=== PATIENT | male | born 1965 | race Caucasian/White ===

== ENCOUNTER 2018-07-15 10:08 | Inpatient (IN) | payer BC ==
--- NOTE | 2018-07-15 11:31 | EDPHY ---
General - History Smoking Status: Never smoked Time Seen by Provider: 07/15/18 10:53 Narrative: CLINICAL IMPRESSION: Severely anemic, melena, left anterior chest wall pain, weak ASSESSMENT/PLAN: 53-year-old male presents to the emergency department with 3 days of left anterior chest wall pain, shortness of breath, bilateral lower extremity pitting edema, and weakness. Patient appeared very pale and jaundiced on initial exam. He has a history of cirrhosis. Reproducible pain to palpation of the left anterior chest. Abdomen soft with no focal peritoneal findings. Tachycardic on arrival without hypoxia. Lab findings concerning for severe anemia with an H&H of 7 and 21, hypokalemia with AK of 2.4, elevated troponin 0.16, elevated D-dimer, the abnormal EKG. Case discussed immediately with Dr. Cruz who also saw and examined the patient. She performs stool studies which were guaiac positive. Dr. Cruz assumed care of this patient, discussed with Cardiology and hospitalist for admission. DIFFERENTIAL DX: Differential diagnosis includes but not limited to myocardial ischemia, pulmonary embolus, endocarditis, rib fracture, pneumonia, congestive heart failure chest wall pain, pleural inflammation, musculoskeletal chest wall pain, aortic aneurysm, and pulmonary infectious causes. ED PROCEDURES: See lab and/or imaging results below ED COURSE: 12:30 P.M: EKG, history, and initial diagnostic workup evaluation discussed with Dr. Cruz. Patient is significantly anemic at 7 and 21, hypokalemic, has an elevated D-dimer and an elevated troponin of 0.16. Patient was seen and examined by Dr. Cruz. She spoke with Cardiology. Will plan to admit the patient. Stool guaiac studies obtained by ED attending which are positive. Dr. Cruz has assumed care of this patient. CHIEF COMPLAINT: Left-sided anterior chest wall pain, shortness of breath, increased lower extremity edema HPI: 53-year-old male presents to the emergency department with 3 days of left anterior chest wall pain, shortness of breath, and increased lower extremity edema. Patient reports in October of last year he fell off a timothy in [place], sustained multiple fractures to the sternum, back, wrist and 3 anterior left rib fractures. Since that time he has had 3 separate falls to the same side of the left chest. He reports in November of last year he was found to have endocarditis and pneumonia, was admitted to a hospital in [place] on IV antibiotics for 1 month, discharged with a PICC line and completed outpatient antibiotics. He developed chronic pulmonary disease and CHF and was taking Lasix 20 mg daily as well as Ventolin inhalers. Patient moved to [place] 3 weeks ago. Reports he ran out of his Ventolin inhaler and lost several of his Lasix tablets. Three days ago he reports tripping on a trash bag full of clothes and landing yet again on the same left anterior rib area that was previously injured. He had Lasix sent to him and reports he restarted this 3 days ago but continues to notice lower extremity edema. He reports no chest pain or other cardiac history. He denies IV drugs. He does not smoke cigarettes but does smoke marijuana. He reports intermittent history of alcohol abuse and did drink recently. No complaints of abdominal pain, nausea, vomiting or abdominal distension. No reports of weight gain. No reported fever or chills. Patient states he came to the hospital today "because I would like a pneumonia shot, flu shot, and I want to be checked to make sure I do not have rib fractures or pneumonia". PAST MEDICAL HISTORY: Reported history of endocarditis, multiple rib fractures to the left, pulmonary edema and CHF on Lasix, pneumonia, cirrhosis See nurse/triage notes for additional history if applicable Pertinent Past Surgical History: None reported Family History: Noncontributory Social History: Drinks alcohol, recently moved to [place] 3 weeks ago REVIEW OF SYSTEMS: All other systems negative Constitutional: No fever, no chills, appetite change. Eyes: No discharge, vision change ENT: Positive for sore throat and voice change, congestion, denies ear pain. Cardiovascular: Positive for chest pain, no palpitations. Respiratory: Positive for cough, positive for shortness of breath. Gastrointestinal: No abdominal pain, no vomiting, diarrhea. Genitourinary: No hematuria, dysuria, flank pain, pelvic pain Musculoskeletal: No back pain, joint swelling, joint pain, myalgias. Skin: No rashes, color change. Neurological: No headache, dizziness, weakness. PHYSICAL EXAM: General Appearance: Alert, oriented, appropriate, cooperative, jaundice appearing, NAD, well hydrated, non-toxic appearing, tachycardic, afebrile no hypoxia, saturating 98% on room air. No orthopnea HEENT: TMs are clear bilaterally no perforation or FB, no injection, no evidence of serous or mucopurulent otitis. Oropharynx clear is no erythema or exudates Dry mucous membranes Dentition without abnormality. Eyes: PERRLA, no acute vision change, nystagmus, swelling, discharge, pain or photosensitivity. Conjunctiva pink, no pallor or injection, no obvious scleral icterus Neck: Supple, nontender, no lymphadenopathy, no midline pain, FROM, no meningismus. No JVD Respiratory: [There are no retractions, lungs are clear to auscultation. Reproducible pain to palpation of left anterior chest wall Cardiac: Regular rate and rhythm, no murmurs or gallops. Gastrointestinal: Abdomen is soft, nontender, mild to moderate hepatomegaly noted bowel sounds normal, no masses/hernia, no rigidity, guarding or focal peritoneal findings. Neurological: [ Alert and oriented x 3, CN 2-12 grossly intact Skin: Warm, dry, no rashes, no nodules on palpation. Patient does appear jaundiced Musculoskeletal: Extremities are symmetrical, full range of motion, no tenderness, 2+ pitting edema noted to bilateral lower extremities Psychiatric: Patient is oriented X 3, there is no agitation. MEDICAL DECISION MAKING: Patient was seen independently. Secondary supervising physician at time of evaluation was Dr. Cruz. Diagnosis: Weakness, chest wall pain, elevated troponin, melena, hypokalemia. New, requires workup Summary: See Assessment and Plan for summary of ED visit Clinical lab tests: ordered / reviewed. Independent visualization of images, tracing, or specimens: Yes. Discussed patient with another provider: Dr. Cruz who assumed care of this patient Patient Progress: Fair, stable for admission. (Benita,Christofer N) Medical Decision Making: I have evaluated and participated in the management of this patient. My co- signature indicates that I have reviewed this portions of the chart entered by Liset Low and that I agree with the findings and the plan of care as documented. I have spoken with the admitting hospitalist. My personal history and physical findings include: 53-year-old male with a history of alcoholic cirrhosis who presents concerned about shortness of breath , left rib pain, and leg swelling. He reports sustaining left-sided rib fractures in October. At that time he was in [facility] [place], fell from a significant height, and had multiple injuries including the aforementioned rib fractures, sternal fracture, hand fracture, lumbar fracture, and knee fracture. He was reportedly hospitalized the following month for 7 and half weeks and during that hospitalization was treated with IV antibiotics for endocarditis. He reports 2 other subsequent injuries to his left ribs--one while surfing in [place] in March and another this past Friday when he fell on his left side. He tells me that he has been told he has cirrhosis. He reportedly quit drinking alcohol 3 weeks ago but told another provider that he drank alcohol this past Friday. I found difficult to obtain a coherent medical history from this patient. He is awake and alert with what appears to be a linear thought process, but is having trouble providing details of his medical history. It is not clear to me what transpired during his prolonged hospitalization in November of 2017. On my exam he is awake and alert. Vital signs have been reviewed. General Appearance: Alert. Vital signs reviewed. Triage vital signs revealed a heart rate of 109 and a blood pressure of 119/37. Eyes: Pupils equal and round, no conjunctival injection, no discharge. No icterus ENT, Mouth: Mucous membranes are moist, no oropharyngeal erythema or edema. Neck: No lymphadenopathy, supple. JVD is present. Respiratory: Lungs are clear to auscultation; no wheezes, rales, or rhonchi. Cardiovascular: Regular rate and rhythm; a heart murmur is audible, as is a 3rd heart sound. Thorax: Tender to palpation over the lower ribs in the axillary line. No crepitus. Gastrointestinal: Abdomen is soft and nontender, no masses or organomegaly, bowel sounds normal. Rectal: External hemorrhoid. Stool is dark brown to black. No visible blood. Skin: Warm and dry, no rashes on exposed skin, he appears mildly jaundiced. Back: Nontender to palpation over the thoracolumbar spine. No CVAT. Extremities: Bilateral 1+ lower extremity edema, no calf tenderness or swelling. Neurological: Alert and oriented. Moving all four extremities easily and equally. EMILY. EOMI. Facial expressions symmetric. Tongue midline. Psychiatric: Normal affect. I reviewed the patient's chest x-ray and rib x-rays. He has rib fractures involving ribs 8 and 9. These appear acute. There is no pneumothorax. Mild cardiomegaly. I have reviewed the radiology report also. I reviewed the patient's laboratory studies. There are multiple laboratory abnormalities including hemoglobin and hematocrit of 7 and 21.4. His platelet count is [id number]. Potassium is low at 2.4. Bilirubin is elevated at 3.4 and AST is 130. I suspect that this is overall a picture of alcoholic cirrhosis and liver dysfunction. Stool guaiac is positive. He tells me that he has been taking [id number] iron. He is typed and crossed dizzy might require blood transfusion. He will receive an H2 oswald and possibly octreotide. He is also noted to have an elevated troponin at 0.16. This might be indicative of demand ischemia. I think that his chest pain is most likely due to his rib fractures. However, I reviewed his EKG and Cardiology has been consulted. Echocardiogram has been performed in the emergency department. Would like to be able to obtain additional information concerning his medical treatment over the past year. He is being admitted to the hospitalist service for further evaluation and treatment as needed. (Gali Cruz) - Objective Vital Signs: Initial Vital Signs Temperature (C) 36.3 C 07/15/18 10:09 Heart Rate 109 H 07/15/18 10:09 Respiratory Rate 18 07/15/18 10:09 Blood Pressure 119/37 L 07/15/18 10:09 O2 Sat (%) 98 07/15/18 10:09 O2 Delivery Mode Room Air Allergies/Adverse Reactions: No Known Allergies Allergy (Verified 07/15/18 13:24) Home Medications: Medication Instructions Recorded Albuterol [Proventil Inhaler HFA 1 - 2 puffs IH Q4H PRN 07/15/18 (*)] Calcium Carbonate [Oyster Shell 500 mg PO DAILY 07/15/18 Calcium 500 mg (*)] Furosemide [Lasix 20 MG (*)] 20 mg PO DAILY 07/15/18 Herbals/Supplements -Info Only 1 ea PO DAILY 07/15/18 Naproxen Sodium [Aleve 220 MG (*)] 220 mg PO BID 07/15/18 [place]-3 Fatty Acids [Fish Oil 1000 1,000 mg PO DAILY 07/15/18 mg (*)] Laboratory Results: Laboratory Results 07/15/18 10:42 07/15/18 10:42 07/15/18 13:15 Patient ABO/Rh A NEGATIVE Antibody Screen NEGATIVE Crossmatch IS Only See Detail Medications Given: Hydromorphone HCl (Dilaudid) 0.4 mg IVP Q4HRS PRN PRN Reason: Pain, Severe Unable to Take PO Stop: 07/26/18 00:45 Last Admin: 07/16/18 00:59 Dose: 0.4 mg Ceftriaxone Sodium/Dextrose (Rocephin 1 Gm (Premix)) 50 mls @ 100 mls/hr IV DAILY KIM PRN Reason: Protocol Stop: 08/14/18 16:59 Last Admin: 07/15/18 18:00 Dose: 50 mls Octreotide Acetate 500 mcg/ (Sodium Chloride) 51 mls @ 5 mls/hr IV CONT KIM Stop: 01/11/19 16:59 Last Admin: 07/16/18 01:43 Dose: 51 mls Norepinephrine 4 mg/ Sodium (Chloride) 504 mls @ 0 mls/hr IV CONT KIM; Per Protocol PRN Reason: Protocol Stop: 01/11/19 21:59 Last Admin: 07/16/18 05:57 Dose: 504 mls Oseltamivir Phosphate (Tamiflu) 75 mg PO BIDMEAL KIM Stop: 07/20/18 08:01 Last Admin: 07/15/18 19:12 Dose: Not Given Pantoprazole Sodium (Protonix) 40 mg IVP BID [facility] Stop: 01/11/19 14:14 Last Admin: 07/15/18 22:30 Dose: 40 mg Spironolactone (Aldactone) 25 mg PO BID KIM Stop: 01/11/19 20:59 Last Admin: 07/15/18 21:46 Dose: Not Given Discontinued Medications Furosemide (Lasix Injection) 20 mg IVP ONCE ONE Stop: 07/15/18 16:44 Last Admin: 07/15/18 20:43 Dose: Not Given Phytonadione 10 mg/ Sodium (Chloride) 51 mls @ 204 mls/hr IV ONCE ONE Stop: 07/15/18 17:03 Last Admin: 07/15/18 18:13 Dose: 51 mls Potassium Chloride 10 meq/ (Sodium Chloride) 100 mls @ 100 mls/hr IV Q1H [facility] Stop: 07/15/18 22:29 Last Admin: 07/15/18 22:13 Dose: Not Given Sodium Chloride (Ns) 500 mls @ 0 mls/hr IV ONCE ONE PRN Reason: Wide Open Stop: 07/15/18 20:01 Last Admin: 07/15/18 19:57 Dose: 500 mls Potassium Chloride (Potassium Cl 20 Meq (Premix)) 50 mls @ 100 mls/hr IV ONCE ONE Stop: 07/15/18 22:44 Last Admin: 07/15/18 22:28 Dose: 50 mls Potassium Chloride (Potassium Cl 10 Meq (Premix)) 50 mls @ 50 mls/hr IV Q1H [facility] Stop: 07/16/18 04:14 Last Admin: 07/16/18 03:26 Dose: 50 mls Octreotide Acetate (Octreotide Acetate) 50 mcg IVP ONCE ONE Stop: 07/15/18 16:55 Last Admin: 07/15/18 17:31 Dose: 50 mcg Potassium Chloride (Klor Packets) 40 meq PO EDNOW ONE Stop: 07/15/18 12:06 Last Admin: 07/15/18 12:11 Dose: 40 meq Potassium Chloride (Potassium Chloride Oral Liquid) 40 meq PO ONCE ONE Stop: 07/15/18 17:02 Last Admin: 07/15/18 18:15 Dose: Not Given Point of Care Test Results: Chemistry 07/15/18 11:51 POC Troponin I 0.16 ng/mL H ng/mL (0.00-0.08) Departure - Departure Disposition: [facility] Acute Clinical Impression: Left rib fracture Qualifiers: Encounter type: initial encounter Rib fracture type: multiple ribs Fracture type: closed Qualified Code(s): S22.42XA - Multiple fractures of ribs, left side , initial encounter for closed fracture Condition: Fair
[2018-07-15 11:35] LABS: PLATELET COUNT 105 10^3/uL (150-400)
[2018-07-15] MEDS ORDERED: POTASSIUM CL 20 MEQ PKT PO ONE (12:05)
--- NOTE | 2018-07-15 14:10 | ECHO ---
[email or web address] [address] [address] Main: [phone] Fax: [email or web address] Echocardiogram Name: ROSANNA MENARD MR#: [id number] Study Date: 07/15/2018 Study Time: 12:41 PM Date of : 1965 Age: 53 year(s) Height: 180.3 cm (71 in.) Weight: 81.65 kg (180 lb.) BSA: 2.02 m2 Gender: Male Examination: Echo Indication: Chest pain/hx of endocarditis, no prev from this facility Image Quality: Good Contrast: Requested by: Gali Cruz BP: / Heart Rate: Rhythm: Indication: Chest pain/hx of endocarditis, no prev from this facility Procedure Staff Brush Or Broom Cutter: [facility] Reading Physician: Ronak Shine MD Requesting Provider: Conclusions: Moderately dilated left ventricle. Normal global systolic LV function. The ejection fraction is estimated to be 65-70 %. No regional wall motion abnormality. Normal diastolic LV function. The left atrium is moderately to severely dilated. The right atrium is mildly dilated. Moderate mitral valve regurgitation is present. Poorly visualized aortic valve. Cannot determine valve morphology. Moderate aortic cusp calcification is present. Severe aortic valve regurgitation is present. Mild-moderate aortic valve stenosis. AV max PG is 39mmHG. AV mean PG is 22mmHG.. Trivial tricuspid valve regurgitation. Trivial pericardial effusion. Measurements: Chambers Valvular Assessment AV/MV Valvular Assessment TV/PV Normal Normal Normal Name Value Range Name Value Range Name Value Range IVSd (2D): 0.9 cm (0.6 cm-1.1 AV Vmax: 3.13 m/s (1 m/s-1.7 cm) m/s) LVDd (2D): 6.5 cm (4.2 cm-5.9 AV maxP mmHg ( - ) cm) AV meanP mmHg ( - ) LVDs (2D): 4.2 cm (2.1 cm-4 LVOT Vmax: 1.54 m/s (0.7 m/s-1.1 cm) m/s) LVPWd (2D): 1.0 cm (0.6 cm-1 HARDEEP (Vmax): 1.7 cm2 ( - ) cm) HARDEEP (VTI): 1.7 cm ( - ) LVOTd 2.1 cm 2.1 cm mm AR (PHT): 268 ms ( - ) Patient: ROSANNA MENARD Study Date: 07/15/2018 Page 1 of 2 12:41 PM LVEF (BP): 73 % (>=55 %) MV maxP mmHg ( - ) EF Range: 65-70 % MV meanP mmHg ( - ) MVA (Vmax): 2.8 m/s ( - ) Continued Measurements: Chambers Valvular Assessment AV/MV Name Value Name Value LADs: 5.2 cm MV Annulus: 3.4 cm LADs Lon.7 cm MV VTI: 34.20 cm LA Area: 29.8 cm2 MR Vena Contracta: 0.5 cm LA Volume: 106 ml MR ERO: 0.190 cm2 LA Volume Index: 52.5 ml/m2 MR PISA radius: 7 mm MR Reg. Volume: 21 ml MR Reg. Fraction: 7 % AR Vmax: 3.77 cm/s Additional Vessels Name Value Ao Ascendin.9 cm Findings: Left Ventricle: Moderately dilated left ventricle. No LV hypertrophy. Normal global systolic LV function. The ejection fraction is estimated to be 65-70 %. No regional wall motion abnormality. Normal diastolic LV function. Right Ventricle: Normal size right ventricle. Left Atrium: The left atrium is moderately to severely dilated. Right Atrium: The right atrium is mildly dilated. Mitral Valve: The mitral valve is normal in appearance and function. Moderate mitral valve regurgitation is present. Aortic Valve: Poorly visualized aortic valve. Cannot determine valve morphology. Moderate aortic cusp calcification is present. Severe aortic valve regurgitation is present. Mild-moderate aortic valve stenosis. AV max PG is 39mmHG. AV mean PG is 22mmHG.. Tricuspid Valve: The tricuspid valve is normal in appearance and function. Trivial tricuspid valve regurgitation. Pulmonic Valve: The pulmonic valve is normal in appearance and function. Aorta: The aorta is normal. Pericardium: Trivial pericardial effusion. (No Signature Object) Patient: ROSANNA MENARD Study Date: 07/15/2018 Page 2 of 2 12:41 PM [id number]
[2018-07-15 14:20] LABS: INR 1.58 (0.83-1.16)
[2018-07-15] MEDS ORDERED: PANTOPRAZOLE SODIUM 40 MG VIAL ONE (14:44)
[2018-07-15] MEDS: PANTOPRAZOLE SODIUM 40 MG VIAL IVP SCH ×2 (14:46→22:30)
[2018-07-15 15:58] LABS: PLATELET COUNT 90 10^3/uL (150-400)
[2018-07-15] MEDS ORDERED: PROTOCOL K PHOSPHATE 1 DOSE IV PRN (16:22)
[2018-07-15] MEDS ORDERED: PROTOCOL POTASSIUM 1 DOSE MISC PRN (16:22)
[2018-07-15] MEDS ORDERED: PROTOCOL MAGNESIUM 1 DOSE IV PRN (16:22)
[2018-07-15] MEDS ORDERED: FUROSEMIDE 20 MG/2 ML VIAL IVP ONE (16:43)
[2018-07-15] MEDS ORDERED: PHYTONADIONE 10 MG in NS 50 ML IV ONE (16:49)
[2018-07-15] MEDS ORDERED: OCTREOTIDE ACETATE 50 MCG/ML INJ IVP ONE (16:54)
[2018-07-15] MEDS ORDERED: POTASSIUM CL 20 MEQ/15 ML UDCUP PO ONE (17:01)
[2018-07-15] MEDS ORDERED: ALBUTEROL 60 PUFFS/8 GM MDI IH PRN (17:02)
[2018-07-15] MEDS ORDERED: ONDANSETRON 4 MG/2 ML VIAL IVP PRN (17:04)
[2018-07-15] MEDS ORDERED: LORazepam 2 MG/ML INJ IVP PRN (17:04)
[2018-07-15] MEDS ORDERED: ONDANSETRON DISINTEGRATING 4 MG TAB PO PRN (17:04)
--- NOTE | 2018-07-15 17:07 | CPEKG ---
Test Reason : OPEN Blood Pressure : / mmHG Vent. Rate : 105 BPM Atrial Rate : 106 BPM P-R Int : 153 ms QRS Dur : 071 ms QT Int : 379 ms P-R-T Axes : 049 012 058 degrees QTc Int : 502 ms Sinus tachycardia Ventricular premature complex Anteroseptal infarct, old Nonspecific T abnormalities, lateral leads Prolonged QT interval Confirmed by Raquel Jiménez ([id number]) on 07/15/2018 5:06:51 PM Referred By: Jose Wolf Confirmed By:Raquel Jiménez
--- NOTE | 2018-07-15 17:19 | PDCARCONS ---
Cardiology Consult Reason for Consult: Chest pain, lower extremity edema. Chief Complaint: Left-sided chest pain, lower extremity edema. Requesting Physician: Dr. Wolf. History of Present Illness: This is a 53-year-old male seen in consultation on the PCU. His history is extremely difficult to ascertain as he is tangential during the interview process. In talking to him he moved to the local area here about a month ago from [place]. 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 He has a cardiac history significant for what sounds like bacterial endocarditis that occurred in the setting of a prolonged hospitalization for trauma. This occurred back in October of 2016. He received 8 weeks of antibiotics. He states that he was followed up by local clinical trial assistant there and was told that everything was fine. He was, however, placed on Lasix and was told not to miss his Lasix doses. Over the last several weeks he has had symptoms of fatigue. He has also noted increasing lower extremity edema. Apparently for got his Lasix. His and kids live in [place] and were sending him Lasix pills through the mail. He took these sporadically. More recently he has been having symptoms of left- sided chest discomfort. This tends to be pleuritic in nature. He has also had a low-grade cough. He has not had chills per his report. As result, he came to the emergency department today for further evaluation. Here he was hemodynamically stable. He was noted to have lower extremity edema. He had multiple labs drawn with significant lab abnormalities noted. Specifically, was noted to be positive for influenza a and profoundly anemic. Furthermore, he had evidence of thrombocytopenia, coagulopathy and elevated transaminase levels. He states that he used to drink heavily although he has really cut back recently. He had 1/2 of a beer last weekend. In generally has no more than 2 or 3 beers a day per his report. He had an echocardiogram done here. This indicated a normal ejection fraction with moderate to severe LV dilatation. He had torrential aortic insufficiency with moderate mitral regurgitation. History Information - Allergies/Home Medication List Allergies/Adverse Reactions: No Known Allergies Allergy (Verified 07/15/18 13:24) Home Medications: Albuterol [Proventil Inhaler HFA (*)] 1 - 2 puffs IH Q4H PRN 07/15/18 [Last Taken 07/15/18] Calcium Carbonate [Oyster Shell Calcium 500 mg (*)] 500 mg PO DAILY 07/15/18 [ Last Taken 07/15/18] Furosemide [Lasix 20 MG (*)] 20 mg PO DAILY 07/15/18 [Last Taken 07/15/18] Herbals/Supplements -Info Only 1 ea PO DAILY 07/15/18 [Last Taken Unknown] Naproxen Sodium [Aleve 220 MG (*)] 220 mg PO BID 07/15/18 [Last Taken 07/15/18] [place]-3 Fatty Acids [Fish Oil 1000 mg (*)] 1,000 mg PO DAILY 07/15/18 [Last Taken 07/15/18] I have personally reviewed and updated: family history, medical history, social history, surgical history Past Medical History: Endocarditis, chest trauma, alcohol abuse, reactive airway disease. - Surgical History Reports: no pertinent surgical hx - Family History Positive for: non-pertinent - Social History Smoking Status: Never smoked Additional social history: He is from [place]. 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 Apparently he is living with friends. He used to drink heavily although states he has really cut back recently. He does not smoke. He uses marijuana occasionally. Physical Exam Physical Exam: Temp Pulse Resp BP Pulse Ox 36.5 C 101 H 18 92/58 L 97 07/15/18 14:54 07/15/18 14:54 07/15/18 14:54 07/15/18 14:54 07/15/18 14:54 Constitutional: no apparent distress, appears nourished, not in pain Eyes: PERRL, EOMI, other (Mild scleral icterus) Ears, Nose, Mouth, Throat: moist mucous membranes, hearing normal, ears appear normal, no oral mucosal ulcers Cardiovascular: regular rate and rhythym, JVD (To the mid neck.), pulses symmetric bilaterally, edema (1 quarter-inch pitting edema bilaterally in the lower extremities extending proximally to the knee), other (He has both a loud diastolic and loud systolic murmur over the left sternal border. There is a loud 3rd heart sound appreciated.) Peripheral Pulses: 4+: carotid (R), carotid (L) Respiratory: no respiratory distress, no rales or rhonchi, clear to auscultation Gastrointestinal: normoactive bowel sounds, soft, non-tender abdomen, no palpable masses Genitourinary: no bladder fullness, no bladder tenderness Skin: warm, normal color, no rashes or abrasions, no fluctuance, no induration, No mottled Musculoskeletal: full muscle strength, no muscle tenderness, normal joint ROM, no joint effusions Psychiatric: interacting appropriately, not anxious, not encephalopathic, thought process linear Lymph, Heme, Immunologic: no cervical LAD, no supraclavicular LAD Lab and Imaging 07/15/18 15:30 07/15/18 15:30 WBC 8.34 10^3/uL (3.80-9.50) 07/15/18 15:30 RBC 1.65 10^6/uL (4.40-6.38) L 07/15/18 15:30 Hgb 6.0 g/dL (13.7-17.5) L 07/15/18 15:30 Hct 18.1 % (40.0-51.0) L 07/15/18 15:30 MCV 109.7 fL (81.5-99.8) H 07/15/18 15:30 MCH 36.4 pg (27.9-34.1) H 07/15/18 15:30 MCHC 33.1 g/dL (32.4-36.7) 07/15/18 15:30 RDW 15.8 % (11.5-15.2) H 07/15/18 15:30 Plt Count 90 10^3/uL (150-400) L 07/15/18 15:30 MPV 11.6 fL (8.7-11.7) 07/15/18 15:30 Neut % (Auto) 61.3 % (39.3-74.2) 07/15/18 15:30 Lymph % (Auto) 24.6 % (15.0-45.0) 07/15/18 15:30 [place] % (Auto) 13.2 % (4.5-13.0) H 07/15/18 15:30 Eos % (Auto) 0.1 % (0.6-7.6) L 07/15/18 15:30 Baso % (Auto) 0.1 % (0.3-1.7) L 07/15/18 15:30 Nucleat RBC Rel Count 1.6 % (0.0-0.2) H 07/15/18 15:30 Absolute Neuts (auto) 5.11 10^3/uL (1.70-6.50) 07/15/18 15:30 Absolute Lymphs (auto) 2.05 10^3/uL (1.00-3.00) 07/15/18 15:30 Absolute Monos (auto) 1.10 10^3/uL (0.30-0.80) H 07/15/18 15:30 Absolute Eos (auto) 0.01 10^3/uL (0.03-0.40) L 07/15/18 15:30 Absolute Basos (auto) 0.01 10^3/uL (0.02-0.10) L 07/15/18 15:30 Absolute Nucleated RBC 0.13 10^3/uL (0-0.01) H 07/15/18 15:30 Immature Gran % 0.7 % (0.0-1.1) 07/15/18 15:30 Immature Gran # 0.06 10^3/uL (0.00-0.10) 07/15/18 15:30 Platelet Estimate DECREASED (ADEQ) L 07/15/18 15:30 Polychromasia 2+ H 07/15/18 15:30 Hypochromasia 1+ H 07/15/18 15:30 Oval Macrocytes 3+ H 07/15/18 15:30 PT 19.0 SEC (12.0-15.0) H 07/15/18 10:42 INR 1.58 (0.83-1.16) H 07/15/18 10:42 D-Dimer 2.83 ug/mLFEU (0.00-0.50) H 07/15/18 10:42 Sodium 136 mEq/L (135-145) 07/15/18 10:42 Potassium 2.7 mEq/L (3.5-5.2) L* 07/15/18 15:30 Chloride 106 mEq/L (97-110) 07/15/18 10:42 Carbon Dioxide 22 mEq/l (22-31) 07/15/18 10:42 Anion Gap 8 mEq/L (6-14) 07/15/18 10:42 BUN 33 mg/dL (7-23) H 07/15/18 10:42 Creatinine 0.9 mg/dL (0.7-1.3) 07/15/18 10:42 Estimated GFR > 60 07/15/18 10:42 Glucose 106 mg/dL (70-100) H 07/15/18 10:42 Calcium 7.8 mg/dL (8.5-10.4) L 07/15/18 10:42 Phosphorus 2.9 mg/dL (2.5-4.5) 07/15/18 10:42 Magnesium 1.8 mg/dL (1.6-2.3) 07/15/18 15:30 Total Bilirubin 3.4 mg/dL (0.1-1.4) H 07/15/18 10:42 Conjugated Bilirubin 2.5 mg/dL (0.0-0.5) H 07/15/18 10:42 Unconjugated Bilirubin 0.9 mg/dL (0.0-1.1) 07/15/18 10:42 AST 130 IU/L (17-59) H 07/15/18 10:42 ALT 31 IU/L (21-72) 07/15/18 10:42 Alkaline Phosphatase 97 IU/L (38-126) 07/15/18 10:42 POC Troponin I 0.16 ng/mL (0.00-0.08) H 07/15/18 11:51 NT-Pro-B Natriuret Pep 1600 pg/mL (0-125) H 07/15/18 10:42 Total Protein 5.9 g/dL (6.3-8.2) L 07/15/18 10:42 Albumin 2.4 g/dL (3.5-5.0) L 07/15/18 10:42 Nasal Influenza A PCR FLU A DETECTED (NEGATIVE) H 07/15/18 14:50 Nasal Influenza B PCR NEGATIVE FOR FLU B (NEGATIVE) 07/15/18 14:50 Stool Occult Bld Scrn POSITIVE (NEGATIVE) H 07/15/18 12:35 Patient ABO/Rh A NEGATIVE 07/15/18 13:15 Antibody Screen NEGATIVE 07/15/18 13:15 Crossmatch IS Only See Detail 07/15/18 13:15 Visualized and Interpreted Chest x-ray results: Yes Chest X-ray Interpretation: no infiltrate EKG additional interpertation: Sinus tachycardia with nonspecific ST and T changes. Evidence of a possible anteroseptal GA age undetermined. Telemetry: Sinus tachycardia. Echocardiogram: There is a full and separately dictated report in the chart. He has moderate ventricular dilatation with preserved ejection fraction. His aortic valve is likely trileaflet although a bicuspid valve cannot be excluded. The valve is calcified. This is associated with torrential aortic insufficiency. He has moderate mitral regurgitation and trace tricuspid regurgitation. No obvious vegetations are noted. A/P Assessment: 1. Chest pain. This appears to be musculoskeletal in nature. He has evidence of rib fractures noted on his chest x-ray. He does have a history of previous chest wall trauma although radiographically comments are made that these might be more acute. Fortunately, there does not appear to be any local consequence such as pneumothorax or hemothorax as a result of these rib fractures. His chest pain may also be contributed to by probable influenza a. 2. Congestive heart failure. He has evidence of right greater than left-sided congestive heart failure. This is in the setting of significant valvular heart disease characterized by severe aortic insufficiency and moderate mitral regurgitation. His left ventricle appears to be dilated likely or a result of the above-noted valvular heart disease and potentially chronic alcohol use. He has a history of endocarditis with a market abnormal appearance to his aortic valve. It is also possible that he may have recurrent endocarditis. There is no indication at the present time of underlying ischemia despite having a slightly elevated troponin which is very likely related to his CHF. Certainly his recent development of significant anemia may be exacerbating his heart failure. 3. Hematologic abnormalities. These are characterized by severe macrocytic anemia, thrombocytopenia and coagulopathy. This constellation of findings suggest long-term alcohol abuse likely with a component of hepatic dysfunction. Additionally, he has heme-positive stools and has had a recent significant drop in his medic rib. This may signify a more acute process such as a gastrointestinal bleed. 4. Electrolyte abnormalities. He has evidence of severe hypokalemia. Again this is likely related to alcohol abuse. 5. Elevated liver function tests. This is associated with hypoalbuminemia. The pattern of LFT abnormalities also suggest alcohol abuse. 6. Influenza. Plan: 1. I did discuss this case with Dr. Wolf. 2. I started him on a low-dose of Aldactone 25 mg twice daily. 3. He will have blood cultures drawn today. 4. Per plans from the primary team he will be transfused. I did ask that he received Lasix between units of packed red blood cells. 5. Serial cardiac enzymes will be drawn. 6. He was placed on electrolyte protocol. 7. Obviously, he will need to be observed for alcohol withdrawal. 8. Depending on his clinical course, he appears to be at a point now with respect to his valvular heart disease where surgical intervention should be strongly considered. 9. I would like to contact his previous doctors from [facility] in [facility] to get his prior records. 10. We will follow along with you. Review of Systems Review of Systems: Attempts were made for a complete review of systems. This was not possible due to his tangential answers.
--- NOTE | 2018-07-15 17:23 | PDGENHP ---
History and Physical - History of Present Illness 53 yo male p/w cp, SOB, fatigue, edema. Obtaining a history is very difficult for unclear reasons. He appears to be oriented. In October of last year he fell off a timothy in [place], sustained multiple fractures to the sternum, back, wrist and 3 anterior left rib fractures. Since that time he has had 3 separate falls to the same side of the left chest. He reports in November of last year he was found to have endocarditis and pneumonia, was admitted to a hospital in [place] on IV antibiotics for 1 month, discharged with a PICC line and completed outpatient antibiotics. He developed chronic pulmonary disease and CHF and was taking Lasix 20 mg daily as well as Ventolin inhalers. Patient moved to [place] 3 weeks ago. Reports he ran out of his Ventolin inhaler and lost several of his Lasix tablets. Three days ago he reports tripping on a trash bag full of clothes and landing yet again on the same left anterior rib area that was previously injured. He had Lasix sent to him and reports he restarted this 3 days ago but continues to notice lower extremity edema. He reports no chest pain or other cardiac history. He denies IV drugs. He does not smoke cigarettes but does smoke marijuana. He reports intermittent history of alcohol abuse and did drink recently. No complaints of abdominal pain, nausea, vomiting or abdominal distension. No reports of weight gain. No reported fever or chills. In the ER he is noted to have a Hgb of 7 and + Hemoccult. He reports intermittent melena He is a bit short of breath He has been afebrile He reports long hx of ETOH use but quit several months ago. Denies recent use. He does appear to have a tremor He denies abd pain. He is found to have low K and this has been replaced. PAST MEDICAL HISTORY: Reported history of endocarditis, multiple rib fractures to the left, pulmonary edema and CHF on Lasix, pneumonia, cirrhosis Pertinent Past Surgical History: None reported Family History: Noncontributory Social History: Drinks alcohol, recently moved to [place] 3 weeks ago History Information - Allergies/Home Medication List Allergies/Adverse Reactions: No Known Allergies Allergy (Verified 07/15/18 13:24) Home Medications: Albuterol [Proventil Inhaler HFA (*)] 1 - 2 puffs IH Q4H PRN 07/15/18 [Last Taken 07/15/18] Calcium Carbonate [Oyster Shell Calcium 500 mg (*)] 500 mg PO DAILY 07/15/18 [ Last Taken 07/15/18] Furosemide [Lasix 20 MG (*)] 20 mg PO DAILY 07/15/18 [Last Taken 07/15/18] Herbals/Supplements -Info Only 1 ea PO DAILY 07/15/18 [Last Taken Unknown] Naproxen Sodium [Aleve 220 MG (*)] 220 mg PO BID 07/15/18 [Last Taken 07/15/18] [place]-3 Fatty Acids [Fish Oil 1000 mg (*)] 1,000 mg PO DAILY 07/15/18 [Last Taken 07/15/18] I have personally reviewed and updated: medical history, social history - Social History Smoking Status: Never smoked Review of Systems Review of Systems: ROS: 10pt was reviewed & negative except for what was stated in HPI & below Physical Exam Physical Exam: Temp Pulse Resp BP Pulse Ox 36.5 C 101 H 18 92/58 L 97 07/15/18 14:54 07/15/18 14:54 07/15/18 14:54 07/15/18 14:54 07/15/18 14:54 Constitutional: no apparent distress Eyes: PERRL, EOMI Ears, Nose, Mouth, Throat: moist mucous membranes Cardiovascular: regular rate and rhythym, JVD, edema Respiratory: no respiratory distress, no rales or rhonchi, reduced air movement Gastrointestinal: normoactive bowel sounds, soft, non-tender abdomen Skin: warm Neurologic: AAOx3 Psychiatric: interacting appropriately, not encephalopathic, anxious Lymph, Heme, Immunologic: No petechiae Lab Data & Imaging Review 07/15/18 15:30 07/15/18 15:30 WBC 8.34 10^3/uL (3.80-9.50) 07/15/18 15:30 RBC 1.65 10^6/uL (4.40-6.38) L 07/15/18 15:30 Hgb 6.0 g/dL (13.7-17.5) L 07/15/18 15:30 Hct 18.1 % (40.0-51.0) L 07/15/18 15:30 MCV 109.7 fL (81.5-99.8) H 07/15/18 15:30 MCH 36.4 pg (27.9-34.1) H 07/15/18 15:30 MCHC 33.1 g/dL (32.4-36.7) 07/15/18 15:30 RDW 15.8 % (11.5-15.2) H 07/15/18 15:30 Plt Count 90 10^3/uL (150-400) L 07/15/18 15:30 MPV 11.6 fL (8.7-11.7) 07/15/18 15:30 Neut % (Auto) 61.3 % (39.3-74.2) 07/15/18 15:30 Lymph % (Auto) 24.6 % (15.0-45.0) 07/15/18 15:30 [place] % (Auto) 13.2 % (4.5-13.0) H 07/15/18 15:30 Eos % (Auto) 0.1 % (0.6-7.6) L 07/15/18 15:30 Baso % (Auto) 0.1 % (0.3-1.7) L 07/15/18 15:30 Nucleat RBC Rel Count 1.6 % (0.0-0.2) H 07/15/18 15:30 Absolute Neuts (auto) 5.11 10^3/uL (1.70-6.50) 07/15/18 15:30 Absolute Lymphs (auto) 2.05 10^3/uL (1.00-3.00) 07/15/18 15:30 Absolute Monos (auto) 1.10 10^3/uL (0.30-0.80) H 07/15/18 15:30 Absolute Eos (auto) 0.01 10^3/uL (0.03-0.40) L 07/15/18 15:30 Absolute Basos (auto) 0.01 10^3/uL (0.02-0.10) L 07/15/18 15:30 Absolute Nucleated RBC 0.13 10^3/uL (0-0.01) H 07/15/18 15:30 Immature Gran % 0.7 % (0.0-1.1) 07/15/18 15:30 Immature Gran # 0.06 10^3/uL (0.00-0.10) 07/15/18 15:30 Platelet Estimate DECREASED (ADEQ) L 07/15/18 15:30 Polychromasia 2+ H 07/15/18 15:30 Hypochromasia 1+ H 07/15/18 15:30 Oval Macrocytes 3+ H 07/15/18 15:30 PT 19.0 SEC (12.0-15.0) H 07/15/18 10:42 INR 1.58 (0.83-1.16) H 07/15/18 10:42 D-Dimer 2.83 ug/mLFEU (0.00-0.50) H 07/15/18 10:42 Sodium 136 mEq/L (135-145) 07/15/18 10:42 Potassium 2.7 mEq/L (3.5-5.2) L* 07/15/18 15:30 Chloride 106 mEq/L (97-110) 07/15/18 10:42 Carbon Dioxide 22 mEq/l (22-31) 07/15/18 10:42 Anion Gap 8 mEq/L (6-14) 07/15/18 10:42 BUN 33 mg/dL (7-23) H 07/15/18 10:42 Creatinine 0.9 mg/dL (0.7-1.3) 07/15/18 10:42 Estimated GFR > 60 07/15/18 10:42 Glucose 106 mg/dL (70-100) H 07/15/18 10:42 Calcium 7.8 mg/dL (8.5-10.4) L 07/15/18 10:42 Phosphorus 2.9 mg/dL (2.5-4.5) 07/15/18 10:42 Magnesium 1.8 mg/dL (1.6-2.3) 07/15/18 15:30 Total Bilirubin 3.4 mg/dL (0.1-1.4) H 07/15/18 10:42 Conjugated Bilirubin 2.5 mg/dL (0.0-0.5) H 07/15/18 10:42 Unconjugated Bilirubin 0.9 mg/dL (0.0-1.1) 07/15/18 10:42 AST 130 IU/L (17-59) H 07/15/18 10:42 ALT 31 IU/L (21-72) 07/15/18 10:42 Alkaline Phosphatase 97 IU/L (38-126) 07/15/18 10:42 POC Troponin I 0.16 ng/mL (0.00-0.08) H 07/15/18 11:51 NT-Pro-B Natriuret Pep 1600 pg/mL (0-125) H 07/15/18 10:42 Total Protein 5.9 g/dL (6.3-8.2) L 07/15/18 10:42 Albumin 2.4 g/dL (3.5-5.0) L 07/15/18 10:42 Nasal Influenza A PCR FLU A DETECTED (NEGATIVE) H 07/15/18 14:50 Nasal Influenza B PCR NEGATIVE FOR FLU B (NEGATIVE) 07/15/18 14:50 Stool Occult Bld Scrn POSITIVE (NEGATIVE) H 07/15/18 12:35 Patient ABO/Rh A NEGATIVE 07/15/18 13:15 Antibody Screen NEGATIVE 07/15/18 13:15 Crossmatch IS Only See Detail 07/15/18 13:15 Assessment & Plan Assessment: #Acute GIB -Source unclear #ABLA #Coagulopathy/Thrombocytopenia #CHF-Acute on chronic #Hypotension #Hypokalemia #Hx of ETOH #Influenza A #Valvular disease: #rib Fractures #chest pain Plan: -GI: Have not r/o variceal bleed. Hgb dropped by one point since a.m. Will start Octreotide. Give Vit K. Start PPI. Start Abx. GI consulted. May need scope urgently if becomes hypotensive or unstable. GI aware -Transfuse 2 units, Lasix in between -Cardiology consulting. Spironolactone started. Avoid additional diuretics until more stable. -Replace K -Abd US to eval liver -CP r/o -will need to address valvular disease once more stable -check urine tox -denies recent ETOH, but will provide Ativan as needed noting hand tremor -SCD's total critical care time in this pt with acute bleed and chf and hypotension is 90 mins. D/W cardiology, GI, nursing.
[2018-07-15] MEDS: OCTREOTIDE ACETATE 500 MCG in NS 50 ML IV SCH (17:40)
[2018-07-15] MEDS ORDERED: POTASSIUM Cl (KCl) 50 ML IV SCH (18:15)
--- NOTE | 2018-07-15 18:18 | SOAPPROG ---
SOAP Progress Note Assessment/Plan: Assessment:Plan: see full consult already dictated poor historian - PMH cirrhosis, endocarditis, pneumonia, rib fx's, falls, CHF, aortic insufficiency melena Friday and Friday, decreased Hb/HCT and increased BUN c/w UGI bleed hemodynamically stable, low potassium, positive for flu A, low plts/elevated LFT 's/jaundice c/w cirrhosis - PPI BID - Octreotide drip - PRBC x 2, serial H/H keep Hb > 7 - correct electrolyte abnormalities - abdo sonogram - old records from [facility] - full serologic evaluation for liver dz pending review of work-up in [place] - alcohol abstinence - tentative EGD at 9:[address] Pa and anesthesia Michael Henson MD [phone] 07/15/18 18:12 Objective: Vital Signs Temp Pulse Resp BP Pulse Ox 36.5 C 101 H 18 92/58 L 97 07/15/18 14:54 07/15/18 14:54 07/15/18 14:54 07/15/18 14:54 07/15/18 14:54 Laboratory Results 07/15/18 17:37 07/14/18 07/15/18 07/16/18 05:59 05:59 05:59 Intake Total 100 Output Total 0 Balance 100 PT 19.0 SEC (12.0-15.0) H 07/15/18 10:42 INR 1.58 (0.83-1.16) H 07/15/18 10:42 ICD10 Worksheet Patient Problems: Problems Problem Status Onset Left rib fracture Acute
[2018-07-15] MEDS: POTASSIUM Cl (KCl) 10 MEQ in NS 100 ML IV SCH ×3 (18:28→22:13)
[2018-07-15] MEDS ORDERED: ALTEPLASE 2 MG VIAL IVP PRN (19:08)
[2018-07-15] MEDS: OSELTAMIVIR PHOSPHATE 75 MG CAP PO SCH (19:12)
[2018-07-15] MEDS ORDERED: NS BOLUS 500 ML (Wide open) IV ONE (20:00)
[2018-07-15] MEDS: SPIRONOLACTONE 25 MG TAB PO SCH (21:46)
[2018-07-15] MEDS ORDERED: NOREPINEPHRINE BITARTRATE 16 MG in NS 250 ML IV SCH (22:00)
[2018-07-15] MEDS ORDERED: POTASSIUM Cl (KCl) 50 ML IV ONE (22:15)
[2018-07-15] MEDS: NOREPINEPHRINE BITARTRATE 4 MG in NS 500 ML IV SCH (22:23)
--- NOTE | 2018-07-16 00:12 | HOSPPROG ---
Hospitalist Progress Note Assessment/Plan: Called by eugene shaffer on patient, reviewed notes: 53 yo M with cirrhosis, severe VHD, GI bleed concerning for variceal vs PUD as etiology. H/h trending down, transfusing. Patient without good access and requiring multiple infusions including potassium, blood, octreotide etc--PICC ordered emergently. Patient transferred to ICU. Patient continues to be hypotensive despite blood and fluid resuscitation, will not tolerate lasix that is ordered. Started on NE, discussed with GI who is aware. Plan will be to scope in am, but given patients instability and multiple active issues this will be high risk. Will get repeat h /h after blood. > 35 min critical care time spent in review of records, evaluation of labs and imaging, coordination of care with nurses and other MDs Objective: Vital Signs Temp Pulse Resp BP Pulse Ox 37.3 C 110 H 18 114/54 L 0 L 07/15/18 20:00 07/15/18 23:27 07/15/18 23:27 07/15/18 23:27 07/15/18 23:27 Laboratory Results 07/15/18 23:45 07/15/18 17:37 07/14/18 07/15/18 07/16/18 05:59 05:59 05:59 Intake Total 913.5 Output Total 250 Balance 663.5 PT 19.0 SEC (12.0-15.0) H 07/15/18 10:42 INR 1.58 (0.83-1.16) H 07/15/18 10:42 ICD10 Worksheet Patient Problems: Problems Problem Status Onset Left rib fracture Acute
[2018-07-16] MEDS ORDERED: HYDROmorphONE/DILAUDID 1 MG/ML INJ IVP PRN (00:46)
[2018-07-16] MEDS: POTASSIUM Cl (KCl) 50 ML IV SCH ×3 (01:21→03:26)
[2018-07-16] MEDS: OCTREOTIDE ACETATE 500 MCG in NS 50 ML IV SCH (01:43)
--- NOTE | 2018-07-16 04:53 | GCON ---
REFERRING PHYSICIAN: Jose Wolf MD INDICATION FOR CONSULTATION: Significant anemia with melenic-type stools. HISTORY OF PRESENT ILLNESS: The patient is a pleasant 53-year-old male who is a poor historian, some what tangential in his history. He is admitted today after he came to the emergency room for evaluat ion of possible pneumonia or rib fracture. He has a complicated medical history, which again is diff icult to obtain from the patient as he does not give a clear history. He had a number of falls, one which was in [facility] last year, and then in [place] as well. It see ms that he was admitted in November of last year to a hospital in [place] and eventually was at [facility] in [place], and by his report, it sounds like he had endocarditis and pneumonia. He was in the [facility] from November 30 through January and was discharged on Lasix as well as Ventolin inhalers. He also says that he was told that he had cirrhosis more than a year ago. He does not remember if he had a f ull serologic workup, but was told that the issue was related to alcohol, although, he only admits to a few drinks a day. On admission here, he was noted to have elevated liver enzymes, elevated bilirubin, decreased platele ts, all consistent with cirrhosis. 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 He did not bring his Lasix and ran out of his Ventolin as well. He is up in [place] staying with friends and a few days ago he tripped on a trash bag full of clothes a nd fell on his open suitcase on the same area that he had fractured his ribs in the past. He present ed to the hospital for evaluation and was admitted for the above. He denies any fevers, chills, sweats. He does have some shortness of breath and cough. He is positi ve for influenza A. He has long history of alcohol abuse, although only admits to a few drinks a day , and he has quit for a few months at a time. He was noted to be heme positive with dark black stool s in the ER. By his report, he had multiple melenic stools on Friday and Friday, but none yesterday and only a more normal looking stool by his account today. He is now admitted for the above and I am called to help evaluate and treat in that regard. PAST MEDICAL HISTORY: He was told he had cirrhosis a year ago. He has a history of endocarditis, mu ltiple rib fractures, multiple falls, pulmonary edema, CHF. PAST SURGICAL HISTORY: Four wisdom teeth removed and some other teeth removed. HOME MEDICATIONS: Included just Lasix and Ventolin. MEDICATIONS: In hospital currently include Tylenol p.r.n., albuterol inhaler, ceftriaxone 1 g IV james ly, lorazepam p.r.n., magnesium sulfide, octreotide bolus and drip, Zofran p.r.n., Tamiflu 75 mg p.o. b.i.d., Protonix 40 mg IV b.i.d., potassium supplementation, Aldactone 25 mg b.i.d., Lasix he receiv ed 20 mg IV in the ER. He is receiving vitamin K IV. ALLERGIES: No known drug allergies. SOCIAL HISTORY: Does not smoke. His beer intake he only admits to 2-3 a day, although, he said he d rank lots more previously. FAMILY HISTORY: No cancer. No liver disease to his knowledge. REVIEW OF SYSTEMS: A complete review of systems was performed and negative other than noted in the H PI. PHYSICAL EXAM: GENERAL: A well-developed, well-nourished, middle-aged man sitting in his bed. No a cute distress. CURRENT VITAL SIGNS: Blood pressure 92/58, pulse 101, respirations 18, 97% on room a ir, temperature 36.5. EYES: Icteric. PERRL. EOMI. MOUTH: No lesions. Moist mucous membranes. NECK: Supple. Full range of motion. No JVD. BACK: No spine tenderness. No CVA tenderness. CARD IAC: Mildly decreased breath sounds. I do not appreciate any rales or rhonchi or egophony. CARDIAC : S1, S2. There is both diastolic and systolic murmurs and a third heart sound. He has JVD to his mid neck. ABDOMEN: Bowel sounds are normal in pitch and frequency. Abdomen is soft with mild left upper quadrant tenderness over mildly enlarged spleen. EXTREMITIES: 1 to 2+ edema lower extremities . No cyanosis or clubbing. NEUROLOGIC: Cranial nerves intact. Nonfocal. No evidence of asterixis . SKIN: No rashes. LABORATORY DATA: On admission, sodium 136, potassium 2.4, chloride 106, bicarb 22, BUN 33, creatinin e 0.9, glucose 106, calcium 7.8, phosphorus 2.9, magnesium 1.7, bilirubin 3.4, conjugated 2.5, AST 13 0, ALT 31, alkaline phosphatase 97. BNP 1600. Total protein 5.9, albumin 2.4. Troponin 0.16. Pro- time 19.0, INR 1.58, PTT 28.3. WBC 9.86, hemoglobin 7.0, hematocrit 21.4, platelet count 105, repeat hemoglobin 6.0, hematocrit 18.1, and platelet count is 90. He has positive occult blood on rectal exam and flu A was detected with nasal swab PCR. Echocardiogram performed today reveals severe aortic valve regurgitation, moderate mitral valve regur gitation, mild moderate aortic valve stenosis. Ejection fraction about 65% to 70%. No regional wall motion abnormalities. Normal diastolic left ventricle function. A rib x-ray performed today revealed acute left 8th and 9th peripheral lateral rib fractures with no evidence of pneumothorax, mild cardiomegaly, right bibasilar subsegmental atelectasis versus fibrosis with a small right pleural effusion versus pleural scarring. A chest x-ray performed today revealed cardiomegaly without obvious failure, possible pericardial eff usion, interstitial lung disease of unknown chronicity. Suspect acute left rib fractures, mild T11 a nd T12 compression fraction of unknown age. ASSESSMENT: 1. Posthemorrhagic anemia. 2. Likely cirrhosis with elevated bilirubin and pro-time, and decreased platelet count. 3. Hypokalemia. 4. Valvular disease. 5. Influenza. 6. Rib fractures. 7. History of alcohol use/abuse. 8. Congestive heart failure. 9. Elevated liver enzymes and jaundice. RECOMMENDATIONS: 1. Serial H and H. 2. PRBC is ordered for 2 units. 3. Octreotide bolus plus continuous drip as ordered. 4. Continue PPI therapy. 5. EGD tentatively scheduled for 9:30 tomorrow morning with anesthesia. If there is any evidence of significant upper GI bleed this evening I will have to come in as an emergency procedure. If he sti ll has significant electrolyte abnormalities and his hemoglobin is relatively stable and he is hemody namically stable, the EGD may be postponed after consultation with Cardiology. 6. Abdominal ultrasound as ordered by hospitalist. 7. Continue diuretics as per Cardiology. If there is no evidence of ascites, then the diuretic shou ld be all related to his congestive heart failure. 8. Follow up blood cultures. 9. Replace potassium and electrolytes. 10. Get old records from [facility] on [place]. 11. Evaluation for withdrawal as per hospitalists. 12. After reviewing data from [facility] will need full serologic workup for evaluation of other causes of liver disease to include hepatitis A, hepatitis B, hepatitis C, autoimmune metabolic disorders in cluding alpha-1 antitrypsin deficiency and Matthew's disease with ceruloplasmin. If this had been per formed last year at [facility], we do not need to repeat all of those lab data. 13. Recommend lifelong alcohol abstinence. 14. If the patient has not had a colonoscopy in the past will need sometime in the near future. Cer tainly, this is not urgent and can be performed as an outpatient when the patient is much more stable . 15. Tamiflu as per hospitalist. 16. Pain relief as per hospitalist. I would like to avoid acetaminophen given his underlying liver disease. 17. Further recommendations to follow results of above and clinical course. The EGD will be high risk no matter when we perform it. We will ask Anesthesia to perform the sedati on and monitor the patient during the procedure. Thank you for allowing me to participate in this patient's healthcare. Do not hesitate to call me if any questions. /[id number]/MODL
[2018-07-16] MEDS: NOREPINEPHRINE BITARTRATE 4 MG in NS 500 ML IV SCH ×2 (05:57→12:52)
[2018-07-16 06:32] LABS: INR 1.7 (0.83-1.16); PROTIME(PATIENT) 20.1 SEC (12.0-15.0)
[2018-07-16 07:10] LABS: PLATELET COUNT 103 10^3/uL (150-400)
[2018-07-16] MEDS ORDERED: MAGNESIUM SULF 1 GM/DEXTROSE 100 ML IV ONE (08:03)
[2018-07-16] MEDS ORDERED: POTASSIUM Cl (KCl) 50 ML IV ONE (08:03)
[2018-07-16] MEDS ORDERED: PNEUMOCOCCAL 0.5ML VACCINE VIAL (PNEUMOVAX 23) IM ONE (08:10)
--- NOTE | 2018-07-16 09:56 | PDGENHP ---
History & Physical Chief Complaint: CC anemia History of Present Illness: heart disease, likely liver disease Relevant Physical Exam: cv rrr murmur. chest CTA. abd soft. asa4
--- NOTE | 2018-07-16 10:08 | PDANEPAE ---
ANE History of Present Illness 53 yo male in ICU with CHF secondary to severe AI and EtOH abuse, liver dysfunction and anemia secondary to EtOH abuse. Pt had melena, will get EGD today with anesthesia. ANE Past Medical History - Cardiovascular History Hx Coronary Artery / Peripheral Vascular Disease: No Hx CHF / Valvular Disease: Yes Cardiovascular History Comment: severe AI, mod MR, current CHF - Pulmonary History Hx COPD: No Hx Recent Upper Respiratory Infection: Yes Hx Oxygen in Use at Home: No Hx Sleep Apnea: No Sleep Apnea Screening Result - Last Documented: Positive Pulmonary History Comment: influenza A currently - Endocrine History Hx Diabetes: No - Renal History Hx Renal Disorders: No - Liver History Hx Hepatic Disorders: Yes Hepatic History Comment: liver dysfuncion secondary to EtOH abuse - GI History Hx Gastrointestinal Disorders: Yes Gastrointestinal History Comment: GI bleed ANE Review of Systems Review of Systems: - Systems Constitutional: Reports: malaise Respiratory: Reports: cough Hematologic/Lymphatic: Reports: anemia ANE Patient History - Allergies Allergies/Adverse Reactions: No Known Allergies Allergy (Verified 07/15/18 13:24) - Home Medications Home Medications: Albuterol [Proventil Inhaler HFA (*)] 1 - 2 puffs IH Q4H PRN 07/15/18 [Last Taken 07/15/18] Calcium Carbonate [Oyster Shell Calcium 500 mg (*)] 500 mg PO DAILY 07/15/18 [ Last Taken 07/15/18] Furosemide [Lasix 20 MG (*)] 20 mg PO DAILY 07/15/18 [Last Taken 07/15/18] Herbals/Supplements -Info Only 1 ea PO DAILY 07/15/18 [Last Taken Unknown] Naproxen Sodium [Aleve 220 MG (*)] 220 mg PO BID 07/15/18 [Last Taken 07/15/18] Burns-3 Fatty Acids [Fish Oil 1000 mg (*)] 1,000 mg PO DAILY 07/15/18 [Last Taken 07/15/18] - NPO status NPO Status: no food or drink >8 hours NPO Since - Liquids (Date): 07/15/18 NPO Since - Liquids (Time): 00:00 NPO Since - Solids (Date): 07/15/18 NPO Since - Solids (Time): 00:00 - Anes Hx Anes Hx: awareness under anesthesia - Smoking Hx Smoking Status: Never smoked Marijuana use: Yes - Alcohol Use Alcohol Use: Heavy - Family Anes Hx Family Anes Hx: neg - N/A ANE Labs/Vital Signs - Labs Result Diagrams: 07/16/18 06:00 07/16/18 06:00 - Vital Signs Blood Pressure: 122/51 Heart Rate: 110 Respiratory Rate: 16 O2 Sat (%): 92 Height: 180.34 cm Weight: 83.461 kg ANE Physical Exam - Airway Neck exam: FROM Mallampati Score: Class 2 Mouth exam: normal dental/mouth exam - Pulmonary Pulmonary: reduced air movement, rhonchi - Cardiovascular Cardiovascular: systolic murmur, tachycardia - ASA Status ASA Status: IV ANE Anesthesia Plan Anesthesia Plan: GA with mask (Pt aware he may not be able to be completely asleep, but will attempt to keep him as asleep as his VS safely allow.) Total IV Anesthesia: Yes
[2018-07-16] MEDS ORDERED: LIDOCAINE 2% 5 ML SDV ONE (10:09)
[2018-07-16] MEDS ORDERED: MIDAZOLAM 2 MG/2 ML VIAL ONE (10:10)
[2018-07-16] MEDS ORDERED: fentaNYL 100 MCG/2 ML INJ ONE (10:10)
--- NOTE | 2018-07-16 10:11 | SOAPPROG ---
SOAP Progress Note Assessment/Plan: Assessment: 1. Acute, likely upper GI, bleed. This is noted in the setting of severe alcohol abuse and likely a history of cirrhosis. This has resulted in life- threatening anemia and hemodynamic instability. He is status post transfusion of 2 units packed red blood cells. His hemoglobin is now just above 8. He is being followed by Gastroenterology. He is on octreotide at the present time with plans for an EGD today. Further workup including an abdominal ultrasound is planned. 2. Influenza a. He does not appear to be particularly symptomatic at the present time. 3. Electrolyte abnormalities. These are likely related to alcohol abuse. These are being corrected. 4. Coagulopathy. He has been given vitamin K. This really has not resulted in a significant improvement in his coagulopathy. This is likely related to his cirrhosis and nutritional status. 5. Valvular heart disease. He has torrential aortic insufficiency as well as moderate mitral regurgitation. This has resulted in left ventricular dilatation. He is in mild congestive heart failure at the present time. 6. Congestive heart failure. He is in mild congestive heart failure at the present time. This is likely caused by his valvular heart disease and contributed to by his alcohol use and anemia. Plan: 1. Continue supportive care with Levophed as needed and blood transfusions to maintain a hemoglobin above 8. 2. I will defer to his primary team regarding workup and treatment of what is likely significant cirrhosis. 3. He appears to be developing very mild pulmonary edema at the present time. Here in the very near future I think he will require IV diuretics. 4. I would like to get his old records from [facility] on [facility] specifically to look into his reported history of endocarditis. 5. Ultimately, depending on the status of his hepatic disease and his general health, he would benefit most from consideration of aortic valve replacement surgery. 07/16/18 10:13 Subjective: He had difficulty evening last night with a progressive decline in his hematocrit necessitating transfer to the intensive care unit. He has been transfused 2 units of packed red blood cells up to a hemoglobin of just above 8. He is on a low dose of norepinephrine to maintain his hemodynamics. Gastroenterology was consulted and he has been placed on an octreotide drip. There are plans for him to have an EGD this morning. He denies anginal quality chest discomfort. He is, however, experiencing musculoskeletal left-sided chest pain. There is no indication of significant dyspnea. Objective: Vital Signs Temp Pulse Resp BP Pulse Ox 37.0 C 110 H 16 122/51 H 92 07/16/18 08:58 07/16/18 09:00 07/16/18 09:00 07/16/18 09:00 07/16/18 09:00 Laboratory Results 07/16/18 06:00 07/16/18 06:00 07/15/18 07/16/18 07/17/18 05:59 05:59 05:59 Intake Total 1662.7 Output Total 250 400 Balance 1412.7 -400 PT 20.1 SEC (12.0-15.0) H 07/16/18 06:00 INR 1.70 (0.83-1.16) H 07/16/18 06:00 Laboratory Tests 07/15/18 07/15/18 07/16/18 17:37 22:07 00:00 Hgb Plt Count INR VBG Lactic Acid 1.4 Ammonia < 9.0 L Troponin I 0.106 H Total Protein 07/16/18 07/16/18 07/16/18 06:00 06:00 06:00 Hgb 8.1 L Plt Count 103 L INR 1.70 H VBG Lactic Acid Ammonia Troponin I Total Protein 4.8 L 07/16/18 07:50 Hgb Plt Count INR VBG Lactic Acid Ammonia Troponin I 0.087 H Total Protein Physical Exam - Physical Exam General Appearance: WD/WN, no apparent distress Neck: non-tender, full range of motion Respiratory: lungs clear Cardiac/Chest: regular rate, rhythm, JVD (To the mid neck), diastolic murmur, systolic murmur, other (Loud 3rd heart sound) Peripheral Pulses: 2+: carotid (R), carotid (L) Abdomen: non-tender, soft Male Genitalia: deferred Rectal: deferred ICD10 Worksheet Patient Problems: Problems Problem Status Onset Left rib fracture Acute
[2018-07-16] MEDS ORDERED: PROPOFOL/EMULSION 500 MG/50 ML BOTTLE IV ONE (10:12)
--- NOTE | 2018-07-16 10:25 | GIREPORT ---
[facility] - Endoscopy Department Patient Name: Solo Mejia Procedure Date: 07/16/2018 9:12 AM Patient Type: Inpatient Attending MD/ ER Physician: Gertrude Pa MD Procedure: Upper GI endoscopy Indications: Acute post hemorrhagic anemia, Melena Providers: Gertrude Pa MD Medicines: Monitored Anesthesia Care Complications: No immediate complications. Description of Procedure: After obtaining informed consent, the endoscope was passed under direct vision. Throughout the procedure, the patient's blood pressure, pulse, and oxygen saturations were monitored continuously. The Endoscope was intro duced through the mouth, and advanced to the second part of duodenum. The [facility] er GI endoscopy was accomplished without difficulty. The patient tolerated th e procedure well. Findings: LA Grade C (one or more mucosal breaks continuous between tops of 2 or more mucosal folds, less than 75% circumference) esophagitis with no bleedin g was found at the gastroesophageal junction. Many non-bleeding superficial gastric ulcers with no stigmata of bleedi ng were found in the gastric antrum. The largest lesion was 4 mm in larges t dimension. Biopsies were taken with a cold forceps for histology. Estim ated blood loss was minimal. Moderate inflammation characterized by congestion (edema), erythema and granularity was found in the duodenal bulb. Estimated Blood Loss: Estimated blood loss was minimal. Post Op Diagnosis: - LA Grade C reflux esophagitis. No varices. - Non-bleeding gastric ulcers with no stigmata of bleeding. Biopsied. - Duodenitis. Recommendation: - Await pathology results. - Clear liquid diet. - Return patient to ICU for ongoing care. - D/C octreotide . - PPI IV today, can change to PO PPI BID and advance diet tomorrow if s table H+H. - Repeat upper endoscopy in 3 months to check healing. This should be d one at the hospital with anesthesia. - Thank you for allowing me to participate in the care of your patient. Attending Participation: I personally performed the entire procedure. Gertrude Pa MD Gertrude Pa MD 07/16/2018 10:24:53 AM This report has been signed electronicallyGertrude Pa MD Number of Addenda: 0 Note Initiated On: 07/16/2018 9:12 AM [email or web address]
[2018-07-16] MEDS ORDERED: ONDANSETRON 4 MG/2 ML VIAL IVP PRN (10:32)
[2018-07-16] MEDS ORDERED: NALOXONE HCL 0.4 MG/ML INJ IVP PRN (10:32)
[2018-07-16] MEDS ORDERED: ALBUTEROL 3 ML DEYVIAL IH PRN (10:32)
--- NOTE | 2018-07-16 10:32 | POSTANESTH ---
Post Anesthetic Evaluation Cardiovascular Status: Similar to Pre-Op Cond (Still on Levophed, dose unchanged from pre-procedure.) Respiratory Status: Similar to Pre-op Cond., Tx Decrease in SpO2 Level of Consciousness/Mental Status: Can Participate in Eval, Mildly Sleepy, Arousable Pain Control: Adequate, Prn Tx Ordered Nausea/Vomiting Control: Adequate, Prn Tx Ordered Complications Possibly Related to Anesthesia: None Noted
--- NOTE | 2018-07-16 10:41 | PDMN ---
Medical Necessity Medical necessity: Pt meets inpt criteria per MD order and MCG M-180, Gastrointestinal Bleeding, Upper, A-2 days. 53 y/o admitted w/ABLA/Hgb/HCT 7.0/ 21.4 and elevated BUN c/w UGI bleed, persistent tachycardia, hypokalemic K 2.7, flu A +, low plts/elevated LFT's/jaundice c/w cirrhosis. Octreotide gtt, PRBC's transfusion, electrolytes replacement, EGD pending, PCU care, GI and Cardiology following. PMH includes cirrhosis, endocarditis, PNA, rib fx's/fall last year, CHF, and aortic insufficiency. Est LOS>2MN for ongoing eval/management of above.
[2018-07-16] MEDS: SPIRONOLACTONE 25 MG TAB PO SCH ×2 (10:46→20:39)
[2018-07-16] MEDS: PANTOPRAZOLE SODIUM 40 MG VIAL IVP SCH ×2 (10:47→20:39)
[2018-07-16] MEDS: OSELTAMIVIR PHOSPHATE 75 MG CAP PO SCH ×2 (11:16→17:45)
--- NOTE | 2018-07-16 11:51 | HOSPPROG ---
Hospitalist Progress Note Assessment/Plan: #Acute GIB -Source unclear -EGD today was non diagnostic #ABLA #Coagulopathy/Thrombocytopenia -non responsive to Vitamin K -Monitor INR closely #CHF-Acute on chronic -likely from valvular disease -Cards following #Hypotension -Requiring Levophed via PICC #Hypokalemia -Replacing, on protocol #Hx of ETOH -non in active WD, reports last drink several month ago #Influenza A, not symptomatic #Valvular disease: -will need further mgmt once more stable #rib Fractures #chest pain Plan: -Start CLD, D/C Octreotide, Serial H/H, cont Protonix IV BID. If Ok tomorrow, can advance diet and change to oral PPI -Cont Rocephin for now, if stable and BC'x negative tomorrow, can stop it -May need Diuresis soon, Cards following -Wean of Levophed -Cont Oseltamivir -Await Abd US, await further GI reccs -Electrolyte replacement PRN -SCD's total critical care time managing patient is 35 mins Subjective: had EGD this morning. Transferred to ICU overnight. Required pressors Objective: Vital Signs Temp Pulse Resp BP Pulse Ox 36.6 C 102 H 15 126/54 H 982 H 07/16/18 10:53 07/16/18 11:00 07/16/18 11:00 07/16/18 11:00 07/16/18 11:00 Laboratory Results 07/16/18 06:00 07/16/18 06:00 07/15/18 07/16/18 07/17/18 05:59 05:59 05:59 Intake Total 1662.7 250 Output Total 250 400 Balance 1412.7 -150 PT 20.1 SEC (12.0-15.0) H 07/16/18 06:00 INR 1.70 (0.83-1.16) H 07/16/18 06:00 - Physical Exam Constitutional: no apparent distress Eyes: PERRL, EOMI Ears, Nose, Mouth, Throat: moist mucous membranes Cardiovascular: regular rate and rhythym, JVD Respiratory: no respiratory distress Gastrointestinal: No rebound, No distension Skin: warm Neurologic: AAOx3 Psychiatric: interacting appropriately, not anxious, not encephalopathic Lymph, Heme, Immunologic: No petechiae ICD10 Worksheet Patient Problems: Problems Problem Status Onset Left rib fracture Acute
[2018-07-16] MEDS ORDERED: oxyCODONE IR 5 MG TAB PO PRN (12:05)
[2018-07-16] MEDS: BENZONATATE 100 MG CAP PO PRN (12:41)
--- NOTE | 2018-07-16 15:11 | ASMTCMCOM ---
CM Note CM Note Notes: Pt is a 53 y/o man admitted for shortness of breath and lower extremity edema. CM met w/ pt for dispo planning. Pt has a hx of etoh abuse. CAGE completed. Pt reports that he relapsed due to some life stressors; such as a new job and his dad passing. Pt has a supportive fiance who was in the room. Pt is not interested in resources at this time and reports that he knows how the get sober. PT has been ordered and awaiting recommendations. Needs are TBD at this time. CM to follow. Plan: TBD Date Signed: 07/16/2018 03:10 PM Electronically Signed By:LEEANNA Garner
--- NOTE | 2018-07-16 15:12 | ASMTCAGE ---
CAGE Do you feel you ought to Answers: Yes cut down on your drinking or drug use? Do people annoy you by Answers: No criticizing your drinking or drug use? Do you feel guilty about Answers: Yes your drinking or drug use? Do you drink or use drugs Answers: No first thing in the morning ([employer])? Date Signed: 07/16/2018 03:11 PM Electronically Signed By:LEEANNA Garner
[2018-07-16] MEDS: oxyCODONE IR 15 MG TAB PO PRN ×2 (16:31→20:43)
--- NOTE | 2018-07-16 17:48 | GHP ---
DATE OF ADMISSION: 07/15/2018 REFERRING PHYSICIAN: Jose Wolf MD A pulmonary/critical care consultation dated July 16. REASON FOR REFERRAL: Evaluation and management of chest pain, anemia, and hypertension. HISTORY: Mr. Mejia is a 53-year-old male who presented to the hospital because of chest pain related to a fall. He also had been feeling poorly for a few days, and thought he might have the flu or pne umonia. He states that about 8 months ago he fell while in [place], sustaining several fractures to the sternum, back and several ribs.. He has had a few other falls and thinks he had refractured his ribs. In November he was found to have endocarditis and pneumonia and was admitted to the hospital in [facility]. He completed outpatient on antibiotics and was followed by a biology internship but apparently w as told he did not need valve surgery. He was placed on Lasix. He moved to [place] a few weeks ago and ran out of his Lasix as well as a Ventolin inhaler. He started to have increased edema. 3 days ago he tripped and fell on a suitcase, sustaining a pain in the left lower ribs in the same area whe re he had been previously injured. He restarted his Lasix, but he continued to have lower extremity edema. He also has had a few days of cough with yellow/brown sputum. He has had intermittent melena over the last week or two. He feels a bit more dyspneic than usual. PAST MEDICAL HISTORY: 1. Endocarditis. 2. History of rib fractures. 3. History of congestive heart failure/pulmonary edema. 4. History of cirrhosis. MEDICATIONS: Include: 1. Albuterol. 2. Lasix. 3. Naprosyn. ALLERGIES: None. SOCIAL HISTORY: The patient never smoked. He has a prior history of heavy drinking, which he stoppe d a few weeks ago. REVIEW OF SYSTEMS: A 10-point review of systems adds nothing to the history of present illness. PHYSICAL EXAMINATION: GENERAL: The patient is awake and alert. His history is a bit tangential. H e reports significant discomfort due to his left rib fractures. VITALS: Blood pressure is 97/33 wit h a heart rate of 99. He is afebrile. Oxygen saturations are 96% on room air. HEENT: Normocephali c and atraumatic. No icterus. NECK: No JVD. Trachea is midline. CHEST: He has some tenderness o aric the left lower ribs. The lungs are clear. CARDIAC: Regular rate and rhythm with a 2/6 diastolic murmur. ABDOMEN: Soft and nontender. Bowel sounds are present. EXTREMITIES: No clubbing or cyan osis. He has 1+ lower extremity edema. NEURO: The patient is awake and alert. He has no gross capo r or sensory deficits. LABORATORY: Hemoglobin is 7.6, up from a minimum of 5.5 after transfusion of 2 units of packed red b lood cells. His MCV was 109.7 prior to transfusion. His white blood count is 10.9, and platelet cou nt is 106, up from 90. An INR is 1.7. Chemistry group shows a BUN of 35 with a creatinine of 1.0. Potassium is 3.9, up from 2.4 at admission. A BNP is 1600. Albumin is 1.8. An AST is 101 with a to jian bilirubin of 2.8. An influenza study is positive for influenza A. Stool occult blood screen is positive. Echocardiogram shows ejection fraction of 65%-70% with rinpvborha-[id number]-wanuhahb dilated left atrium, moderate mitral regurgitation, and severe aortic regurgitation. The LV is moderately dilate d. IMAGING: A chest x-ray shows acute fractures of the 8th and 9th ribs on the left. There are no sign ificant pulmonary infiltrates. Images are reviewed by me. ASSESSMENT: 1. Left rib fractures. These are acute. He has apparently had several fractures in that area over the last year or so. His main complaint currently is chest pain related to these fractures. There i s no sign of hemothorax or pneumothorax. 2. Anemia. The patient has a severe macrocytic anemia. The macrocytosis is likely due to chronic l iver disease. The anemia is most likely due to gastrointestinal blood loss, although he may also hav e bone marrow suppression due to his alcohol intake. An EGD did not find any source of upper gastroi ntestinal bleeding, with some nonbleeding gastric ulcers, some reflux esophagitis, and some duodeniti s, all without active bleeding. 3. Congestive heart failure. This is likely on the basis of aortic insufficiency. It is unclear if this has progressed since his hospitalization and treatment for endocarditis. 4. Hypokalemia. This has been corrected with replacement. 5. Chronic liver disease. The patient has mildly elevated transaminitis but significantly reduced s ynthetic function with an elevated INR and mildly elevated bilirubin. This is likely on the basis of his known cirrhosis. 6. Influenza. The patient has symptoms of influenza bronchial infection, but does not have infiltra emily to suggest significant active pneumonia. PLAN: 1. I will increase the patient's oxycodone to help treat his rib pain. 2. Agree with Tamiflu. 3. Serial hemoglobin and hematocrit. 4. Continue PPI. 5. Cardiology will be trying to get outside records to determine the status and his valve disease. /[id number]/MODL
[2018-07-16] MEDS ORDERED: POTASSIUM CL 10 MEQ TAB PO ONE (19:38)
[2018-07-17] MEDS: oxyCODONE IR 15 MG TAB PO PRN ×3 (01:18→16:24)
[2018-07-17] MEDS: BENZONATATE 100 MG CAP PO PRN ×3 (01:18→16:24)
[2018-07-17 04:53] LABS: PLATELET COUNT 126 10^3/uL (150-400)
[2018-07-17 05:00] LABS: INR 1.58 (0.83-1.16)
[2018-07-17] MEDS: PANTOPRAZOLE SODIUM 40 MG VIAL IVP SCH (07:26)
[2018-07-17] MEDS: OSELTAMIVIR PHOSPHATE 75 MG CAP PO SCH ×2 (08:28→17:32)
[2018-07-17] MEDS: SPIRONOLACTONE 25 MG TAB PO SCH ×2 (08:28→23:41)
[2018-07-17] MEDS ORDERED: FUROSEMIDE 20 MG/2 ML VIAL IVP ONE (09:07)
--- NOTE | 2018-07-17 11:53 | SOAPPROG ---
SOAP Progress Note Assessment/Plan: Assessment: Anemia no e/o rebleeding overall low risk for rebleed. Suspect NSAID induced Plan: OK to advance diet as tolerated PO PPI once taking PO for 12 weeks Repeat EGD in 3 months with anesthesia Avoid NSAIDS except cardiac ASA OK Will sign off 07/17/18 11:50 Subjective: CC anemia No melena some abd pain Objective: Vital Signs Temp Pulse Resp BP Pulse Ox 36.4 C 90 22 H 109/52 L 91 L 07/17/18 08:00 07/17/18 10:00 07/17/18 10:00 07/17/18 10:00 07/17/18 10:00 Laboratory Results 07/17/18 04:30 07/17/18 09:49 07/16/18 07/17/18 07/18/18 05:59 05:59 05:59 Intake Total 1662.7 4501 Output Total 250 1350 200 Balance 1412.7 3151 -200 PT 19.0 SEC (12.0-15.0) H 07/17/18 04:30 INR 1.58 (0.83-1.16) H 07/17/18 04:30 Physical Exam - Physical Exam General Appearance: alert Respiratory: lungs clear Cardiac/Chest: regular rate, rhythm Abdomen: non-tender, soft ICD10 Worksheet Patient Problems: Problems Problem Status Onset Left rib fracture Acute
--- NOTE | 2018-07-17 11:54 | HOSPPROG ---
Hospitalist Progress Note Assessment/Plan: #Possible Acute GIB -Source unclear. -EGD 07/17 was non diagnostic. Showed Esophagitis, Duodenitis, but no active bleeding -cont PPI BID, change to PO today #ABLA -appears resolved. Hgb stable. Will cont to trend #Coagulopathy/Thrombocytopenia/Liver disease (cirrhosis) -non responsive to Vitamin K -Monitor INR closely -Abd US confirms cirrhosis #CHF-Acute on chronic -likely from valvular disease -Cards following -Lasix today #Hypotension -Requiring Levophed via PICC. this has not been weaned as of 07/17. His baseline BP are likely soft due to Liver disease. If pressors are needed again, MAP target should be 55. #Hypokalemia -Replacing, on protocol #Hx of ETOH -non in active WD, reports last drink several month ago #Influenza A, not symptomatic -cont Tamiflu #Valvular disease: -will need further mgmt once more stable #rib Fractures #chest pain: trop trended down Plan: per above awaiting medical records for plan on how to proceed with aortic insufficiency/ valvular disease observe off Levophed Cont Oseltamivir stop Rocephin today. Received 3 doses Electrolyte replacement PRN SCD's ok for step down Subjective: hgb is stable. no cp or sob. no n/v. Pressors off since this morning Objective: Vital Signs Temp Pulse Resp BP Pulse Ox 36.4 C 90 22 H 109/52 L 91 L 07/17/18 08:00 07/17/18 10:00 07/17/18 10:00 07/17/18 10:00 07/17/18 10:00 Laboratory Results 07/17/18 04:30 07/17/18 09:49 07/16/18 07/17/18 07/18/18 05:59 05:59 05:59 Intake Total 1662.7 4501 Output Total 250 1350 200 Balance 1412.7 3151 -200 PT 19.0 SEC (12.0-15.0) H 07/17/18 04:30 INR 1.58 (0.83-1.16) H 07/17/18 04:30 - Physical Exam Constitutional: no apparent distress Eyes: PERRL Ears, Nose, Mouth, Throat: moist mucous membranes, hearing normal Cardiovascular: regular rate and rhythym, JVD, edema Respiratory: no respiratory distress Gastrointestinal: normoactive bowel sounds Skin: warm Psychiatric: interacting appropriately, not anxious, not encephalopathic Lymph, Heme, Immunologic: No petechiae ICD10 Worksheet Patient Problems: Problems Problem Status Onset Left rib fracture Acute
--- NOTE | 2018-07-17 14:01 | PDINTPN ---
[employer] Progress Note Assessment/Plan: Assessment: Left rib fractures: Traumatic. No sign of hemothorax/pneumothorax. Pain better controlled with oxycodone 15 mg. Anemia: The patient presented with severe macrocytic anemia. This is likely due to a combination of cirrhosis as well as a subacute GI bleed, worsened by elevated INR from cirrhosis. No signs of active bleeding now, and his hemoglobin is stable. Congestive heart failure: Due to aortic insufficiency with dilated cardiomyopathy. On Lasix/spironolactone. Aortic valve insufficiency: Due to endocarditis. Records from [place] state that this was suspected to be due to heroin abuse, but the patient denies any history of IVDA. He was felt to not be a surgical candidate due to cirrhosis. Cirrhosis: Due to alcohol abuse. This is fairly severe, with an INR of 1.7 at admission. Plan: Follow H&H. Change Lasix to p.o.. Change to SDU status. Can probably change to MedSurg status later today or tomorrow, and could probably discharge in 1-2 days if he is stable. 07/17/18 14:01 Subjective: The patient reports that his chest pain is better controlled, but still bothersome. He denies dyspnea. Objective: Vital Signs Temp Pulse Resp BP Pulse Ox 36.4 C 102 H 26 H 86/52 L 95 07/17/18 08:00 07/17/18 12:00 07/17/18 12:00 07/17/18 12:00 07/17/18 12:00 Laboratory Results 07/17/18 12:39 07/17/18 09:49 07/16/18 07/17/18 07/18/18 05:59 05:59 05:59 Intake Total 1662.7 4501 Output Total 250 1350 200 Balance 1412.7 3151 -200 PT 19.0 SEC (12.0-15.0) H 07/17/18 04:30 INR 1.58 (0.83-1.16) H 07/17/18 04:30 Physical Exam - Physical Exam General Appearance: alert, no apparent distress EENT: normal ENT inspection Neck: normal inspection Respiratory: lungs clear, normal breath sounds Cardiac/Chest: regular rate, rhythm, edema (2+) Abdomen: normal bowel sounds, non-tender, soft Skin: normal color, warm/dry Extremities: normal inspection Neuro/Psych: alert, normal mood/affect, oriented x 3 ICD10 Worksheet Patient Problems: Problems Problem Status Onset Left rib fracture Acute
--- NOTE | 2018-07-17 14:44 | SOAPPROG ---
SOAP Progress Note Assessment/Plan: Assessment: 1. Acute, likely upper GI, bleed. EGD did not demonstrate varices. It was found that he had healing gastric ulcers. His anemia is likely mixed given the fact that he has had chronic anemia dating back for many months now in the setting of a recent more acute bleed. 2. Influenza a. He does not appear to be particularly symptomatic at the present time. 3. Electrolyte abnormalities. These are likely related to alcohol abuse. These are being corrected. 4. Cirrhosis of the liver. This has resulted in a significant coagulopathy. He has been given vitamin K. This really has not resulted in a significant improvement in his coagulopathy. This is likely related to his cirrhosis and nutritional status. 5. Valvular heart disease. He has torrential aortic insufficiency as well as moderate mitral regurgitation. This has resulted in left ventricular dilatation. He is in mild congestive heart failure at the present time. 6. Congestive heart failure. He is in mild congestive heart failure at the present time. This is likely caused by his valvular heart disease and contributed to by his alcohol use and anemia. 7. Polysubstance abuse. Per the medical records he has a history of extensive alcohol use associated with cirrhosis of the liver. Additionally there is a history of him injecting heroin in the past, using marijuana and injecting human growth hormone during trips to [facility]. 07/17/2018: I reviewed his records. These are summarized under the subjective portion of this note. Fortunately, his H&H has remained stable. Today he is in mild congestive heart failure. Plan: 1. He will receive IV Lasix today. 2. We will plan to continue to monitor him in the intensive care unit. 3. I did contact Gastroenterology. I would like to get comments from them regarding his life expectancy in the setting of his known cirrhosis. I would also like to get comments from them regarding his operative risk should we consider aortic valve replacement surgery. 4. I think that he was actively drinking even up until recently. He will need to be monitored carefully for alcohol and possibly drug withdrawal. 5. I will discuss his case with Cardiothoracic surgery. 07/17/18 14:44 Subjective: Today states that he is feeling a little bit more breathless. He states that he feels like he is suffocating slightly. He continues to have mild chest discomfort. Fortunately, his H&H have been stable. His hemodynamics continued to be slightly tenuous requiring low-dose Levophed. I have received approximately 100 pages of medical records from [facility] in [place]. These were reviewed and are summarized below: He was hospitalized between July 22 and 01/29/[address] [facility]. His cardiac history actually began 11/30/2017. Apparently, at that time he was found unresponsive by her roommate. He was thought that his unresponsiveness might be related to alcohol and narcotic overdose. CPR was performed by paramedics. This resulted in multiple rib fractures. Apparently, per the medical record, he was not taken to the emergency department nor was he admitted to the hospital. His significant other was out of town at that time. She returned on December 03. At that time, he was experiencing chest discomfort. He was taken to [facility]. Apparently was admitted with acute renal failure, rhabdomyolysis and multiple rib fractures. He was in the hospital for 2 weeks. During that time frame he experienced alcohol withdrawal. Subsequently he was discharged home however was readmitted about 2 weeks later with fever, chills and fatigue. His workup there revealed sepsis with methicillin sensitive Staph aureus pneumonia, and empyema and ultimately aortic valve endocarditis. He was treated with IV antibiotics and apparently had a chest tube placed. Ultimately on 01/09/2018 he was discharged to a residential facility for continued IV therapy. Apparently, he stayed there for approximately 1 night at which point he signed out AMA. Within about 48 hr he re-presented to [facility] with fatigue, chest and back pain. He was readmitted on 01/11/2018. At that time he had ongoing difficulties with sepsis and MSSA bacterial endocarditis. A PASTOR was performed that indicated severe aortic regurgitation with ejection fraction of 60-65%. Apparently he was placed on a psychiatric cold during that admission. He was seen by cardiothoracic surgery and by Interventional Cardiology. Apparently, they had differing opinions regarding whether not he was a surgical candidate or a candidate for transcatheter aortic valve replacement. As result, he signed out AMA and transferred his care over to [facility]. At [facility] he was admitted on 01/19/2018. There he was evaluated by Cardiology, CT surgery and Gastroenterology. Gastroenterology performed an abdominal ultrasound which demonstrated hepatic cirrhosis without evidence of esophageal varices. Interventional Radiology performed a liver biopsy indicating stage IV cirrhosis. Cardiothoracic surgery felt that his operative risk for aortic valve replacement surgery was prohibitive given the fact that he had stage IV fibrosis of the liver and that he was child's class B with a meld score of 10. Interventional cardiology thought that he might be a candidate for transcatheter aortic valve replacement. Ultimately, he was discharged with a PICC line in place with plans to continue outpatient antibiotics. Was also recommended that he follow up with outpatient Cardiology. I am not sure if he ever made those appointments. Objective: Vital Signs Temp Pulse Resp BP Pulse Ox 36.4 C 102 H 26 H 86/52 L 95 07/17/18 08:00 07/17/18 12:00 07/17/18 12:00 07/17/18 12:00 07/17/18 12:00 Laboratory Results 07/17/18 12:39 07/17/18 09:49 07/16/18 07/17/18 07/18/18 05:59 05:59 05:59 Intake Total 1662.7 4501 Output Total 250 1350 200 Balance 1412.7 3151 -200 PT 19.0 SEC (12.0-15.0) H 07/17/18 04:30 INR 1.58 (0.83-1.16) H 07/17/18 04:30 Physical Exam - Physical Exam General Appearance: WD/WN, alert, no apparent distress EENT: PERRL/EOMI, normal ENT inspection, pharynx normal, TMs normal Neck: non-tender, full range of motion, supple, normal inspection Respiratory: normal breath sounds, crackles (At the bases) Cardiac/Chest: normal peripheral pulses, regular rate, rhythm, edema, JVD, tachycardia, systolic murmur (He has a loud grade 3/6 holodiastolic murmur at the left sternal border with a grade 2/6 systolic ejection murmur at the left sternal border) Peripheral Pulses: 2+: carotid (R), carotid (L), femoral (R), femoral (L), dorsalis-pedis (R), dorsalis-pedis (L) Abdomen: normal bowel sounds, non-tender, soft Male Genitalia: deferred Rectal: deferred Back: Normal inspection Skin: normal color, warm/dry Lymphatic: no adenopathy Extremities: normal range of motion, non-tender, normal inspection, normal capillary refill Neuro/Psych: no motor/sensory deficits, alert, normal mood/affect, oriented x 3 ICD10 Worksheet Patient Problems: Problems Problem Status Onset Left rib fracture Acute
[2018-07-17] MEDS: NOREPINEPHRINE BITARTRATE 4 MG in NS 500 ML IV SCH (20:44)
[2018-07-17] MEDS ORDERED: POTASSIUM CL 10 MEQ TAB PO ONE (20:45)
[2018-07-17] MEDS: PANTOPRAZOLE SODIUM 40 MG TAB PO SCH (21:12)
[2018-07-18] MEDS: NOREPINEPHRINE BITARTRATE 4 MG in NS 500 ML IV SCH ×2 (01:19→08:41)
[2018-07-18 05:48] LABS: PLATELET COUNT 159 10^3/uL (150-400)
[2018-07-18] MEDS ORDERED: POTASSIUM CL 10 MEQ TAB PO ONE ×2 (08:00→18:48)
[2018-07-18] MEDS ORDERED: MAGNESIUM SULF 1 GM/DEXTROSE 100 ML IV ONE (08:01)
[2018-07-18] MEDS: PANTOPRAZOLE SODIUM 40 MG TAB PO SCH ×2 (08:40→20:09)
[2018-07-18] MEDS: FUROSEMIDE 20 MG TAB PO SCH (08:40)
[2018-07-18] MEDS: OSELTAMIVIR PHOSPHATE 75 MG CAP PO SCH ×2 (08:40→18:00)
[2018-07-18] MEDS: SPIRONOLACTONE 25 MG TAB PO SCH ×2 (08:40→20:09)
--- NOTE | 2018-07-18 09:21 | PDCARPN ---
Cardiology Progress Note Assessment/Plan: Assessment/plan: 53-year-old male with valvular heart disease. As severe aortic regurgitation, likely related to bacterial endocarditis in 2018, possibly underlying bicuspid aortic valve. Also moderate mitral regurgitation. Other history includes polysubstance abuse with ongoing alcohol use and consequent cirrhosis. He was admitted on July 15 with heart failure, pleuritic chest pain, GI bleed. He has received 2 units of packed red blood cells. He did have an upper endoscopy showing esophagitis and gastric ulcers without active bleeding. He has required Levophed for blood pressure support. Hematocrit has stabilized. Also diagnosed with rib fractures and influenza. 1. Acute diastolic heart failure: Left ventricle is moderately dilated. Preserved left ventricular ejection fraction. He has received a dose of IV Lasix and is now on oral Lasix. We are trying to balance diuresis with his hypertension. He is also on spironolactone which is appropriate in the setting of ascites and his heart failure. Not a candidate for beta-blockers given his need for pressors at the moment, and also the potential for beta-blockers to worsen his aortic regurgitation and prolonged LV filling time. Could consider NICOLA-inhibitor once off pressors. 2. Upper GI bleed: Acute on chronic anemia, related to liver disease/alcohol use. Transfusions and endoscopy as above. 3. Valvular heart disease: Severe aortic regurgitation, possible bicuspid aortic valve. No evidence of recurrent endocarditis. Once his noncardiac issues have stabilized, will discuss his case with Cardiac surgery. He is obviously high risk given his hematological abnormalities and underlying liver disease. 4. Cirrhosis: Being seen by GI. Need to understand his overall prognosis from a liver standpoint to help make decisions about cardiac surgery. He does a coagulopathy. 5. Influenza: Overall recovering well. 6. Alcohol use and, per the chart: Past history of possible IV drug use. He needs to quit drinking completely. He is on CIWA protocol. 07/18/18 09:46 Subjective: He feels better with less SOB and less LE edema. His chief complaint is ongoing left lateral rib pain. He has not had any recurrent melena or hematochezia. Reviewed/Discussed With: family, hospitalist Time Spent with Patient: greater than 25 minutes Time Spent with Patient: Greater than 25 minutes spent on this patients care, greater than 50% of time spent counseling, educating, and coordinating care regarding the above mentioned plan. Objective: Vital Signs (8 Hrs) Temp Pulse Resp BP Pulse Ox 07/18/18 06:00 95 12 100/54 L 92 07/18/18 05:00 96 12 119/43 L 96 07/18/18 04:00 36.8 C 99 15 112/53 L 93 07/18/18 03:00 95 15 112/42 L 94 07/18/18 02:00 96 19 112/42 L 97 07/18/18 01:00 96 19 110/47 L 92 Intake/Output (24 Hrs) 07/17/18 07/18/18 07/19/18 05:59 05:59 05:59 Intake Total 4501 2501 Output Total 1350 1380 Balance 3151 1121 Intake: Oral (ml) 3250 1980 IV Intake (ml) 500 IV Infused (ml) 751 521 Norepinephrine Bitartrate 751 521 4 mg In Ns 500 ml @ Per Protocol IV CONT KIM Rx#: [id number] Output: Urine (ml) 1350 1380 Toilet 1350 Urinal 1380 Other: Weight 83.461 kg Number of Stools Toilet 1 No acute distress. Sclerae are anicteric. JVP 14 cm water. Tachycardic regular rhythm. 2/6 early systolic ejection murmur at the base. 2/4 holodiastolic murmur at the left lower sternal border. Soft holosystolic murmur at the apex. Lungs clear to auscultation bilaterally wheeze rhonchi rales Extremities are warm well perfused. 2+ pitting edema to the midshin bilaterally. Result Diagrams: 07/18/18 05:40 07/18/18 05:40 Cardiac Labs: Cardiac Lab Results (72 Hrs) 07/16/18 07/16/18 07/16/18 17:50 07:50 00:00 Troponin I 0.083 H 0.087 H 0.106 H EKG: Sinus tachycardia with repolarization abnormalities. Single PVC Telemetry: Sinus rhythm and sinus tachycardia. Short runs of VT, up to 3 beats. Echocardiogram: Reviewed: Moderate LV dilation with preserved LV ejection fraction. Moderate mitral regurgitation. Dysmorphic and calcific aortic valve. Possibly bicuspid with severe aortic regurgitation and [id number] aortic stenosis. ICD10 Worksheet Patient Problems: Problems Problem Status Onset Left rib fracture Acute
--- NOTE | 2018-07-18 11:19 | HOSPPROG ---
Hospitalist Progress Note Assessment/Plan: #Possible Acute GIB -Source unclear. -EGD 07/17 was non diagnostic. Showed Esophagitis, Duodenitis, but no active bleeding -cont PPI BID, changed to PO on 07/17 -H/H stable this AM #ABLA -appears resolved. Hgb stable. Will cont to trend #Coagulopathy/Thrombocytopenia/Liver disease (cirrhosis) -non responsive to Vitamin K -Monitor INR closely -Abd US confirms cirrhosis -Will need outpatient followup with [employer], will discuss with GI today #CHF-Acute on chronic -likely from valvular disease -Cards following -S/p IV Lasix, transitioned to PO 20 mg qd as well as Spironolactone 25 mg BID -Continue to monitor I/O, BMP, daily weight #Hypotension -Requiring Levophed via PICC. Restarted overnight. His baseline BP are likely soft due to Liver disease. -In setting of AI, will discuss BP/MAP goal with cardiology this AM -Wean Levophed this AM #Hypokalemia -Replacing, on protocol #Hx of ETOH -non in active WD, reports last drink several month ago #Influenza A, not symptomatic -cont Tamiflu - Added Robitussin scheduled BID this AM #Valvular disease: -will need further mgmt once more stable #rib Fractures - Added Lidocaine patch this AM #chest pain: trop trended down Subjective: Patient reports L sided rib pain this AM Objective: Vital Signs Temp Pulse Resp BP Pulse Ox 37 C 101 H 15 124/43 H 98 07/18/18 08:00 07/18/18 10:00 07/18/18 10:00 07/18/18 10:00 07/18/18 10:00 Laboratory Results 07/18/18 05:40 07/18/18 05:40 07/17/18 07/18/18 07/19/18 05:59 05:59 05:59 Intake Total 4501 2501 Output Total 1350 1380 Balance 3151 1121 PT 19.0 SEC (12.0-15.0) H 07/17/18 04:30 INR 1.58 (0.83-1.16) H 07/17/18 04:30 - Physical Exam Constitutional: chronically ill appearing, unkempt Eyes: PERRL Ears, Nose, Mouth, Throat: moist mucous membranes Cardiovascular: regular rate and rhythym, systolic murmur Respiratory: no respiratory distress, reduced air movement Gastrointestinal: soft, non-tender abdomen Skin: normal color Neurologic: AAOx3 Psychiatric: interacting appropriately ICD10 Worksheet Patient Problems: Problems Problem Status Onset Left rib fracture Acute
[2018-07-18] MEDS: guaiFENesin 600 MG TAB.ER PO SCH ×2 (11:31→20:09)
[2018-07-18] MEDS: oxyCODONE IR 15 MG TAB PO PRN ×3 (11:31→23:34)
[2018-07-18] MEDS: LIDOCAINE 4%/MENTHOL 1% PATCH TD SCH (11:32)
--- NOTE | 2018-07-18 11:58 | PDINTPN ---
Information Resources Director Progress Note Assessment/Plan: Assessment: Left rib fractures: Traumatic. No sign of hemothorax/pneumothorax. Pain better controlled with oxycodone 15 mg. Influenza A: Symptomatic with cough and sputum production as well as constitutional symptoms. On Tamiflu. No evidence of significant pneumonia on chest x-ray. Anemia: The patient presented with severe macrocytic anemia. This is likely due to a combination of cirrhosis as well as a subacute GI bleed, worsened by elevated INR from cirrhosis. No signs of active bleeding now, and his hemoglobin is stable since transfusion on 07/15. Congestive heart failure: Due to aortic insufficiency with dilated cardiomyopathy. On Lasix/spironolactone. Started on norepinephrine due to MAP < 55, but I discussed with Dr. Jiménez and we feel that a lower blood pressure target would be reasonable given the aortic insufficiency. Aortic valve insufficiency: Due to endocarditis. Records from [place] state that this was suspected to be due to heroin abuse, but the patient and his significant other denies any history of IVDA. He was felt to not be a surgical candidate due to cirrhosis. Cirrhosis: Due to alcohol abuse. This is fairly severe, with an INR of 1.7 at admission. Plan: Follow H&H. Continue p.o. Lasix. May give IV Lasix per Cardiology. Can probably change to MedSurg status once able to get off norepinephrine, and could probably discharge in 1-2 days if he is stable. I reinforced the importance of absolute abstinence from alcohol. Start iron replacement. He should probably follow up with hepatology in addition to Cardiology as an outpatient. 07/18/18 12:01 Subjective: Patient reports that his cough is a bit more productive since starting an expectorant. He continues to have rib pain with coughing. He has minimal shortness of breath and was able to walk around the unit. Objective: Vital Signs Temp Pulse Resp BP Pulse Ox 37 C 103 H 12 113/33 L 90 L 07/18/18 08:00 07/18/18 11:00 07/18/18 11:00 07/18/18 11:00 07/18/18 11:00 Laboratory Results 07/18/18 05:40 07/18/18 05:40 07/17/18 07/18/18 07/19/18 05:59 05:59 05:59 Intake Total 4501 2501 Output Total 1350 1380 Balance 3151 1121 PT 19.0 SEC (12.0-15.0) H 07/17/18 04:30 INR 1.58 (0.83-1.16) H 07/17/18 04:30 Physical Exam - Physical Exam General Appearance: alert, no apparent distress EENT: normal ENT inspection Neck: normal inspection Respiratory: lungs clear, normal breath sounds Cardiac/Chest: regular rate, rhythm, edema (2+) Abdomen: normal bowel sounds, non-tender Skin: normal color, warm/dry Extremities: normal inspection Neuro/Psych: alert, normal mood/affect, oriented x 3 ICD10 Worksheet Patient Problems: Problems Problem Status Onset Left rib fracture Acute
[2018-07-18] MEDS: FERROUS SULFATE 325 MG TAB PO SCH (13:50)
[2018-07-18] MEDS ORDERED: PATCH REMOVAL 1 EA PATCH TD SCH (21:00)
[2018-07-18] MEDS: BENZONATATE 100 MG CAP PO PRN (23:34)
--- NOTE | 2018-07-19 00:20 | ASMTCMCOM ---
CM Note CM Note Notes: Late entry - CM note for Friday07/18/18. Reviewed chart, spoke with Dr. Jessica regarding discharge plan of care, pt's progress. Per ICU rounds, pt will likely require two valve surgeries in the near future. Pt has a complicated history, including ETOH abuse and end stage cirrhosis. PT recommends SNF rehab. Asked to see pt by PORTER Hook and ALEJANDRO Rouse to discuss financial concerns. Met with pt and pt's partner, Aleyda. Per Aleyda, the pt has a [place] Medicaid equivalent plan. Aleyda reports "the plan is only good for care in [place]." Insurance card reviewed. Partner and pt very concerned about [id number] liability. CM checked billing system - a request for authorization was sent to on 07/15/18; status states auth is pending. Update provided to pt and partner. Encouraged pt or partner to contact on Thursday 07/20 to alert insurance company of emergency hospitalization and to further discuss benefits/coverage. Aleyda verbalized understanding, reporting she previously "tried contacting the insurance company this morning." [facility] [employer] business card provided. Discussed possibility of completing an emergency Medicaid application, if insurance denies [id number] coverage. Pt states he is in [place] for work and will be here for a while. Support and reassurance provided. Updates provided to Padma and [employer]. Discharge plan and needs remain unclear at this time. CM will continue to follow. Discharge Plan: To be determined Date Signed: 07/19/2018 12:19 AM Electronically Signed By:Sharda Kern RN
--- NOTE | 2018-07-19 04:28 | GCON ---
GI MEDICINE PROGRESS NOTE CHIEF COMPLAINT: Cirrhosis. HISTORY OF PRESENT ILLNESS: The patient is a 53-year-old gentleman with known chronic liver disease and chronic alcoholism with aortic insufficiency secondary to bacterial endocarditis, presently on antibiotic therapy. He is under consideration for TAVR aortic valve replacement, but there is concern about his postoperative risk for this procedure and I was asked to give an opinion on the same. I did review 142 pages of records from 2 hospitalizations in [place], first at the [facility] from 01/11/2018 to 2017, and a hospitalization at [facility] from 01/19/2018 to 01/29/2018. At that time, he did have evaluation for his bacterial endocarditis with vegetations on his aortic valve and did have a GI evaluation as well. He did have an EGD performed at [facility] that showed no esophageal varices or other significant abnormalities. He did have a transjugular liver biopsy performed which showed stage IV fibrosis consistent with cirrhosis. He did have a wedge pressure of 17. He did have a portosystemic gradient of 7, a free flow pressure of 24. Ultrasound showed normal portal flow and hepatic vein flow. He has had normal liver enzymes during those admissions as well as here. His INR was elevated at 1.4 in [place], with a platelet count in the 130K. 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 He is under consideration for a TAVR procedure at [facility]. I had a lengthy discussion with the patient today concerning the risk of that procedure in the setting of cirrhosis. He does meet criteria for Child's B. His MELD score was 10 at the [facility]. Review of literature (most recent article in the literature (Annuals of Thoracic Surgery Mar 2017 showed a 9% 30- day mortality after a TAVR procedure, though numbers were very low, of 640 consecutive TAVR; only 11 had severe liver disease and only one post-op mortality) . The patient states that he does have health care through [facility] and no healthcare insurance in [place] and is considering returning to [place] to have a TAVR at [facility] per their recommendation. He would like to stay in [place] in the short term and establish some follow-up care with a ratoprinter in our clinic, and I think it would be appropriate to have him see Dr. Chun Haskins (our ratoprinter) after discharge. I spent a total of 1-hour time today reviewing his records from the [facility] and from the [facility], researching mortality rates and discussing his options with him and with his hospitalist. I will continue to follow with you. /[id number]/MODL MTDD
[2018-07-19] MEDS: LIDOCAINE 4%/MENTHOL 1% PATCH TD SCH (07:56)
[2018-07-19 08:26] VITALS: BP 109/48
[2018-07-19] MEDS ORDERED: POTASSIUM CL 10 MEQ TAB PO ONE (08:27)
[2018-07-19] MEDS: FERROUS SULFATE 325 MG TAB PO SCH (08:44)
[2018-07-19] MEDS: SPIRONOLACTONE 25 MG TAB PO SCH (08:44)
[2018-07-19] MEDS: FUROSEMIDE 20 MG TAB PO SCH (08:44)
[2018-07-19] MEDS: PANTOPRAZOLE SODIUM 40 MG TAB PO SCH (08:44)
[2018-07-19] MEDS: OSELTAMIVIR PHOSPHATE 75 MG CAP PO SCH (08:44)
[2018-07-19] MEDS: guaiFENesin 600 MG TAB.ER PO SCH (08:44)
[2018-07-19] MEDS: ACETAMINOPHEN 325 MG TAB PO PRN ×2 (09:18→13:18)
[2018-07-19] MEDS: oxyCODONE IR 15 MG TAB PO PRN ×2 (09:18→13:18)
--- NOTE | 2018-07-19 10:15 | SOAPPROG ---
SOAP Progress Note Assessment/Plan: Assessment: 1. Alcoholic Cirrhosis; stable. 2. Aortic valve disease. 3. Anemia secondary to BM suppression from ETOH and recent GI bleed; stable. Plan: 1. I will sign off today, please call for new GI issues. 2. Please refer to Chun Haskins in our group for F/U visit concerning his liver disease if he chooses to have his care in [place]. Isrrael Hedrick MD [phone] 07/19/18 10:16 Subjective: CC; Cirrhosis. Interval HPI: No GI issues today, BM without blood today. Tolerating po diet without difficulty. Objective: Vital Signs Temp Pulse Resp BP Pulse Ox 36.7 C 105 H 12 109/48 L 92 07/19/18 08:00 07/19/18 08:00 07/19/18 08:00 07/19/18 08:00 07/19/18 08:00 Laboratory Results 07/19/18 04:20 07/19/18 04:20 07/18/18 07/19/18 07/20/18 05:59 05:59 05:59 Intake Total 2501 1933 Output Total 1380 Balance 1121 1933 PT 19.0 SEC (12.0-15.0) H 07/17/18 04:30 INR 1.58 (0.83-1.16) H 07/17/18 04:30 Physical Exam - Physical Exam General Appearance: WD/WN, alert, no apparent distress Respiratory: lungs clear Cardiac/Chest: regular rate, rhythm Abdomen: normal bowel sounds, non-tender, soft Skin: normal color, warm/dry Neuro/Psych: alert, normal mood/affect, oriented x 3 ICD10 Worksheet Patient Problems: Problems Problem Status Onset Left rib fracture Acute
--- NOTE | 2018-07-19 12:24 | PDCARPN ---
Cardiology Progress Note Assessment/Plan: Assessment/plan: 53-year-old male with valvular heart disease He has severe aortic regurgitation, likely related to bacterial endocarditis in 2018, possibly underlying bicuspid aortic valve. Also moderate mitral regurgitation. Other history includes ongoing alcohol use and consequent cirrhosis. He was admitted on July 15 with heart failure, pleuritic chest pain, GI bleed. He has received 2 units of packed red blood cells. He did have an upper endoscopy showing esophagitis and gastric ulcers without active bleeding. He has required Levophed for blood pressure support; this was stopped 07/18. Hematocrit has stabilized. Also diagnosed with rib fractures and influenza. 1. Acute diastolic heart failure: Left ventricle is moderately dilated. Preserved left ventricular ejection fraction. He has received a dose of IV Lasix and is now on oral Lasix and spironolactone. Could consider NICOLA-inhibitor ; would initiate in the outpatient setting 2. Upper GI bleed/acute on chronic anemia, related to liver disease/alcohol use. Transfusions and endoscopy as above. 3. Valvular heart disease: Severe aortic regurgitation, possible bicuspid aortic valve. No evidence of recurrent endocarditis. Once his noncardiac issues have stabilized, will discuss his case with Cardiac surgery and structural heart. He is obviously high risk given his hematological abnormalities and underlying liver disease. Generally, TAVR is not performed for the indication of AR 4. Cirrhosis: Child class B. Appreciate Dr. Hedrick's consult. Liver disease/coagulopathy significantly increase risk of CT surgery. Will have outpt hepatology follow up. 5. Influenza: Overall recovering 6. Alcohol use: He needs to quit drinking completely. He is on CIWA protocol. Stable to discharge from cardiovascular standpoint. Please have him follow-up at [facility] with either myself or Dr. Rafi Shine within 1 week. He will require complete metabolic panel and CBC in 3 days. He also needs to follow up with hepatology, Dr. Haskins. As above will discuss his case with Cardiac surgery in structural Heart regarding intervention to the aortic valve. 07/19/18 13:26 Subjective: Steep feels better. Improving dyspnea. He still has significant rib pain, especially with coughing. He thinks his edema is better. No lightheadedness. Reviewed/Discussed With: multidisciplinary team Objective: Vital Signs (8 Hrs) Temp Pulse Resp BP Pulse Ox 07/19/18 11:54 36.7 C 105 H 12 109/48 L 92 07/19/18 08:00 36.7 C 105 H 12 109/48 L 92 07/19/18 06:00 90 12 91/39 L 98 07/19/18 05:00 93 14 98/39 L 95 Intake/Output (24 Hrs) 07/18/18 07/19/18 07/20/18 05:59 05:59 05:59 Intake Total 2501 1933 Output Total 1380 Balance 1121 1933 Intake: Oral (ml) 1980 900 IV Intake (ml) 259 IV Infused (ml) 521 774 Norepinephrine Bitartrate 521 774 4 mg In Ns 500 ml @ Per Protocol IV CONT KIM Rx#: [id number] Output: Urine (ml) 1380 Urinal 1380 Other: Number of Voids Toilet 2 No acute distress JVP 10 cm water. Regular rate and rhythm with 2/6 systolic ejection murmur at the base. 2/4 holodiastolic murmur at the left lower sternal border. No gallop. 1+ pitting edema to the midshin bilaterally Lungs rhonchi at the left base otherwise clear Result Diagrams: 07/19/18 04:20 07/19/18 04:20 Cardiac Labs: Cardiac Lab Results (72 Hrs) 07/16/18 17:50 Troponin I 0.083 H Telemetry: Sinus rhythm. Rare ventricular triplets ICD10 Worksheet Patient Problems: Problems Problem Status Onset Left rib fracture Acute
--- NOTE | 2018-07-19 13:32 | PDDCSUM ---
Discharge Summary Discharge Summary: Date of Admission: 07/15/2018 Date of Discharge: 07/19/2018 Consults: Cardiology, GI Procedures: EGD, TTE Followup: Cardiology (Dr. Jiménez or Dr. Shine in 1 week), GI (Dr. Haskins) Hospital Course Problem List: #Acute Diastolic HF -LV moderately dilated with preserved EF -Cards consulted -S/p IV Lasix, transitioned to PO 20 mg qd as well as Spironolactone 25 mg BID -Consider addition of NICOLA-i as outpatient #Acute GIB -EGD 07/17 was non diagnostic. Showed Esophagitis, Duodenitis, but no active bleeding -cont PPI BID, changed to PO on 07/17 -H/H stable this AM, f/u with GI as outpatient -Repeat CBC in 3 days #ABLA -appears resolved. Hgb stable. Will cont to trend #Cirrhosis -MELD 10 -Abd US confirms cirrhosis -GI consulted, will followup with Hepatology, Dr. Haskins, as outpatient #Valvular Heart disease: - Severe AR, possible bicuspid aortic valve - Per cardiology, once cirrhosis and UGIB are stabilized, his case with be discussed with CT Surgery and structural heart - F/u with Cardiology as outpatient #Hypotension -Requiring Levophed via PICC. D/c yesterday AM -His baseline BP are likely soft due to Liver disease. #Hypokalemia -Replacing, was on protocol during admission -Repeat BMP in 3 days, may need K replacement as outpatient #Hx of ETOH -not in active WD during admission, reports last drink several month ago -Recommend complete cessation #Influenza A, not symptomatic - cont Tamiflu (needs 3 more doses after discharge) - Continue Robitussin, Tessalon #rib Fractures - Lidocaine patch Time spent on discharge was >35 minutes with >50% of time spent on patient education and counseling.
--- NOTE | 2018-07-19 21:41 | ASMTLACE ---
HUMPHREYE Length of stay for Answers: 4-6 days current admission Acuity / Level of Answers: Yes Care: Did the patient have an inpatient admission? Comorbidities - select Answers: Congestive heart failure all that apply Other Notes: Cirrhosis; Pulmonary edema, GIB, valvular heart disease # of Emergency department Answers: 1-2 visits in the last 6 months Social determinants Answers: History of substance abuse (ETOH, street drugs, prescription drugs, etc.) Score: 14 Date Signed: 07/19/2018 09:40 PM Electronically Signed By:Sharda Kern RN
--- NOTE | 2018-07-19 21:49 | ASDISCHSUM ---
Discharge Information Plan Status:Home with No Needs Medically Cleared to Leave:07/18/2018 Discharge Date:07/19/2018 03:00 PM CM D/C Disposition:Home, Routine, Self-Care ADT D/C Disposition:Home, Routine, Self-Care Projected Discharge Date:07/19/2018 03:00 PM Transportation at D/C:Friend Discharge Delay Reason: Follow-Up Date:07/19/2018 03:00 PM Discharge Slot:2 - 12:01 pm - 18:00 pm Final Diagnosis:Acute diastolic heart failure, acute GIB, end stage cirrhosis, ABLA, valvular heart disease, hypotension Placement Information Patient Contact Information Contact Name:MARITZA Relationship:Other Address: Home Phone: City: [facility] Phone: [facility]/[employer] Code: Email: Financial Information Financial Class:HMO and PPO Plans Primary Plan Desc: OUT OF [facility] Plan Number:[id number] Secondary Plan Desc: Secondary Plan Number: Assessment Information LACE LACE Length of stay for Answers: 4-6 days current admission Acuity / Level of Answers: Yes Care: Did the patient have an inpatient admission? Comorbidities - select Answers: Congestive heart failure all that apply Other Notes: Cirrhosis; Pulmonary edema, GIB, valvular heart disease # of Emergency department Answers: 1-2 visits in the last 6 months Social determinants Answers: History of substance abuse (ETOH, street drugs, prescription drugs, etc.) Score: 14 Date Signed: 07/19/2018 09:40 PM Electronically Signed By:Sharda Kern RN [facility] Progress Note CM Baltazar SHOOK Note Notes: Pt is a 53 y/o man admitted for shortness of breath and lower extremity edema. CM met w/ pt for dispo planning. Pt has a hx of etoh abuse. CAGE completed. Pt reports that he relapsed due to some life stressors; such as a new job and his dad passing. Pt has a supportive fiance who was in the room. Pt is not interested in resources at this time and reports that he knows how the get sober. PT has been ordered and awaiting recommendations. Needs are TBD at this time. CM to follow. Plan: TBD Date Signed: 07/16/2018 03:10 PM Electronically Signed By:LEEANNA Garner CAGE Questionnaire CAGE Do you feel you ought to Answers: Yes cut down on your drinking or drug use? Do people annoy you by Answers: No criticizing your drinking or drug use? Do you feel guilty about Answers: Yes your drinking or drug use? Do you drink or use drugs Answers: No first thing in the morning (Eye Gas Mask Inspector)? Date Signed: 07/16/2018 03:11 PM Electronically Signed By:LEEANNA Garner [facility] Progress Note CM Note CM Note Notes: Late entry - CM note for Friday07/18/18. Reviewed chart, spoke with Dr. Jessica regarding discharge plan of care, pt's progress. Per ICU rounds, pt will likely require two valve surgeries in the near future. Pt has a complicated history, including ETOH abuse and end stage cirrhosis. PT recommends SNF rehab. Asked to see pt by PORTER Hook and ALEJANDRO Rouse to discuss financial concerns. Met with pt and pt's partner, Aleyda. Per Aleyda, the pt has a [place] Medicaid equivalent plan. Aleyda reports "the plan is only good for care in [place]." Insurance card reviewed. Partner and pt very concerned about [id number] liability. CM checked billing system - a request for authorization was sent to on 07/15/18; status states auth is pending. Update provided to pt and partner. Encouraged pt or partner to contact on Thursday 07/20 to alert insurance company of emergency hospitalization and to further discuss benefits/coverage. Aleyda verbalized understanding, reporting she previously "tried contacting the insurance company this morning." [facility] business card provided. Discussed possibility of completing an emergency Medicaid application, if insurance denies [id number] coverage. Pt states he is in [place] for work and will be here for a while. Support and reassurance provided. Updates provided to Padma and [employer]. Discharge plan and needs remain unclear at this time. CM will continue to follow. Discharge Plan: To be determined Date Signed: 07/19/2018 12:19 AM Electronically Signed By:Sharda Kern RN Case Management Discharge Plan Note Case Management Discharge Discharge Order Complete? Answers: Yes Patient to Obtain Answers: Independently Medications Transportation Arranged Answers: Family/Friends Transport will Pick (Date 07/19/2018 12:00 AM & Time) EMTALA Complete Answers: No Notes: N/A Case Management Transport Answers: No Notes: N/A Form Complete Faxed Final Orders Answers: No Notes: N/A Agency/Facility Transfer Answers: No Notes: N/A Report Printed & Faxed to Receiving Agency Family Notified Answers: Yes Notes: Lazaro Maynard notified b y pt Discharge Comments Notes: Reviewed chart, spoke with Dr. Jessica and Dr. Jiménez. Pt to discharge home independently with no identified needs. Pt to follow up with insurance company on Friday07/20/18 re benefits and to notify of emergency hospitalization. Pt denies need for resources at this time. [employer] card provided for pt to follow up on application for [place] Medicaid, if indicated. Pt provided prescription for follow up labs this week. Pt instructed to utilize hospital lab as a self pay. Pt to follow up with [facility] later this week. Additional resources offered, pt declined. Attempted to call pt's Aleyda armendariz to follow up on discharge; no answer. No IM/BRYANT forms signed, not applicable. CM available for any further issues or concerns. Discharge Plan: Home independently Date Signed: 07/19/2018 09:48 PM Electronically Signed By:Sharda Kern RN Intervention Information
== END 2018-07-19 15:00 | disposition home or self-care (01) | DRG 291 ==
LOC: F2W 15:12 → F2N 18:48
PROVIDERS: ADMIT Family Medicine; ATTEND Family Medicine
PROC: 3E043XZ Introduction of Vasopressor into Central Vein, Percutaneous Approach (ICD-10-PCS; 2018-07-15)
PROC: 02HV33Z Insertion of Infusion Device into Superior Vena Cava, Percutaneous Approach (ICD-10-PCS; 2018-07-15)
PROC: 30233N1 Transfusion of Nonautologous Red Blood Cells into Peripheral Vein, Percutaneous Approach (ICD-10-PCS; 2018-07-15)
PROC: 0DJ08ZZ Inspection of Upper Intestinal Tract, Via Natural or Artificial Opening Endoscopic (ICD-10-PCS; principal; 2018-07-16 09:30)
PROC: 0DB68ZX Excision of Stomach, Via Natural or Artificial Opening Endoscopic, Diagnostic (ICD-10-PCS; principal; 2018-07-16 09:30)
DX: I50.31 Acute diastolic (congestive) heart failure (principal); I35.2 Nonrheumatic aortic (valve) stenosis with insufficiency; I34.0 Nonrheumatic mitral (valve) insufficiency; K92.1 Melena; D62 Acute posthemorrhagic anemia; D61.2 Aplastic anemia due to other external agents; I95.89 Other hypotension; K20.8 Other esophagitis; K25.3 Acute gastric ulcer without hemorrhage or perforation; T39.315A Adverse effect of propionic acid derivatives, initial encounter; E87.6 Hypokalemia; J10.1 Influenza due to other identified influenza virus with other respiratory manifestations; S22.42XA Multiple fractures of ribs, left side, initial encounter for closed fracture; W01.0XXA Fall on same level from slipping, tripping and stumbling without subsequent striking against object, initial encounter; Y92.9 Unspecified place or not applicable; Y99.8 Other external cause status; K70.31 Alcoholic cirrhosis of liver with ascites; D68.8 Other specified coagulation defects; D69.59 Other secondary thrombocytopenia
CPT/HCPCS: 82607-90; 84484-ER; 96374; 97116-GP; 97162-GP; 97530-GP; C1751; G0008; G0009; J0696; J1170; J1940; J2250; J2354; J2704; J3010; J3430; J3475; J3480; P9016

== ENCOUNTER 2018-10-05 21:58 | Inpatient (IN) | payer MEDICAID ==
[2018-10-05] MEDS ORDERED: FAMOTIDINE 20 MG/NACL 50 ML IV ONE (22:03)
--- NOTE | 2018-10-05 22:20 | EDPHY ---
H & P Time Seen by Provider: 10/05/18 22:03 HPI/ROS: CHIEF COMPLAINT: GI bleed HISTORY OF PRESENT ILLNESS: Patient is a 53-year-old male with a history of cirrhosis and previous GI bleed who presents to the emergency department with bloody stools. Patient states he saw his physician on Friday. He had no blood in his stool at that time. However on Friday he began to have significant bleeding with bowel movements. It progressed until this evening when he is having bright red blood from his rectum at rest. He has also had multiple episodes of dark colored emesis. He feels lightheaded and dizzy. He feels fatigued and weak. He denies any chest pain or shortness of breath. REVIEW OF SYSTEMS: 10 systems were reveiwed and are negative with the exception of the elements mentioned in the history of present illness. Past Medical/Surgical History: Includes cirrhosis, GI bleed, endocarditis, diastolic heart failure, severe AR, history of alcohol abuse, rib fracture Social history: Patient states he no longer drinks alcohol Smoking Status: Never smoked Physical Exam: Vitals noted. Hypotensive. GENERAL: Pale, mild acute distress, alert. HEENT: Eyes normal to inspection, normal pharynx, no signs of dehydration. NECK: Normal, supple. RESPIRATORY: Clear to auscultation bilaterally, no rales, rhonchi or wheezing. CVS: Regular rate and rhythm, no rubs, murmurs, or gallops. ABDOMEN: Soft, nontender, mild distension, no organomegaly. Rectum: Active bleeding from rectum. This is extending down his leg. BACK: Normal to inspection, no CVA tenderness. SKIN: Normal color, no rash, warm, dry. No pallor. EXTREMITIES: No pedal edema, no joint swelling. NEURO/PSYCH: Alert and oriented, normal mood and affect, normal motor sensory exam. Constitutional: Initial Vital Signs Temperature (C) 36.5 C 10/05/18 22:00 Heart Rate 95 10/05/18 22:00 Respiratory Rate 22 H 10/05/18 22:00 Blood Pressure 99/25 L 10/05/18 22:00 O2 Sat (%) 100 10/05/18 22:00 O2 Delivery Mode Nasal Cannula O2 (L/minute) 2 Allergies/Adverse Reactions: No Known Allergies Allergy (Verified 07/15/18 13:24) Home Medications: Medication Instructions Recorded Albuterol [Proventil Inhaler HFA 1 - 2 puffs IH Q4H PRN 07/15/18 (*)] Calcium Carbonate [Oyster Shell 500 mg PO DAILY 07/15/18 Calcium 500 mg (*)] Herbals/Supplements -Info Only 1 ea PO DAILY 07/15/18 Naproxen Sodium [Aleve 220 MG (*)] 220 mg PO BID 07/15/18 Harwood-3 Fatty Acids [Fish Oil 1000 1,000 mg PO DAILY 07/15/18 mg (*)] Benzonatate [Tessalon Pearles] 100 mg PO TID PRN #15 cap 07/19/18 Ferrous Sulfate [Ferrous Sulf 325 325 mg PO DAILY #30 tab 07/19/18 MG (*)] Furosemide [Lasix 20 MG (*)] 20 mg PO DAILY #30 tab 07/19/18 Furosemide [Lasix 20 MG (*)] 20 mg PO DAILY #30 tab 07/19/18 Lidocaine 4%/Menthol 1% [Icy Hot 1 patch TD DAILY patch 07/19/18 Lidocaine/Menthol 4%/1% Patch (*)] Oseltamivir Phosphate [Tamiflu 75 75 mg PO BIDMEAL #3 cap 07/19/18 mg (*)] Pantoprazole Sodium [Protonix 40mg 40 mg PO BID #120 tab 07/19/18 (*)] Spironolactone [Aldactone 25 MG 25 mg PO BID #60 tab 07/19/18 (*)] guaiFENesin [Mucinex 600 MG (*)] 600 mg PO BID tab.er 07/19/18 Medical Decision Making ED Course/Re-evaluation: I met the patient on arrival to the emergency department. The patient appeared pale and in distress. He was noted to have bright red blood from his rectum down his leg. Because of his initial presentation and hypertension I ordered packed red blood cells prior to laboratory studies. I-STAT hematocrit came back at 20. Patient's sodium is 136. Potassium high at 5.7. Chloride 102. Bicarb 16, BUN 111, creatinine 2.5 Patient was given Pepcid and Protonix. I discussed the case with Dr. Bahena from the hospitalist service. I also discussed the case with Dr. Rosado from GI. I reviewed the patient's previous record. In June 2018 he had an upper endoscopy. This showed nonbleeding ulcers with reflux esophagitis. There are no varices. Patient subsequently had an episode of bloody emesis. This did not show any coffee-ground features. It was dark colored blood. This matched the same color blood that was coming from the patient's rectum down his leg. Because of the significant blood in the emesis and his hematocrit of 20, the patient was given unmatched packed red blood cells. I updated Dr. Bahena. I discussed the case with Dr. Rosado. He recommended the patient be started on octreotide. This was ordered. I updated the patient on the plan. I rechecked him on numerous occasions while in the emergency department. I answered all his questions. 2250: Dr. Bahena is at the bedside evaluating the patient. Critical Care Time: The patient required 35 min of critical care time. This was exclusive of any unbundled procedure. This was due the patient's hypertension, GI bleed, consultation with Gastroenterology and hospitalist service, time spent at the bedside and rechecks. - Data Points Laboratory Results: Laboratory Results 10/05/18 22:05 10/05/18 10/05/18 10/05/18 22:11 22:09 22:06 WBC RBC Hgb POC Hgb 6.8 gm/dL L gm/dL (13.7-17.5) Hct POC Hct 20 % L % (40-51) MCV MCH MCHC RDW Plt Count MPV Neut % (Auto) Lymph % (Auto) [place] % (Auto) Eos % (Auto) Baso % (Auto) Nucleat RBC Rel Count Absolute Neuts (auto) Absolute Lymphs (auto) Absolute Monos (auto) Absolute Eos (auto) Absolute Basos (auto) Absolute Nucleated RBC Immature Gran % Immature Gran # Platelet Estimate Smear Review By PT INR APTT POC Sodium 136 mEq/L mEq/L (135-145) Sodium POC Potassium 5.7 mEq/L H mEq/L (3.3-5.0) Potassium POC Chloride 102 mEq/L mEq/L (97-110) Chloride Carbon Dioxide POC Total CO2 16 mEq/L L mEq/L (22-31) Anion Gap POC BUN 101 mg/dL H* mg/dL (7-23) BUN Creatinine POC Creatinine 2.5 mg/dL H mg/dL (0.7-1.3) Estimated GFR Glucose POC Glucose 84 mg/dL mg/dL (70-100) Calcium Total Bilirubin Conjugated Bilirubin Unconjugated Bilirubin AST ALT Alkaline Phosphatase POC Troponin I 0.33 ng/mL H ng/mL (0.00-0.08) Total Protein Albumin Lipase Patient ABO/Rh Pending Antibody Screen Pending Crossmatch IS Only See Detail 10/05/18 10/05/18 10/05/18 22:05 22:05 22:05 WBC 7.08 10^3/uL 10^3/uL (3.80-9.50) RBC 2.12 10^6/uL L 10^6/uL (4.40-6.38) Hgb 6.7 g/dL L g/dL (13.7-17.5) POC Hgb Hct 21.7 % L % (40.0-51.0) POC Hct MCV 102.4 fL H fL (81.5-99.8) MCH 31.6 pg pg (27.9-34.1) MCHC 30.9 g/dL L g/dL (32.4-36.7) RDW 15.6 % H % (11.5-15.2) Plt Count 121 10^3/uL L 10^3/uL (150-400) MPV 10.7 fL fL (8.7-11.7) Neut % (Auto) 77.0 % H % (39.3-74.2) Lymph % (Auto) 14.5 % L % (15.0-45.0) [place] % (Auto) 7.9 % % (4.5-13.0) Eos % (Auto) 0.3 % L % (0.6-7.6) Baso % (Auto) 0.0 % L % (0.3-1.7) Nucleat RBC Rel Count 0.0 % % (0.0-0.2) Absolute Neuts (auto) 5.45 10^3/uL 10^3/uL (1.70-6.50) Absolute Lymphs (auto) 1.03 10^3/uL 10^3/uL (1.00-3.00) Absolute Monos (auto) 0.56 10^3/uL 10^3/uL (0.30-0.80) Absolute Eos (auto) 0.02 10^3/uL L 10^3/uL (0.03-0.40) Absolute Basos (auto) 0.00 10^3/uL L 10^3/uL (0.02-0.10) Absolute Nucleated RBC 0.00 10^3/uL 10^3/uL (0-0.01) Immature Gran % 0.3 % % (0.0-1.1) Immature Gran # 0.02 10^3/uL 10^3/uL (0.00-0.10) Platelet Estimate Pending Smear Review By Pending PT 27.2 SEC H SEC (12.0-15.0) INR 2.68 H (0.83-1.16) APTT 38.8 SEC H SEC (23.0-38.0) POC Sodium Sodium Pending POC Potassium Potassium Pending POC Chloride Chloride Pending Carbon Dioxide Pending POC Total CO2 Anion Gap Pending POC BUN BUN Pending Creatinine Pending POC Creatinine Estimated GFR Pending Glucose Pending POC Glucose Calcium Pending Total Bilirubin Pending Conjugated Bilirubin Pending Unconjugated Bilirubin Pending AST Pending ALT Pending Alkaline Phosphatase Pending POC Troponin I Total Protein Pending Albumin Pending Lipase Pending Patient ABO/Rh Antibody Screen Crossmatch IS Only Medications Given: Pantoprazole Sodium (Protonix) 40 mg IVP Q6H KIM Stop: 04/04/19 04:02 Last Admin: 10/05/18 22:29 Dose: 40 mg Discontinued Medications Famotidine/Sodium Chloride (Pepcid 20 Mg (Premix)) 50 mls @ 200 mls/hr IV EDNOW ONE Stop: 10/05/18 22:17 Last Admin: 10/05/18 22:08 Dose: 50 mls Point of Care Test Results: Chemistry 10/05/18 10/05/18 22:11 22:09 POC Sodium 136 mEq/L mEq/L (135-145) POC Potassium 5.7 mEq/L H mEq/L (3.3-5.0) POC Chloride 102 mEq/L mEq/L (97-110) POC Total CO2 16 mEq/L L mEq/L (22-31) POC BUN 101 mg/dL H* mg/dL (7-23) POC Creatinine 2.5 mg/dL H mg/dL (0.7-1.3) POC Glucose 84 mg/dL mg/dL (70-100) POC Troponin I 0.33 ng/mL H ng/mL (0.00-0.08) ISTAT H&H 10/05/18 22:11 POC Hgb 6.8 gm/dL L gm/dL (13.7-17.5) POC Hct 20 % L % (40-51) Departure - Departure Disposition: [facility] Inpatient Acute Clinical Impression: Upper GI bleed, Renal insufficiency Anemia Qualifiers: Anemia type: unspecified type Qualified Code(s): D64.9 - Anemia, unspecified Condition: Fair
[2018-10-05] MEDS ORDERED: ONDANSETRON 4 MG/2 ML VIAL ONE (22:24)
[2018-10-05] MEDS ORDERED: PANTOPRAZOLE SODIUM 40 MG VIAL ONE (22:26)
[2018-10-05] MEDS: PANTOPRAZOLE SODIUM 40 MG VIAL IVP SCH (22:29)
[2018-10-05] MEDS ORDERED: ONDANSETRON DISINTEGRATING 4 MG TAB PO PRN (22:37)
[2018-10-05 22:39] LABS: PLATELET COUNT 121 10^3/uL (150-400)
[2018-10-05 22:42] LABS: INR 2.68 (0.83-1.16); PROTIME(PATIENT) 27.2 SEC (12.0-15.0)
[2018-10-05] MEDS ORDERED: OCTREOTIDE ACETATE 50 MCG/ML INJ IVP ONE (22:42)
[2018-10-05] MEDS ORDERED: NS 1,000 ML IV SCH (22:45)
[2018-10-05] MEDS ORDERED: OCTREOTIDE ACETATE 500 MCG in NS 50 ML IV SCH ×2 (22:45→23:30)
[2018-10-05] MEDS: ONDANSETRON 4 MG/2 ML VIAL IVP PRN (22:45)
--- NOTE | 2018-10-05 22:46 | PDGENHP ---
History and Physical - Chief Complaint rectal bleeding, vomiting blood - History of Present Illness Source-patient provides history appears reliable. EMR was reviewed and case discussed with ED provider. HPI - this is a pleasant 53-year-old gentleman with past medical history significant for cirrhosis due to alcohol dependence in remission since 2017, history of valvular heart disease related to episode of endocarditis, diastolic CHF, chronic anemia with history of GI bleed who presents emergency department today with complaints of 3 days of rectal bleeding and now with complaints of hematemesis. Patient reports that he saw his PCP on Friday for "weird stool ." At that time, patient reports he had a stool study that was negative. On Friday subsequently started to have dark red jelly type stools. Today patient reports that he had multiple episodes of dark red emesis and bloody bowel movements had turned into persistent rectal bleeding without straining patient notes associated shortness of breath with some lightheadedness. He did not have any syncopal episodes. Patient denies any chest pain or palpitations. Additionally patient reports that he has had significant increase in his swelling were previously was controlled to the lower extremities and feet has since extended up proximally into the groin and scrotum and abdomen. Patient feels he has gained approximately 30 lb in the last several months since his discharge in June 2018. He notes increased abdominal distension with some mild generalized discomfort. Patient with a history of GI bleeding previously the 1st episode was in November of 2017 before patient moved to [place] and during his most recent hospital stay in June patient did undergo EGD that showed nonbleeding gastric ulcers, gastritis without any evidence of varices. History Information - Allergies/Home Medication List Allergies/Adverse Reactions: No Known Allergies Allergy (Verified 07/15/18 13:24) Home Medications: Albuterol [Proventil Inhaler HFA (*)] 1 - 2 puffs IH Q4H PRN 07/15/18 [Last Taken 07/15/18] Calcium Carbonate [Oyster Shell Calcium 500 mg (*)] 500 mg PO DAILY 07/15/18 [ Last Taken 07/15/18] Herbals/Supplements -Info Only 1 ea PO DAILY 07/15/18 [Last Taken Unknown] Naproxen Sodium [Aleve 220 MG (*)] 220 mg PO BID 07/15/18 [Last Taken 07/15/18] [place]-3 Fatty Acids [Fish Oil 1000 mg (*)] 1,000 mg PO DAILY 07/15/18 [Last Taken 07/15/18] I have personally reviewed and updated: family history, medical history, social history, surgical history - Past Medical History Additional medical history: alcoholic cirrhosis, hx alcoholism in remission since 02/2018. rib fractures after trauma. hx of PNA, endocarditis with valvular heart disease. anemia, hx GIB, gastric ulcer, esophagitis - Surgical History Reports: no pertinent surgical hx Additional surgical history: egd multiple. - Family History Positive for: non-pertinent Additional family history: negative for GIB, PUD - Social History Smoking Status: Never smoked Alcohol Use: None Drug Use: None Additional social history: He is from [place]. 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 Apparently he is living with friends. He used to drink heavily although states he quit 2018. He does not smoke. He uses marijuana occasionally. Review of Systems Review of Systems: ROS: 10pt was reviewed & negative except for what was stated in HPI & below Constitutional: Reports: malaise, other (30 lb weight gain over the last several months.). Denies: chills, fever, weight loss EENMT: Reports: no symptoms Cardiac: Reports: edema, lightheadedness. Denies: palpitations Respiratory: Reports: shortness of breath. Denies: cough, wheezing Gastrointestinal: Reports: vomitting, rectal bleeding, abdominal distention, nausea Genitourinary: Reports: other (Scrotal edema). Denies: dysuria, hematuria Muscolosketal: Reports: no symptoms Skin: Reports: no symptoms Neurological: Reports: headache Hematologic/Lymphatic: Reports: anemia, easy bruising Physical Exam Physical Exam: Selected Entries 10/05/18 22:00 Blood Pressure Automatic Method Heart Rate 95 Respiratory 22 H Rate O2 Sat (%) 100 Temperature (C) 36.5 C Blood Pressure 99/25 L Mean Arterial 49 L Pressure (MAP) O2 Delivery Room Air Mode Temperature Oral Source Temp Pulse Resp BP Pulse Ox 36.5 C 101 H 22 H 110/27 L 100 10/05/18 22:00 10/05/18 22:33 10/05/18 22:33 10/05/18 22:33 10/05/18 22:33 Constitutional: no apparent distress, chronically ill appearing, uncomfortable, other (NAD. Chronically ill-appearing pale gentleman is lying quietly on the gurney. Stat hers of blood are on his gown and blankets, abdomen is distended and protuberant.) Eyes: PERRL (Decreased reactivity light bilaterally but symmetric.), anicteric sclera, EOMI, No scleral injection Ears, Nose, Mouth, Throat: dry mucous membranes, other (Dentition fair condition. No nasal discharge. Dried blood around patient a. ) Cardiovascular: systolic murmur, pulses symmetric bilaterally, tachycardia, edema (3+ pitting edema bilateral lower extremities.) Respiratory: no respiratory distress, no rales or rhonchi, clear to auscultation , reduced air movement, No inspiratory crackles, No respiratory distress Gastrointestinal: normoactive bowel sounds, ascites (+ fluid wave), distension, No tenderness, No hepatosplenomegally Genitourinary: no bladder tenderness, No liao in urethra Skin: warm, other (P[place]or, patient with bruising on his upper extremities. ), No mottled Musculoskeletal: generalized weakness, other (Patient able to move all extremities.), No pain with ROM Neurologic: AAOx3, sensation intact bilaterally, other (Grossly nonfocal. Minimal tremor with movement.), No facial droop Psychiatric: interacting appropriately, not encephalopathic, thought process linear Lab Data & Imaging Review 10/05/18 22:05 10/05/18 22:05 WBC 7.08 10^3/uL (3.80-9.50) 10/05/18 22:05 RBC 2.12 10^6/uL (4.40-6.38) L 10/05/18 22:05 Hgb 6.7 g/dL (13.7-17.5) L 10/05/18 22:05 POC Hgb 6.8 gm/dL (13.7-17.5) L 10/05/18 22:11 Hct 21.7 % (40.0-51.0) L 10/05/18 22:05 POC Hct 20 % (40-51) L 10/05/18 22:11 MCV 102.4 fL (81.5-99.8) H 10/05/18 22:05 MCH 31.6 pg (27.9-34.1) 10/05/18 22:05 MCHC 30.9 g/dL (32.4-36.7) L 10/05/18 22:05 RDW 15.6 % (11.5-15.2) H 10/05/18 22:05 Plt Count 121 10^3/uL (150-400) L 10/05/18 22:05 MPV 10.7 fL (8.7-11.7) 10/05/18 22:05 Neut % (Auto) 77.0 % (39.3-74.2) H 10/05/18 22:05 Lymph % (Auto) 14.5 % (15.0-45.0) L 10/05/18 22:05 [place] % (Auto) 7.9 % (4.5-13.0) 10/05/18 22:05 Eos % (Auto) 0.3 % (0.6-7.6) L 10/05/18 22:05 Baso % (Auto) 0.0 % (0.3-1.7) L 10/05/18 22:05 Nucleat RBC Rel Count 0.0 % (0.0-0.2) 10/05/18 22:05 Absolute Neuts (auto) 5.45 10^3/uL (1.70-6.50) 10/05/18 22:05 Absolute Lymphs (auto) 1.03 10^3/uL (1.00-3.00) 10/05/18 22:05 Absolute Monos (auto) 0.56 10^3/uL (0.30-0.80) 10/05/18 22:05 Absolute Eos (auto) 0.02 10^3/uL (0.03-0.40) L 10/05/18 22:05 Absolute Basos (auto) 0.00 10^3/uL (0.02-0.10) L 10/05/18 22:05 Absolute Nucleated RBC 0.00 10^3/uL (0-0.01) 10/05/18 22:05 Immature Gran % 0.3 % (0.0-1.1) 10/05/18 22:05 Immature Gran # 0.02 10^3/uL (0.00-0.10) 10/05/18 22:05 PT 27.2 SEC (12.0-15.0) H 10/05/18 22:05 INR 2.68 (0.83-1.16) H 10/05/18 22:05 APTT 38.8 SEC (23.0-38.0) H 10/05/18 22:05 POC Sodium 136 mEq/L (135-145) 10/05/18 22:11 POC Potassium 5.7 mEq/L (3.3-5.0) H 10/05/18 22:11 POC Chloride 102 mEq/L (97-110) 10/05/18 22:11 POC Total CO2 16 mEq/L (22-31) L 10/05/18 22:11 POC BUN 101 mg/dL (7-23) H* 10/05/18 22:11 POC Creatinine 2.5 mg/dL (0.7-1.3) H 10/05/18 22:11 POC Glucose 84 mg/dL (70-100) 10/05/18 22:11 POC Troponin I 0.33 ng/mL (0.00-0.08) H 10/05/18 22:09 Crossmatch IS Only See Detail 10/05/18 22:06 Imaging Review: 06/2018-echocardiogram reviewed from previous hospital stay. Patient was noted to have moderately dilated LV. EF of 65-70%. Left atrium with severe dilation. Moderate MR. EGD report from June 2018-grade C reflux esophagitis, duodenitis. Non bleeding gastric ulcers were noted. EKG additional interpertation: Ectopic atrial rhythm. Low voltage in extremity leads. Anteroseptal infarct noted. Nonspecific T-wave abnormalities in lateral leads. Assessment & Plan Assessment: this is a pleasant 53-year-old gentleman with past medical history significant for cirrhosis due to alcohol dependence in remission since 03/12/2018, history of valvular heart disease related to episode of endocarditis, diastolic CHF, chronic anemia with history of GI bleed who presents emergency department today with complaints of 3 days of rectal bleeding and now with complaints of hematemesis. #Acute GI bleed - concerning for potentially upper and lower GI bleed. Patient reporting hematemesis started this evening denies any coffee-ground emesis. Patient has had continued rectal bleeding. Case previously discussed with the Dr. Ashlee DENNY from the emergency department. Plans for endoscopic upper evaluation once patient has had additional resuscitation. Patient was started on Protonix boluses and octreotide. Previous EKG from June 2018 showed a nonbleeding gastric ulcer as well as grade C esophagitis. There is no notation of esophageal varices. Patient reports that he had not been taking any PPI since his discharge as he was not aware that he had a gastric ulcer at that time. Patient's blood pressures and heart rate have improved since receiving the unit of PRBCs unmatched. Additional unit has been ordered along with FFP and vitamin K. # alcoholic cirrhosis with alcoholism in remission per patient - patient multiple sequelae of cirrhosis. Additionally he has been 3rd spacing significantly over the last several weeks. He reports up to a 30 lb weight gain. Patient's creatinine currently prohibits use of diuretics aggressively but once this has improved plane to initiate Lasix and spironolactone. #Acute blood loss anemia - plan as noted above. #Hypotension - due to hypovolemia in setting of anemia blood loss. Improved after PRBC. Continue monitor closely. #Thrombocytopenia - in setting of cirrhosis. Does not require transfusion of platelets at this time. #Coagulopathy - due to cirrhosis. FFP. Vitamin K. #Hyponatremia - secondary to hypovolemia. Patient will be receiving PRBCs and FFP as noted above. #Hyperkalemia - mildly elevated. plan to monitor at this time. Patient will be receiving PRBCs and additional FFP. #Acute kidney injury - likely due to hypotension, hypovolemia and anemia leading to decreased perfusion. Patient receiving platelets and PRBCs. Repeat BMP in the morning. #Hyperbilirubinemia - secondary to cirrhosis. #Elevated troponin - likely due to some demand in setting of hypotension and anemia. Patient denies any chest pain. Not a candidate for aspirin in setting of acute bleeding. Continue to trend. #Hypocalcemia - corrects for hypoalbuminemia. #Hypoalbuminemia - 2/2 cirrhosis. FEN - patient is significantly edematous. Continue transfusion to include 2 units of PRBCs. 3 units FFP. Monitor fluid status closely. Patient's blood pressures improved. Electrolytes will be monitored and replaced or treated as appropriate. PPX- SCDs if tolerated however patient does have significant edema. Anticoagulation currently contraindicated in setting of acute GI bleeding. Cor status-full Disposition-patient admitted inpatient status in ICU as he is critically ill in setting of active GI bleed with history and sequelae of cirrhosis. Anticipate greater than 2 midnight stay.
[2018-10-05] MEDS ORDERED: PHYTONADIONE 10 MG in NS 50 ML IV ONE (23:05)
--- NOTE | 2018-10-05 23:13 | CPEKG ---
Test Reason : OPEN Blood Pressure : / mmHG Vent. Rate : 094 BPM Atrial Rate : 094 BPM P-R Int : 132 ms QRS Dur : 070 ms QT Int : 339 ms P-R-T Axes : 249 011 105 degrees QTc Int : 424 ms Ectopic atrial rhythm Low voltage, extremity leads Anteroseptal infarct, old Nonspecific T abnormalities, lateral leads Confirmed by Stephenie Hicks ([id number]) on 10/05/2018 11:12:27 PM Referred By: STEPHENIE HICKS Confirmed By:Stephenie Hicks
[2018-10-06] MEDS ORDERED: AMPICILLIN/SULBACTAM 1.5 GM in NS 50 ML IV ONE (00:30)
[2018-10-06] MEDS ORDERED: PROPOFOL 200 MG/20 ML VIAL ONE ×2 (01:30)
[2018-10-06] MEDS ORDERED: PEG 3350/NA SULF,BICARB,CL/KCL (GAVILYTE-G) 4000 ML BTL PO ONE (02:11)
--- NOTE | 2018-10-06 02:15 | GCON ---
[f rep st] CONSULTATION GI INPATIENT CONSULTATION DATE OF CONSULTATION: 10/06/2018 I was kindly requested to see the patient by Dr. Jessica Bahena in consultation. CHIEF COMPLAINT: Hematemesis. HISTORY OF PRESENT ILLNESS: He is a 53-year-old white male who presented to the emergency department with bright red blood per rectum, but also multiple episodes of maroon-colored hematemesis by report. With this, he feels lightheaded, dizzy. He feels weak. He has known alcoholic cirrhosis. He states he no longer drinks alcohol. He was last seen by my partner, Dr. Chun Haskins, 4 days ago. Then, because of increased edema, his Lasix was increased to 40 mg and his Aldactone 100 mg daily. In June, for melena, he underwent an upper endoscopy by my other partner, Dr. Pa. Esophagitis was seen, but no varices. There was mention of multiple superficial gastric ulcers or erosions, not bleeding. Biopsies for Helicobacter pylori were negative. Some duodenal bulb inflammation was noted. Until recently, he was using naproxen twice a day. He has now stopped this. He was also on pantoprazole 40 mg twice a day, but he ran out of this recently. He has a history of aortic insufficiency and past endocarditis. PAST MEDICAL HISTORY: 1. As above. 2. Diastolic heart failure. 3. Otherwise, noncontributory. ALLERGIES: No known drug allergies. MEDICATIONS: Outpatient medications include the above. Inpatient medications include IV Protonix, octreotide. SOCIAL HISTORY: As above. He is . His 's mobile number . FAMILY HISTORY: Negative for similar hematemesis. REVIEW OF SYSTEMS: Positive pertinent review of systems as per my HPI. Otherwise, complete review of systems is negative. PHYSICAL EXAM: CONSTITUTIONAL: Ill-appearing gentleman. VITAL SIGNS: Stable. SKIN: Warm, dry. EYES: Pupils equal, round, reactive to light and accommodation. EARS/NOSE/MOUTH/THROAT: Oropharynx without masses, moist mucosa. CARDIOVASCULAR: Normal S2, normal PMI. RESPIRATORY: Lungs clear to auscultation and percussion anteriorly. ABDOMEN: Moderately distended due to ascites. Nontender. NEUROLOGIC: Grossly nonfocal, cranial nerves grossly intact. PSYCHIATRIC: Orientation, insight appropriate. MUSCULOSKELETAL: Strength grossly normal throughout, normal station. Extremities 2 to 3+ pedal edema. Of note, he is also somewhat jittery, possibly from alcohol withdrawal. LABORATORIES: Include sodium 136, potassium 5.7, BUN 101, creatinine 2.5. Hematocrit 20% with a baseline hematocrit historically of 36%, platelet count 121,000. Normal liver function tests. Total bilirubin 1.5. Normal lipase. MCV 102. Prothrombin time 27.2, INR 2.68. ASSESSMENT: 1. Hematemesis, as well as passage of bright red blood per rectum. Suspect a brisk upper gastrointestinal bleed. Although no varices seen 3 months ago, his liver seems to be more decompensated now with worsening fluid overload, coagulopathy, etc. Therefore, the development of varices and bleeding is certainly possible. Brisk peptic ulcer bleed from his recent naproxen use is also possible. 2. Ascites, leg edema. 3. Cirrhosis. PLAN: 1. Urgent upper endoscopy. Certainly, with his coagulopathy, significant anemia, cirrhosis, history of aortic insufficiency and endocarditis, diastolic heart failure, etc., he is at increased risk for this procedure. However, I suspect that benefits outweigh the risks, and suspect he will do well. 2. Will give him 1 dose of Unasyn for the procedure to help protect against endocarditis. 3. Further management pending the above. Thank you for allowing me to help in the care of this patient. /[id number]/MODL MTDD
--- NOTE | 2018-10-06 02:25 | GIREPORT ---
[facility] - Endoscopy Department Patient Name: Solo Mejia Procedure Date: 10/06/2018 1:03 AM Patient Type: Inpatient Attending MD/ ER Physician: Mark Rosado MD Procedure: Upper GI endoscopy Indications: Note dictated, consult appreciated. Hematochezia, with reported dark hematemesis. Moderate ascites, with significant leg edema. Tremulous. Providers: Mark Rosado MD, FACG Referring MD: Evie Hicks MD; Chun Haskins MD; [facility] Hospitalist service Medicines: Propofol per Anesthesia Complications: No immediate complications. Description of Procedure: After obtaining informed consent, the endoscope was passed under direct vision. Throughout the procedure, the patient's blood pressure, pulse, and oxygen saturations were monitored continuously. The Endoscope was intro duced through the mouth, and advanced to the second part of duodenum. Findings: The esophagus was normal. The stomach was normal, except for one small erosion in the cardia (not significant). The examined duodenum was normal, except for some whitish scarring in t he duodenal bulb. No blood seen. Rather, just copious dark bile mixed with old food prese nt. Rectal exam reveals dark, maroonish blood on the gloved finger. Estimated Blood Loss: Estimated blood loss: none. Post Op Diagnosis: - No upper source for bleeding. Overall, suspect a colonic source. Recommendation: - clears - change IV PPI to p.o. daily prophylaxis, while here in the hospital - d/c octreotide - will prep him gingerly over two days, while he stabilizes, for a colonoscopy on . For today, will give just 1 liter of prep, throughout the course of the day - librium for DT prevention - once Cr normalizes, can begin aggressive diuresis Thank you for allowing me to help in the management of this patient. Attending Participation: I personally performed the entire procedure. Ashlee Flores MD Mark Rosado MD 10/06/2018 2:24:45 AM This report has been signed electronicallyPeter MD Ashlee Number of Addenda: 0 Note Initiated On: 10/06/2018 1:03 AM [email or web address]
--- NOTE | 2018-10-06 02:27 | PDANEPAE ---
ANE History of Present Illness Upper endoscopy GI bleed ANE Past Medical History - Cardiovascular History Hx Hypertension: No Hx Arrhythmias: No Hx Chest Pain: No Hx Coronary Artery / Peripheral Vascular Disease: No Hx CHF / Valvular Disease: Yes Cardiovascular History Comment: severe AI, mod MR, current CHF - Pulmonary History Hx COPD: No Hx Asthma/Reactive Airway Disease: No Hx Recent Upper Respiratory Infection: Yes Hx Oxygen in Use at Home: No Hx Sleep Apnea: No Pulmonary History Comment: influenza A currently - Endocrine History Hx Diabetes: No Hypothyroid: No Hyperthyroid: No Obesity: mild - Renal History Hx Renal Disorders: No - Liver History Hx Hepatic Disorders: Yes Hepatic History Comment: liver dysfuncion secondary to EtOH abuse - GI History Hx Gastrointestinal Disorders: Yes Gastrointestinal History Comment: GI bleed - Chronic Pain History Chronic Pain: No ANE Review of Systems Review of Systems: - Exercise capacity METS (RN): 3 METS ANE Patient History - Allergies Allergies/Adverse Reactions: No Known Allergies Allergy (Verified 07/15/18 13:24) - Home Medications Home Medications: Albuterol [Proventil Inhaler HFA (*)] 1 - 2 puffs IH Q4H PRN 07/15/18 [Last Taken 07/15/18] Calcium Carbonate [Oyster Shell Calcium 500 mg (*)] 500 mg PO DAILY 07/15/18 [ Last Taken 07/15/18] Herbals/Supplements -Info Only 1 ea PO DAILY 07/15/18 [Last Taken Unknown] Naproxen Sodium [Aleve 220 MG (*)] 220 mg PO BID 07/15/18 [Last Taken 07/15/18] [place]-3 Fatty Acids [Fish Oil 1000 mg (*)] 1,000 mg PO DAILY 07/15/18 [Last Taken 07/15/18] - Smoking Hx Smoking Status: Never smoked - Alcohol Use Alcohol Use: None ANE Labs/Vital Signs - Labs Result Diagrams: 10/05/18 22:05 10/05/18 22:05 - Vital Signs Blood Pressure: 103/41 Heart Rate: 101 Respiratory Rate: 20 O2 Sat (%): 97 Height: 180.34 cm Weight: 92.5 kg ANE Physical Exam - Airway Mallampati Score: Class 2 Mouth exam: normal dental/mouth exam - Pulmonary Pulmonary: respiratory distress (Accessory muscles Ascites. 4 + pitting edema ) - Cardiovascular Cardiovascular: regular rate and rhythym, systolic murmur, diastolic murmur, tachycardia ANE Anesthesia Plan Anesthesia Plan: GA w LMA Total IV Anesthesia: Yes
[2018-10-06] MEDS ORDERED: fentaNYL 100 MCG/2 ML INJ IVP PRN (02:28)
[2018-10-06] MEDS ORDERED: NALOXONE HCL 0.4 MG/ML INJ IVP PRN (02:28)
[2018-10-06] MEDS ORDERED: PANTOPRAZOLE SODIUM 40 MG VIAL IVP SCH (04:00)
[2018-10-06 04:58] LABS: PLATELET COUNT 86 10^3/uL (150-400)
[2018-10-06 05:00] LABS: INR 2.35 (0.83-1.16); PROTIME(PATIENT) 24.6 SEC (12.0-15.0)
[2018-10-06] MEDS: PANTOPRAZOLE SODIUM 40 MG TAB PO SCH (08:55)
[2018-10-06] MEDS: FOLIC ACID 1 MG TAB PO SCH (08:55)
[2018-10-06] MEDS: MULTIVITAMINS W-MINERALS 1 EACH TAB PO SCH (08:55)
[2018-10-06] MEDS: THIAMINE HCL 100 MG TAB PO SCH (08:56)
[2018-10-06] MEDS ORDERED: chlordiazePOXIDE 25 MG CAP PO SCH (09:00)
[2018-10-06] MEDS ORDERED: MULTIVITAMINS W-IRON (PEDS) 1 ML UDSYR PO SCH (09:00)
--- NOTE | 2018-10-06 09:20 | PDMN ---
Medical Necessity Medical necessity: [facility] M182 LGIB, A-2 days: 53 yo w/ rectal bleeding and hematemesis. Eval reveals acute GI bleed w/ concern for both upper and lower GIB w/ acute blood loss anemia H/H 6.7/21.7, hyponatremia 129, hyperkalemia 5.7 , EMMANUELLE Cr 2.2, thrombocytopenia plt 86K, hyperbilirubinemia, elevated troponin, hypotensive, tachycardic and tachypneac. Pt reports also a 30lb weight gain over last several weeks - 3rd spacing from etoh cirrhosis per MD. IVF, GI consult, urgent EGD completed, suspect LGIB. Meets [facility] IP criteria for LGIB w/ unstable comorbid condition and hemodynamic instability. Hx cirrhosis due to alcohol dependence in remission since 03/12/2018, history of valvular heart disease related to episode of endocarditis, diastolic CHF, chronic anemia with history of GI bleed
[2018-10-06] MEDS ORDERED: ALTEPLASE 2 MG VIAL IVP PRN (09:44)
[2018-10-06] MEDS ORDERED: PHYTONADIONE 10 MG in NS 50 ML IV ONE (09:52)
--- NOTE | 2018-10-06 10:03 | HOSPPROG ---
Hospitalist Progress Note Assessment/Plan: 53yo M with alcoholic cirrhosis, diastolic dysfunction, severe aortic regurgitation thought 2/2 bacterial endocarditis here with worsening edema and blood in stool. Course complicated by encephalopathy. #Acute GIB: Distal small bowel vs lower - EGD overnight without source, no varices - GI recommending colonoscopy once stabilized #Acute on chronic anemia: D/t above - Inappropriate response to 2u PRBC - Ordered additional 1u PRBC, monitor H/H q6h - Check hemolysis labs #Coagulopathy of liver disease - s/p 2u FFP and 10mg IV vitamin K overnight - Ordered additional 2u FFP and 10mg IV vitamin K #Acute renal failure: Suspect prerenal, improving with volume - Consulted and d/w renal - Volume expansion with blood products as above - Start midodrine 10mg tid #Hypotension: D/t liver failure. - Midodrine as above - PICC line ordered in case vasopressors are needed #Acute metabolic encephalopathy: Worsening today, suspect r/t ammonia of 159. Less likely etoh withdrawal. - NG tube ordered for lactulose 20mg TID - Hold precedex and scheduled ativan as he is somnolent - Ok to continue with CIWA protocol and prn ativan #Decompensated cirrhosis: Worsening liver synthetic fxn, likely d/t bleed. Etiology of cirrhosis attributed to alcohol in the past but doesn't appear to have been worked up. Denied recent alcohol use. - Liver US w/doppler unable to assess portal/hepatic flow - Check hepatitis panel, ferritin #Edema: Multifactorial from low albumin, diastolic CHF. Weight up 9kg from 3 months ago. - Holding on diuresis with renal failure #H/o EtOH abuse: Patient and family deny use since 06/2018. CIWA as above. #Thrombocytopenia: D/t splenic sequestration. No indication for plt transfusion. #Hyperkalemia: D/t [place]. No indication for HD. Monitor closely. #Elevated troponin: Demand in setting of volume overload/anemia and unable to clear with renal failure. - Not aspirin candidate. Will likely need ischemic eval at some point #Severe aortic regurgitation: Reportedly d/t prior h/o endocarditis in 2018. - Cardiology consulted last admission, was considering repair once compensated from GI stand point #Bilious vomiting: I do not think this is hematemesis and neither does GI. No upper bleeding source on EGD. VTE ppx: SCDs Code: full Dispo: Remain in ICU. Prognosis is gaurded. I spent a total of 45 minutes of critical care time involving this patient. Case discussed with ibm bpm developer, renal, RN, and family at bedside. Subjective: Confused this morning after procedure (received propofol). Somewhat agitated when I'm seeing him. He has vomited up approximately 400-500ml of dark bilious material. Had soft BM this morning that was melenic per RN. No abdominal pain. Objective: Vital Signs Temp Pulse Resp BP Pulse Ox 36.4 C 79 18 98/27 L 99 10/06/18 08:00 10/06/18 09:00 10/06/18 09:00 10/06/18 09:00 10/06/18 09:00 Laboratory Results 10/06/18 04:40 10/06/18 04:40 10/05/18 10/06/18 10/07/18 05:59 05:59 05:59 Intake Total 1428 Output Total 2300 Balance -872 PT 24.6 SEC (12.0-15.0) H 10/06/18 04:40 INR 2.35 (0.83-1.16) H 10/06/18 04:40 - Physical Exam Constitutional: chronically ill appearing, uncomfortable Eyes: PERRL, anicteric sclera Ears, Nose, Mouth, Throat: dry mucous membranes, other (dried dark material on lips) Cardiovascular: systolic murmur, tachycardia, edema (anasarca to abdomen) Respiratory: no respiratory distress, no rales or rhonchi, clear to auscultation Gastrointestinal: normoactive bowel sounds, distension, No tenderness Genitourinary: liao in urethra Skin: no rashes or abrasions, no fluctuance, no induration Musculoskeletal: full muscle strength Neurologic: CN II-XII Intact, other (not oriented, no asterixis, 2-3 beats clonus in bilateral ankles) Psychiatric: encephalopathic ICD10 Worksheet Patient Problems: Problems Problem Status Onset Anemia Acute Renal insufficiency Acute Upper GI bleed Acute Left rib fracture Acute
[2018-10-06] MEDS ORDERED: FLUMAZENIL 0.5 MG/5 ML MDV IVP PRN (11:03)
[2018-10-06] MEDS: LORazepam 2 MG/ML INJ IVP PRN (11:11)
[2018-10-06] MEDS ORDERED: DEXMEDETOMIDINE HCL 400 MCG in NS 100 ML IV SCH (11:30)
[2018-10-06] MEDS: THIAMINE HCL 500 MG in NS 100 ML IV SCH (11:45)
--- NOTE | 2018-10-06 11:57 | ASMTCMCOM ---
CM Note CM Note Notes: Pt is a 52 yo M presents with GI bleed. Pt's Lazaro Maynard is at bedside. Pt's address on EMR is for his house that he owns in [place] but reports he is temporarily living with roommates in [place]. Renal is consulted, likely to have Colonoscopy for . PT/OT will be ordered once medically appropriate. CM to follow. Plan: TBD Date Signed: 10/06/2018 11:56 AM Electronically Signed By:LEEANNA Guardado
[2018-10-06] MEDS ORDERED: LORazepam 2 MG/ML INJ IVP SCH (12:00)
--- NOTE | 2018-10-06 13:07 | GCON ---
[f rep st] CONSULTATION INTERMOD[employer] CUST[employer]ER SERVICE CONSULTATION. REASON FOR ADMISSION: GI bleed. HISTORY: I was asked to see the patient by Dr. Jessica Bahena. The patient is a 53-year-old white mal e with a past medical history including alcoholism, alcohol cirrhosis, endocarditis with valvular hea rt disease, history of GI bleed in the past, gastric ulcer, and esophagitis. He presented to the [facility] room after finding dark red, jelly like stools. He was seen, underwent upper endoscopy and wa s admitted to Intensive Care Unit. However, in the recent hours, he has had worsening of his mental status, is markedly confused and quite agitated. According to his fiancee, he had stopped drinking bu t I find this questionable. Again, he is quite agitated and unable to provide much history. All his tory is gleaned from the medical record. REVIEW OF SYSTEMS: A 10-point review of systems is attempted, but unable to be performed secondary t o altered mental status. PAST MEDICAL HISTORY: Significant for alcoholic cirrhosis with alcoholism, history of endocarditis w ith valvular heart disease, history of GI bleed, history of gastric ulcer and esophagitis. FAMILY HISTORY: Noncontributory. SOCIAL HISTORY: No history of tobacco use, excessive alcohol use. He resides in [place]. He is e ngaged. His fiancee is at the bedside. PHYSICAL EXAM: VITAL SIGNS: Blood pressure is 116/53, pulse 106, respirations 21, temperature 36.2, oxygen saturation 100% on room air. GENERAL: He is a well-developed 53-year-old male who is agitated . HEENT: Eyes are PERRLA, EOMI. Throat exam is deferred. NECK: Supple. No cervical adenopathy. H EART: Regular rate and rhythm. He is mildly tachycardic. LUNGS: Diminished breath sounds but no whee ze. ABDOMEN: Soft, nontender. Bowel sounds are present in all 4 quadrants. EXTREMITIES: No clubb ing, cyanosis, or edema. LABORATORIES: White count is 8.5, hemoglobin 6.8, hematocrit 20, platelet count is 86. INR is 2.35. Sodium 135, potassium 5.7, chloride 108, CO2 is 18, BUN 106, creatinine 1.9, glucose is 87. ALT an d AST are in the normal range. IMPRESSION: 1. Gastrointestinal bleed, source of which is uncontrolled though lower gastrointestinal would be mo st likely given his negative upper endoscopy. 2. History of alcoholism. 3. Alcohol withdrawals. Current CIWA is approximately 20. 4. History of endocarditis. 5. History of gastrointestinal bleed with gastric ulcer and esophagitis. 6. Encephalopathy. 7. Anemia. 8. Coagulopathy. 9. Acute renal failure, likely prerenal. RECOMMENDATIONS: 1. GI to perform lower endoscopy later in the week. 2. Close monitoring of H and H with appropriate transfusion. 3. Continue CIWA protocol. 4. Will continue adequate sedation. Will start Precedex. 5. DVT and PE prophylaxis, holding anticoagulation now. 6. Stress ulcer prophylaxis. /[id number]/MODL
--- NOTE | 2018-10-06 14:34 | SOAPPROG ---
[facility] Progress Note Assessment/Plan: Assessment: Renal consult-- see dictation# [id number] will continue to follow discussed recs hospitalist 24 hour line for [facility] [phone] Objective: Vital Signs Temp Pulse Resp BP Pulse Ox 36.2 C 95 19 98/37 L 100 10/06/18 11:00 10/06/18 14:00 10/06/18 14:00 10/06/18 14:00 10/06/18 14:00 Laboratory Results 10/06/18 11:15 10/06/18 04:40 10/05/18 10/06/18 10/07/18 05:59 05:59 05:59 Intake Total 1428 Output Total 2300 500 Balance -872 -500 PT 24.6 SEC (12.0-15.0) H 10/06/18 04:40 INR 2.35 (0.83-1.16) H 10/06/18 04:40 ICD10 Worksheet Patient Problems: Problems Problem Status Onset Anemia Acute Renal insufficiency Acute Upper GI bleed Acute Left rib fracture Acute
[2018-10-06] MEDS: LACTULOSE 20 GM/30 ML UDCUP TUBE SCH ×3 (14:59→21:36)
[2018-10-06] MEDS: MIDODRINE HCL 10 MG TAB PO SCH ×2 (17:19→21:36)
[2018-10-06 17:58] LABS: HEPATITIS B SURFACE ANTIGEN NEGATIVE (NEGATIVE)
[2018-10-06 18:07] LABS: HEPATITIS A ANTIBODY IGM (BCH) NEGATIVE (NEGATIVE); HEPATITIS B CORE AB IGM NEGATIVE (NEGATIVE)
[2018-10-06 18:17] LABS: HEPATITIS C ANTIBODY TOTAL NEGATIVE (NEGATIVE)
--- NOTE | 2018-10-06 19:18 | GCON ---
[f rep st] CONSULTATION INPATIENT NEPHROLOGY CONSULTATION DATE OF CONSULTATION: 10/06/2018 REFERRING PHYSICIAN: Frantz Painting, [facility] Medicine REASON FOR CONSULTATION: Acute kidney injury. HPI: The patient is a 53-year-old man with a history of alcoholic cirrhosis, severe aortic regurgitation secondary to prior episode of endocarditis, who presented to the emergency room yesterday with 3 days of bright red blood per rectum and hematemesis. He described the stool as red-jelly in appearance. GI evaluated him and did an endoscopy that was negative for an upper GI bleed, but have planned to do a colonoscopy when he is more stable. He did require FFP and packed red cells overnight. I have been asked to see the patient for his acute kidney injury. The patient is currently on BiPAP due to somnolence as well as Ativan that he received earlier. He is unable to give me a history so most of it is obtained from discussing with the ICU team as well as reviewing his chart. His creatinine on admission was 2.2 and improved to 1.9 on last check this morning. His baseline creatinine appears to be around 1.0 based on labs from earlier this year in the [employer] system. He has been nonoliguric and his urine output has picked up significantly this afternoon with 100 cc already recorded. His blood pressure has been on the lower side. He has not required pressors. He has been running in the 90s to 100s. He does note increasing lower extremity edema. He notes no significant weight gain since admission prior this year. He was taking Lasix prior to this admission. He was also taking NSAIDs prior to this admit. He was supposed to be on a PPI but had quit taking it as he had run out of it prior to admission. He was on 40 mg of Lasix daily and Aldactone 100 mg daily. This was increased recently due to increasing edema by the GI team approximately a week ago. REVIEW OF SYSTEMS: Unable to obtain as patient is currently confused. From reviewing the chart and discussing with the ICU team, he was complaining of bright red blood per rectum, hematemesis, increasing weight gain, and edema. He was also complaining of weakness and dizziness. No fevers. PAST MEDICAL HISTORY: 1. Alcoholic cirrhosis. 2. Prior upper GI bleed. He had an endoscopy in June 2018, that showed esophagitis but no varices. His biopsy for H pylori was negative then. 3. Severe aortic insufficiency secondary to a prior endocarditis. He also has diastolic dysfunction. 4. NSAID use. SOCIAL HISTORY: He is . He has quit drinking as of February but a history of prior abuse. No drugs or tobacco. FAMILY HISTORY: Unable to obtain. The patient is too confused to give a history. CURRENT MEDICATIONS: Includes folic acid 1 mg daily, Lorazepam p.r.n., multivitamin daily, Zofran p.r.n., PPI, thiamine, lactulose 20 g per tube t.i.d. PHYSICAL EXAM: VITAL SIGNS: Temperature is 36.7, blood pressure is 106/43, heart rate 98, saturating 100% on FiO2 40%, BiPAP. GENERAL: He is somnolent but arousable on BiPAP with FiO2 of 40%. HEENT: No scleral icterus. He does have an NG with some blood-tinged output. CARDIAC: Regular rate and rhythm. No rub. ABDOMEN: Somewhat distended but nontender. Normal bowel sounds. LUNGS: Decreased breath sounds at the bases bilaterally; otherwise clear. EXTREMITIES : Notable for 2+ edema bilaterally. SKIN: Warm. No rash. NEUROLOGIC: He is somnolent but arousable. LABS: Sodium 135, potassium 5.7, chloride 108, bicarb 18, BUN 106, creatinine 1.9, glucose 87, calcium 7.8, magnesium 2.4, total bilirubin 3.3, conjugated bilirubin 1.0, AST 45, ALT 22, alkaline phosphatase 43. Ammonia was 159. Troponin 0.33 and then 0.268. Total protein 4.4, albumin 2.0, white blood cell count 8.5, hemoglobin 7.1, hematocrit 22.3, platelets 86. The INR was 2.68, PTT 38.8. His blood gas this afternoon showed a pH of 7.49, pCO2 23, PO2 121, bicarbonate 18, urine sodium was 47, urine creatinine is 38. His hepatitis A, B, and C were negative. Urine toxicology screen was negative. His alcohol screen was negative. IMAGING: His abdominal ultrasound this morning showed cirrhosis with small to moderate ascites, no mass, no cholelithiasis or ductal dilation, no right-sided hydronephrosis. Chest x-ray showed right basilar opacity; may be atelectasis, severe cardiomegaly with pulmonary vascular congestion. ASSESSMENT AND PLAN: The patient is a 53-year-old man with a history of alcoholic cirrhosis, diastolic dysfunction, with severe aortic insufficiency who now presents with a gastrointestinal bleed and acute kidney injury: 1. Acute kidney injury. He does appear to have relatively preserved creatinine at baseline with his most recent value prior to admission around 1.0. This may be a little bit high for underlying cirrhosis and thus he may have some degree of chronic kidney disease. He has had an acute kidney injury episode that is likely due to his gastrointestinal bleeding, relative hypotension, in a setting of cirrhotic physiology and increased diuretics use. He has current anasarca with most of his volume 3rd spacing and thus likely intravascular depleted. His BUN is out of proportion to his creatinine likely reflecting need for diuresis as well as possible gastrointestinal bleeding. His creatinine has improved somewhat with transfusion of blood products. There is no obvious hydronephrosis noted on ultrasound although the left kidney was not visualized. I would add in some Midodrine to help with his blood pressure support as it is on the softer side. I will defer to GI on use of octreotide given his concern for gastrointestinal bleeding. Instead of albumin, I would continue to transfuse blood products, as you are as this will help with colloid replacement. While he does not have true hepatorenal syndrome (this is more likely acute tubular necrosis), but his cirrhotic physiology is likely contributing as well as his underlying congestive heart failure. 2. Congestive heart failure with diastolic dysfunction and aortic insufficiency. He does have evidence of volume overload. However this will be difficult to mobilize given his cirrhotic physiology. We will add in midodrine to help with blood pressure support and would recommend low volume paracentesis as needed. Once his creatinine stabilizes, we will begin to gently re-add in some diuretics. 3. Hyperkalemia. His potassium is in the mid 5 range. Will need to monitor this closely especially given his ongoing need for blood products. We are checking serial labs. At this point, there are no acute indications for dialysis but will need to monitor him closely. 4. Gastrointestinal bleeding. He has had an endoscopy with no known varices. He is on a PPI and GI is planning a colonoscopy once he is a bit more stable. 5. Somnolence. His blood gas did not show significant CO2 retention. This is likely due to both increased ammonia levels from his cirrhosis as well as Ativan. He is currently on BiPAP at this point and we will monitor closely. Thank you very much for the consultation. We will continue to follow very closely with you. Please do not hesitate to call with any questions. I did discuss my recommendations with the ICU team. /[id number]/MODL MTDD
[2018-10-07] MEDS: LORazepam 2 MG/ML INJ IVP PRN (01:13)
--- NOTE | 2018-10-07 03:32 | HOSPPROG ---
Hospitalist Progress Note Assessment/Plan: Hospitalist night float note Notified by RN that patient with increased work of breathing despite BiPAP support. 53-year-old gentleman admitted by myself with history of alcoholic cirrhosis, diastolic CHF, cardiomyopathy and valvular heart disease related to an episode of endocarditis who initially presented with complaints of rectal bleeding and hematemesis. Patient underwent EGD yesterday getter filler that did not reveal any sources for bleeding. It was felt that this source was lower GI bleed in nature. Patient received some procedural profile fall and Ativan and subsequently had worsening mental status. Ammonia was noted to be greater than 150. Patient had a NG tube in place and was started on BiPAP. It schedule lactulose ordered however he has not had any bowel movements. Patient did have some increasing agitation approximately 0100 he received 2 mg of Ativan for CIWA score of 10. Patient subsequently had increased work of breathing and respiratory rate up to 40 with use of accessory muscles. Chest x- ray appeared to be with improved aeration. Reviewed labs ABG in case with Dr. Boateng. Noted increased concerns or acute respiratory failure continue decline. Recommends intubation for respiratory support. He will arrived shortly for intubation. Objective: Vital Signs Temp Pulse Resp BP Pulse Ox 36.9 C 113 H 37 H 113/62 99 10/06/18 23:00 10/07/18 02:00 10/07/18 02:00 10/07/18 02:00 10/07/18 02:00 Laboratory Results 10/07/18 00:25 10/06/18 14:40 10/05/18 10/06/18 10/07/18 05:59 05:59 05:59 Intake Total 1428 1830 Output Total 2300 2100 Balance -872 -270 PT 24.6 SEC (12.0-15.0) H 10/06/18 04:40 INR 2.35 (0.83-1.16) H 10/06/18 04:40 ICD10 Worksheet Patient Problems: Problems Problem Status Onset Anemia Acute Renal insufficiency Acute Upper GI bleed Acute Left rib fracture Acute
[2018-10-07] MEDS ORDERED: ETOMIDATE 40 MG/20 ML INJ IV ONE (03:39)
[2018-10-07] MEDS ORDERED: MIDAZOLAM 2 MG/2 ML VIAL IVP ONE (03:39)
[2018-10-07] MEDS ORDERED: PROPOFOL/EMULSION 1,000 MG/100 ML BOTTLE IV ONE (03:42)
--- NOTE | 2018-10-07 04:10 | PDINTPN ---
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 There was some uncertainty about his last alcohol intake but his hematocrit was 22 on admission, sodium is 129, and creatinine 2.2. He had hypotension that responded to blood products including red cells, FFP, and vitamin K. He was placed on Protonix and octreotide drips and had EGD at 1:00 a.m. On 10/06/2018. No bleeding source was identified and importantly there were no varices. Because of an inappropriate response to blood products he was given FFP and red cells again renal was consulted and recommended mid during. His mental status continued to get worse any showed signs of alcohol withdrawal. Precedex was started briefly but was held due to poor mental status and he was given lactulose via NG. Earlier in the day on 10/06 he was given 4 mg of Ativan which resulted in poor responsiveness and was started on BiPAP at approximately 1:40 p.m.. He required 2 more mg of Ativan at 1:13 a.m. On 10/07. I was called at 3:00 a.m. With reports of increasing respiratory rate into the 40s and ongoing poor mental status. * Acute respiratory failure with hypoxia-on arrival the patient had quite rapid and ineffective respirations with borderline hypoxemia despite supplemental oxygen. He required emergent intubation which is dictated separately. A postprocedure chest x-ray shows no significant infiltrates and good endotracheal tube placement. We will continue him on the ventilator overnight until improvements in his mental status are found. * Hepatic encephalopathy -this patient has known liver disease and an ammonia level of 159 earlier on 10/06. He is already getting lactulose but I would suggest adding rifaximin to improve this. Given his somnolence I would hold sedation as best as possible though he may need propofol to tolerate the ventilator. Clearly there would be an element of alcohol withdrawal that may affect the sedation plans. His exam was nonfocal so I do not believe that a head CT is warranted at this time but in the absence of improvement in the near future this should be a consideration. * GI bleed-source remains unclear at this time. Reviewing serial hematocrits dating back to June 2018 he appears to run in the mid to upper 20s with only 1 of nearly a dozen measurements above 30. Plans are for colonoscopy in the near future. * Hypotension -his lowest blood pressures are in the 80s, but he is currently normotensive using midodrine. I suspect his baseline blood pressure is on the low side and would target a systolic blood pressure greater than 90 which is often adequate and typical for chronic liver disease * A KI-this could be a combination of dehydration from diuretic therapy as well as GI bleeding, with elements of hepatorenal syndrome. He has been slowly improving, and Renal is following * * critical care time 60 minutes separate from procedures Subjective: CTSP at 0300 for poor respirations on bipap, unresponsive Objective: Vital Signs Temp Pulse Resp BP Pulse Ox 36.9 C 111 H 28 H 119/49 L 99 10/06/18 23:00 10/07/18 03:40 10/07/18 03:40 10/07/18 03:40 10/07/18 03:40 Laboratory Results 10/07/18 00:25 10/06/18 14:40 10/05/18 10/06/18 10/07/18 05:59 05:59 05:59 Intake Total 1428 1830 Output Total 2300 2100 Balance -872 -270 PT 24.6 SEC (12.0-15.0) H 10/06/18 04:40 INR 2.35 (0.83-1.16) H 10/06/18 04:40 Physical Exam - Physical Exam General Appearance: moderate distress, obtunded, unresponsive EENT: PERRL/EOMI, normal ENT inspection, scleral icterus (R), scleral icterus (L ) Neck: supple Respiratory: respiratory distress, accessory muscle use, No decreased breath sounds, No rales, No stridor, No wheezing Cardiac/Chest: regular rate, rhythm, edema, JVD Abdomen: non-tender, soft, distended, No guarding, No rebound Skin: warm/dry, jaundice, No cyanosis Lymphatic: no adenopathy Extremities: pedal edema Neuro/Psych: cognition abnormalities, No abnormal hydrometer tester II-XII ICD10 Worksheet Patient Problems: Problems Problem Status Onset Anemia Acute Renal insufficiency Acute Upper GI bleed Acute Left rib fracture Acute
[2018-10-07 04:44] LABS: INR 1.71 (0.83-1.16); PROTIME(PATIENT) 19.3 SEC (12.0-15.0)
--- NOTE | 2018-10-07 05:04 | GPN ---
[f rep st] PROCEDURE NOTE PROCEDURE: Emergent endotracheal intubation. CONSENT: Consent was waived due to the emergent nature of the procedure. ANESTHESIA: Conscious sedation was achieved using a total of 40 mg etomidate, 1 mg of IV Versed. Th e patient tolerated these well without complications. FINDINGS: A 7.5 endotracheal tube was easily passed through normal-appearing vocal cords on the 1st attempt using a glide scope. The patient tolerated this well. He was pre-oxygenated on BiPAP and hi s oxygen saturations maintained in the upper 90s throughout the procedure. There was no drop in bloo d pressure. There was adequate condensation in the tube. Breath sounds were equal bilaterally witho ut midepigastric sounds. There was appropriate color change on capnography, and a postprocedure ches t x-ray confirmed adequate placement. /[id number]/MODL
[2018-10-07] MEDS: MIDODRINE HCL 10 MG TAB PO SCH ×3 (06:18→22:25)
--- NOTE | 2018-10-07 08:25 | PDINTPN ---
Front End Developer Designer Progress Note Assessment/Plan: Assessment/plan: * Alcoholism * Alcohol withdrawals-continue [facility] protocol * Alcoholic cirrhosis * GI bleed * Anemia-hemoglobin hematocrit stable * Cardiomyopathy * Pulmonary edema * Acute respiratory failure-secondary to above. Now intubated on mechanical ventilation. Increased secretions -will perform fiberoptic bronchoscopy this morning -chest x-ray with pulmonary edema -ABG okay -wean FiO2 as tolerated. Not ready for extubation today. * Coagulopathy-secondary to alcoholic liver disease * Acute renal failure-per Nephrology * Encephalopathy * VTE prophylaxis-holding anticoagulation for now * Stress ulcer prophylaxis Subjective: Sedated on mechanical ventilation Objective: Vital Signs Temp Pulse Resp BP Pulse Ox 36.3 C 88 21 H 94/40 L 100 10/07/18 08:00 10/07/18 08:00 10/07/18 08:00 10/07/18 08:00 10/07/18 08:00 Laboratory Results 10/07/18 04:15 10/07/18 04:15 10/06/18 10/07/18 10/08/18 05:59 05:59 05:59 Intake Total 1428 1868 Output Total 2300 4400 350 Balance -872 -2532 -350 PT 19.3 SEC (12.0-15.0) H 10/07/18 04:15 INR 1.71 (0.83-1.16) H 10/07/18 04:15 Laboratory Results 10/07/18 04:15 10/07/18 04:15 10/07/18 10/07/18 10/07/18 04:15 04:15 01:42 Patient Temperature 37.0 DEGREES DEGREES pCO2 31 mmHg L mmHg (34 - 38) pO2 88 mmHg H mmHg (65 - 75) Total CO2 20 mEq/L L mEq/L (23 - 27) ABG pH 7.40 (7.35 - 7.45) ABG PO2/FiO2 Ratio 294 RATIO RATIO ABG HCO3 19 mEq/L L mEq/L (22 - 26) ABG O2 Saturation 96 % H % (92 - 95) ABG Base Excess -4.8 mEq/L L mEq/L (-2.5 - 2.5) O2 Concentration % 30 % % Inspiratory Pressure 15 Mode BiPAP YES Total Bilirubin 4.0 mg/dL H mg/dL (0.1 - 1.4) Conjugated Bilirubin 1.5 mg/dL H mg/dL (0.0 - 0.5) Unconjugated Bilirubin 2.5 mg/dL H mg/dL (0.0 - 1.1) AST 59 IU/L IU/L (17 - 59) ALT 37 IU/L IU/L (21 - 72) Alkaline Phosphatase 47 IU/L IU/L (38 - 126) Ammonia 79.0 uMOL/L H uMOL/L (9.0 - 30.0) Total Protein 5.2 g/dL L g/dL (6.3 - 8.2) Albumin 2.4 g/dL L g/dL (3.5 - 5.0) Chest x-ray reviewed by myself. Endotracheal tube in good position. Cardiomegaly is present. Diffuse pulmonary edema is present. - Time Spent With Patient Time Spent With Patient: 35 min of critical care time spent with patient. Case discussed with Respiratory therapy, nursing and hospitalist. Physical Exam - Physical Exam General Appearance: other, No alert EENT: PERRL/EOMI, ET tube Neck: non-tender Respiratory: crackles (Scattered), No respiratory distress, No wheezing Cardiac/Chest: normal peripheral pulses, regular rate, rhythm Peripheral Pulses: 2+: carotid (R), carotid (L), femoral (R), femoral (L), dorsalis-pedis (R), dorsalis-pedis (L) Abdomen: normal bowel sounds, non-tender, soft Male Genitalia: deferred Rectal: deferred Skin: normal color, warm/dry Extremities: non-tender Neuro/Psych: No alert ICD10 Worksheet Patient Problems: Problems Problem Status Onset Anemia Acute Renal insufficiency Acute Upper GI bleed Acute Left rib fracture Acute
[2018-10-07] MEDS ORDERED: THIAMINE HCL 500 MG in NS 100 ML IV SCH (09:00)
[2018-10-07] MEDS ORDERED: LIDOCAINE 2% JELLY 6 ML TOPICAL SYR TP ONE (09:13)
[2018-10-07] MEDS ORDERED: LIDOCAINE 1% 300 MG/30 ML SDV MISC ONE (09:13)
[2018-10-07] MEDS: LACTULOSE 20 GM/30 ML UDCUP TUBE SCH ×3 (09:48→22:25)
[2018-10-07] MEDS: FOLIC ACID 1 MG TAB PO SCH (09:48)
[2018-10-07] MEDS: THIAMINE HCL 100 MG TAB PO SCH (09:48)
[2018-10-07] MEDS: MULTIVITAMINS W-MINERALS 1 EACH TAB PO SCH (09:48)
[2018-10-07] MEDS: THIAMINE HCL 500 MG in NS 100 ML IV SCH (09:48)
--- NOTE | 2018-10-07 09:59 | HOSPPROG ---
Hospitalist Progress Note Assessment/Plan: 53yo M with alcoholic cirrhosis, severe aortic regurgitation thought 2/2 bacterial endocarditis here with worsening edema and blood in stool. Course complicated by encephalopathy and now mechanically ventilated. #Acute GIB: Distal small bowel vs lower. Slowed or stopped. - EGD 10/06 without source, no varices - GI recommending colonoscopy once more stable #Acute on chronic anemia: D/t above, not hemolyzing - S/p 3u PRBC, now stabilized, monitor q8h #Coagulopathy of liver disease - Improved after 4u FFP, vitamin K - Hold on additional FFP/vit K unless bleeding #Acute renal failure: Improving with volume and BP support - Renal following - Cont midodrine 10mg tid #Hypotension: D/t liver failure. Has PICC line - Midodrine as above #Acute metabolic encephalopathy: Suspect r/t ammonia of 159. Less likely etoh withdrawal. - Lactulose via NG 20mg TID - Ok to continue with CIWA protocol and prn ativan #Acute respiratory failure: Unable to protect airway - Vent management per pulm. Plan for bronchoscopy today. - Lasix x1 ordered for today (lungs appear wet) #Decompensated cirrhosis: Due to GI bleed. - Liver US w/doppler unable to assess portal/hepatic flow #Edema: Multifactorial from low albumin, diastolic CHF. Weight up 9kg from 3 months ago. - Diuresis as above #H/o EtOH abuse: Patient and family deny use since 06/2018. CIWA. #Thrombocytopenia: D/t splenic sequestration. No indication for plt transfusion. #Hyperkalemia: D/t [place]. No indication for HD. Monitor closely. #Elevated troponin: Demand in setting of volume overload/anemia and unable to clear with renal failure. - Not aspirin candidate. Will likely need ischemic eval at some point #Severe aortic regurgitation: Reportedly d/t prior h/o endocarditis in 2018. - Cardiology consulted last admission, was considering repair once compensated from GI stand point #Bilious vomiting: I do not think this is hematemesis and neither does GI. No upper bleeding source on EGD. VTE ppx: SCDs Code: full Dispo: Remain in ICU. Prognosis is gaurded. I spent a total of 45 minutes of critical care time involving this patient. Subjective: Intubated overnight for worsening mental status/ability to protect airway. Sedated on vent now. Objective: Vital Signs Temp Pulse Resp BP Pulse Ox 36.3 C 92 20 110/54 L 100 10/07/18 08:00 10/07/18 09:00 10/07/18 09:00 10/07/18 09:00 10/07/18 09:00 Laboratory Results 10/07/18 04:15 10/07/18 04:15 10/06/18 10/07/18 10/08/18 05:59 05:59 05:59 Intake Total 1428 1868 Output Total 2300 4400 350 Balance -872 -2532 -350 PT 19.3 SEC (12.0-15.0) H 10/07/18 04:15 INR 1.71 (0.83-1.16) H 10/07/18 04:15 - Physical Exam Constitutional: no apparent distress Eyes: PERRL Ears, Nose, Mouth, Throat: other (ETT in place) Cardiovascular: regular rate and rhythym, no murmur, rub, or gallop, edema ( improving) Respiratory: other (ventilated mechanically), No expiratory wheeze, No inspiratory crackles Gastrointestinal: normoactive bowel sounds, soft, non-tender abdomen, no palpable masses Genitourinary: liao in urethra Skin: no rashes or abrasions, no fluctuance, no induration Neurologic: other (sedated) ICD10 Worksheet Patient Problems: Problems Problem Status Onset Anemia Acute Renal insufficiency Acute Upper GI bleed Acute Left rib fracture Acute
[2018-10-07] MEDS: PANTOPRAZOLE SODIUM 40 MG TAB PO SCH (10:57)
[2018-10-07] MEDS ORDERED: FUROSEMIDE 40 MG/4 ML VIAL IVP ONE (11:02)
[2018-10-07] MEDS: PANTOPRAZOLE SODIUM 40 MG VIAL IVP SCH (11:06)
--- NOTE | 2018-10-07 11:30 | SOAPPROG ---
SOAP Progress Note Assessment/Plan: Assessment/Plan: 1. Lower G.I. bleed. Hcts stable. Do not suspect further active bleeding. - prep, and colonoscopy, once clinically more stable. Best to prep him when he still has an NG tube in place, for ease. Best to do colonoscopy when he's better, but still on the 'vent, for sedation. - ok to feed him enterally - decrease serial H/Hs 2. Ascites. Much less leg edema. Diuresis, if needed, as per renal, critical care. 3. Hepatic encephalopathy, withdrawl. Agree with lactulose, for no greater than 4 bms/24 hrs. Will add xifaxan. 4. Cirrhosis. Suspect some liver decompensation from his lower GI bleed. Doubt SBP, etc. We will follow informally at this point. Please call with questions, as well as when timing for colonoscopy is appropriate [phone]). Thanks! 10/07/18 11:31 Subjective: cc: lower GI bleed Intubated for respiratory failure, associated with alcohol withdrawl and probable hepatic encephalopathy. Sedated. Objective: Vital Signs Temp Pulse Resp BP Pulse Ox 36.3 C 92 22 H 99/42 L 100 10/07/18 08:00 10/07/18 11:00 10/07/18 11:00 10/07/18 11:00 10/07/18 11:00 Laboratory Results 10/07/18 04:15 10/07/18 04:15 10/06/18 10/07/18 10/08/18 05:59 05:59 05:59 Intake Total 1428 1868 Output Total 2300 4400 350 Balance -872 -2532 -350 PT 19.3 SEC (12.0-15.0) H 10/07/18 04:15 INR 1.71 (0.83-1.16) H 10/07/18 04:15 I/Os negative. US with only a small to moderate amount of ascites. Nl ducts. Physical Exam - Physical Exam General Appearance: no apparent distress, No WD/WN, No alert (sedated) EENT: PERRL/EOMI, normal ENT inspection, pharynx normal, TMs normal Neck: non-tender, full range of motion, supple, normal inspection Respiratory: chest non-tender, lungs clear, normal breath sounds Cardiac/Chest: normal peripheral pulses, regular rate, rhythm Peripheral Pulses: 2+: carotid (R), carotid (L), femoral (R), femoral (L), dorsalis-pedis (R), dorsalis-pedis (L) Abdomen: normal bowel sounds, non-tender, soft Male Genitalia: deferred Rectal: deferred Back: Normal inspection Skin: warm/dry, jaundice Lymphatic: no adenopathy Extremities: normal range of motion, non-tender, normal inspection, normal capillary refill Neuro/Psych: no motor/sensory deficits, No alert, No normal mood/affect, No oriented x 3 (sedated) ICD10 Worksheet Patient Problems: Problems Problem Status Onset Anemia Acute Renal insufficiency Acute Upper GI bleed Acute Left rib fracture Acute
[2018-10-07] MEDS: RIFAXIMIN 550 MG TAB PO SCH ×2 (11:35→22:25)
--- NOTE | 2018-10-07 11:40 | GPN ---
[f rep st] PROCEDURE NOTE PROCEDURE: Fiberoptic bronchoscopy. INDICATION: Increasing secretions. ANESTHESIA: Patient is currently sedated on mechanical ventilation. He was given a small bolus of p ropofol. DESCRIPTION OF PROCEDURE: Procedure was performed in the intensive care unit. Continuous pulse ox, E KG and blood pressure monitoring. Please note, patient is on mechanical ventilation which is, by def inition, a closed system and posed no risk to airborne pathogens. Bronchoscope was entered through a #7.5 endotracheal tube. Distal trachea and paulina were visualized and showed a modest amount of secretions that were therapeutically aspirated. Bronchoscope in the r ight lung: Right upper lobe, right middle lobe and right lower lobe, including subsegments, were subs equently visualized and again showed a modest amount of secretions that were therapeutically aspirate d. There was no abnormal mucosa and no endobronchial lesions. Bronchoscope in the left lung: Left upper lobe, lingula, left lower lobe, including subsegments, were visualized, showed no endobronchial lesions and normal-appearing mucosa. There was again a modest a mount of secretions that were therapeutically aspirated. Bronchoscope was then removed. Patient asha erated the procedure well. There were no apparent complications. /[id number]/MODL
--- NOTE | 2018-10-07 12:49 | ASMTCMCOM ---
CM Note CM Note Notes: 10/07/2018 Case Management Note With the assistance of ethics team identified Aleyda Magana as potential proxy. Aleyda and pt have a long standing relationship having been together for 13 years. Aleyda identifies as pt vanessaancee. Per Aleyda, pt is an only child with both parents . Per Aleyda pt does not have any children. Met w/Aleyda to discuss proxy process. Aleyda in agreement. Aleyda reports she has Financial POA paperwork in [place] but pt did not file any MDPOA paperwork or advanced directives. Provided proxy expectations paperwork to Aleyda. Aleyda signed proxy paperwork. Aleyda plans to stay in [place] until pt recovers. 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 Per Aleyda, after last hospital admission Aleyda was able to enroll pt in [place] medicaid. Pt followed up with Dr. Rangel, but did not find a PCP provider yet. Referral to [facility]. MEDICAL PROXY: Aleyda Magana [phone] Case Management d/c poc: to be determined. Case Management to follow. Date Signed: 10/07/2018 12:48 PM Electronically Signed By:Dayna Hensley RN
--- NOTE | 2018-10-07 14:18 | SOAPPROG ---
SOAP Progress Note Assessment/Plan: Assessment: EMMANUELLE, not oliguric, likely due to ischemia, creat improving, not at baseline of 1 hypotension better on midodrine resp failure now on vent GI bleed perhaps endoscopy tomorrow hyperkalemia better, continue to follow Plan: no HD needs watch K continue midodrine endoscopy at some point 10/07/18 14:15 Subjective: intubated bp OK unable to answer questions sig other at bedside Objective: Vital Signs Temp Pulse Resp BP Pulse Ox 36.4 C 85 22 H 93/44 L 10 L 10/07/18 12:00 10/07/18 13:00 10/07/18 13:00 10/07/18 13:00 10/07/18 13:00 Laboratory Results 10/07/18 04:15 10/07/18 04:15 10/06/18 10/07/18 10/08/18 05:59 05:59 05:59 Intake Total 1428 1868 Output Total 2300 4400 1350 Balance -872 -2532 -1350 PT 19.3 SEC (12.0-15.0) H 10/07/18 04:15 INR 1.71 (0.83-1.16) H 10/07/18 04:15 Physical Exam - Physical Exam General Appearance: other (sedated) Neck: normal inspection Respiratory: other (coarse bs throughout), No rhonchi, No wheezing Cardiac/Chest: regular rate, rhythm, edema, systolic murmur, No friction rub Abdomen: normal bowel sounds Skin: jaundice Extremities: swelling Neuro/Psych: other (sedated on vent) ICD10 Worksheet Patient Problems: Problems Problem Status Onset Anemia Acute Renal insufficiency Acute Upper GI bleed Acute Left rib fracture Acute
--- NOTE | 2018-10-08 02:44 | SOAPPROG ---
SOAP Progress Note Assessment/Plan: Hospitalist night float note RN notified that patient was starting to be more responsive. His sedation has been held for the last 18 hr. He remains intubated. Patient additionally has been increasingly agitated. Suspicious for on alcohol withdrawal in addition to hepatic encephalopathy. Concern is that Ativan boluses were exacerbating patient's encephalopathy. Discussed case with pharmacist to review alternative options for sedation in setting of severe liver disease and alcohol withdrawal. Decision to proceed with Precedex as an option and try to minimize any use of p.r.n. Ativan at this time. Objective: Vital Signs Temp Pulse Resp BP Pulse Ox 37.1 C 104 H 29 H 94/30 L 100 10/08/18 02:00 10/08/18 02:00 10/08/18 02:00 10/08/18 02:00 10/08/18 02:00 Laboratory Results 10/07/18 22:40 10/07/18 04:15 10/06/18 10/07/18 10/08/18 05:59 05:59 05:59 Intake Total 1428 1868 513.9 Output Total 2300 4400 2900 Balance -872 -2532 -2386.1 PT 19.3 SEC (12.0-15.0) H 10/07/18 04:15 INR 1.71 (0.83-1.16) H 10/07/18 04:15 ICD10 Worksheet Patient Problems: Problems Problem Status Onset Anemia Acute Renal insufficiency Acute Upper GI bleed Acute Left rib fracture Acute
[2018-10-08 05:01] LABS: INR 1.88 (0.83-1.16); PROTIME(PATIENT) 20.7 SEC (12.0-15.0)
[2018-10-08] MEDS: MIDODRINE HCL 10 MG TAB PO SCH ×3 (06:06→22:29)
[2018-10-08] MEDS ORDERED: ALBUMIN 5% 250 ML IV ONE (06:28)
[2018-10-08] MEDS: FOLIC ACID 1 MG TAB PO SCH (08:30)
[2018-10-08] MEDS: THIAMINE HCL 100 MG TAB PO SCH (08:30)
[2018-10-08] MEDS: RIFAXIMIN 550 MG TAB PO SCH ×2 (08:30→22:30)
[2018-10-08] MEDS: MULTIVITAMINS W-MINERALS 1 EACH TAB PO SCH (08:30)
[2018-10-08] MEDS: PANTOPRAZOLE SODIUM 40 MG VIAL IVP SCH (08:31)
[2018-10-08] MEDS: THIAMINE HCL 500 MG in NS 100 ML IV SCH (08:31)
[2018-10-08] MEDS: LACTULOSE 20 GM/30 ML UDCUP TUBE SCH ×2 (08:57→15:24)
--- NOTE | 2018-10-08 09:16 | PDINTPN ---
Dumper Operator Progress Note Assessment/Plan: Assessment/plan: * Alcoholism * Alcoholic cirrhosis * Hepatic encephalopathy-mental status improved. Ammonia level markedly reduced yesterday -will recheck today -continue lactulose * GI bleed * Anemia-hemoglobin hematocrit stable * Cardiomyopathy * Pulmonary edema * Acute respiratory failure-secondary to above. Now intubated on mechanical ventilation. Increased secretions -wean FiO2 as tolerated. -Not ready for extubation today. * Coagulopathy-secondary to alcoholic liver disease * Acute renal failure-per Nephrology * VTE prophylaxis-holding anticoagulation for now * Stress ulcer prophylaxis Subjective: Arousable. Comfortable at this time. Objective: Vital Signs Temp Pulse Resp BP Pulse Ox 36.9 C 101 H 16 91/52 L 100 10/08/18 08:00 10/08/18 08:22 10/08/18 08:18 10/08/18 08:18 10/08/18 08:18 Laboratory Results 10/08/18 07:54 10/08/18 04:15 10/07/18 10/08/18 10/09/18 05:59 05:59 05:59 Intake Total 1868 745.9 Output Total 4400 3800 425 Balance -2532 -3054.1 -425 PT 20.7 SEC (12.0-15.0) H 10/08/18 04:15 INR 1.88 (0.83-1.16) H 10/08/18 04:15 Laboratory Results 10/08/18 07:54 10/08/18 04:15 10/08/18 10/08/18 10/08/18 08:55 04:15 04:15 PT 20.7 SEC H SEC (12.0 - 15.0) INR 1.88 H (0.83 - 1.16) Total Bilirubin 2.7 mg/dL H mg/dL (0.1 - 1.4) Conjugated Bilirubin 1.3 mg/dL H mg/dL (0.0 - 0.5) Unconjugated Bilirubin 1.4 mg/dL H mg/dL (0.0 - 1.1) AST 75 IU/L H IU/L (17 - 59) ALT 50 IU/L IU/L (21 - 72) Alkaline Phosphatase 51 IU/L IU/L (38 - 126) Ammonia 40.0 uMOL/L H uMOL/L (9.0 - 30.0) - Time Spent With Patient Time Spent With Patient: 35 min of critical care time spent with patient. Case discussed with Nursing and Respiratory therapy Physical Exam - Physical Exam General Appearance: No alert EENT: PERRL/EOMI, ET tube Neck: non-tender, supple Respiratory: crackles (Few basilar), No respiratory distress, No wheezing Cardiac/Chest: normal peripheral pulses, regular rate, rhythm Abdomen: normal bowel sounds, non-tender, soft Male Genitalia: deferred Rectal: deferred Skin: normal color, warm/dry Extremities: non-tender, normal inspection Neuro/Psych: No alert ICD10 Worksheet Patient Problems: Problems Problem Status Onset Anemia Acute Renal insufficiency Acute Upper GI bleed Acute Left rib fracture Acute
--- NOTE | 2018-10-08 10:18 | SOAPPROG ---
SOAP Progress Note Assessment/Plan: Assessment/Plan: 53 y/o M with ETOH cirrhosis and severe AI who presented with probable GIB and EMMANUELLE now intubated. EMMANUELLE -baseline Cr 1.0, up to 1.9 -down to 1.6 today, still making good UO -keep MAP>65, on midodrine and may use albumin prn -switched precedex to propofol to help pressures -no acute indication for dialysis and likely not a candidate given co- morbidities, d/w family today -avoid nephrotoxins and contrast HTN/vol -h/o severe AI and diastolic HF -as above -would hold lasix for now Anemia -Hb 8.0, stable -PPI, possible EGD per GI -no indication for EPO Acidosis -often compensatory with respiratory alkalosis in cirrhosis -bicarb 18, hold supplement for now -ABG prn, pulm following Will continue to follow, please contact if ?'s. #[phone] 10/08/18 11:24 Subjective: Family at bedside, states patient stopped drinking in June however has never been evaluated for transplant. Still intubated. Objective: Vital Signs Temp Pulse Resp BP Pulse Ox 36.9 C 65 20 80/33 L 100 10/08/18 08:00 10/08/18 09:24 10/08/18 09:11 10/08/18 09:11 10/08/18 09:11 Laboratory Results 10/08/18 07:54 10/08/18 04:15 10/07/18 10/08/18 10/09/18 05:59 05:59 05:59 Intake Total 1868 745.9 250 Output Total 4400 3800 425 Balance -2532 -3054.1 -175 PT 20.7 SEC (12.0-15.0) H 10/08/18 04:15 INR 1.88 (0.83-1.16) H 10/08/18 04:15 Physical Exam - Physical Exam General Appearance: thin, other (intubated, sedated) EENT: PERRL/EOMI Neck: non-tender, full range of motion, supple Respiratory: decreased breath sounds Cardiac/Chest: regular rate, rhythm Abdomen: normal bowel sounds, non-tender, soft, distended Skin: pallor Extremities: normal range of motion, non-tender Neuro/Psych: disoriented to person, disoriented to place ICD10 Worksheet Patient Problems: Problems Problem Status Onset Anemia Acute Renal insufficiency Acute Upper GI bleed Acute Left rib fracture Acute
[2018-10-08] MEDS: PROPOFOL/EMULSION 100 ML IV SCH ×2 (10:26→23:07)
[2018-10-08] MEDS ORDERED: ALBUMIN 25% 100 ML IV ONE (11:40)
[2018-10-08] MEDS ORDERED: ALBUMIN 25% 100 ML SOLN IV ONE (11:44)
--- NOTE | 2018-10-08 14:25 | HOSPPROG ---
Hospitalist Progress Note Assessment/Plan: 53yo M with alcoholic cirrhosis, severe aortic regurgitation thought 2/2 bacterial endocarditis here with worsening edema and blood in stool. Course complicated by encephalopathy and now mechanically ventilated. #Acute GIB: Distal small bowel vs lower. Slowed. - EGD 10/06 without source, no varices - D/w GI today. Will prep tonight w/3L golytely and plan for colonoscopy tomorrow AM while on sedation. #Acute respiratory failure: Unable to protect airway. Lung mechanics ok. - Vent management per pulm. Propofol for sedation, avoiding benzos. #Acute on chronic anemia: D/t above - S/p 3u PRBC, now stabilized, monitor q8h #Coagulopathy of liver disease - Improved after 4u FFP, vitamin K - Hold on additional FFP/vit K unless bleeding #Acute renal failure: Slowly improving with volume and BP support - Renal following - Cont midodrine 10mg tid #Hypotension: D/t liver failure. Has PICC line - Midodrine as above #Acute metabolic encephalopathy: Suspect r/t ammonia of 159. Less likely etoh withdrawal. - Lactulose via NG 20mg TID #Decompensated cirrhosis: Due to GI bleed. - Liver US w/doppler unable to assess portal/hepatic flow #Edema: Multifactorial from low albumin, diastolic CHF. Weight up 9kg from 3 months ago. - Diuresis as above #H/o EtOH abuse: Patient and family deny use since 06/2018. #Thrombocytopenia: D/t splenic sequestration. No indication for plt transfusion. #Hyperkalemia: D/t [place]. No indication for HD. Monitor closely. #Elevated troponin: Demand in setting of volume overload/anemia and unable to clear with renal failure. - Not aspirin candidate. Will likely need ischemic eval at some point #Severe aortic regurgitation: Reportedly d/t prior h/o endocarditis in 2018. - Cardiology consulted last admission, was considering repair once compensated from GI stand point #Bilious vomiting: I do not think this is hematemesis and neither does GI. No upper bleeding source on EGD. VTE ppx: SCDs Code: full Dispo: Remain in ICU. Prognosis is gaurded. I spent a total of 40 minutes of critical care time involving this patient. Subjective: Remains on ventilator. More agitation this AM. Struggling with sedation due to hypotension. Responded to albumin. Objective: Vital Signs Temp Pulse Resp BP Pulse Ox 36.6 C 120 H 19 81/35 L 100 10/08/18 12:00 10/08/18 13:31 10/08/18 12:06 10/08/18 12:08 10/08/18 12:06 Laboratory Results 10/08/18 07:54 10/08/18 04:15 10/07/18 10/08/18 10/09/18 05:59 05:59 05:59 Intake Total 1868 745.9 250 Output Total 4400 3800 545 Balance -2532 -3054.1 -295 PT 20.7 SEC (12.0-15.0) H 10/08/18 04:15 INR 1.88 (0.83-1.16) H 10/08/18 04:15 - Physical Exam Constitutional: no apparent distress, other (sedated) Eyes: PERRL Ears, Nose, Mouth, Throat: other (ETT in place) Cardiovascular: regular rate and rhythym, no murmur, rub, or gallop, edema ( improving) Respiratory: other (mechanically ventilated) Gastrointestinal: normoactive bowel sounds, soft, non-tender abdomen, no palpable masses Genitourinary: liao in urethra Skin: no rashes or abrasions, no fluctuance, no induration Neurologic: other (sedated) ICD10 Worksheet Patient Problems: Problems Problem Status Onset Anemia Acute Renal insufficiency Acute Upper GI bleed Acute Left rib fracture Acute
[2018-10-08] MEDS ORDERED: PEG 3350/NA SULF,BICARB,CL/KCL (GAVILYTE-G) 4000 ML BTL PO ONE (15:43)
--- NOTE | 2018-10-08 16:15 | ASMTCMCOM ---
CM Note CM Note Notes: A family meeting was held for the fiance of patient today. Please see Aleisha Freitas's note (Gut Sorter). ETOH resources provided for the patient for 12 step meetings. Discharge plan at this time is patient will return to his apartment here in [place] and his roommate and fiance will do any follow-up care. CM available should any new d/c needs arise. Date Signed: 10/08/2018 04:15 PM Electronically Signed By:Sharri Mosqueda LCSW
--- NOTE | 2018-10-08 21:53 | SOAPPROG ---
SOAP Progress Note Assessment/Plan: Assessment/Plan: 1. Lower G.I. bleed. Hcts stable. Do not suspect further active bleeding. - prep, and colonoscopy (high risk, due to respiratory failure, renal disease, cirrhosis, etc., but suspect will do well). Best to prep him when he still has an NG tube in place, for ease. Best to do colonoscopy when he's still on the ' vent, for sedation. - hold lactulose, while prepping. Thanks! 10/08/18 21:50 Subjective: cc: Lower GI bleed Cannot obtain hx, as ventilated, sedated. Objective: Vital Signs Temp Pulse Resp BP Pulse Ox 37 C 99 20 107/41 L 100 10/08/18 19:00 10/08/18 20:05 10/08/18 20:05 10/08/18 20:00 10/08/18 20:05 Laboratory Results 10/08/18 15:08 10/08/18 14:23 10/07/18 10/08/18 10/09/18 05:59 05:59 05:59 Intake Total 1868 745.9 661.3 Output Total 4400 3800 1045 Balance -2532 -3054.1 -383.7 PT 20.7 SEC (12.0-15.0) H 10/08/18 04:15 INR 1.88 (0.83-1.16) H 10/08/18 04:15 Physical Exam - Physical Exam General Appearance: WD/WN, no apparent distress, No alert EENT: PERRL/EOMI, normal ENT inspection, pharynx normal, TMs normal Neck: non-tender, full range of motion, supple, normal inspection Respiratory: chest non-tender, lungs clear, normal breath sounds Cardiac/Chest: normal peripheral pulses, regular rate, rhythm Peripheral Pulses: 2+: carotid (R), carotid (L), femoral (R), femoral (L), dorsalis-pedis (R), dorsalis-pedis (L) Abdomen: normal bowel sounds, non-tender, soft Male Genitalia: deferred Rectal: deferred Back: Normal inspection Skin: normal color, warm/dry Lymphatic: no adenopathy Extremities: normal range of motion, non-tender, normal inspection, normal capillary refill Neuro/Psych: no motor/sensory deficits, No alert, No oriented x 3 ICD10 Worksheet Patient Problems: Problems Problem Status Onset Anemia Acute Renal insufficiency Acute Upper GI bleed Acute Left rib fracture Acute
[2018-10-09] MEDS ORDERED: ALBUMIN 5% 250 ML IV ONE (04:00)
[2018-10-09 06:02] LABS: INR 2.06 (0.83-1.16); PROTIME(PATIENT) 22.2 SEC (12.0-15.0)
[2018-10-09] MEDS: MIDODRINE HCL 10 MG TAB PO SCH ×3 (06:43→22:43)
[2018-10-09] MEDS: PROPOFOL/EMULSION 100 ML IV SCH (08:07)
[2018-10-09] MEDS: FOLIC ACID 1 MG TAB PO SCH (08:08)
[2018-10-09] MEDS: MULTIVITAMINS W-MINERALS 1 EACH TAB PO SCH (08:09)
[2018-10-09] MEDS: THIAMINE HCL 100 MG TAB PO SCH (08:09)
--- NOTE | 2018-10-09 08:44 | PDINTPN ---
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 Following simple commands. Ammonia level continues to decline -continue lactulose * GI bleed -colonoscopy today * Anemia-hemoglobin hematocrit stable * Cardiomyopathy * Pulmonary edema * Acute respiratory failure-secondary to above. -FiO2 at 30% -a will assess for extubation after colonoscopy * Sedation-adequate * Coagulopathy-secondary to alcoholic liver disease * Acute renal failure-per Nephrology * VTE prophylaxis-holding anticoagulation for now * Stress ulcer prophylaxis Overall improved 10/09/18 08:43 Subjective: Resting comfortably on mechanical ventilation Objective: Vital Signs Temp Pulse Resp BP Pulse Ox 36.4 C 93 19 107/43 L 100 10/09/18 03:00 10/09/18 07:47 10/09/18 07:47 10/09/18 06:00 10/09/18 07:47 Laboratory Results 10/09/18 05:20 10/09/18 05:20 10/08/18 10/09/18 10/10/18 05:59 05:59 05:59 Intake Total 745.9 1295.3 Output Total 3800 1445 Balance -3054.1 -149.7 PT 22.2 SEC (12.0-15.0) H 10/09/18 05:20 INR 2.06 (0.83-1.16) H 10/09/18 05:20 Laboratory Results 10/09/18 05:20 10/09/18 05:20 10/09/18 10/09/18 10/09/18 05:20 05:20 05:20 Patient Temperature 36.4 DEGREES DEGREES pCO2 22 mmHg L mmHg (34 - 38) pO2 121 mmHg H mmHg (65 - 75) Total CO2 18 mEq/L L mEq/L (23 - 27) ABG pH 7.51 H (7.35 - 7.45) ABG PO2/FiO2 Ratio 403 RATIO RATIO ABG HCO3 18 mEq/L L mEq/L (22 - 26) ABG O2 Saturation 100 % H % (92 - 95) ABG Base Excess -4.4 mEq/L L mEq/L (-2.5 - 2.5) O2 Concentration % 30 % % Respiration Rate 22 Set Respiration Rate 20 Assist Control YES Tidal Volume 550 PEEP 5 Glucose 96 mg/dL mg/dL (70 - 100) Calcium 8.5 mg/dL mg/dL (8.5 - 10.4) Ammonia 34.0 uMOL/L H uMOL/L (9.0 - 30.0) Chest [id number] by myself. Endotracheal tube in good position. Cardiomegaly is present. Pulmonary edema is present. There is some atelectasis in the right base - Time Spent With Patient Time Spent With Patient: 35 min of critical care time spent with patient. Case discussed with respiratory therapy and nursing Physical Exam - Physical Exam General Appearance: alert, no apparent distress EENT: PERRL/EOMI, ET tube Neck: non-tender Respiratory: rhonchi (Few), No respiratory distress, No wheezing Cardiac/Chest: normal peripheral pulses, regular rate, rhythm Abdomen: normal bowel sounds, non-tender, soft Male Genitalia: deferred Rectal: deferred Skin: warm/dry Extremities: non-tender Neuro/Psych: other (Awake) ICD10 Worksheet Patient Problems: Problems Problem Status Onset Anemia Acute Renal insufficiency Acute Upper GI bleed Acute Left rib fracture Acute
[2018-10-09] MEDS: RIFAXIMIN 550 MG TAB PO SCH ×2 (09:12→22:59)
[2018-10-09] MEDS ORDERED: THIAMINE HCL 100 MG TAB PO SCH (11:03)
[2018-10-09] MEDS: PANTOPRAZOLE SODIUM 40 MG VIAL IVP SCH (12:16)
--- NOTE | 2018-10-09 12:25 | SOAPPROG ---
SOAP Progress Note Assessment/Plan: Assessment/Plan: 53 y/o M with ETOH cirrhosis and severe AI who presented with probable GIB and EMMANUELLE now intubated. EMMANUELLE -baseline Cr 1.0 -down to 1.2 today with adequate UO -keep MAP>65, on midodrine and may use albumin prn -switched precedex to propofol to help pressures -no acute indication for dialysis and likely not a candidate given co- morbidities, d/w family -avoid nephrotoxins and contrast HTN/vol -h/o severe AI and diastolic HF -as above -would hold lasix for now given hypernatremia Anemia -Hb still dropping -defer to GI -no indication for EPO Acidosis -still vented -ABG shows respiratory alkalosis possible hyperventilation? -continue to monitor prn Will continue to follow, please contact if ?'s. #[phone] 10/09/18 12:44 Subjective: Patient about to undergo colonoscopy. Objective: Vital Signs Temp Pulse Resp BP Pulse Ox 36.7 C 98 20 110/44 L 100 10/09/18 08:00 10/09/18 12:00 10/09/18 12:00 10/09/18 12:00 10/09/18 12:00 Laboratory Results 10/09/18 05:20 10/09/18 05:20 10/08/18 10/09/18 10/10/18 05:59 05:59 05:59 Intake Total 745.9 1295.3 Output Total 3800 1445 Balance -3054.1 -149.7 PT 22.2 SEC (12.0-15.0) H 10/09/18 05:20 INR 2.06 (0.83-1.16) H 10/09/18 05:20 Physical Exam - Physical Exam General Appearance: no apparent distress, thin, other (sedated, ventilated) Neck: non-tender, supple Respiratory: accessory muscle use, decreased breath sounds Cardiac/Chest: regular rate, rhythm Abdomen: normal bowel sounds, non-tender, distended Skin: pallor Extremities: normal range of motion, non-tender Neuro/Psych: other (unable to cooperate) ICD10 Worksheet Patient Problems: Problems Problem Status Onset Anemia Acute Renal insufficiency Acute Upper GI bleed Acute Left rib fracture Acute
--- NOTE | 2018-10-09 13:33 | GIREPORT ---
[facility] - Endoscopy Department Patient Name: Solo Mejia Procedure Date: 10/09/2018 12:46 PM Patient Type: Inpatient Attending MD/ ER Physician: Mark Rosado MD Procedure: Colonoscopy Indications: Hematochezia, now resolved. Hct stable. Providers: Mark Rosado MD, FACG Referring MD: [facility] Hospitalist service; Chun Haskins MD Medicines: Sedated already, as on ventilator. Complications: No immediate complications. Description of Procedure: After obtaining informed consent, the scope was passed under direct vis ion. Throughout the procedure, the patient's blood pressure, pulse, and oxyg en saturations were monitored continuously. The Colonoscope with irrigatio n channel was introduced through the anus and advanced to the cecum, identified by appendiceal orifice and ileocecal valve. The appendiceal orifice was photographed. The quality of the bowel preparation was fair to adequate. Findings: A single small angioectasia was found in the cecum, nonbleeding. Coagul ation for tissue destruction using bipolar probe was successful. Multiple diverticula were found from 15 to 50 cm proximal to the anus. Estimated Blood Loss: Estimated blood loss: none. Post Op Diagnosis: - Suspect either a diverticular or angioectasia bleed (the latter was ablated), exacerbated by his coagulopathy. Now, resolved. Recommendation: - restart lactulose - ok to feed; as per critical care - d/c serial H/Hs I will sign off; Please call if we can be of further help [phone]). Thank you for allowing me to help in the management of this patient. Attending Participation: I personally performed the entire procedure. Ashlee Flores MD Mark Rosado MD 10/09/2018 1:32:30 PM This report has been signed electronicallyPeter MD Ashlee Number of Addenda: 0 Note Initiated On: 10/09/2018 12:46 PM [email or web address]
--- NOTE | 2018-10-09 15:34 | HOSPPROG ---
Hospitalist Progress Note Assessment/Plan: 53yo M with alcoholic cirrhosis, severe aortic regurgitation thought 2/2 bacterial endocarditis here with worsening edema and blood in stool. Course complicated by encephalopathy and respiratory failure. Extubated today. #Acute GIB: small bowel avm or diverticuli. not bleeding now - EGD 10/06 without source, no varices - Colonoscopy today. S/p ablation of non-bleeding AVM #Acute respiratory failure: Intubated d/t inability to protect airway. Extubated today, now on supplemental oxygen #Acute on chronic anemia: D/t above, now stabilized after 3u PRBC - Monitor daily #Coagulopathy of liver disease: Improved after 4u FFP, vitamin K - Hold on additional FFP/vit K unless bleeding #Acute renal failure: Slowly improving with volume and BP support - Renal following, cont midodrine 10mg tid #Hypotension: D/t liver failure. Has PICC line - Midodrine as above #Acute metabolic encephalopathy: Suspect r/t ammonia. Less likely etoh withdrawal. - Lactulose via NG 20mg TID, rifaximin #Decompensated cirrhosis: Due to GI bleed. - Liver US w/doppler unable to assess portal/hepatic flow #Edema: Multifactorial from low albumin, diastolic CHF. Weight up 9kg from 3 months ago. - Diuresis as above #H/o EtOH abuse: Patient and family deny use since 06/2018. #Thrombocytopenia: D/t splenic sequestration. No indication for plt transfusion. #Hyperkalemia: D/t [place]. No indication for HD. Monitor closely. #Elevated troponin: Demand in setting of volume overload/anemia and unable to clear with renal failure. - Not aspirin candidate. Will likely need ischemic eval at some point #Severe aortic regurgitation: Reportedly d/t prior h/o endocarditis in 2018. - Cardiology consulted last admission, was considering repair once compensated from GI stand point #Bilious vomiting: I do not think this is hematemesis and neither does GI. No upper bleeding source on EGD. VTE ppx: SCDs Code: full Dispo: Remain in ICU. Possibly to SDU/floor in next day or so. I spent a total of 35 minutes of critical care time involving this patient. Subjective: Colonoscopy this afternoon. No active bleeding but AVM was ablated; also had some diverticuli. Sedation turned off and extubated successfully later this PM. Objective: Vital Signs Temp Pulse Resp BP Pulse Ox 36.7 C 96 20 110/44 L 100 10/09/18 08:00 10/09/18 14:10 10/09/18 12:00 10/09/18 12:00 10/09/18 14:10 Laboratory Results 10/09/18 05:20 10/09/18 05:20 10/08/18 10/09/18 10/10/18 05:59 05:59 05:59 Intake Total 745.9 1295.3 Output Total 3800 1445 Balance -3054.1 -149.7 PT 22.2 SEC (12.0-15.0) H 10/09/18 05:20 INR 2.06 (0.83-1.16) H 10/09/18 05:20 - Physical Exam Constitutional: no apparent distress Eyes: PERRL, anicteric sclera Ears, Nose, Mouth, Throat: hearing normal, dry mucous membranes Cardiovascular: systolic murmur, tachycardia, edema Respiratory: no respiratory distress, reduced air movement, No expiratory wheeze , No inspiratory crackles Gastrointestinal: normoactive bowel sounds, soft, non-tender abdomen, no palpable masses Genitourinary: liao in urethra Skin: no rashes or abrasions, no fluctuance, no induration Neurologic: other (arousable, slightly confused) Psychiatric: encephalopathic ICD10 Worksheet Patient Problems: Problems Problem Status Onset Anemia Acute Renal insufficiency Acute Upper GI bleed Acute Left rib fracture Acute
[2018-10-09] MEDS: LACTULOSE 20 GM/30 ML UDCUP PO SCH ×2 (17:45→23:32)
[2018-10-10 04:23] LABS: PROTIME(PATIENT) 21.7 SEC (12.0-15.0)
[2018-10-10] MEDS: MIDODRINE HCL 10 MG TAB PO SCH ×3 (06:12→21:13)
[2018-10-10] MEDS ORDERED: D5W 1/2 NS 1,000 ML IV SCH (08:30)
--- NOTE | 2018-10-10 08:39 | PDINTPN ---
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 Alert and orient x2. Still somewhat slow to respond. -continue lactulose and rifaximin * GI bleed-resolved * Hypernatremia -increase free water * Anemia-hemoglobin hematocrit -stable * Cardiomyopathy * Pulmonary edema * Acute respiratory failure-secondary to above. -stable off mechanical ventilation * Coagulopathy-secondary to alcoholic liver disease * Acute renal failure-per Nephrology * VTE prophylaxis-holding anticoagulation for now * Stress ulcer prophylaxis * Disposition-will transfer to step-down unit Subjective: Sitting up in chair. Still somewhat confused. Slow to respond. Objective: Vital Signs Temp Pulse Resp BP Pulse Ox 36.8 C 106 H 15 126/55 H 99 10/10/18 07:00 10/10/18 07:00 10/10/18 07:00 10/10/18 07:00 10/10/18 07:00 Laboratory Results 10/10/18 04:00 10/10/18 04:00 10/09/18 10/10/18 10/11/18 05:59 05:59 05:59 Intake Total 1295.3 297 Output Total 1445 1395 Balance -149.7 -1098 PT 21.7 SEC (12.0-15.0) H 10/10/18 04:00 INR 2.00 (0.83-1.16) H 10/10/18 04:00 Chest [id number] by myself. Endotracheal tube has been removed. Platelike atelectasis present on the added. There is a mild pulmonary edema. - Time Spent With Patient Time Spent With Patient: 35 min of time spent with patient, over 1/2 involved coordination of care counseling. Case discussed with nursing Physical Exam - Physical Exam General Appearance: alert, no apparent distress EENT: PERRL/EOMI Neck: non-tender Respiratory: crackles, No respiratory distress, No wheezing (Hold you) Cardiac/Chest: normal peripheral pulses, regular rate, rhythm Peripheral Pulses: 2+: carotid (R), carotid (L), femoral (R), femoral (L), dorsalis-pedis (R), dorsalis-pedis (L) Abdomen: normal bowel sounds, non-tender, soft Male Genitalia: deferred Rectal: deferred Skin: normal color, warm/dry Extremities: non-tender, normal inspection Neuro/Psych: alert, No oriented x 3 ICD10 Worksheet Patient Problems: Problems Problem Status Onset Anemia Acute Renal insufficiency Acute Upper GI bleed Acute Left rib fracture Acute
[2018-10-10] MEDS: THIAMINE HCL 100 MG TAB PO SCH (09:15)
[2018-10-10] MEDS: RIFAXIMIN 550 MG TAB PO SCH ×2 (09:15→20:25)
[2018-10-10] MEDS: FOLIC ACID 1 MG TAB PO SCH (09:16)
[2018-10-10] MEDS: MULTIVITAMINS W-MINERALS 1 EACH TAB PO SCH (09:16)
[2018-10-10] MEDS: PANTOPRAZOLE SODIUM 40 MG VIAL IVP SCH (09:16)
[2018-10-10] MEDS: LACTULOSE 20 GM/30 ML UDCUP PO SCH ×3 (09:16→20:25)
--- NOTE | 2018-10-10 12:50 | HOSPPROG ---
Hospitalist Progress Note Assessment/Plan: 53yo M with alcoholic cirrhosis, severe aortic regurgitation thought 2/2 bacterial endocarditis here with worsening edema and blood in stool. Course complicated by encephalopathy and respiratory failure. Extubated 10/09. Improving. #Decompensated cirrhosis: Due to GI bleed. - Liver US w/doppler unable to assess portal/hepatic flow #Acute GIB: small bowel avm or diverticuli. not bleeding now - EGD 10/06 without source, no varices - Colonoscopy 10/09 s/p ablation of non-bleeding AVM #Acute respiratory failure: Intubated d/t inability to protect airway. Extubated 10/09, now on supplemental oxygen #Acute on chronic anemia: D/t above, now stabilized after 3u PRBC - Monitor daily #Coagulopathy of liver disease: Improved after 4u FFP, vitamin K - Hold on additional FFP/vit K unless bleeding #Acute renal failure: Slowly improving with volume and BP support - Renal following, cont midodrine 10mg tid #Hypotension: D/t liver failure. Has PICC line - Midodrine as above #Acute metabolic encephalopathy: Suspect r/t ammonia. Less likely etoh withdrawal. - Lactulose via NG 20mg TID, rifaximin #Edema: Multifactorial from low albumin, diastolic CHF. Weight up 9kg from 3 months ago. - Hold on additional diuresis today #H/o EtOH abuse: Patient and family deny use since 06/2018. #Thrombocytopenia: D/t splenic sequestration. No indication for plt transfusion. #Hyperkalemia: D/t [place]. No indication for HD. Monitor closely. #Elevated troponin: Demand in setting of volume overload/anemia and unable to clear with renal failure. - Not aspirin candidate. Will likely need ischemic eval at some point #Severe aortic regurgitation: Reportedly d/t prior h/o endocarditis in 2018. - Cardiology consulted last admission, was considering repair once compensated from GI stand point #Bilious vomiting: I do not think this is hematemesis and neither does GI. No upper bleeding source on EGD. VTE ppx: SCDs Code: full Dispo: Remain inpatient, transfer to SDU, possibly to floor tomorrow. Subjective: Doing much better today. More alert. No melena or hematochezia. He is hungry. Objective: Vital Signs Temp Pulse Resp BP Pulse Ox 36.8 C 102 H 24 H 102/47 L 100 10/10/18 07:00 10/10/18 12:00 10/10/18 12:00 10/10/18 12:00 10/10/18 12:00 Laboratory Results 10/10/18 04:00 10/10/18 04:00 10/09/18 10/10/18 10/11/18 05:59 05:59 05:59 Intake Total 1295.3 297 Output Total 1445 1395 Balance -149.7 -1098 PT 21.7 SEC (12.0-15.0) H 10/10/18 04:00 INR 2.00 (0.83-1.16) H 10/10/18 04:00 - Physical Exam Constitutional: no apparent distress, chronically ill appearing Eyes: PERRL, anicteric sclera, EOMI Ears, Nose, Mouth, Throat: moist mucous membranes, hearing normal, ears appear normal, no oral mucosal ulcers Cardiovascular: regular rate and rhythym, no murmur, rub, or gallop, No edema Respiratory: no respiratory distress, no rales or rhonchi, clear to auscultation Gastrointestinal: normoactive bowel sounds, soft, non-tender abdomen, no palpable masses Genitourinary: no bladder fullness, no bladder tenderness, no renal bruits Skin: no rashes or abrasions, no fluctuance, no induration Musculoskeletal: full muscle strength, no muscle tenderness, normal joint ROM Neurologic: other (alert, oriented x2) Psychiatric: encephalopathic ICD10 Worksheet Patient Problems: Problems Problem Status Onset Anemia Acute Renal insufficiency Acute Upper GI bleed Acute Left rib fracture Acute
[2018-10-11] MEDS: MIDODRINE HCL 10 MG TAB PO SCH ×3 (05:04→21:03)
--- NOTE | 2018-10-11 09:29 | PDINTPN ---
Ob Tech Progress Note Assessment/Plan: Assessment/plan: * Alcoholism * Alcoholic cirrhosis * Hepatic encephalopathy-continues to improve. Alert and orient x3. Ammonia level down to 20 -continue lactulose and rifaximin * GI bleed-resolved * Hypernatremia -increase free water * Anemia-hemoglobin hematocrit -stable * Cardiomyopathy * Pulmonary edema * Acute respiratory failure-secondary to above. -stable off mechanical ventilation * Coagulopathy-secondary to alcoholic liver disease * Acute renal failure-per Nephrology * VTE prophylaxis-holding anticoagulation for now * Stress ulcer prophylaxis * Disposition-okay for transfer to medical surgical floor Subjective: Sitting up in chair. Resting comfortably. Conversant. Awake and alert. Objective: Vital Signs Temp Pulse Resp BP Pulse Ox 36 C 99 17 106/48 L 100 10/11/18 07:15 10/11/18 07:15 10/11/18 07:15 10/11/18 07:15 10/11/18 07:15 Laboratory Results 10/11/18 04:25 10/11/18 04:25 10/10/18 10/11/18 10/12/18 05:59 05:59 05:59 Intake Total 297 2390 Output Total 1395 300 Balance -1098 2090 PT 21.7 SEC (12.0-15.0) H 10/10/18 04:00 INR 2.00 (0.83-1.16) H 10/10/18 04:00 - Time Spent With Patient Time Spent With Patient: 35 min of time spent with patient, over 1/2 involved with coordination of care or counseling. Case discussed with hospitalist and nursing Physical Exam - Physical Exam General Appearance: alert, no apparent distress EENT: PERRL/EOMI Neck: non-tender, supple Respiratory: chest non-tender, lungs clear, normal breath sounds Cardiac/Chest: normal peripheral pulses, regular rate, rhythm, systolic murmur Peripheral Pulses: 2+: carotid (R), carotid (L), femoral (R), femoral (L), dorsalis-pedis (R), dorsalis-pedis (L) Abdomen: normal bowel sounds, non-tender, soft Male Genitalia: deferred Rectal: deferred Skin: normal color, warm/dry Extremities: non-tender Neuro/Psych: alert, oriented x 3 ICD10 Worksheet Patient Problems: Problems Problem Status Onset Anemia Acute Renal insufficiency Acute Upper GI bleed Acute Left rib fracture Acute
[2018-10-11] MEDS: FERROUS SULFATE 325 MG TAB PO SCH (09:57)
[2018-10-11] MEDS: RIFAXIMIN 550 MG TAB PO SCH ×2 (09:57→21:03)
[2018-10-11] MEDS: MULTIVITAMINS W-MINERALS 1 EACH TAB PO SCH (09:57)
[2018-10-11] MEDS: THIAMINE HCL 100 MG TAB PO SCH (09:57)
[2018-10-11] MEDS: PANTOPRAZOLE SODIUM 40 MG TAB PO SCH (09:57)
[2018-10-11] MEDS: FOLIC ACID 1 MG TAB PO SCH (09:57)
[2018-10-11] MEDS: LACTULOSE 20 GM/30 ML UDCUP PO SCH ×3 (09:59→21:03)
--- NOTE | 2018-10-11 10:54 | HOSPPROG ---
Hospitalist Progress Note Assessment/Plan: 53yo M with alcoholic cirrhosis, severe aortic regurgitation thought 2/2 bacterial endocarditis here with worsening edema and blood in stool. Course complicated by encephalopathy and respiratory failure. Extubated 10/09. Improving. #Decompensated cirrhosis: Due to GI bleed. Improving. - Liver US w/doppler unable to assess portal/hepatic flow #Acute GIB: small bowel avm or diverticuli. not bleeding now - EGD 10/06 without source, no varices - Colonoscopy 10/09 s/p ablation of non-bleeding AVM #Edema: D/t low albumin/cirrhosis - Restart lasix 20mg today. Will need spironolactone added prior to dc #Acute respiratory failure: Intubated d/t inability to protect airway. Extubated 10/09, now on room air. #Acute on chronic anemia: D/t above, now stabilized after 3u PRBC - Monitor #Coagulopathy of liver disease: Improved after 4u FFP, vitamin K - Hold on additional FFP/vit K unless bleeding #Acute renal failure: Improved with BP support. Stabilized. - Renal consulted. Cont midodrine 10mg tid, consider decrease dose over coming 1-2 days #Hypotension: D/t liver failure. Has PICC line - Midodrine as above #Acute metabolic encephalopathy: R/t ammonia. - Scheduled rifaximin. PRN lactulose, titrate 3-4 BMs/day #H/o EtOH abuse: Patient and family deny use since 06/2018. Not withdrawing. #Thrombocytopenia: D/t splenic sequestration. No indication for plt transfusion. #Hyperkalemia: D/t [place]. No indication for HD. Monitor closely. #Elevated troponin: Demand in setting of volume overload/anemia and unable to clear with renal failure. - Not aspirin candidate. Will likely need ischemic eval at some point #Severe aortic regurgitation: Reportedly d/t prior h/o endocarditis in 2018. - Cardiology consulted last admission, was considering repair once compensated from GI stand point VTE ppx: SCDs Code: full Diet: advance per [employer] recs Dispo: Remain inpatient, transfer to floor Subjective: Continues to improve. Fully oriented today. No abdominal pain. No blood in stools. Objective: Vital Signs Temp Pulse Resp BP Pulse Ox 36 C 99 17 106/48 L 100 10/11/18 07:15 10/11/18 07:15 10/11/18 07:15 10/11/18 07:15 10/11/18 07:15 Laboratory Results 10/11/18 04:25 10/11/18 04:25 10/10/18 10/11/18 10/12/18 05:59 05:59 05:59 Intake Total 297 2390 Output Total 1395 300 Balance -1098 2090 PT 21.7 SEC (12.0-15.0) H 10/10/18 04:00 INR 2.00 (0.83-1.16) H 10/10/18 04:00 - Physical Exam Constitutional: no apparent distress, appears nourished, not in pain Eyes: PERRL, anicteric sclera, EOMI Ears, Nose, Mouth, Throat: moist mucous membranes, hearing normal, ears appear normal, no oral mucosal ulcers Cardiovascular: no murmur, rub, or gallop, tachycardia, edema Respiratory: no respiratory distress, no rales or rhonchi, clear to auscultation Gastrointestinal: normoactive bowel sounds, soft, non-tender abdomen, no palpable masses Genitourinary: no bladder fullness, no bladder tenderness, no renal bruits Skin: no rashes or abrasions, no fluctuance, no induration Musculoskeletal: generalized weakness Neurologic: AAOx3, No asterixes Psychiatric: interacting appropriately ICD10 Worksheet Patient Problems: Problems Problem Status Onset Anemia Acute Renal insufficiency Acute Upper GI bleed Acute Left rib fracture Acute
[2018-10-11] MEDS: FUROSEMIDE 20 MG TAB PO SCH (11:01)
[2018-10-11] MEDS ORDERED: ACETAMINOPHEN 500 MG TAB PO ONE (21:15)
[2018-10-12] MEDS ORDERED: HYDROGEN PEROXIDE 236 ML BOTTLE TP ONE (04:06)
[2018-10-12 04:27] LABS: INR 2.17 (0.83-1.16); PROTIME(PATIENT) 23.1 SEC (12.0-15.0)
[2018-10-12] MEDS: MIDODRINE HCL 10 MG TAB PO SCH ×3 (05:40→21:19)
[2018-10-12] MEDS: LACTULOSE 20 GM/30 ML UDCUP PO SCH ×3 (07:39→21:19)
[2018-10-12] MEDS: THIAMINE HCL 100 MG TAB PO SCH (09:04)
[2018-10-12] MEDS: FOLIC ACID 1 MG TAB PO SCH (09:04)
[2018-10-12] MEDS: MULTIVITAMINS W-MINERALS 1 EACH TAB PO SCH (09:04)
[2018-10-12] MEDS: RIFAXIMIN 550 MG TAB PO SCH ×2 (09:04→21:19)
[2018-10-12] MEDS: FERROUS SULFATE 325 MG TAB PO SCH (09:04)
[2018-10-12] MEDS: FUROSEMIDE 20 MG TAB PO SCH (09:04)
[2018-10-12] MEDS: PANTOPRAZOLE SODIUM 40 MG TAB PO SCH (09:04)
--- NOTE | 2018-10-12 11:32 | HOSPPROG ---
Hospitalist Progress Note Assessment/Plan: 53 yo M with alcoholic cirrhosis, severe aortic regurgitation thought 2/2 bacterial endocarditis here with worsening edema and blood in stool. Course complicated by encephalopathy and respiratory failure. Extubated 10/09. Improving. #Decompensated cirrhosis with ascites: Due to GI bleed. Improving. - Liver US w/doppler unable to assess portal/hepatic flow - cont lasix, add spironolactone and up-titrate, goal lasix 40 mg daily aldactone 100 mg daily #Acute GIB: small bowel avm or diverticuli. not bleeding now - EGD 10/06 without source, no varices - Colonoscopy 10/09 s/p ablation of non-bleeding AVM (also noted diverticuli) - Cont home PPI though no gastritis or PUD on EGD, will decrease to once daily #Edema: D/t low albumin/cirrhosis - Lasix / Spironolactone as above #Acute respiratory failure: Intubated d/t inability to protect airway. Extubated 10/09, now stable on room air. #Acute on chronic anemia: D/t above, stable s/p 3u PRBC - Monitor #Coagulopathy of liver disease: Improved after 4u FFP, vitamin K - Hold on additional FFP/vit K unless bleeding #Acute renal failure: Improved with BP support. Stabilized. - Cont midodrine 10mg tid, consider decrease dose over coming 1-2 days - renal following #Hypotension: D/t liver failure. Has PICC line - Midodrine as above #Acute metabolic encephalopathy: R/t ammonia. - cont rifaximin - cont lactulose #H/o EtOH abuse: Patient and family deny use since 06/2018. Not withdrawing. #Thrombocytopenia: D/t splenic sequestration. No indication for plt transfusion. #Hyperkalemia: D/t [place]. No indication for HD. Monitor closely. #Elevated troponin: in setting of volume overload/anemia and unable to clear with renal failure. Trended down. - Not an aspirin candidate - outpt risk stratification #Severe aortic regurgitation: Reportedly d/t prior h/o endocarditis in 2018. - Cardiology consulted last admission, was considering repair once compensated from GI stand point - outpt f/u with CV surg VTE ppx: SCDs Code: full Diet: advance per [employer] recs Dispo: cont inpt, add possibly tomorrow, they will return to [place] per marquis Subjective: Pt up in chair. Fells pretty good. Still with significant LE edema. No CP or SOB. Mentation improving per marquis, but still not at baseline. No fevers. Objective: Vital Signs Temp Pulse Resp BP Pulse Ox 36.5 C 99 17 95/41 L 100 10/12/18 10:08 10/12/18 10:08 10/12/18 10:08 10/12/18 10:08 10/12/18 10:08 Laboratory Results 10/12/18 04:02 10/12/18 04:02 10/11/18 10/12/18 10/13/18 05:59 05:59 05:59 Intake Total 2390 1500 Output Total 300 750 Balance 2090 750 PT 23.1 SEC (12.0-15.0) H 10/12/18 04:02 INR 2.17 (0.83-1.16) H 10/12/18 04:02 - Physical Exam Constitutional: no apparent distress Eyes: PERRL Ears, Nose, Mouth, Throat: moist mucous membranes Cardiovascular: regular rate and rhythym Respiratory: no respiratory distress Gastrointestinal: normoactive bowel sounds, soft, non-tender abdomen, distension Skin: warm Musculoskeletal: other (2+ b/l LE pitting edema) Neurologic: AAOx3 Psychiatric: interacting appropriately ICD10 Worksheet Patient Problems: Problems Problem Status Onset Anemia Acute Renal insufficiency Acute Upper GI bleed Acute Left rib fracture Acute
[2018-10-12] MEDS ORDERED: SPIRONOLACTONE 50 MG TAB PO SCH (11:45)
[2018-10-12] MEDS: ACETAMINOPHEN 325 MG TAB PO PRN (12:12)
--- NOTE | 2018-10-12 15:08 | ASMTCMCOM ---
CM Note CM Note Notes: Chart reviewed for discharge planning purposes. Patient transferred s/p encephalopathic episode. Per note from MD patient is likely to dishcarge tomorrow and will return to [place] with fiance. Plan As above. Date Signed: 10/12/2018 03:02 PM Electronically Signed By:Aimee Otto RN
[2018-10-12] MEDS: BENZONATATE 100 MG CAP PO PRN (17:43)
[2018-10-13] MEDS: MIDODRINE HCL 10 MG TAB PO SCH ×3 (05:32→22:13)
[2018-10-13] MEDS: ACETAMINOPHEN 325 MG TAB PO PRN (05:32)
[2018-10-13] MEDS: THIAMINE HCL 100 MG TAB PO SCH (08:43)
[2018-10-13] MEDS: FOLIC ACID 1 MG TAB PO SCH (08:43)
[2018-10-13] MEDS: FERROUS SULFATE 325 MG TAB PO SCH (08:43)
[2018-10-13] MEDS: LACTULOSE 20 GM/30 ML UDCUP PO SCH ×3 (08:43→22:13)
[2018-10-13] MEDS: MULTIVITAMINS W-MINERALS 1 EACH TAB PO SCH (08:43)
[2018-10-13] MEDS: RIFAXIMIN 550 MG TAB PO SCH ×2 (08:43→20:30)
[2018-10-13] MEDS: PANTOPRAZOLE SODIUM 40 MG TAB PO SCH (08:44)
[2018-10-13] MEDS: SPIRONOLACTONE 100 MG TAB PO SCH (08:44)
[2018-10-13] MEDS: BENZONATATE 100 MG CAP PO PRN (08:44)
[2018-10-13] MEDS ORDERED: FUROSEMIDE 40 MG TAB PO SCH (09:00)
[2018-10-13] MEDS ORDERED: PHYTONADIONE 10 MG in NS 50 ML IV ONE (13:26)
[2018-10-13] MEDS ORDERED: NS 1,000 ML IV ONE (13:28)
--- NOTE | 2018-10-13 13:34 | HOSPPROG ---
Hospitalist Progress Note Assessment/Plan: 53 yo M with alcoholic cirrhosis, severe aortic regurgitation thought 2/2 bacterial endocarditis here with worsening edema and blood in stool. Course complicated by encephalopathy and respiratory failure. Extubated 10/09. Planned for discharge 10/13, but he developed hematemesis and is transferred to SDU. #Decompensated cirrhosis with ascites: MELD 19. Liver US w/doppler unable to assess portal/hepatic flow - lasix 40 mg, spironolactone 100 mg- will hold for now with bleeding/ hypotension #Acute GIB: New hematemesis today with subsequent hypotension. Initial EGD without source, no varices. Had c-scope 10/09 with ablation of non-bleeding AVM (also noted diverticuli) - STAT CBC, INR - transfuse 1 u prbc's, 1 u FFP - IV Vitamin K - Discussed with Dr. Henson, GI, pt will need repeat EGD, will make NPO ( last ate 10:30 am) #Hypotension - in setting of liver failure, hastened by blood loss - NS bolus now while awaiting blood products as above - cont midodrine #ABLA on chronic anemia: D/t above, transfusing now - q6h h&h, transfuse to keep hgb >6 #Coagulopathy of liver disease: INR 2.2, S/P 4u FFP, vitamin K - Vit K, FFP now due to active bleeding #Edema: D/t low albumin/cirrhosis - Lasix / Spironolactone held for now as above #Acute respiratory failure: Intubated d/t inability to protect airway. Extubated 10/09, now stable on room air. #EMMANUELLE: Pre-renal, improved with BP support, Cr 2.2 --> 1.1 - Cont midodrine 10mg tid, will try to decrease prior to dc #Hepatic encephalopathy: Cont Rifaximin, Lactulose #H/o EtOH abuse: Patient and family deny use since 06/2018. Not withdrawing. #Thrombocytopenia: D/t splenic sequestration. - will consider plt transfusion if plts <50K given active bleeding #Hyperkalemia: 2/2 EMMANUELLE. Resolved, monitor #Elevated troponin: in setting of volume overload/anemia and unable to clear with renal failure. Trended down. - Not an aspirin candidate - outpt risk stratification #Severe aortic regurgitation: Reportedly d/t prior h/o endocarditis in 2018. - Cardiology consulted last admission, was considering repair if/when compensated from GI stand point - outpt f/u with CV surg VTE ppx: SCDs Code: full Diet: NPO for EGD today Dispo: cont inpt, transfer to ICU, 45 min critical care managing hematemesis, hypotension in setting of ESLD Subjective: Pt was feeling well this am, ate and drank. Ambulating with walker , feels stable on his feet. No fevers/chills. We planned for discharge, but he then had an episode of hematemesis, [place] blood in trash. No diarrhea. He had sbp in the 80's, but denies dizziness, CP or SOB. Objective: Vital Signs Temp Pulse Resp BP Pulse Ox 36.3 C 97 16 83/41 L 100 10/13/18 07:27 10/13/18 12:00 10/13/18 12:00 10/13/18 12:00 10/13/18 12:00 Laboratory Results 10/13/18 05:40 10/13/18 05:40 10/12/18 10/13/18 10/14/18 05:59 05:59 05:59 Intake Total 1500 450 Output Total 750 1 Balance 750 449 PT 23.1 SEC (12.0-15.0) H 10/12/18 04:02 INR 2.17 (0.83-1.16) H 10/12/18 04:02 - Physical Exam Constitutional: no apparent distress Eyes: PERRL Ears, Nose, Mouth, Throat: moist mucous membranes Cardiovascular: regular rate and rhythym Respiratory: no respiratory distress, clear to auscultation Gastrointestinal: normoactive bowel sounds, soft, non-tender abdomen Skin: warm Musculoskeletal: full muscle strength, other (2-3+ b/l LE pitting edema) Psychiatric: encephalopathic ICD10 Worksheet Patient Problems: Problems Problem Status Onset Anemia Acute Renal insufficiency Acute Upper GI bleed Acute Left rib fracture Acute
[2018-10-13 14:03] LABS: INR 2.3 (0.83-1.16); PROTIME(PATIENT) 24.2 SEC (12.0-15.0)
--- NOTE | 2018-10-13 14:38 | ASMTCMCOM ---
CM Note CM Note Notes: Patient chart reviewed. He had episode of GI bleeding this am and is to transfer to ICU for management. Plan was for him to dc back to [place] accompanied by his girlfriend. CM to follow. Plan: Dc independently when medically cleared for discharge. Date Signed: 10/13/2018 02:38 PM Electronically Signed By:Aimee Otto RN
[2018-10-13] MEDS: PANTOPRAZOLE SODIUM 40 MG VIAL IVP SCH ×2 (14:39→20:30)
--- NOTE | 2018-10-13 14:39 | SOAPPROG ---
SOAP Progress Note Assessment/Plan: Assessment:Plan: 1) hematemesis/hematochezia - pt vomited blood toady, now passing maroon stools , dropped HB all c/w good size UGI bleed 2) anemia - acute post hemorrhagic anemia - needs PRBC's to get HB > 7 3) alc hx - needs anesthesia for EGD 4) coagulopathy - from his liver dz, Vit K and FFP urgent high risk procedure 10/13/18 14:39 Subjective: alert and oriented CTA S1S2 RR tachy +BS, soft mild epi tenderness no r/g Objective: Vital Signs Temp Pulse Resp BP Pulse Ox 36.3 C 97 16 83/41 L 100 10/13/18 07:27 10/13/18 12:00 10/13/18 12:00 10/13/18 12:00 10/13/18 12:00 Laboratory Results 10/13/18 13:20 10/13/18 05:40 10/12/18 10/13/18 10/14/18 05:59 05:59 05:59 Intake Total 1500 450 Output Total 750 1 Balance 750 449 PT 24.2 SEC (12.0-15.0) H 10/13/18 13:20 INR 2.30 (0.83-1.16) H 10/13/18 13:20 Laboratory Tests 10/12/18 10/13/18 10/13/18 04:02 05:40 13:20 Hgb 8.3 L 7.9 L 6.0 L PT INR 10/13/18 13:20 Hgb PT 24.2 H INR 2.30 H ICD10 Worksheet Patient Problems: Problems Problem Status Onset Anemia Acute Renal insufficiency Acute Upper GI bleed Acute Left rib fracture Acute
--- NOTE | 2018-10-13 16:52 | PDANEPAE ---
ANE History of Present Illness EGD ANE Past Medical History - Cardiovascular History Hx Hypertension: No Hx Arrhythmias: No Hx Chest Pain: No Hx Coronary Artery / Peripheral Vascular Disease: No Hx CHF / Valvular Disease: Yes Cardiovascular History Comment: severe AI, mod MR, current CHF - Pulmonary History Hx COPD: No Hx Asthma/Reactive Airway Disease: No Hx Recent Upper Respiratory Infection: Yes Hx Oxygen in Use at Home: No Hx Sleep Apnea: Yes Sleep Apnea Screening Result - Last Documented: Positive Pulmonary History Comment: influenza A currently - Endocrine History Hx Diabetes: No Hypothyroid: No Hyperthyroid: No Obesity: mild - Renal History Hx Renal Disorders: No - Liver History Hx Hepatic Disorders: Yes Hepatic History Comment: liver dysfuncion secondary to EtOH abuse - GI History Hx Gastrointestinal Disorders: Yes Gastrointestinal History Comment: GI bleed - Chronic Pain History Chronic Pain: No ANE Review of Systems Review of systems is: negative Review of Systems: - Exercise capacity METS (RN): 3 METS ANE Patient History - Allergies Allergies/Adverse Reactions: No Known Allergies Allergy (Verified 07/15/18 13:24) - Home Medications Home medications: home medication list seen and reviewed Home Medications: Calcium Carbonate [Oyster Shell Calcium 500 mg (*)] 1,000 mg PO DAILY 10/06/18 [ Last Taken Unknown] Ferrous Sulfate [Ferrous Sulf 325 MG (*)] 325 mg PO DAILY 10/06/18 [Last Taken Unknown] Jackson-3 Fatty Acids [Fish Oil 1000 mg (*)] 1,000 mg PO DAILY 10/06/18 [Last Taken Unknown] - NPO status NPO Since - Liquids (Date): 10/13/18 NPO Since - Liquids (Time): 09:30 NPO Since - Solids (Date): 10/13/18 NPO Since - Solids (Time): 09:30 - Anes Hx Anes Hx: no prior problems - Smoking Hx Smoking Status: Never smoked - Alcohol Use Alcohol Use: None - Family Anes Hx Family Anes Hx: none ANE Labs/Vital Signs - Labs Result Diagrams: 10/13/18 13:20 10/13/18 05:40 - Vital Signs Vital Signs: reviewed preoperatively; see RN documention for details Blood Pressure: 92/38 Heart Rate: 95 Respiratory Rate: 17 O2 Sat (%): 100 Height: 180.34 cm Weight: 89.63 kg ANE Physical Exam - Airway Neck exam: FROM Mallampati Score: Class 3 Mouth exam: normal dental/mouth exam - Pulmonary Pulmonary: no respiratory distress - Cardiovascular Cardiovascular: regular rate and rhythym - ASA Status ASA Status: IV ANE Anesthesia Plan Anesthesia Plan: general endotracheal anesthesia (RSI)
[2018-10-13] MEDS ORDERED: MEPERIDINE 25 MG/0.5 ML AMP IVP PRN (17:25)
[2018-10-13] MEDS ORDERED: oxyCODONE IR 5 MG TAB PO PRN (17:25)
[2018-10-13] MEDS ORDERED: NALOXONE HCL 0.4 MG/ML INJ IVP PRN (17:25)
[2018-10-13] MEDS ORDERED: DIAZEPAM 10 MG/2 ML SYR IVP PRN (17:25)
[2018-10-13] MEDS ORDERED: fentaNYL 100 MCG/2 ML INJ IVP PRN (17:25)
[2018-10-13] MEDS ORDERED: LABETALOL HCL 5 MG/ML 20 ML MDV IVP PRN (17:25)
[2018-10-13] MEDS ORDERED: PROMETHAZINE HCL 25 MG/ML INJ IVP PRN (17:25)
[2018-10-13] MEDS ORDERED: HYDROmorphONE/DILAUDID 1 MG/ML INJ IVP PRN (17:25)
[2018-10-13] MEDS ORDERED: DEXAMETHASONE 4 MG/ML VIAL IVP PRN (17:25)
[2018-10-13] MEDS ORDERED: ONDANSETRON 4 MG/2 ML VIAL IVP PRN (17:25)
[2018-10-13] MEDS ORDERED: ONDANSETRON 4 MG/2 ML VIAL ONE (17:27)
[2018-10-13] MEDS ORDERED: DEXAMETHASONE 4 MG/ML VIAL ONE (17:27)
[2018-10-13] MEDS ORDERED: LIDOCAINE 2% 100 MG/5 ML SYR ONE (17:27)
[2018-10-13] MEDS ORDERED: fentaNYL 100 MCG/2 ML INJ ONE ×2 (17:28→17:54)
[2018-10-13] MEDS ORDERED: PROPOFOL 200 MG/20 ML VIAL ONE (17:28)
[2018-10-13] MEDS ORDERED: PHENYLEPHRINE HCL 100 MCG/ML SYR ONE (17:54)
[2018-10-13] MEDS ORDERED: EPINEPHrine 1 MG/10 ML SYR IVP ONE (18:16)
[2018-10-13] MEDS ORDERED: EPINEPHrine 1 MG/ML INJ ONE ×2 (18:16→18:21)
--- NOTE | 2018-10-13 18:29 | PDCONSULT ---
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 Per report no varices on prior EGD and colonoscopy. Current GI bleed may be due to varices, erosive esophagitis and coagulopathy, peptic ulcer disease, GAVE # hypotension. Due to acute blood loss plus cirrhosis. No clear evidence for infection # CHF PLAN # PRBCs, correct coagulopathy # empirically treat with octreotide and ceftriaxone given cirrhosis # IV twice daily PPI # serial Hgb # trend BMP # preferentially use blood products to maintain map greater than 65 # Feeding - NPO # Analgesia none # Sedation none # Thromboprophylaxis - SCDs, pharmacologic prophylaxis contraindicated secondary to active GI bleed # Head of bed elevated # Ulcer prophylaxis - PPI # Glucose SSI # Skin no skin breakdown # Delirium - delirium precautions Patient is critical ill due to life threatening organ dysfunction and is at high risk for decompensation and . Total critical care time, excluding procedures: 55 min IMAGING I personally reviewed interpreted radiographic images well as formal radiology reads 10/10/2018-CXR increased pulmonary congestion engorgement of and cephalization of pulmonary veins, increased interstitial opacifications and neville bronchovascular fullness consistent with pulmonary edema I was asked by Dr. Destiny West of [facility] to evaluate this patient for ICU care in the setting of end-stage cirrhosis and acute blood loss from GI bleed and hypotension Chief complaint Hematemesis NHI Paulino is a 53-year-old male with end-stage alcoholic cirrhosis among many comorbidities who is initially admitted on 10/05/2018 with a GI bleed. He was resuscitated underwent upper and lower endoscopy which per report did not reveal significant varices. He slowly improved on the floor and was nearing the point of discharge when he had an episode of large volume hematemesis. On further discussion he his significant other also reported hematochezia. He denies fevers, chills, nausea, vomiting, shortness of breath. Patient was brought up to the ICU in given 2 units of PRBCs FFP and vitamin K. Patient remained hypotensive and GI was consulted for emergent endoscopy. Allergies No known drug allergies Past medical history Alcoholic cirrhosis, endocarditis and subsequent valvular heart disease, acute on chronic anemia, esophagitis prior gastric ulcer prior diastolic dysfunction Social history Extensive drinking history periods per report sober since June 2018 Family history No history of a call recurrent GI bleeds Review of systems A comprehensive 10 point review of systems was obtained is negative except as per HPI Physical exam Afebrile pulse 111, map 58, pressors 22 94% room air GEN: Somnolent, arousable pallor noted NEURO: A&Ox3, CN 2-12 GI, HEENT: Mild scleral icterus, conjunctival pallor moist mucous mucous membranes NECK: supple, trachea midline CHEST normal shape, no pes excavatum CVS: Tachy, mild systolic murmur, no JVD appreciated PULM: CTAB, no wheezes/rales/rhonchi ABD: soft, NT, ND, NABS EXT: no swelling, no cyanosis, full ROM SKIN: warm, dry, intact, no rash PSYCH somnolent arousable Labs Reviewed notable for hemoglobin of 6 platelets 106, INR 2.3
--- NOTE | 2018-10-13 18:35 | POSTANESTH ---
Post Anesthetic Evaluation Cardiovascular Status: Normal, Stable Respiratory Status: Normal, Stable Level of Consciousness/Mental Status: Can Participate in Eval, Mildly Sleepy, Arousable Pain Control: Adequate, Prn Tx Ordered Nausea/Vomiting Control: Adequate, Prn Tx Ordered Complications Possibly Related to Anesthesia: None Noted
--- NOTE | 2018-10-13 19:10 | GIREPORT ---
[facility] Surgical Services - Endoscopy Department Patient Name: Solo Mejia Procedure Date: 10/13/2018 6:20 PM Patient Type: Inpatient Attending MD/ ER Physician: Michael Henson MD Procedure: Upper GI endoscopy Indications: Acute post hemorrhagic anemia, Hematemesis, Hematochezia Providers: Michael Henson MD Medicines: General Anesthesia Complications: No immediate complications. Estimated blood loss: Minimal. Description of Procedure: After obtaining informed consent, the endoscope was passed under direct vision. Throughout the procedure, the patient's blood pressure, pulse, and oxygen saturations were monitored continuously. The Endoscope was intro duced through the mouth, and advanced to the third part of duodenum. The uppe r GI endoscopy was accomplished without difficulty. The patient tolerated th e procedure well. Findings: The examined esophagus was normal. Clotted and dark blood was found in the gastric body and on the greater curvature of the stomach. Precluding view. Inflammation characterized by erythema, friability and granularity was found in the gastric antrum. No ulcerations and no active bleeding. Scattered inflammation characterized by congestion (edema), erythema an d friability was found in the duodenal bulb, in the first portion of the duodenum and in the second portion of the duodenum. Very small amount of red blood was found in the entire duodenum. Estimated Blood Loss: Estimated blood loss: none. Post Op Diagnosis: - Normal esophagus. - No esophageal nor gastric varices noted. No Fransisca Stiles tear noted. - Clotted blood in the greater curvature of the stomach and in the romero anamaria body. - Gastritis. - Duodenitis. - Small amount of blood in the entire examined duodenum. - No specimens collected. - Unclear source of UGI bleed. Could be ulceration I couldn't see. His LFTs jumped up today - I don't think he has hemobilia however. I suspect gas tric lesion that couldn't be seen on today's exam. - No active bleeding noted during exam. Recommendation: - NPO. - Use Protonix (pantoprazole) 40 mg IV q 6 hours. - Check hemoglobin q 6 hours for one day. - Transfuse PRBC to keep HB > 7 - Transfuse FFP as ordered - Vitamin K as ordered - Return patient to ICU for ongoing care. - Repeat upper endoscopy tomorrow. - Thank you for allowing me to help in your patient's care. Do not hesi lorenz to call with any questions. Attending Participation: I personally performed the entire procedure. Sixto Lazo M.D Michael Henson MD 10/13/2018 7:09:52 PM This report has been signed electronicallyMattkwabena Henson MD Number of Addenda: 0 Note Initiated On: 10/13/2018 6:20 PM [email or web address]
[2018-10-14] MEDS: PANTOPRAZOLE SODIUM 40 MG VIAL IVP SCH ×4 (01:49→21:20)
[2018-10-14] MEDS: ACETAMINOPHEN 325 MG TAB PO PRN (03:19)
[2018-10-14 05:14] LABS: INR 1.89 (0.83-1.16); PROTIME(PATIENT) 20.8 SEC (12.0-15.0)
[2018-10-14] MEDS: MIDODRINE HCL 10 MG TAB PO SCH ×3 (07:11→21:20)
[2018-10-14] MEDS: FOLIC ACID 1 MG TAB PO SCH (09:38)
[2018-10-14] MEDS: LACTULOSE 20 GM/30 ML UDCUP PO SCH ×3 (09:38→21:19)
[2018-10-14] MEDS: FERROUS SULFATE 325 MG TAB PO SCH (09:38)
[2018-10-14] MEDS: MULTIVITAMINS W-MINERALS 1 EACH TAB PO SCH (09:38)
[2018-10-14] MEDS: THIAMINE HCL 100 MG TAB PO SCH (09:38)
[2018-10-14] MEDS: RIFAXIMIN 550 MG TAB PO SCH ×2 (09:38→21:19)
[2018-10-14] MEDS ORDERED: METOCLOPRAMIDE 10 MG/2 ML VIAL IVP ONE (09:45)
[2018-10-14] MEDS ORDERED: LR 1,000 ML IV ONE (11:53)
--- NOTE | 2018-10-14 12:17 | PDANEPAE ---
ANE History of Present Illness EGD ANE Past Medical History - Cardiovascular History Hx Hypertension: No Hx Arrhythmias: No Hx Chest Pain: No Hx Coronary Artery / Peripheral Vascular Disease: No Hx CHF / Valvular Disease: Yes Hx Palpitations: No Cardiovascular History Comment: severe AI, mod MR, current CHF - Pulmonary History Hx COPD: No Hx Asthma/Reactive Airway Disease: No Hx Recent Upper Respiratory Infection: Yes Hx Oxygen in Use at Home: No Hx Sleep Apnea: No Sleep Apnea Screening Result - Last Documented: Positive Pulmonary History Comment: influenza A currently - Endocrine History Hx Diabetes: No Hypothyroid: No Hyperthyroid: No Obesity: mild - Renal History Hx Renal Disorders: No - Liver History Hx Hepatic Disorders: Yes Hepatic History Comment: liver dysfuncion secondary to EtOH abuse - GI History Hx Gastrointestinal Disorders: Yes Gastrointestinal History Comment: GI bleed - Chronic Pain History Chronic Pain: No ANE Review of Systems Review of Systems: - Exercise capacity METS (RN): 3 METS ANE Patient History - Allergies Allergies/Adverse Reactions: No Known Allergies Allergy (Verified 07/15/18 13:24) - Home Medications Home Medications: Calcium Carbonate [Oyster Shell Calcium 500 mg (*)] 1,000 mg PO DAILY 10/06/18 [ Last Taken Unknown] Ferrous Sulfate [Ferrous Sulf 325 MG (*)] 325 mg PO DAILY 10/06/18 [Last Taken Unknown] Hollywood-3 Fatty Acids [Fish Oil 1000 mg (*)] 1,000 mg PO DAILY 10/06/18 [Last Taken Unknown] - NPO status NPO Since - Liquids (Date): 10/14/18 NPO Since - Liquids (Time): 00:00 NPO Since - Solids (Date): 10/14/18 NPO Since - Solids (Time): 00:00 - Smoking Hx Smoking Status: Never smoked - Alcohol Use Alcohol Use: None ANE Labs/Vital Signs - Labs Result Diagrams: 10/14/18 04:55 10/14/18 04:55 - Vital Signs Blood Pressure: 104/46 Heart Rate: 90 Respiratory Rate: 22 O2 Sat (%): 98 Height: 180.34 cm Weight: 89.63 kg ANE Physical Exam - Airway Neck exam: FROM Mallampati Score: Class 2 Mouth exam: small mouth opening - Pulmonary Pulmonary: no respiratory distress, no rales or rhonchi - Cardiovascular Cardiovascular: regular rate and rhythym, diastolic murmur, tachycardia ANE Anesthesia Plan Anesthesia Plan: GA with mask Total IV Anesthesia: Yes
[2018-10-14] MEDS ORDERED: PROPOFOL 200 MG/20 ML VIAL ONE (12:25)
[2018-10-14] MEDS ORDERED: fentaNYL 100 MCG/2 ML INJ ONE ×2 (12:25→12:54)
[2018-10-14] MEDS ORDERED: SUCCINYLCHOLINE CHLORIDE 200 MG/10 ML SYR IVP ONE (12:30)
--- NOTE | 2018-10-14 12:51 | HOSPPROG ---
Hospitalist Progress Note Assessment/Plan: 53 yo M with alcoholic cirrhosis, severe aortic regurgitation thought 2/2 bacterial endocarditis p/w GIB. Course complicated by encephalopathy and respiratory failure. Extubated 10/09. Planned for discharge 10/13, but he developed hematemesis with hypotension and was transferred back to ICU. EGD today with gastric varices. #Acute GIB 2/2 gastric varices: not seen on initial EGD, re-bled yesterday but too much blood to visualize on EGD. 3rd EGD today confirmed gastric variceal bleed. Discussed with Dr. Henson. - Octreotide bolus / drip - cont IV PPI - not a candidate for TIPS 2/2 severe AR - Dr. Abbott to perform BRTO or some type of modified TIPS tomorrow #Decompensated cirrhosis with ascites: MELD 19. CT showed lg gastrorenal shunt draining lg gastric varices - resume diuretics: lasix 40 mg, spironolactone 100 mg - BRTO tomorrow as above - low sodium diet #Hypotension - in setting of liver failure, hastened by blood loss, BP improved with blood products - cont midodrine #ABLA on chronic anemia: D/t above, s/p total 6 u prbc's (3 more yest). H&H stable this am. - cont to trend h&h #Coagulopathy of liver disease: S/P 4u FFP, IV vitamin K #Edema: D/t low albumin/cirrhosis - Lasix / Spironolactone #Acute respiratory failure: Intubated d/t inability to protect airway. Extubated 10/09, now stable on room air. #Severe aortic regurgitation: Reportedly d/t prior h/o endocarditis in 2018. Rpt echo with wide open valve. - Cardiology consult today, high risk for valve replacement presuming other varices present #Elevated troponin: in setting of volume overload/anemia and unable to clear with renal failure. Trended down. - Not an aspirin candidate #EMMANUELLE: Pre-renal, improved with BP support, Cr 2.2 --> 1.1 - Cont midodrine 10mg tid, will try to decrease prior to dc #Hepatic encephalopathy: Improved - cont Rifaximin, Lactulose #H/o EtOH abuse: Patient and family deny use since 06/2018. No w/d. #Thrombocytopenia: D/t splenic sequestration. - consider plt transfusion if plts <50K and active bleeding #Hyperkalemia: 2/2 EMMANUELLE. Resolved, monitor VTE ppx: SCDs, no pharm with GIB Code: full Diet: resume low sodium diet Dispo: cont inpt, 45 min critical care Subjective: Pt feels ok today after EGD. No more hematemesis or bloody stools. Denies dizziness, CP or SOB. No abdominal pain. Objective: Vital Signs Temp Pulse Resp BP Pulse Ox 36.5 C 90 22 H 104/46 L 98 10/14/18 10:51 10/14/18 12:16 10/14/18 12:16 10/14/18 12:16 10/14/18 12:16 Laboratory Results 10/14/18 04:55 10/14/18 04:55 10/13/18 10/14/18 10/15/18 05:59 05:59 05:59 Intake Total 450 2768 Output Total 1 303 Balance 449 2465 PT 20.8 SEC (12.0-15.0) H 10/14/18 04:55 INR 1.89 (0.83-1.16) H 10/14/18 04:55 - Physical Exam Constitutional: no apparent distress, chronically ill appearing Eyes: PERRL Ears, Nose, Mouth, Throat: moist mucous membranes Cardiovascular: regular rate and rhythym, systolic murmur Respiratory: no respiratory distress, reduced air movement, inspiratory crackles Gastrointestinal: normoactive bowel sounds, soft, non-tender abdomen, distension Skin: warm Musculoskeletal: full muscle strength, other (2+ b/l LE edema) Neurologic: AAOx3 ICD10 Worksheet Patient Problems: Problems Problem Status Onset Anemia Acute Renal insufficiency Acute Upper GI bleed Acute Left rib fracture Acute
--- NOTE | 2018-10-14 12:53 | GIREPORT ---
[facility] Surgical Services - Endoscopy Department Patient Name: Solo Mejia Procedure Date: 10/14/2018 11:58 AM Patient Type: Inpatient Attending MD/ ER Physician: Michael Henson MD Procedure: Upper GI endoscopy Indications: Hematemesis Providers: Michael Henson MD Medicines: General Anesthesia Complications: No immediate complications. Estimated blood loss: None. Description of Procedure: After obtaining informed consent, the endoscope was passed under direct vision. Throughout the procedure, the patient's blood pressure, pulse, and oxygen saturations were monitored continuously. The Endoscope was intro duced through the mouth, and advanced to the third part of duodenum. The uppe r GI endoscopy was accomplished without difficulty. The patient tolerated th e procedure well. Findings: One column of non-bleeding grade I varices were found at the gastroesophageal junction,. They were 2 mm in largest diameter. No stig patton of recent bleeding were evident and no red parish signs were present. Type 2 gastroesophageal varices (GOV2, esophageal varices which extend along the fundus) with no bleeding were found in the cardia. There were stigm jordyn of recent bleeding. They were large in largest diameter. The examined duodenum was normal. The exam was otherwise without abnormality. Estimated Blood Loss: Estimated blood loss: none. Post Op Diagnosis: - Non-bleeding grade I esophageal varices. - Type 2 gastroesophageal varices (GOV2, esophageal varices which exten d along the fundus), without bleeding. - Normal examined duodenum. - The examination was otherwise normal. - No specimens collected. Recommendation: - Refer to an interventional radiologist today. - NPO. - Return patient to ICU for ongoing care. - Administer an IV bolus of 50 micrograms of octreotide followed by an infusion of 50 micrograms per hour. - Thank you for allowing me to help in your patient's care. Do not hesi lorenz to call with any questions. Attending Participation: I personally performed the entire procedure. Sixto Lazo M.D Michael Henson MD 10/14/2018 12:52:57 PM This report has been signed electronicallyMattkwabena Henson MD Number of Addenda: 0 Note Initiated On: 10/14/2018 11:58 AM [email or web address]
[2018-10-14] MEDS ORDERED: OCTREOTIDE ACETATE 50 MCG/ML INJ IVP ONE (13:31)
--- NOTE | 2018-10-14 13:44 | PDINTPN ---
Systems Planner Progress Note Assessment/Plan: ASSESSMENT 53-year-old male with end-stage alcoholic cirrhosis with recurrent acute blood loss anemia from GI bleed # alcoholic cirrhosis # acute on chronic blood loss anemia # GI bleed. Per report no varices on prior EGD and colonoscopy. Current GI bleed may be due to varices, erosive esophagitis and coagulopathy, peptic ulcer disease, GAVE # hypotension. Due to acute blood loss plus cirrhosis. No clear evidence for infection # CHF PLAN # repeat endoscopy today # PRBCs, correct coagulopathy # trend hgb # okay to stop octreotide. # PPI IV BID # serial Hgb # trend BMP # preferentially use blood products to maintain map greater than 65 # Feeding - NPO # Analgesia none # Sedation none # Thromboprophylaxis - SCDs, pharmacologic prophylaxis contraindicated secondary to active GI bleed # Head of bed elevated # Ulcer prophylaxis - PPI # Glucose SSI # Skin no skin breakdown # Delirium - delirium precautions Subjective: EGD yesterday with large volume of blood stomach unable to completely visualize but some erythematous friable mucosa seen. No recurrent hemoptysis or hematochezia. No new fevers, chills, nausea vomiting. Objective: Vital Signs Temp Pulse Resp BP Pulse Ox 36.5 C 90 22 H 104/46 L 98 10/14/18 10:51 10/14/18 12:16 10/14/18 12:16 10/14/18 12:16 10/14/18 12:16 Laboratory Results 10/14/18 04:55 10/14/18 04:55 10/13/18 10/14/18 10/15/18 05:59 05:59 05:59 Intake Total 450 2768 Output Total 1 303 Balance 449 2465 PT 20.8 SEC (12.0-15.0) H 10/14/18 04:55 INR 1.89 (0.83-1.16) H 10/14/18 04:55 Physical Exam - Physical Exam General Appearance: alert, no apparent distress EENT: PERRL/EOMI, normal ENT inspection Neck: non-tender, full range of motion Respiratory: chest non-tender, lungs clear Cardiac/Chest: normal peripheral pulses, regular rate, rhythm, No edema Abdomen: normal bowel sounds, non-tender, soft Skin: pallor, No cyanosis Extremities: normal range of motion, non-tender Neuro/Psych: no motor/sensory deficits, alert, normal mood/affect, oriented x 3 ICD10 Worksheet Patient Problems: Problems Problem Status Onset Anemia Acute Renal insufficiency Acute Upper GI bleed Acute Left rib fracture Acute
[2018-10-14] MEDS: OCTREOTIDE ACETATE 500 MCG in NS 50 ML IV SCH ×2 (14:04→22:26)
--- NOTE | 2018-10-14 15:42 | ECHO ---
[email or web address] [address] Main: [phone] Echocardiography Examination Transthoracic Name: ROSANNA EMNARD MR#: [id number] Study Date: 10/14/2018 Study Time: 02:24 PM Date of : 1965 Age: 53 year(s) Height: 180.3 cm (71 in.) Weight: 89.36 kg (197 lb.) BSA: 2.1 m2 Gender: Male Examination: Echo Contrast: Image Quality: Adequate Rhythm: Heart Rate: BP: / Indication: gastric varices, will need TIPS, pre TIPS eval of heart Procedure Staff Referring Physician: Doctor Of Nurse Anesthesia: [facility] Reading Physician: Raquel Jiménez MD Requesting Provider: Ordering Physician: Michael Henson Indication: gastric varices, will need TIPS, pre TIPS eval of heart No blood pressure available Measurements Chambers AV/MV Label Value Normal Value Label Value Normal Value LVOTd 2 cm (1.9cm - 2.1cm) AR PHT 0.12 s LVOT VTI 31.6 cm (18cm - 22cm) AR PHT 121 ms LVDd, 2D 5.8 cm (4.2cm - 5.9cm) AR Vmax 4.68 m/s LVDs, 2D 3.9 cm (2.1cm - 4cm) AV PGmax 33 mmHg IVSd, 2D 1.2 cm (0.6cm - 1.1cm) AV PGmean 22 mmHg LVPWd, 2D 1.2 cm (0.6cm - 1cm) AV Vmax 2.88 m/s LVEF, BP 55 % (55% - 70%) HARDEEP (VTI) 1.8 cm2 LVEF, 2D 60 % (54% - 74%) MV E Vmax 0.85 m/s LVOT PGmean 6 mmHg MV DT 120 ms LVOT Vmean 1.16 m/s MV PHT 0.03 s RVDd, 2D 3.7 cm (1.9cm - 3.8cm) MVA PHT 8.1 cm2 LA Volume, BP 103 ml (18ml - 58ml) MR PISA Radius 0.8 cm LADs, 2D 4.6 cm (3cm - 4cm) MR PISA Alias V. 36.8 cm/s LAESV index, BP 49 ml/m2 MV PHT 27 ms Additional Vessels TV/PV Label Value Normal Value Label Value Normal Value AoAsc 3.6 cm RA Pressure 10 mmHg Patient: ROSANNA MENARD Study Date: 10/14/2018 Page 1 of 3 02:24 PM AoRoot, 2D 3.1 cm (1.4cm - 2.6cm) RVSP 54 mmHg TR Pmax 44 mmHg TR Vmax 3.33 m/s PV PGmax 1 mmHg PV Vmax, Caliper 0.61 m/s (0.6m/s - 0.9m/s) Conclusions 1. The left ventricle is mildly dilated. There is overall normal LV systolic function at 55%. Mild concentric LVH. No regional wall motion abnormalities. 2. The right ventricle is normal size and systolic function. 3. The left atrium is severely dilated. 4. Moderate severe mitral regurgitation. 5. Possible bicuspid aortic valve. Wide-open aortic regurgitation. Dqys-[id number] aortic stenosis. 6. moderate to severe tricuspid regurgitation with moderate pulmonary hypertension at 54 mm of mercury. 7. Compared directly with June 2018, the degree of aortic, mitral, and tricuspid regurgitation is significantly worse. Moderate pulmonary hypertension now present. Findings Left Ventricle: Left ventricle is mildly dilated. Normal global systolic left ventricular function. The ejection fraction, measured by Simpsons method, is 55 %. EF range is estimated at 55 % - 60 %. There is mild concentric left ventricular hypertrophy. There are no regional wall motion abnormalities. Diastolic Dysfunction is indeterminate. Right Ventricle: Normal size right ventricle. Right ventricular systolic function is normal. Left Atrium: The left atrium is severely dilated. Mitral Valve: Mitral valve appears structurally normal. Moderate to severe mitral regurgitation. No mitral valve stenosis. There is mild mitral annular calcification. Aortic Valve: Cannot rule out bicuspid aortic valve. Wide-open aortic regurgitation is present. There is mild to moderate aortic stenosis. Aortic leaflets exhibit calcification. There is aortic sclerosis present. Tricuspid Valve: Tricuspid valve leaflets are structurally normal. Moderate to severe tricuspid regurgitation. No tricuspid valve stenosis. Right Ventricular systolic pressure is measured at 54 mmHg. Pulmonary artery pressure moderately increased. Pulmonic Valve: Pulmonic leaflets are normal in appearance. Aorta: Flow reversal noted in suprasternal notch. The aortic root size in 2D measures 3.1 cm. The ascending aorta measures 3.6 cm. Aorta Measurements AoRoot, 2D is 3.1 cm. Pericardium: A small pericardial effusion was identified. Exam Details Procedure Ordered: Echo Procedure Status: Routine study Image Quality: Adequate Facility Location: Bedside Patient: ROSANNA MENARD Study Date: 10/14/2018 Page 2 of 3 02:24 PM (No Signature Object) Patient: ROSANNA MENARD Study Date: 10/14/2018 Page 3 of 3 02:24 PM [id number]
[2018-10-14] MEDS ORDERED: IOPAMIDOL (ISOVUE-300) 100 ML BTL ONE (17:01)
--- NOTE | 2018-10-14 19:09 | PDCARPN ---
Cardiology Progress Note Assessment/Plan: Assessment/Plan: 53-year-old male with valvular heart disease. He has known severe aortic regurgitation likely related to underlying bicuspid aortic valve and reportedly endocarditis in 2018. He has now developed moderate to severe mitral and tricuspid regurgitation as well. He has severe liver disease with alcoholic cirrhosis complicated by esophageal and gastric varices. He sees Dr. Rangel in the outpatient setting. He was admitted on October 05 with GI bleed. His course was complicated by respiratory failure requiring intubation and encephalopathy. Extubated 419. He was stabilized but then had repeat GI bleed. His 3rd endoscopy revealed gastric varices which were not previously well visualized. Echo today with progressive valvular disease and new development of moderate pulmonary hypertension. 1. Severe multivalvular regurgitation with acute on chronic diastolic left- sided heart failure and right heart failure. Elevated right-sided pressures are also contributing to congestive hepatopathy. I see that his AST and ALT of actually increased over the past few days. It is likely that his valvular regurgitation is worse in the setting of necessary volume and blood resuscitation. At this point he is not a candidate for open heart surgery given his recent recurrent GI bleed, gastric and esophageal varices, and underlying liver disease. He is not a candidate for TAVR as TAVR is not indicated for aortic regurgitation. Recommend increasing the aggressiveness of his diuresis as blood pressure tolerates. He is on midodrine, presumably for his liver disease, but this afterload increase is likely making his valvular regurgitation worse. Can discuss with Dr. Rangel as outpatient. Will need close outpatient Cardiology follow-up as well. I reviewed this in detail with the patient and his fiancee. 2. Liver disease: He does have alcoholic cirrhosis and congestive hepatopathy. His underlying liver disease per se may make his surgical risk prohibitive. Will need ongoing outpatient evaluation. 3. GI bleed, recurrent this admission: He has gastric varices which were likely culprit as well as esophageal varices. Plan is for interventional Radiology decompression of this tomorrow. This is not a TIPS procedure, as TIPS would create too much returning volume for his current cardiac status. Hematocrit currently stable. 4. Alcohol abuse: The patient reports abstinence for 3 months. He was commended on this. Greater than 45 min was spent in chart review, echocardiographic review and comparison to June 2018, discussion with other physicians, direct patient care. 10/14/18 19:04 Subjective: He reports feeling better. No dyspnea. No angina. He is hungry. Reviewed/Discussed With: other (Dr. West and Dr. Dupont and Dr. Henson) Time Spent with Patient: greater than 25 minutes Time Spent with Patient: Greater than 25 minutes spent on this patients care, greater than 50% of time spent counseling, educating, and coordinating care regarding the above mentioned plan. Objective: Vital Signs (8 Hrs) Temp Pulse Resp BP Pulse Ox 10/14/18 15:04 36.4 C 94 13 102/55 L 96 10/14/18 13:51 19 112/57 L 97 10/14/18 13:50 20 100 10/14/18 13:46 8 L 114/55 L 100 10/14/18 13:45 18 100 10/14/18 13:41 6 L 120/54 L 100 10/14/18 13:40 9 L 100 10/14/18 13:36 7 L 116/53 L 100 10/14/18 13:35 6 L 100 10/14/18 13:31 11 L 116/56 L 10/14/18 13:30 7 L 10/14/18 13:27 0 L 119/55 L 100 10/14/18 13:26 99 10/14/18 13:25 36.3 C 101 H 15 120/54 L 99 10/14/18 12:16 90 22 H 104/46 L 98 Intake/Output (24 Hrs) 10/13/18 10/14/18 10/15/18 05:59 05:59 05:59 Intake Total 450 2768 350 Output Total 1 303 5 Balance 449 2465 345 Intake: Oral (ml) 450 700 50 IV Intake (ml) 250 300 IV Infused (ml) 1050 Ns 1,000 ml @ Wide Open 1000 IV ONCE ONE Rx#: [id number] Phytonadione 10 mg In Ns 50 50 ml @ 204 mls/hr IV ONCE ONE Rx#:[id number] Fresh Frozen Plasma (ml) 263 Whole Blood (ml) 505 Output: Urine (ml) 1 303 Toilet 1 3 Urinal 300 Estimated Blood Loss (ml) 5 Emesis (ml) 0 Other: Weight 90.9 kg 89.63 kg 89.63 kg Output Comment Toilet per patient Number of Voids Toilet 2 1 Urinal 1 Number of Stools Toilet 2 3 Number of Emesis 1 Occurrences No acute status. Pleasant. Sitting up eating dinner. Sclerae are icteric JVP at the angle of the ear. Regular rate and rhythm with 2/6 holosystolic murmur at the left lower sternal border and 2/4 holodiastolic murmur at the left lower sternal border. No S3 or S4. Lungs clear about without wheeze rhonchi rales Abdomen positive ascites 1 to 2+ pitting edema to the midshin bilaterally Result Diagrams: 10/14/18 14:15 10/14/18 04:55 Telemetry: Sinus rhythm. Occasional PVCs Echocardiogram: Reviewed by me: Mild LV dilation. Normal LV systolic function. Torrential aortic regurgitation, possible bicuspid aortic valve. Moderate severe mitral regurgitation. Moderate tricuspid regurgitation with estimated PA systolic pressure 54. Small pericardial effusion ICD10 Worksheet Patient Problems: Problems Problem Status Onset Anemia Acute Renal insufficiency Acute Upper GI bleed Acute Left rib fracture Acute
[2018-10-14] MEDS: FUROSEMIDE 20 MG/2 ML VIAL IVP SCH (23:35)
[2018-10-15 03:46] LABS: INR 1.91 (0.83-1.16)
[2018-10-15] MEDS: MIDODRINE HCL 10 MG TAB PO SCH ×3 (06:10→21:41)
[2018-10-15] MEDS: OCTREOTIDE ACETATE 500 MCG in NS 50 ML IV SCH ×2 (08:10→21:42)
[2018-10-15] MEDS: FERROUS SULFATE 325 MG TAB PO SCH (10:54)
[2018-10-15] MEDS: SPIRONOLACTONE 100 MG TAB PO SCH (10:54)
[2018-10-15] MEDS: FOLIC ACID 1 MG TAB PO SCH (10:55)
[2018-10-15] MEDS: LACTULOSE 20 GM/30 ML UDCUP PO SCH ×3 (10:55→21:39)
[2018-10-15] MEDS: THIAMINE HCL 100 MG TAB PO SCH (10:55)
[2018-10-15] MEDS: MULTIVITAMINS W-MINERALS 1 EACH TAB PO SCH (10:55)
[2018-10-15] MEDS: RIFAXIMIN 550 MG TAB PO SCH ×2 (10:55→21:41)
[2018-10-15] MEDS: PANTOPRAZOLE SODIUM 40 MG VIAL IVP SCH ×2 (11:47→21:42)
[2018-10-15] MEDS: FUROSEMIDE 20 MG/2 ML VIAL IVP SCH ×2 (11:47→15:08)
--- NOTE | 2018-10-15 13:36 | HOSPPROG ---
Hospitalist Progress Note Assessment/Plan: 53 yo M with alcoholic cirrhosis, severe aortic regurgitation thought 2/2 bacterial endocarditis p/w GIB. Course complicated by encephalopathy and respiratory failure. Extubated 10/09. Planned for discharge 10/13, but he developed hematemesis with hypotension and was transferred back to ICU. EGD today with gastric varices. Acute GIB 2/2 gastric varices: not seen on initial EGD, re-bled yesterday but too much blood to visualize on EGD. 3rd EGD today confirmed gastric variceal bleed. Discussed with Dr. Henson. - Octreotide bolus / drip - cont IV PPI - not a candidate for TIPS 2/2 severe AR - Dr. Abbott to perform BRTO or some type of modified TIPS tomorrow Decompensated cirrhosis with ascites: MELD 19. CT showed lg gastrorenal shunt draining lg gastric varices - aggressive diuresis - BRTO tomorrow as above - low sodium diet Hypotension - in setting of liver failure, hastened by blood loss, BP improved with blood products - cont midodrine ABLA on chronic anemia: D/t above, s/p total 6 u prbc's (3 more yest). H&H stable this am. - cont to trend h&h Coagulopathy of liver disease: S/P 4u FFP, IV vitamin K Edema: D/t low albumin/cirrhosis - Lasix / Spironolactone 10/15- has 4+ edema Acute respiratory failure: Intubated d/t inability to protect airway. Extubated 10/09, now stable on room air. Severe aortic regurgitation: Reportedly d/t prior h/o endocarditis in 2018. Rpt echo with wide open valve. - Cardiology consult today, high risk for valve replacement presuming other varices present Elevated troponin: in setting of volume overload/anemia and unable to clear with renal failure. Trended down. - Not an aspirin candidate EMMANUELLE: Pre-renal, improved with BP support, Cr 2.2 --> 1.1 - Cont midodrine 10mg tid, will try to decrease prior to dc Hepatic encephalopathy: Improved - cont Rifaximin, Lactulose H/o EtOH abuse: Patient and family deny use since 06/2018. No w/d. Thrombocytopenia: D/t splenic sequestration. - consider plt transfusion if plts <50K and active bleeding Hyperkalemia: 2/2 EMMANUELLE. Resolved, monitor VTE ppx: SCDs, no pharm with GIB Code: full Diet: resume low sodium diet Dispo: cont inpt, Subjective: no further hematemesis, hact largely stable. case d/w dr best Objective: Vital Signs Temp Pulse Resp BP Pulse Ox 36.3 C 92 16 95/38 L 90 L 10/15/18 02:00 10/15/18 06:00 10/15/18 06:00 10/15/18 06:00 10/14/18 20:00 Laboratory Results 10/15/18 03:31 10/15/18 03:31 10/14/18 10/15/18 10/16/18 05:59 05:59 05:59 Intake Total 2768 1754.1 Output Total 303 5 Balance 2465 1749.1 PT 21.0 SEC (12.0-15.0) H 10/15/18 03:31 INR 1.91 (0.83-1.16) H 10/15/18 03:31 - Physical Exam Constitutional: no apparent distress, appears nourished Eyes: PERRL, anicteric sclera Ears, Nose, Mouth, Throat: moist mucous membranes, hearing normal Cardiovascular: regular rate and rhythym, diastolic murmur, edema Respiratory: no respiratory distress, no rales or rhonchi Gastrointestinal: normoactive bowel sounds, soft, non-tender abdomen Genitourinary: No liao in urethra Skin: warm, normal color Musculoskeletal: full muscle strength Neurologic: AAOx3 ICD10 Worksheet Patient Problems: Problems Problem Status Onset Anemia Acute Renal insufficiency Acute Upper GI bleed Acute Left rib fracture Acute
--- NOTE | 2018-10-15 13:38 | SOAPPROG ---
SOAP Progress Note Assessment/Plan: Assessment:Plan: 1) hematemesis/hematochezia - pt vomited blood toady, now passing maroon stools , dropped HB all c/w good size UGI bleed 2) anemia - acute post hemorrhagic anemia - needs PRBC's to get HB > 7 3) alc hx - needs anesthesia for EGD 4) coagulopathy - from his liver dz, Vit K and FFP urgent high risk procedure 10/13/18 14:39 10/15/18 13:36 1) Gastric varix - will need IR procedure - poss BRTO, on octreotide drip 2) Anemia - from UGI bleed, HB stable no overt ongoing blood loss 3) Cardia - as per cardiology - need bleeding risk decreased prior to any valve surgery, has severe AR and some MR - preclude TIPS 4) coagulopathy - from liver dz - had vit K, FFP if rebleeds will follow Subjective: cc- UGI bleed from gastric varix, liver dz, severe AR pt feeling ok, sitting in bed, stools more formed but still dark no hematemesis Objective: Vital Signs Temp Pulse Resp BP Pulse Ox 36.3 C 92 16 95/38 L 90 L 10/15/18 02:00 10/15/18 06:00 10/15/18 06:00 10/15/18 06:00 10/14/18 20:00 Laboratory Results 10/15/18 03:31 10/15/18 03:31 10/14/18 10/15/18 10/16/18 05:59 05:59 05:59 Intake Total 2768 1754.1 Output Total 303 5 Balance 2465 1749.1 PT 21.0 SEC (12.0-15.0) H 10/15/18 03:31 INR 1.91 (0.83-1.16) H 10/15/18 03:31 Alert and awake CTA S1S2 +Bs soft nt Laboratory Tests 10/13/18 10/14/18 10/14/18 05:40 04:55 14:15 Hgb 8.4 L BUN 49 H 49 H Creatinine 1.1 1.1 10/14/18 10/15/18 10/15/18 21:45 03:31 03:31 Hgb 7.7 L 7.9 L BUN 49 H Creatinine 1.3 ICD10 Worksheet Patient Problems: Problems Problem Status Onset Anemia Acute Renal insufficiency Acute Upper GI bleed Acute Left rib fracture Acute
--- NOTE | 2018-10-15 15:49 | PDINTPN ---
Clinical Medical Assistant Progress Note Assessment/Plan: ASSESSMENT 53-year-old male with end-stage alcoholic cirrhosis with recurrent acute blood loss anemia from GI bleed due to gastric varices complicated by severe AR, MR, TR and elevated RVSP # alcoholic cirrhosis # acute on chronic blood loss anemia # GI bleed. Gastric varices. Severe valvular pathology, elevated RVSP and hypervolemia precludes conventional tips. IR evaluating patient considering isolated varices ill embolization/occlusions, BRTO. # hypotension. Due to acute blood loss plus cirrhosis. No clear evidence for infection # severe aortic regurgitation, mitral regurgitation tricuspid regurgitation with elevated pulmonary artery pressures as evidence by TTE PLAN # continue aggressive IV diuresis # continue midodrine in the setting of hypotension and cirrhosis # continue octreotide drip until after definitive management # PPI IV BID # transfuse as needed for hemoglobin less than 7, platelets less than 15. Will not give FFP unless actively bleeding # Feeding - NPO after midnight # Analgesia none # Sedation none # Thromboprophylaxis - SCDs, pharmacologic prophylaxis contraindicated secondary to active GI bleed # Head of bed elevated # Ulcer prophylaxis - PPI # Glucose SSI # Skin no skin breakdown # Delirium - delirium precautions Imaging Reviewed 10/14/2018 CT abdomen and pelvis-stress with portal venous hypertension, moderate ascites portosystemic varices with shunts. Diminutive yet patent portal venous symptoms, cardiomegaly pericardial effusion, pleural effusions 10/14/2018 TTE LV mildly dilated, LVEF 55%, mild LVH, RV size and function normal , LA severely dilated, moderate to severe MR, severe AR, moderate to severe TR, RVSP 55 Subjective: No recurrent bleeding overnight. TTE with severe AR, MR, TR and elevated RVSP. Partial response to diuresis. IR evaluated patient. No fevers, chills, nausea, vomiting Objective: Vital Signs Temp Pulse Resp BP Pulse Ox 36.3 C 91 16 86/36 L 96 10/15/18 12:00 10/15/18 14:00 10/15/18 14:00 10/15/18 14:00 10/15/18 14:00 Laboratory Results 10/15/18 03:31 10/15/18 03:31 10/14/18 10/15/18 10/16/18 05:59 05:59 05:59 Intake Total 2768 1754.1 Output Total 303 5 Balance 2465 1749.1 PT 21.0 SEC (12.0-15.0) H 10/15/18 03:31 INR 1.91 (0.83-1.16) H 10/15/18 03:31 Physical Exam - Physical Exam General Appearance: alert EENT: scleral icterus (R), scleral icterus (L), pale conjunctiva (R), pale conjunctiva (L) Neck: non-tender, full range of motion Respiratory: chest non-tender, other (Decreased breath sounds bilateral bases) Cardiac/Chest: other (Systolic and diastolic murmur, regular rate) Abdomen: other (Positive fluid wave, nontender) Back: Normal inspection Skin: other (Mild jaundice, pallor present.) Neuro/Psych: no motor/sensory deficits, alert, normal mood/affect, oriented x 3 ICD10 Worksheet Patient Problems: Problems Problem Status Onset Anemia Acute Renal insufficiency Acute Upper GI bleed Acute Left rib fracture Acute
[2018-10-15] MEDS ORDERED: PROTOCOL POTASSIUM 1 DOSE MISC PRN (17:24)
[2018-10-15] MEDS ORDERED: PROTOCOL MAGNESIUM 1 DOSE IV PRN (17:24)
--- NOTE | 2018-10-15 17:38 | PDCARPN ---
Cardiology Progress Note Assessment/Plan: Assessment/Plan: 53-year-old male with valvular heart disease. He has known severe aortic regurgitation likely related to underlying bicuspid aortic valve and reportedly endocarditis in 2018. He has now developed moderate to severe mitral and tricuspid regurgitation as well. He has severe liver disease with alcoholic cirrhosis complicated by esophageal and gastric varices. He sees Dr. Rangel in the outpatient setting. He was admitted on October 05 with GI bleed. His course was complicated by respiratory failure requiring intubation and encephalopathy. Extubated 10/09. He was stabilized but then had repeat GI bleed. His 3rd endoscopy revealed gastric varices which were not previously well visualized. Echo 10/14 with progressive valvular disease and new development of moderate pulmonary hypertension. 1. Severe multivalvular regurgitation with acute on chronic diastolic left- sided heart failure and right heart failure. Elevated right-sided pressures are also contributing to congestive hepatopathy. I see that his AST and ALT of actually increased over the past few days. It is likely that his valvular regurgitation is worse in the setting of necessary volume and blood resuscitation. At this point he is not a candidate for open heart surgery given his recent recurrent GI bleed, gastric and esophageal varices, and underlying liver disease. He is not a candidate for TAVR as TAVR is not indicated for aortic regurgitation. Recommend increasing the aggressiveness of his diuresis as blood pressure tolerates. (Currently on lasix IV BID). He is on midodrine, presumably for his liver disease, but this afterload increase is likely making his valvular regurgitation worse. Can discuss with Dr. Rangel as outpatient. Will need close outpatient Cardiology follow-up as well. I reviewed this in detail with the patient and his fiancee. 2. Liver disease: He does have alcoholic cirrhosis and congestive hepatopathy. His underlying liver disease per se may make his surgical risk prohibitive. Will need ongoing outpatient evaluation. 3. GI bleed, recurrent this admission: He has gastric varices which were likely culprit as well as esophageal varices. Plan is for interventional Radiology decompression of this tomorrow. This is not a TIPS procedure, as TIPS would create too much returning volume for his current cardiac status. Hematocrit currently stable. 4. Alcohol abuse: The patient reports abstinence for 3 months. He was commended on this. 5. VT: 20 beats this morning. Electrolyte repletion. Would hold off on beta oswald therapy for now; his BP is low and BB will worsen AR. 10/14/18 19:04 10/15/18 17:41 Subjective: Denies SOB or CP. Reports increased UOP with lasix. No palpitations. Objective: Vital Signs (8 Hrs) Temp Pulse Resp BP Pulse Ox 10/15/18 14:00 91 16 86/36 L 96 10/15/18 12:00 36.3 C 88 14 88/47 L 94 10/15/18 10:00 92 16 93/38 L 94 Intake/Output (24 Hrs) 10/14/18 10/15/18 10/16/18 05:59 05:59 05:59 Intake Total 2768 1754.1 Output Total 303 5 Balance 2465 1749.1 Intake: Oral (ml) 700 1300 IV Intake (ml) 250 375 IV Infused (ml) 1050 79.1 Ns 1,000 ml @ Wide Open 1000 IV ONCE ONE Rx#: [id number] Octreotide Acetate 500 79.1 mcg In Ns 50 ml @ 5 mls/ hr IV CONT KIM Rx#: [id number] Phytonadione 10 mg In Ns 50 50 ml @ 204 mls/hr IV ONCE ONE Rx#:[id number] Fresh Frozen Plasma (ml) 263 Whole Blood (ml) 505 Output: Urine (ml) 303 Toilet 3 Urinal 300 Estimated Blood Loss (ml) 5 Emesis (ml) 0 Other: Weight 89.63 kg 89.63 kg 96.3 kg Number of Voids Toilet 1 Urinal 1 Number of Stools Toilet 3 1 Number of Emesis 1 Occurrences NAD, sitting up in chair JVP to ear. RRR II/ mid GABRIELLE base; II/IV holodiastolic murmur LLSB 3+ bilateral LLE Lungs CTAB Result Diagrams: 10/15/18 03:31 10/15/18 03:31 Telemetry: Sinus rhythm. Approximately 20 beats of VT early this morning. ICD10 Worksheet Patient Problems: Problems Problem Status Onset Left rib fracture Acute Upper GI bleed Acute Renal insufficiency Acute Anemia Acute
[2018-10-15] MEDS: ACETAMINOPHEN 325 MG TAB PO PRN (18:37)
[2018-10-16] MEDS: OCTREOTIDE ACETATE 500 MCG in NS 50 ML IV SCH ×2 (04:05→16:26)
[2018-10-16] MEDS: MIDODRINE HCL 10 MG TAB PO SCH ×3 (06:21→23:56)
[2018-10-16] MEDS: ONDANSETRON 4 MG/2 ML VIAL IVP PRN (06:47)
[2018-10-16 08:22] LABS: INR 2.39 (0.83-1.16); PROTIME(PATIENT) 24.9 SEC (12.0-15.0)
[2018-10-16 08:43] LABS: PLATELET COUNT 88 10^3/uL (150-400)
[2018-10-16] MEDS: FERROUS SULFATE 325 MG TAB PO SCH (08:57)
[2018-10-16] MEDS: FOLIC ACID 1 MG TAB PO SCH (08:57)
[2018-10-16] MEDS: RIFAXIMIN 550 MG TAB PO SCH ×2 (08:58→23:55)
[2018-10-16] MEDS: LACTULOSE 20 GM/30 ML UDCUP PO SCH ×3 (08:58→23:55)
[2018-10-16] MEDS: THIAMINE HCL 100 MG TAB PO SCH (08:58)
[2018-10-16] MEDS: SPIRONOLACTONE 100 MG TAB PO SCH (08:58)
[2018-10-16] MEDS: MULTIVITAMINS W-MINERALS 1 EACH TAB PO SCH (08:58)
[2018-10-16] MEDS ORDERED: NOREPINEPHRINE BITARTRATE 4 MG in NS 500 ML IV SCH (09:30)
[2018-10-16] MEDS ORDERED: PROPOFOL/EMULSION 1,000 MG/100 ML BOTTLE IV ONE ×2 (09:32→17:56)
--- NOTE | 2018-10-16 09:41 | PDANEPAE ---
ANE History of Present Illness bleeding ANE Past Medical History - Cardiovascular History Hx Hypertension: No Hx Arrhythmias: No Hx Chest Pain: No Hx Coronary Artery / Peripheral Vascular Disease: No Hx CHF / Valvular Disease: Yes Hx Palpitations: No Cardiovascular History Comment: severe AI, mod MR, current CHF - Pulmonary History Hx COPD: No Hx Asthma/Reactive Airway Disease: No Hx Recent Upper Respiratory Infection: Yes Hx Oxygen in Use at Home: No Hx Sleep Apnea: No Sleep Apnea Screening Result - Last Documented: Positive - Endocrine History Hx Diabetes: No Hypothyroid: No Hyperthyroid: No Obesity: mild - Renal History Hx Renal Disorders: No - Liver History Hx Hepatic Disorders: Yes Hepatic History Comment: liver dysfuncion secondary to EtOH abuse - GI History Hx Gastrointestinal Disorders: Yes Gastrointestinal History Comment: GI bleed - Chronic Pain History Chronic Pain: No ANE Review of Systems Review of systems is: negative Review of Systems: - Exercise capacity METS (RN): 3 METS ANE Patient History - Allergies Allergies/Adverse Reactions: No Known Allergies Allergy (Verified 07/15/18 13:24) - Home Medications Home medications: home medication list seen and reviewed Home Medications: Calcium Carbonate [Oyster Shell Calcium 500 mg (*)] 1,000 mg PO DAILY 10/06/18 [ Last Taken Unknown] Ferrous Sulfate [Ferrous Sulf 325 MG (*)] 325 mg PO DAILY 10/06/18 [Last Taken Unknown] [place]-3 Fatty Acids [Fish Oil 1000 mg (*)] 1,000 mg PO DAILY 10/06/18 [Last Taken Unknown] - NPO status NPO Status: no food or drink >8 hours NPO Since - Liquids (Date): 10/14/18 NPO Since - Liquids (Time): 00:00 NPO Since - Solids (Date): 10/14/18 NPO Since - Solids (Time): 00:00 - Anes Hx Anes Hx: no prior problems - Smoking Hx Smoking Status: Never smoked - Alcohol Use Alcohol Use: None - Family Anes Hx Family Anes Hx: none ANE Labs/Vital Signs - Labs Result Diagrams: 10/16/18 07:55 10/16/18 05:22 - Vital Signs Blood Pressure: 85/29 Heart Rate: 80 Respiratory Rate: 12 O2 Sat (%): 95 Height: 180.34 cm Weight: 94.7 kg ANE Physical Exam - Airway Neck exam: FROM Mallampati Score: Class 2 Mouth exam: normal dental/mouth exam - Pulmonary Pulmonary: no respiratory distress, clear to auscultation - Cardiovascular Cardiovascular: regular rate and rhythym, no murmur, rub, or gallop - ASA Status ASA Status: IV, E ANE Anesthesia Plan Anesthesia Plan: general endotracheal anesthesia Lines/Monitors: arterial line
[2018-10-16] MEDS: PANTOPRAZOLE SODIUM 40 MG VIAL IVP SCH ×2 (10:17→23:53)
[2018-10-16] MEDS ORDERED: IOPAMIDOL (ISOVUE-300) 100 ML BTL ONE ×2 (10:19→13:11)
[2018-10-16] MEDS ORDERED: fentaNYL 100 MCG/2 ML INJ ONE (10:28)
[2018-10-16] MEDS ORDERED: PHENYLEPHRINE HCL 100 MCG/ML SYR ONE (10:30)
[2018-10-16 11:38] LABS: PLATELET COUNT 72 10^3/uL (150-400)
[2018-10-16 12:05] LABS: INR 2.22 (0.83-1.16); PROTIME(PATIENT) 23.5 SEC (12.0-15.0)
--- NOTE | 2018-10-16 12:08 | SUROPNOTE ---
[facility] Operative Report - Surgery Central Line Insertion Procedure: Right IJ placement cordis with triple lumen with ultrasound guidance Attending Physician: Dr. Everardo Dupont Anesthesiologist: N/A Anesthesia Type: N/A Indication: vascular access Consent: the patient was counseled as to the risks, benefits, and alternatives to the procedure and they agreed to proceed. Signed consent was obtained and placed into chart. Time-Out: prior to the procedure, time-out was performed to verify patient's name, date of , correct procedure, correct side, correct site, correct patient position, correct radiographic data, and special equipment required. Pre-Op Dx: hemorrhagic shock Post-Op Dx: hemorrhagic shock Medications: none Description: Hand hygiene was performed. Pt was positioned supine and the right IJ vein was visualized under ultrasound and pulsatile flow was noted ( site was selected as the optimal site for procedure, given considerations of sterility and safety). Skin on the right neck was prepped with Chloraprep (with time allowed to dry) prior to catheter insertion and with maximal sterile precautions (including gown, sterile gloves, mask, cap, and large sterile draping). The site was locally anesthetized with lidocaine 1% (2 ml). Under direct ultrasound guidance, right IJ was punctured with finder needle -> passage of guidewire -> passage of guidewire -> passage of dilator -> passage of 8 [place] Cordis introducer sheath over guidewire guidewire. Next a 7 [place] triple-lumen was advanced through the introducer port and both were sutured in place. Return of venous blood from all ports, catheter was flushed. Catheter was sutured in place with silk suture and dressed with sterile dressing. Chest x-ray pending at time of note EBL: 0 ml Complications: none Specimens Sent: none Implants: N/A F/U: routine [facility] care Everardo Dupont MD Pulmonary, Critical Care and Sleep Medicine [phone]
[2018-10-16] MEDS ORDERED: ROCURONIUM 100 MG/10 ML VIAL ONE ×2 (12:13→18:28)
[2018-10-16 13:25] LABS: INR 1.9 (0.83-1.16); PROTIME(PATIENT) 20.9 SEC (12.0-15.0)
--- NOTE | 2018-10-16 14:26 | ASMTCMCOM ---
CM Note CM Note Notes: Patient in IR today for bleeding. Patient is in end stage alcoholic cirrhosis complicated by AR, MR, TR and elevated RVSP. Aleyda Willis remains at his bedside. D/C plan has been return to [place] with kala. Due to the complications this plan may change. CM will follow. Date Signed: 10/16/2018 02:25 PM Electronically Signed By:Sharri Mosqueda LCSW
[2018-10-16] MEDS ORDERED: GLYCOPYRROLATE 0.2 MG/1 ML VIAL ONE ×2 (14:50)
[2018-10-16] MEDS ORDERED: NEOSTIGMINE METHYLSULFATE 10 MG/10 ML MDV ONE (14:50)
[2018-10-16] MEDS ORDERED: ONDANSETRON 4 MG/2 ML VIAL ONE (14:51)
[2018-10-16] MEDS ORDERED: DEXAMETHASONE 4 MG/ML VIAL ONE (14:51)
[2018-10-16] MEDS: FUROSEMIDE 20 MG/2 ML VIAL IVP SCH ×2 (14:54→16:15)
[2018-10-16] MEDS ORDERED: NALOXONE HCL 0.4 MG/ML INJ IVP PRN (15:39)
--- NOTE | 2018-10-16 15:40 | PDHPUP ---
History & Physical Update H&P update statement: This history and physical update is based on an assessment of the patient which was completed after admission or registration (within 24 hours), but prior to the surgery/procedure. Massive UGI hemorrhage from gastric varices, patient stable but Hgb drop to 4. Emergent TIPS with coil embolization of varices. Will reduce TIPS stent caliber to reduce amount of shunting to heart. H&P update: H&P reviewed & patient examined, no change in patient's condition since H&P completed
--- NOTE | 2018-10-16 15:45 | PDRADPN ---
Radiology Procedure Note Date of Procedure: 10/16/18 Radiologist: Madhu Vyas Anesthesia: GET(General Endotracheal) Pre-op Diagnosis: ESLD, Massive UGI hemorrhage Post-op Diagnosis: ESLD, Massive UGI hemorrage Indication: Acute variceal hemorrage Procedure: TIPS with coil embolization of gastroesophageal varices Finding(s): Successful middle hepatic vein to left portal vein TIPS (reduced caliber to 5mm). Portosystemic gradient post procedure 10 mmHg. Coil embolization coronary vein and large gastrorenal shunt. Paracentesis. Inf/Abcess present in the surg proc area at time of surgery?: No Depth: Superfical (Skin SQ)
[2018-10-16] MEDS ORDERED: EPINEPHrine 8 MG in NS 250 ML IV ONE (16:00)
[2018-10-16] MEDS ORDERED: ALBUMIN 5% 250 ML BOTTLE IV ONE (16:01)
[2018-10-16] MEDS ORDERED: ALBUMIN 5% 250 ML IV ONE (16:30)
--- NOTE | 2018-10-16 16:41 | HOSPPROG ---
Hospitalist Progress Note Assessment/Plan: 53 yo M with alcoholic cirrhosis, severe aortic regurgitation thought 2/2 bacterial endocarditis p/w GIB. Course complicated by encephalopathy and respiratory failure. Extubated 10/09. Planned for discharge 10/13, but he developed hematemesis with hypotension and was transferred back to ICU. EGD today with gastric varices. Acute GIB 2/2 gastric varices: not seen on initial EGD, re-bled yesterday but too much blood to visualize on EGD. 3rd EGD today confirmed gastric variceal bleed. Discussed with Dr. Henson. - Octreotide bolus / drip - cont IV PPI 10/16- large volume variceal bleed now s/p TIPS life threatening bleed hemorrhagic shock: complicated by AI volume resuscitation at 4: 40 pm, cvp 12 goal cvp 10-15 consider lasix if > 17 on levophed; vaso added but not started Decompensated cirrhosis with ascites: MELD 19. CT showed lg gastrorenal shunt draining lg gastric varices s/p TIPS continue rifaximin ABLA on chronic anemia: D/t above, s/p total 6 u prbc's (3 more yest). H&H stable this am. - cont to trend h&h Coagulopathy of liver disease: S/P 4u FFP, IV vitamin K Edema: D/t low albumin/cirrhosis - Lasix / Spironolactone 10/15- has 4+ edema Acute respiratory failure: will electively intubate today given resp distress, need for volume resuscitation Severe aortic regurgitation: Reportedly d/t prior h/o endocarditis in 2018. Rpt echo with wide open valve. - Cardiology consult today, high risk for valve replacement presuming other varices present Elevated troponin: in setting of volume overload/anemia and unable to clear with renal failure. Trended down. - Not an aspirin candidate EMMANUELLE: Pre-renal, improved with BP support, Cr 2.2 --> 1.1 - Cont midodrine 10mg tid, will try to decrease prior to dc follow Hepatic encephalopathy: Improved - cont Rifaximin, Lactulose H/o EtOH abuse: Patient and family deny use since 06/2018. No w/d. Thrombocytopenia: D/t splenic sequestration. - consider plt transfusion if plts <50K and active bleeding Hyperkalemia: 2/2 EMMANUELLE. Resolved, monitor VTE ppx: SCDs, no pharm with GIB Code: full Diet: resume low sodium diet Dispo: cont inpt, Subjective: significant bleeding w hypotension today. hg 4.8. s/p TIPS/ embolization. now hypotensive, on pressors, encephalopathic Objective: Vital Signs Temp Pulse Resp BP Pulse Ox 36.2 C 104 H 16 96/25 L 100 10/16/18 15:30 10/16/18 16:23 10/16/18 16:23 10/16/18 16:23 10/16/18 16:23 Laboratory Results 10/16/18 15:45 10/16/18 05:22 10/15/18 10/16/18 10/17/18 05:59 05:59 05:59 Intake Total 1754.1 2290.7 Output Total 5 700 3700 Balance 1749.1 1590.7 -3700 PT 20.9 SEC (12.0-15.0) H 10/16/18 12:47 INR 1.90 (0.83-1.16) H 10/16/18 12:47 - Physical Exam Constitutional: no apparent distress, chronically ill appearing Eyes: PERRL, icteric sclera Ears, Nose, Mouth, Throat: moist mucous membranes, hearing normal Cardiovascular: diastolic murmur, tachycardia Respiratory: other (tachypneic) Gastrointestinal: other (hypoactive bowel sounds) Genitourinary: liao in urethra Skin: warm, normal color Musculoskeletal: No full muscle strength Neurologic: No AAOx3 Psychiatric: No interacting appropriately Lymph, Heme, Immunologic: no cervical LAD ICD10 Worksheet Patient Problems: Problems Problem Status Onset Anemia Acute Renal insufficiency Acute Upper GI bleed Acute Left rib fracture Acute
--- NOTE | 2018-10-16 16:42 | PDCARPN ---
Cardiology Progress Note Assessment/Plan: Assessment/Plan: 53-year-old male with valvular heart disease. He has known severe aortic regurgitation likely related to underlying bicuspid aortic valve and reportedly endocarditis in 2018. He has now developed moderate to severe mitral and tricuspid regurgitation as well. He has severe liver disease with alcoholic cirrhosis complicated by esophageal and gastric varices. He sees Dr. Rangel in the outpatient setting. He was admitted on October 05 with GI bleed. His course was complicated by respiratory failure requiring intubation and encephalopathy. Extubated 10/09. He was stabilized but then had repeat GI bleed. His 3rd endoscopy revealed gastric varices which were not previously well visualized. Echo 10/14 with progressive valvular disease and new development of moderate pulmonary hypertension. On the morning of he had a recurrent GI bleed requiring aggressive fluid and red cell transfusion. He then underwent semi emergent TIPS procedure in IR. 1. Severe multivalvular regurgitation with acute on chronic diastolic left- sided heart failure and right heart failure. Elevated right-sided pressures are also contributing to congestive hepatopathy. It is likely that his valvular regurgitation is worse in the setting of necessary volume and blood resuscitation. At this point he is not a candidate for open heart surgery given his recent recurrent GI bleed, gastric and esophageal varices, and underlying liver disease. He is not a candidate for TAVR as TAVR is not indicated for aortic regurgitation. He has received some IV Lasix but aggressive diuresis and afterload reduction is limited by his hypotension.. He is on midodrine, presumably for his liver disease, but this afterload increase is likely making his valvular regurgitation worse. At this point he is critically ill due to his liver disease and GI bleed complicated by his heart disease. I had a long discussion about this with his fiancee, and she is realistic about his prognosis. 2. Liver disease: alcoholic cirrhosis and congestive hepatopathy. His underlying liver disease per se may make his surgical risk prohibitive. 3. GI bleed, recurrent this admission: He has gastric varices which were likely culprit as well as esophageal varices. Status post TIPS procedure today. This will increase venous return to his heart and significantly increases risk of pulmonary edema. 4. Alcohol abuse: Upon admission, the patient reports abstinence for 3 months. 5. VT: 20 beat run on 10/15. Electrolyte repletion. Cannot be on beta oswald therapy for now; his BP is low and BB will worsen AR. 10/16/18 16:38 Subjective: Unable to conduct detailed patient interview due to the patient's mental status Reviewed/Discussed With: family, multidisciplinary team (Dr. Brice and Dr. Henson. Dr. Abbott) Objective: Vital Signs (8 Hrs) Temp Pulse Resp BP Pulse Ox 10/16/18 16:23 104 H 16 96/25 L 100 10/16/18 16:14 107 H 22 H 79/27 L 100 10/16/18 15:46 17 82/38 L 100 10/16/18 15:45 17 100 10/16/18 15:41 25 H 53/30 L 100 10/16/18 15:40 19 100 10/16/18 15:36 18 82/30 L 100 10/16/18 15:35 19 100 10/16/18 15:31 21 H 73/36 L 100 10/16/18 15:30 36.2 C 17 100 10/16/18 15:29 21 H 100 10/16/18 09:40 80 12 85/29 L 95 Intake/Output (24 Hrs) 10/15/18 10/16/18 10/17/18 05:59 05:59 05:59 Intake Total 1754.1 2290.7 Output Total 5 700 3700 Balance 1749.1 1590.7 -3700 Intake: Oral (ml) 1300 2200 IV Intake (ml) 375 35.7 IV Infused (ml) 79.1 55 Octreotide Acetate 500 79.1 55 mcg In Ns 50 ml @ 5 mls/ hr IV CONT KIM Rx#: [id number] Output: Urine (ml) 700 Urinal 700 Liquid Stool (ml) 200 Bedside Commode 200 Estimated Blood Loss (ml) 5 Paracentesis 3500 Other: Weight 89.63 kg 96.3 kg 94.7 kg Number of Voids Toilet 4 Urinal 1 Number of Stools Bedside Commode 1 Toilet 1 1 Number of Emesis 1 Occurrences Somnolent but does open eyes to voice CVP is 12. Tachycardic regular rhythm with 2/6 mid-peaking systolic ejection murmur at the base and 2/4 holo diastolic murmur at the left lower sternal border Coarsely lung sounds anteriorly and laterally Abdomen is markedly distended. 1+ ankle edema bilaterally Result Diagrams: 10/16/18 15:45 10/16/18 05:22 Telemetry: Sinus rhythm and sinus tachycardia. No further ventricular arrhythmias since yesterday. ICD10 Worksheet Patient Problems: Problems Problem Status Onset Left rib fracture Acute Upper GI bleed Acute Renal insufficiency Acute Anemia Acute
[2018-10-16] MEDS: VASOPRESSIN 25 UNIT in NS 250 ML IV SCH (17:03)
--- NOTE | 2018-10-16 17:32 | SOAPPROG ---
[facility] Progress Note Assessment/Plan: Assessment:Plan: 1) hematemesis/hematochezia - pt vomited blood toady, now passing maroon stools , dropped HB all c/w good size UGI bleed 2) anemia - acute post hemorrhagic anemia - needs PRBC's to get HB > 7 3) alc hx - needs anesthesia for EGD 4) coagulopathy - from his liver dz, Vit K and FFP urgent high risk procedure 10/13/18 14:39 10/15/18 13:36 1) Gastric varix - will need IR procedure - poss BRTO, on octreotide drip 2) Anemia - from UGI bleed, HB stable no overt ongoing blood loss 3) Cardia - as per cardiology - need bleeding risk decreased prior to any valve surgery, has severe AR and some MR - preclude TIPS 4) coagulopathy - from liver dz - had vit K, FFP if rebleeds will follow 10/16/18 17:23 event of today noted 1) gastric varix - opened up and bleed today, had emergent IR tx of gastric varix and tips 2) anemia - post hemorrhagic anemia, getting PRBC's quickly, H/H pending 3) cardiac - as per Dr gomez - his right sided pressures aren't too bad after tips 4) coagulopathy - as per golf ball marker 5) pulm - will likely be prophylactically intubated as pulm edema likely given resuscitations and severe AI Dr. Gu to take over [facility] 5[facility] Subjective: CC- UGI bleed from gastric varix, AI, liver disease awake but confused significant rebleed from gastic varix now treated by IR Objective: Vital Signs Temp Pulse Resp BP Pulse Ox 36.2 C 87 12 108/29 L 100 10/16/18 15:30 10/16/18 17:14 10/16/18 17:14 10/16/18 17:14 10/16/18 17:14 Laboratory Results 10/16/18 15:45 10/16/18 05:22 10/15/18 10/16/18 10/17/18 05:59 05:59 05:59 Intake Total 1754.1 2290.7 Output Total 5 700 3700 Balance 1749.1 1590.7 -3700 PT 20.9 SEC (12.0-15.0) H 10/16/18 12:47 INR 1.90 (0.83-1.16) H 10/16/18 12:47 awake coarse breath sound anteriorly tachy, S1S2 +BS soft tender no r/g Laboratory Tests 10/15/18 10/15/18 10/16/18 03:31 03:31 05:22 Hgb 7.9 L Hct 24.7 L BUN 49 H 55 H Creatinine 1.3 1.4 H 10/16/18 10/16/18 07:55 11:15 Hgb 4.8 L* 7.3 L Hct 15.5 L* 22.1 L BUN Creatinine ICD10 Worksheet Patient Problems: Problems Problem Status Onset Anemia Acute Renal insufficiency Acute Upper GI bleed Acute Left rib fracture Acute
--- NOTE | 2018-10-16 18:02 | SUROPNOTE ---
[facility] Operative Report - Surgery Emergency Endotracheal Intubation Date and Time 10/16/2018 1741 Operators S Kilo Dupont MD Indication Type 4 respiratory failure. Inability to protect airway hemodynamic instability Consent Verbal consent was obtained via ext of kin Preoxygenation NRB Medications Ketamine 200 mg Rocuronium 100 mg Equipment Mac 3 7.5 ETT Maccormick giron grade view intubation 1 Number of Attempts 1 Post Procedure Placement was confirmed with capnography, breath sounds were ausculated bilaterally. ETT yarbrough, 24 cm at teeth, CXR ordered Complications None
[2018-10-16] MEDS ORDERED: ROCURONIUM 100 MG/10 ML VIAL IV ONE (18:10)
[2018-10-16] MEDS ORDERED: KETAMINE 200 MG/20 ML VIAL IV ONE ×2 (18:10→19:00)
--- NOTE | 2018-10-16 18:11 | PDINTPN ---
[facility] Director Progress Note Assessment/Plan: ASSESSMENT 53-year-old male with end-stage alcoholic cirrhosis with recurrent acute blood loss anemia from GI bleed due to gastric varices complicated by severe AR, MR, TR and elevated RVSP # hemorrhagic shock. Worsened by severe aortic regurgitation causing wide pulse pressure Maps 40s. Partially responsive to blood products # acute on chronic blood loss anemia. Due to advanced cirrhosis # gastric variceal bleed. Status post modified tips with gastric varices embolization 10/16/18. Patient is still actively bleeding and in shock after IR procedure. Severe valvular pathology, elevated RVSP and hypervolemia precludes conventional tips, too sick for BRTO # cirrhosis. advanced. etoh. not a transplant candidate # hypotension. Due to acute blood loss plus cirrhosis. No clear evidence for infection # severe aortic regurgitation, mitral regurgitation tricuspid regurgitation with elevated pulmonary artery pressures as evidence by TTE # encephalopathy hepatic plus critical illness PLAN # aggressive blood product administration. # serial thromboelastography to guide blood product administration. # NE and vasopressin for vasoplegia # continue octreotide drip # PPI IV BID # transfuse as needed for hemoglobin less than 7, platelets less than 15. Will not give FFP unless actively bleeding # Feeding - NPO # Analgesia none # Sedation low dose propofol # Thromboprophylaxis - SCDs, pharmacologic prophylaxis contraindicated secondary to active GI bleed # Head of bed elevated # Ulcer prophylaxis - PPI # Glucose SSI # Skin no skin breakdown # Delirium - delirium precautions Imaging Reviewed 10/14/2018 CT abdomen and pelvis-stress with portal venous hypertension, moderate ascites portosystemic varices with shunts. Diminutive yet patent portal venous symptoms, cardiomegaly pericardial effusion, pleural effusions 10/14/2018 TTE LV mildly dilated, LVEF 55%, mild LVH, RV size and function normal , LA severely dilated, moderate to severe MR, severe AR, moderate to severe TR, RVSP 55 10/16/18 18:02 Patient is critically ill due to multiorgan failure with active hemorrhagic shock S8 of advanced cirrhosis as a risk for imminent cardiopulmonary arrest. Total critical care time spent with patient 126 min which was spent evaluated and resuscitating the patient at bedside with blood product on a hand pump, coordination with IR, hospital medicine, anesthesia and gastroenterology. Subjective: I was called to bedside this AM for severe hypotension associated with large volume hematemesis and hematochezia. I spoke with interventional Radiology who was able to get patient in for emergent modified TIPS procedure earlier this a.m.. Also placed emergent Cordis and triple-lumen at bedside. Multiple units of blood products were transfused. Patient for TIPS however maps maintain low during procedure. Patient was transferred back to the ICU with maps of 40 extubated with pallor and attended. Per Dr. Vyas all of the accessible gastric varices were coiled. A modified TIPS was also performed with improvement in portal systemic flow. Fortunately patient continued to have large volume blood loss out of his rectum and obtundation and was intubated for type 4 respiratory failure and airway protection multi insert PRBCs were transfused Objective: Vital Signs Temp Pulse Resp BP Pulse Ox 36.2 C 91 12 107/33 L 100 10/16/18 15:30 10/16/18 17:23 10/16/18 17:23 10/16/18 17:23 10/16/18 17:23 Laboratory Results 10/16/18 17:50 10/15/18 10/16/18 10/17/18 05:59 05:59 05:59 Intake Total 1754.1 2290.7 Output Total 5 700 3700 Balance 1749.1 1590.7 -3700 PT 20.9 SEC (12.0-15.0) H 10/16/18 12:47 INR 1.90 (0.83-1.16) H 10/16/18 12:47 ICD10 Worksheet Patient Problems: Problems Problem Status Onset Anemia Acute Renal insufficiency Acute Upper GI bleed Acute Left rib fracture Acute
[2018-10-16] MEDS ORDERED: KETAMINE 200 MG/20 ML VIAL ONE (18:31)
[2018-10-16] MEDS: PROPOFOL/EMULSION 100 ML IV SCH (18:49)
[2018-10-16] MEDS ORDERED: CALCIUM CHLORIDE 1 GM/10 ML INJ IV ONE (22:15)
[2018-10-16] MEDS: NOREPINEPHRINE BITARTRATE 16 MG in NS 250 ML IV SCH (23:31)
[2018-10-17] MEDS: PROPOFOL/EMULSION 100 ML IV SCH ×3 (00:43→09:14)
[2018-10-17] MEDS: OCTREOTIDE ACETATE 500 MCG in NS 50 ML IV SCH (02:18)
[2018-10-17] MEDS: VASOPRESSIN 25 UNIT in NS 250 ML IV SCH ×3 (02:18→23:12)
[2018-10-17 06:04] LABS: PLATELET COUNT 92 10^3/uL (150-400)
[2018-10-17] MEDS: MIDODRINE HCL 10 MG TAB PO SCH ×3 (06:05→21:45)
[2018-10-17] MEDS: NOREPINEPHRINE BITARTRATE 16 MG in NS 250 ML IV SCH (07:55)
[2018-10-17] MEDS: MULTIVITAMINS W-MINERALS 1 EACH TAB PO SCH (08:27)
[2018-10-17] MEDS: RIFAXIMIN 550 MG TAB PO SCH ×2 (08:27→20:47)
[2018-10-17] MEDS: FOLIC ACID 1 MG TAB PO SCH (08:27)
[2018-10-17] MEDS: PANTOPRAZOLE SODIUM 40 MG VIAL IVP SCH ×2 (08:27→20:47)
[2018-10-17] MEDS: LACTULOSE 20 GM/30 ML UDCUP PO SCH ×3 (08:27→21:45)
[2018-10-17] MEDS: FERROUS SULFATE 325 MG TAB PO SCH (08:27)
[2018-10-17] MEDS: THIAMINE HCL 100 MG TAB PO SCH (08:28)
[2018-10-17] MEDS ORDERED: ALBUMIN 25% 200 ML IV ONE (08:58)
--- NOTE | 2018-10-17 09:05 | HOSPPROG ---
Hospitalist Progress Note Assessment/Plan: 53 yo M with alcoholic cirrhosis, severe aortic regurgitation thought 2/2 bacterial endocarditis p/w GIB. Course complicated by encephalopathy and respiratory failure. Extubated 10/09. two large volume UGIB; s/p TIPS and elective intubation for hemorrhagic shock and subsequent resuscitation. Acute GIB 2/2 gastric varices: not seen on initial EGD, re-bled yesterday but too much blood to visualize on EGD. 3rd EGD today confirmed gastric variceal bleed. Discussed with Dr. Henson. - Octreotide bolus / drip - cont IV PPI 10/16- large volume variceal bleed now s/p TIPS life threatening bleed 10/17: appears to have stabilized dc octreotide today hemorrhagic shock: complicated by AI, cirrhosis currently on vaso and norepi CVP low 1. AI and cirrhosis will yield low MAP's 2. propofol likely contributing to hypotension 3. making urine and BUN/Cr stable suggesting adequate perfusion 4. albumin q6 X 24 hours 5. wean pressors 6. hope to extubate and thus dc propofilk Decompensated cirrhosis with ascites: MELD 19. CT showed lg gastrorenal shunt draining lg gastric varices s/p TIPS continue rifaximin ABLA on chronic anemia: D/t above, s/p total 6 u prbc's (3 more yest). H&H stable this am. - cont to trend h&h Coagulopathy of liver disease: S/P 4u FFP, IV vitamin K Edema: D/t low albumin/cirrhosis - Lasix / Spironolactone 10/15- has 4+ edema 10/17: ultimately needs diuresis, await hemodynamic stability and increased CVP Acute respiratory failure: will electively intubate today given resp distress, need for volume resuscitation cxr today, santiago try to extubate Severe aortic regurgitation: Reportedly d/t prior h/o endocarditis in 2018. Rpt echo with wide open valve. - Cardiology following, high risk for valve replacement presuming other varices present Elevated troponin: in setting of volume overload/anemia and unable to clear with renal failure. Trended down. - Not an aspirin candidate EMMANUELLE: Pre-renal, improved with BP support, Cr 2.2 --> 1.1 - Cont midodrine 10mg tid, will try to decrease prior to dc follow Hepatic encephalopathy: Improved - cont Rifaximin, Lactulose H/o EtOH abuse: Patient and family deny use since 06/2018. No w/d. Thrombocytopenia: D/t splenic sequestration. - consider plt transfusion if plts <50K and active bleeding Hyperkalemia: 2/2 EMMANUELLE. Resolved, monitor VTE ppx: SCDs, no pharm with GIB Code: full Diet: resume low sodium diet Dispo: cont inpt, Subjective: case d/w dr best. hg stable overnight. remains intubated Objective: Vital Signs Temp Pulse Resp BP Pulse Ox 36.9 C 89 20 143/31 H 100 10/16/18 21:09 10/17/18 08:08 10/17/18 08:08 10/17/18 08:00 10/17/18 08:08 Laboratory Results 10/17/18 05:45 10/17/18 05:45 10/16/18 10/17/18 10/18/18 05:59 05:59 05:59 Intake Total 2290.7 3738 Output Total 700 8795 Balance 1590.7 -5057 PT 20.9 SEC (12.0-15.0) H 10/16/18 12:47 INR 1.90 (0.83-1.16) H 10/16/18 12:47 - Physical Exam Constitutional: no apparent distress, other (intubated, sedated) Eyes: PERRL, icteric sclera Ears, Nose, Mouth, Throat: moist mucous membranes, hearing normal Cardiovascular: regular rate and rhythym, diastolic murmur Respiratory: no respiratory distress, no rales or rhonchi Gastrointestinal: normoactive bowel sounds, ascites, No guarding, No rebound Genitourinary: no bladder fullness, liao in urethra Skin: warm, normal color Musculoskeletal: other (anasarca), No full muscle strength Neurologic: No AAOx3 Psychiatric: No interacting appropriately Lymph, Heme, Immunologic: no cervical LAD ICD10 Worksheet Patient Problems: Problems Problem Status Onset Anemia Acute Renal insufficiency Acute Upper GI bleed Acute Left rib fracture Acute
--- NOTE | 2018-10-17 09:49 | PDCARPN ---
Cardiology Progress Note Chief Complaint: n/a; intubated Assessment/Plan: Assessment: 53yo M with alcoholic cirrhosis, in ICU with recurrent GI bleeds, most recent scope 10/15 for variceal rebleed. Severe valvular disease with severe AR related to bicuspid aortic valve and reported prior endocarditis. Currently intubated for respiratory failure; on multiple pressors due to shock (multifactorial). Plan: -vent management per ICU service -continue pressor support; if additional pressors are needed, would favor epinephrine (avoid pure vasoconstrictors, which would exacerbate AR physiology) -DNR status -assuming he gets past the acute phase of his illness, in the residential we will need to discuss valve surgery (not TAVR candidate due to AR related to bicuspid valve). 10/17/18 09:50 Subjective: No acute events. Hemodynamically stable, but this is on vasopressin and max dose levophed; discussed with nursing, and I have recommended epinephrine if additional pressors are needed (we need to avoid pure vasoconstrictors, which would exacerbate his AR). On vent, minimal support settings, planned attempt at extubation today. Tele shows no significant alarms. Objective: Vital Signs (8 Hrs) Pulse Resp BP Pulse Ox 10/17/18 09:00 88 16 143/29 H 99 10/17/18 08:08 89 20 100 10/17/18 08:00 143/31 H 10/17/18 07:00 91 16 134/29 H 99 10/17/18 06:00 91 17 142/30 H 100 10/17/18 05:00 88 17 140/31 H 100 10/17/18 04:10 87 16 100 10/17/18 04:00 87 16 131/33 H 100 10/17/18 03:00 85 16 138/26 H 99 10/17/18 02:00 85 16 129/26 H Intake/Output (24 Hrs) 10/16/18 10/17/18 10/18/18 05:59 05:59 05:59 Intake Total 2290.7 3738 Output Total 700 8795 Balance 1590.7 -5057 Intake: Oral (ml) 2200 IV Intake (ml) 35.7 IV Infused (ml) 55 1938 Albumin 5% 250 ml @ As 250 Directed IV ONCE ONE Rx#: [id number] Norepinephrine Bitartrate 173 16 mg In Ns 250 ml @ Per Protocol IV CONT KIM Rx# :[id number] Norepinephrine Bitartrate 927 4 mg In Ns 500 ml @ Per Protocol IV CONT KIM Rx#: [id number] Octreotide Acetate 500 55 113 mcg In Ns 50 ml @ 5 mls/ hr IV CONT KIM Rx#: [id number] Propofol/Emulsion 100 ml 174 @ Per Protocol IV CONT KIM Rx#:[id number] Vasopressin 25 unit In Ns 301 250 ml @ 24 mls/hr IV CONT KIM Rx#:[id number] Fresh Frozen Plasma (ml) 200 Packed Red Blood Cells ( 1600 ml) Output: Urine (ml) 700 1495 Catheter 600 Toilet 895 Urinal 700 Liquid Stool (ml) 200 Bedside Commode 200 Paracentesis 7100 Other: Weight 96.3 kg 94.7 kg 101 kg Number of Voids Toilet 4 Urinal 1 Number of Stools Bedside Commode 1 Toilet 1 Number of Emesis 1 Occurrences Result Diagrams: 10/17/18 05:45 10/17/18 05:45 Telemetry: SR - Physical Exam Constitutional: other (sedated on vent) Ears, Nose, Mouth, Throat: other (ETT in place. right IJ line in place.) Cardiovascular: other (regular tachy, S4 gallop, query diastolic murmur ( obscured by coarse breath sounds). anasarca.) Respiratory: other (coarse breath sounds on vent) Gastrointestinal: normoactive bowel sounds Skin: no rashes Neurologic: AAOx3 Psychiatric: other (sedated) ICD10 Worksheet Patient Problems: Problems Problem Status Onset Anemia Acute Renal insufficiency Acute Upper GI bleed Acute Left rib fracture Acute
--- NOTE | 2018-10-17 10:30 | SOAPPROG ---
[facility] Progress Note Assessment/Plan: Assessment: 53 year old alcoholic liver disease with cirrhosis, s/p acute GI bleed from gastric varices. Patient with right heart failure and valvular hear disease ( Severe AR with endocarditis). Patient is intubated. GI bleeding not amenable to endoscopic therapy. s/p TIPS. Also s/p coil embolization of right coronary vein and gastrorenal shunt supplying large gastric varices. S/p large volume paracentesis. On IV PPI and Octreotide. Plan: 1. Continue supportive care 2. Vent management and pressors per critical care 3. Continue on IV Pantoprazole 4. S/p TIPS and embolization can d/c Octreotide later today. 10/17/18 10:43 Subjective: CC: Heart failure, respiratory failure, AR and endocarditis. GI bleed with cirrhosis and gastric varices. Intubated, sedated. No signs of acute bleeding s/w TIPS and embolization. Objective: Vital Signs Temp Pulse Resp BP Pulse Ox 36.9 C 88 17 135/31 H 99 10/16/18 21:09 10/17/18 10:00 10/17/18 10:00 10/17/18 10:00 10/17/18 10:00 Laboratory Results 10/17/18 05:45 10/17/18 05:45 10/16/18 10/17/18 10/18/18 05:59 05:59 05:59 Intake Total 2290.7 3738 Output Total 700 8795 Balance 1590.7 -5057 PT 20.9 SEC (12.0-15.0) H 10/16/18 12:47 INR 1.90 (0.83-1.16) H 10/16/18 12:47 Generic Name Dose Route Start Last Admin Trade Name Freq PRN Reason Stop Dose Admin Acetaminophen 650 mg 10/12/18 11:32 10/15/18 18:37 Tylenol PO 04/10/19 11:31 650 mg Q6HRS PRN Administration Pain, Mild/Fever, Can Take PO Alteplase, Recombinant 2 mg 10/06/18 09:44 Cathflo Activase IVP 04/04/19 09:43 PRN PRN Per PICC line policy Benzonatate 100 mg 10/12/18 16:59 10/13/18 08:44 Tessalon Pearles PO 04/10/19 16:58 100 mg TID PRN Administration Cough, Mild Ferrous Sulfate 325 mg 10/11/18 09:00 10/17/18 08:27 Ferrous Sulfate PO 04/09/19 08:59 Not Given DAILY KIM Folic Acid 1 mg 10/06/18 09:00 10/17/18 08:27 Folic Acid PO 04/04/19 08:59 Not Given DAILY KIM Hydrocortisone 50 mg 10/17/18 09:53 Solucortef IVP 04/15/19 09:52 Q6 KIM Ceftriaxone Sodium/Dextrose 50 mls @ 100 mls/hr 10/17/18 09:00 10/17/18 09:14 Rocephin 1 Gm (Premix) IV 11/16/18 08:59 50 mls DAILY KIM Administration Vasopressin 25 unit/ Sodium 251.25 mls @ 24 mls/hr 10/16/18 16:30 10/17/18 02 :18 Chloride IV 04/14/19 16:29 251.25 mls CONT KIM Administration Propofol 100 mls @ 0 mls/hr 10/16/18 18:46 10/17/18 09:14 Diprivan 10 Mg/Ml (Premix) IV 04/14/19 18:45 100 mls CONT KIM Administration Protocol Per Protocol Norepinephrine 16 mg/ Sodium 266 mls @ 0 mls/hr 10/16/18 22:00 10/17/18 07:55 Chloride IV 04/14/19 21:59 266 mls CONT KIM Administration Protocol Per Protocol Albumin Human 100 mls @ 0 mls/hr 10/18/18 12:00 Flexbumin 25 % (Premix) IV 04/16/19 11:59 Q6HRS KIM As Directed Lactulose 20 gm 10/09/18 16:00 10/17/18 08:27 Cephulac PO 04/07/19 15:59 Not Given TID KIM Magnesium Sulfate 1 dose 10/15/18 17:24 Protocol Magnesium IV 04/13/19 17:23 AD PRN Pt on Electrolyte Protocol Protocol Midodrine 10 mg 10/06/18 16:30 10/17/18 06:05 Midodrine Hcl PO 04/04/19 16:29 Not Given Q8HRS [facility] Multivitamins/Minerals 1 each 10/06/18 09:00 10/17/18 08:27 Thera M Plus Tablet PO 04/04/19 08:59 Not Given DAILY [facility] Ondansetron HCl 4 mg 10/05/18 22:37 10/16/18 06:47 Zofran IVP 04/03/19 22:36 4 mg Q4HRS PRN Administration Nausea/Vomiting, Can't Take PO Ondansetron HCl 4 mg 10/05/18 22:37 Zofran Odt PO 04/03/19 22:36 Q4HRS PRN Nausea/Vomiting, Use 1st Pantoprazole Sodium 40 mg 10/14/18 21:00 10/17/18 08:27 Protonix IVP 04/12/19 20:59 Not Given Q12 [facility] Potassium Chloride 1 dose 10/15/18 17:24 Protocol Potassium MISC 04/13/19 17:23 AD PRN Pt on Electrolyte Protocol Protocol Rifaximin 550 mg 10/07/18 11:30 10/17/18 08:27 Xifaxan PO 11/06/18 11:29 Not Given BID [facility] Protocol Thiamine HCl 100 mg 10/06/18 09:00 10/17/18 08:28 Vitamin B-1 PO 04/04/19 08:59 Not Given DAILY KIM Discontinued Medications Generic Name Dose Route Start Last Admin Trade Name Freq PRN Reason Stop Dose Admin Acetaminophen 1,000 mg 10/11/18 21:15 10/11/18 21:30 Tylenol PO 10/11/18 21:16 1,000 mg ONCE ONE Administration Albumin Human Confirm 10/08/18 11:44 Flexbumin 25 % (Premix) Administered 10/08/18 11:45 Dose 100 ml IV .STK-MED ONE Albumin Human Confirm 10/16/18 16:01 Alburx 5 Administered 10/16/18 16:02 Dose 250 ml IV .STK-MED ONE Calcium Chloride 1 gm 10/16/18 22:15 10/16/18 22:24 Calcium Chloride IV 10/16/18 22:16 1 gm ONCE ONE Administration Chlordiazepoxide HCl 25 mg 10/06/18 09:00 Librium PO 04/04/19 08:59 TID [facility] Dexamethasone 4 mg 10/13/18 17:25 Decadron Injection IVP 10/13/18 18:25 ONCE PRN PACU, Nausea/Vomiting Dexamethasone Confirm 10/13/18 17:27 Decadron Injection Administered 10/13/18 17:28 Dose 4 mg .ROUTE .STK-MED ONE Dexamethasone Confirm 10/16/18 14:51 Decadron Injection Administered 10/16/18 14:52 Dose 4 mg .ROUTE .STK-MED ONE Diazepam 2.5 - 5 mg 10/13/18 17:25 Valium IVP 10/13/18 18:26 Q5M PRN Agitation, Acute Epinephrine HCl Confirm 10/13/18 18:16 Epinephrine Administered 10/13/18 18:17 Dose 1 mg .ROUTE .STK-MED ONE Epinephrine HCl Confirm 10/13/18 18:16 Epinephrine Administered 10/13/18 18:17 Dose 1 mg IVP .STK-MED ONE Epinephrine HCl Confirm 10/13/18 18:21 Epinephrine Administered 10/13/18 18:22 Dose 1 mg .ROUTE .STK-MED ONE Etomidate 40 mg 10/07/18 03:39 10/07/18 03:40 Etomidate IV 10/07/18 03:40 40 mg ONCE ONE Administration Fentanyl 25 - 100 mcg 10/06/18 02:28 Sublimaze IVP 10/06/18 03:28 Q5M PRN PACU, IMMEDIATE Pain control Fentanyl 25 - 100 mcg 10/13/18 17:25 Sublimaze IVP 10/13/18 18:25 Q5M PRN PACU, IMMEDIATE Pain control Fentanyl Confirm 10/13/18 17:28 Sublimaze Administered 10/13/18 17:29 Dose 100 mcg .ROUTE .STK-MED ONE Fentanyl Confirm 10/13/18 17:54 Sublimaze Administered 10/13/18 17:55 Dose 100 mcg .ROUTE .STK-MED ONE Fentanyl Confirm 10/14/18 12:25 Sublimaze Administered 10/14/18 12:26 Dose 100 mcg .ROUTE .STK-MED ONE Fentanyl Confirm 10/14/18 12:54 Sublimaze Administered 10/14/18 12:55 Dose 100 mcg .ROUTE .STK-MED ONE Fentanyl Confirm 10/16/18 10:28 Sublimaze Administered 10/16/18 10:29 Dose 100 mcg .ROUTE .STK-MED ONE Flumazenil 0.2 - 0.5 mg 10/06/18 11:03 10/06/18 13:12 Romazicon IVP 04/04/19 11:02 0.5 mg PRN PRN Administration Resp Rate Below 10 Furosemide 40 mg 10/07/18 11:02 10/07/18 11:25 Lasix Injection IVP 10/07/18 11:03 40 mg ONCE ONE Administration Furosemide 20 mg 10/11/18 11:00 10/12/18 09:04 Lasix PO 04/09/19 10:59 20 mg DAILY KIM Administration Furosemide 40 mg 10/13/18 09:00 10/13/18 08:43 Lasix PO 04/11/19 08:59 40 mg DAILY KIM Administration Furosemide 40 mg 10/14/18 19:20 10/16/18 16:15 Lasix Injection IVP 04/12/19 19:19 Not Given BIDDIUR KIM Glycopyrrolate Confirm 10/16/18 14:50 Glycopyrrolate Administered 10/16/18 14:51 Dose 0.2 mg .ROUTE .STK-MED ONE Glycopyrrolate Confirm 10/16/18 14:50 Glycopyrrolate Administered 10/16/18 14:51 Dose 0.2 mg .ROUTE .STK-MED ONE Heparin Sodium (Porcine) Confirm 10/16/18 10:20 Heparin Flush 2,000 Unit/Ns 1,000 Ml Administered 10/16/18 10:21 Dose 4,000 unit .ROUTE .STK-MED ONE Hydrogen Peroxide Confirm 10/12/18 04:06 Hydrogen Peroxide Administered 10/12/18 04:07 Dose 23.6 serge TP .STK-MED ONE Hydromorphone HCl 0.1 - 0.4 mg 10/13/18 17:25 Dilaudid IVP 10/13/18 18:25 Q10M PRN PACU, PAIN Famotidine/Sodium Chloride 50 mls @ 200 mls/hr 10/05/18 22:03 10/05/18 22:08 Pepcid 20 Mg (Premix) IV 10/05/18 22:17 50 mls EDNOW ONE Administration Octreotide Acetate 500 mcg/ 51 mls @ 5 mls/hr 10/05/18 22:45 10/05/18 23:03 Sodium Chloride IV 04/03/19 22:44 51 mls CONT KIM Administration Sodium Chloride 1,000 mls @ 50 mls/hr 10/05/18 22:45 10/05/18 23:11 Ns IV 10/06/18 18:44 1,000 mls CONT KIM Administration Phytonadione 10 mg/ Sodium 51 mls @ 102 mls/hr 10/05/18 23:05 10/06/18 00:55 Chloride IV 10/05/18 23:34 51 mls EDNOW ONE Administration Octreotide Acetate 500 mcg/ 51 mls @ 5 mls/hr 10/05/18 23:30 Sodium Chloride IV 04/03/19 23:29 CONT KIM Ampicillin Sodium/Sulbactam 50 mls @ 200 mls/hr 10/06/18 00:30 10/06/18 01:40 Sodium 1.5 gm/ Sodium Chloride IV 10/06/18 00:44 50 mls ONCE ONE Administration Protocol Phytonadione 10 mg/ Sodium 51 mls @ 204 mls/hr 10/06/18 09:52 10/06/18 10:50 Chloride IV 10/06/18 10:06 51 mls ONCE ONE Administration Dexmedetomidine HCl 400 mcg/ 104 mls @ 0 mls/hr 10/06/18 11:30 10/08/18 04:18 Sodium Chloride IV 04/04/19 11:29 104 mls CONT KIM Administration Protocol Titrate Thiamine HCl 500 mg/ Sodium 105 mls @ 210 mls/hr 10/06/18 11:15 10/08/18 08: 31 Chloride IV 10/08/18 09:29 105 mls DAILY KIM Administration Propofol 100 mls @ 0 mls/hr 10/07/18 04:30 10/09/18 08:07 Diprivan 10 Mg/Ml (Premix) IV 04/05/19 04:29 100 mls CONT KIM Administration Protocol Per Protocol Albumin Human 250 mls @ 0 mls/hr 10/08/18 06:28 10/08/18 06:43 Alburx 5 IV 10/08/18 06:29 250 mls ONCE ONE Administration As Directed Albumin Human 100 mls @ 0 mls/hr 10/08/18 11:40 10/08/18 11:48 Flexbumin 25 % (Premix) IV 10/08/18 11:41 100 mls ONCE ONE Administration As Directed Albumin Human 250 mls @ 0 mls/hr 10/09/18 04:00 10/09/18 03:47 Alburx 5 IV 10/09/18 04:01 250 mls ONCE ONE Administration As Directed Dextrose/Sodium Chloride 1,000 mls @ 100 mls/hr 10/10/18 08:30 10/10/18 19:18 D5w 1/2 Ns IV 04/08/19 08:29 1,000 mls CONT KIM Administration Phytonadione 10 mg/ Sodium 51 mls @ 204 mls/hr 10/13/18 13:26 10/13/18 14:38 Chloride IV 10/13/18 13:40 51 mls ONCE ONE Administration Sodium Chloride 1,000 mls @ 0 mls/hr 10/13/18 13:28 10/13/18 13:45 Ns IV 10/13/18 13:29 1,000 mls ONCE ONE Administration Wide Open Ceftriaxone Sodium/Dextrose 50 mls @ 100 mls/hr 10/13/18 18:30 10/14/18 09:48 Rocephin 1 Gm (Premix) IV 11/12/18 18:29 50 mls DAILY KIM Administration Protocol Octreotide Acetate 500 mcg/ 51 mls @ 5 mls/hr 10/14/18 13:00 10/17/18 02:18 Sodium Chloride IV 04/12/19 12:59 51 mls CONT KIM Administration Lactated Ringer's 1,000 mls @ 0 mls/hr 10/14/18 11:53 10/14/18 14:22 Lr IV 10/14/18 11:54 Not Given ONCE ONE KVO Ceftriaxone Sodium 1 gm/ 50 mls @ 100 mls/hr 10/15/18 09:00 10/16/18 14:54 Sodium Chloride IV 10/16/18 15:00 Not Given DAILY KIM Norepinephrine 4 mg/ Sodium 504 mls @ 0 mls/hr 10/16/18 09:30 10/16/18 21:00 Chloride IV 04/14/19 09:29 504 mls CONT KIM Administration Protocol Per Protocol Epinephrine HCl 8 mg/ Sodium 258 mls @ 0 mls/hr 10/16/18 16:00 10/16/18 16:15 Chloride IV 10/16/18 16:01 Not Given ONCE ONE Protocol Per Protocol Albumin Human 250 mls @ 0 mls/hr 10/16/18 16:30 10/16/18 16:35 Alburx 5 IV 10/16/18 16:31 250 mls ONCE ONE Administration As Directed Albumin Human 200 mls @ 0 mls/hr 10/17/18 08:58 10/17/18 09:23 Flexbumin 25 % (Premix) IV 10/17/18 08:59 Not Given ONCE ONE As Directed Iopamidol Confirm 10/14/18 17:01 Isovue-300 Administered 10/14/18 17:02 Dose 100 ml .ROUTE .STK-MED ONE Iopamidol Confirm 10/16/18 10:19 Isovue-300 Administered 10/16/18 10:20 Dose 100 ml .ROUTE .STK-MED ONE Iopamidol Confirm 10/16/18 13:11 Isovue-300 Administered 10/16/18 13:12 Dose 500 ml .ROUTE .STK-MED ONE Ketamine HCl Confirm 10/16/18 18:31 Ketamine Administered 10/16/18 18:32 Dose 200 mg .ROUTE .STK-MED ONE Ketamine HCl 200 mg 10/16/18 19:00 10/16/18 17:00 Ketamine IV 10/16/18 19:01 200 mg ONCE ONE Administration Labetalol HCl 5 - 10 mg 10/13/18 17:25 Trandate Injection IVP 10/13/18 18:25 Q10M PRN PACU, Hypertension Lactulose 20 gm 10/06/18 14:15 10/08/18 15:24 Cephulac TUBE 04/04/19 14:14 20 gm TID KIM Administration Lidocaine 2 serge 10/07/18 09:13 10/07/18 10:55 Glydo TP 10/07/18 09:14 2 serge ONCALL ONE Administration Lidocaine HCl 1 - 300 mg 10/07/18 09:13 10/07/18 10:55 Lidocaine Hcl 1% MISC 10/07/18 09:14 300 mg ONCALL ONE Administration Lidocaine HCl Confirm 10/13/18 17:27 Lidocaine Hcl 2% Administered 10/13/18 17:28 Dose 100 mg .ROUTE .STK-MED ONE Lorazepam 0 mg 10/06/18 11:03 10/07/18 01:13 Ativan Injection IVP 04/04/19 11:02 2 mg Q1H PRN Administration Alcohol Withdrawal w/IV access Protocol Lorazepam 2 mg 10/06/18 12:00 10/06/18 11:48 Ativan Injection IVP 10/10/18 11:59 Not Given Q6HRS [facility] Meperidine HCl 12.5 - 25 mg 10/13/18 17:25 Demerol IVP 10/13/18 18:26 Q10M PRN PACU, shivering/rigors Metoclopramide HCl 10 mg 10/14/18 09:45 10/14/18 11:00 Reglan Injection IVP 10/14/18 09:46 10 mg ONCE ONE Administration Midazolam HCl 1 mg 10/07/18 03:39 10/07/18 03:40 Versed IVP 10/07/18 03:40 1 mg ONCE ONE Administration Miscellaneous 1 each 10/05/18 22:45 Pharmacy To Dose Medication MISC 04/03/19 22:44 AD [facility] Multivitamins/Iron 1 ml 10/06/18 09:00 Vi-Aviva + Iron PO 04/04/19 08:59 DAILY [facility] Naloxone HCl 0.1 mg 10/06/18 02:28 Narcan IVP 10/06/18 03:28 PRN PRN PACU Resp Rate <10/min Naloxone HCl 0.1 mg 10/13/18 17:25 Narcan IVP 10/13/18 18:25 Q2M PRN PACU Resp Rate <10/min Naloxone HCl 0.1 mg 10/16/18 15:39 Narcan IVP 10/16/18 16:39 Q2M PRN PACU Resp Rate <10/min Neostigmine Methylsulfate Confirm 10/16/18 14:50 Neostigmine Methylsulfate Administered 10/16/18 14:51 Dose 10 mg .ROUTE .STK-MED ONE Octreotide Acetate 50 mcg 10/05/18 22:42 10/05/18 22:59 Octreotide Acetate IVP 10/05/18 22:43 50 mcg ONCE ONE Administration Octreotide Acetate 50 mcg 10/14/18 13:31 10/14/18 14:04 Octreotide Acetate IVP 10/14/18 13:32 50 mcg ONCE ONE Administration Ondansetron HCl Confirm 10/05/18 22:24 Zofran Administered 10/05/18 22:25 Dose 4 mg .ROUTE .STK-MED ONE Ondansetron HCl 2 - 4 mg 10/13/18 17:25 Zofran IVP 10/13/18 18:25 Q10M PRN PACU, Nausea/Vomiting Ondansetron HCl Confirm 10/13/18 17:27 Zofran Administered 10/13/18 17:28 Dose 4 mg .ROUTE .STK-MED ONE Ondansetron HCl Confirm 10/16/18 14:51 Zofran Administered 10/16/18 14:52 Dose 4 mg .ROUTE .STK-MED ONE Oxycodone HCl 5 - 10 mg 10/13/18 17:25 Oxycodone Ir PO 10/13/18 18:25 Q4HRS PRN PACU, Pain Severe Pantoprazole Sodium 40 mg 10/06/18 04:03 10/05/18 22:29 Protonix IVP 04/04/19 04:02 40 mg Q6H KIM Administration Pantoprazole Sodium Confirm 10/05/18 22:26 Protonix Administered 10/05/18 22:27 Dose 40 mg .ROUTE .STK-MED ONE Pantoprazole Sodium 40 mg 10/06/18 04:00 Protonix IVP 04/04/19 03:59 Q6H KIM Pantoprazole Sodium 40 mg 10/06/18 09:00 10/07/18 10:57 Protonix PO 04/04/19 08:59 Not Given DAILY KIM Pantoprazole Sodium 40 mg 10/07/18 09:45 10/10/18 09:16 Protonix IVP 04/05/19 09:44 40 mg DAILY KIM Administration Pantoprazole Sodium 40 mg 10/11/18 09:00 10/13/18 08:44 Protonix PO 04/09/19 08:59 40 mg DAILY KIM Administration Pantoprazole Sodium 40 mg 10/13/18 13:45 10/14/18 14:56 Protonix IVP 04/11/19 13:44 Not Given Q6H KIM Phenylephrine HCl Confirm 10/13/18 17:54 Neosynephrine Administered 10/13/18 17:55 Dose 1,000 mcg .ROUTE .STK-MED ONE Phenylephrine HCl Confirm 10/16/18 10:30 Neosynephrine Administered 10/16/18 10:31 Dose 1,000 mcg .ROUTE .STK-MED ONE Polyethylene Glycol/Electrolytes 1,000 ml 10/06/18 02:11 10/06/18 05:20 Gavilyte - G PO 10/06/18 02:12 1,000 ml ONCE ONE Administration Polyethylene Glycol/Electrolytes 3,000 ml 10/08/18 15:43 10/08/18 21:16 Gavilyte - G PO 10/08/18 15:44 3,000 ml ONCE ONE Administration Promethazine HCl 6.25 - 12.5 mg 10/13/18 17:25 Phenergan IVP 10/13/18 18:25 Q5M PRN PACUNausea/Vomiting, Unable PO Propofol Confirm 10/06/18 01:30 Diprivan Administered 10/06/18 01:31 Dose 200 mg .ROUTE .STK-MED ONE Propofol Confirm 10/06/18 01:30 Diprivan Administered 10/06/18 01:31 Dose 200 mg .ROUTE .STK-MED ONE Propofol Confirm 10/07/18 03:42 Diprivan 10 Mg/Ml (Premix) Administered 10/07/18 03:43 Dose 1,000 mg IV .STK-MED ONE Propofol Confirm 10/13/18 17:28 Diprivan Administered 10/13/18 17:29 Dose 200 mg .ROUTE .STK-MED ONE Propofol Confirm 10/14/18 12:25 Diprivan Administered 10/14/18 12:26 Dose 200 mg .ROUTE .STK-MED ONE Propofol Confirm 10/16/18 09:32 Diprivan 10 Mg/Ml (Premix) Administered 10/16/18 09:33 Dose 1,000 mg IV .STK-MED ONE Propofol Confirm 10/16/18 17:56 Diprivan 10 Mg/Ml (Premix) Administered 10/16/18 17:57 Dose 1,000 mg IV .STK-MED ONE Rocuronium Sibley Confirm 10/16/18 12:13 Zemuron Administered 10/16/18 12:14 Dose 100 mg .ROUTE .STK-MED ONE Rocuronium Sibley Confirm 10/16/18 18:28 Zemuron Administered 10/16/18 18:29 Dose 100 mg .ROUTE .STK-MED ONE Rocuronium Sibley 100 mg 10/16/18 18:10 10/16/18 18:49 Zemuron IV 10/16/18 18:11 100 mg ONCE ONE Administration Spironolactone 50 mg 10/12/18 11:45 10/12/18 15:51 Aldactone PO 04/10/19 11:44 50 mg DAILY KIM Administration Spironolactone 100 mg 10/13/18 09:00 10/16/18 08:58 Aldactone PO 04/11/19 08:59 Not Given DAILY KIM Succinylcholine Chloride Confirm 10/14/18 12:30 Quelicin Administered 10/14/18 12:31 Dose 200 mg IVP .STK-MED ONE Thiamine HCl 100 mg 10/09/18 11:03 Vitamin B-1 PO 04/07/19 11:02 DAILY [facility] Physical Exam - Physical Exam General Appearance: unresponsive EENT: ET tube Respiratory: lungs clear Cardiac/Chest: regular rate, rhythm Abdomen: soft Skin: warm/dry ICD10 Worksheet Patient Problems: Problems Problem Status Onset Anemia Acute Renal insufficiency Acute Upper GI bleed Acute Left rib fracture Acute
[2018-10-17] MEDS: HYDROCORTISONE 100 MG/2 ML VIAL IVP SCH ×3 (10:58→18:09)
--- NOTE | 2018-10-17 11:14 | PDINTPN ---
Hospice Clinical Supervisor Progress Note Assessment/Plan: ASSESSMENT 53-year-old male with end-stage alcoholic cirrhosis with recurrent acute blood loss anemia from GI bleed due to gastric varices complicated by severe AR, MR, TR and elevated RVSP # Shock. hemorrhagic from varicial bleed worsened by severe aortic regurgitation causing wide pulse pressure. Also component of vasoplegia from prolonged hypotension. # acute on chronic blood loss anemia. Due to advanced cirrhosis. required multiple units of PRBCs. No e/o active bleeding # gastric variceal bleed. Status post modified tips with gastric varices embolization 10/16/18. Patient is still actively bleeding and in shock after IR procedure. Severe valvular pathology, elevated RVSP and hypervolemia precludes conventional tips, too sick for BRTO # cirrhosis. advanced. etoh. not a transplant candidate # severe aortic regurgitation, mitral regurgitation tricuspid regurgitation with elevated pulmonary artery pressures as evidence by TTE # encephalopathy hepatic plus critical illness # type 4 respiratory failure. reintubated 10/16/18 PLAN # open ended pressure support #continue vasopressor support # will transition Levophed to epinephrine given concomitant aortic regurgitation # add hydrocortisone 50 mg Q 6 # defer diuresis given low CVP and pulse pressure variation # stop octreotide drip # PPI IV BID # transfuse as needed for hemoglobin less than 7, platelets less than 15. Will not give FFP unless actively bleeding # check TEG as this is a more precise marker of coagulopathy than INR in cirrhosis. # Feeding - NPO # Analgesia none # Sedation low dose propofol # Thromboprophylaxis - SCDs, pharmacologic prophylaxis contraindicated secondary to active GI bleed # Head of bed elevated # Ulcer prophylaxis - PPI # Glucose SSI # Skin no skin breakdown # Delirium - delirium precautions # DNR full care Imaging Reviewed 10/14/2018 CT abdomen and pelvis-stress with portal venous hypertension, moderate ascites portosystemic varices with shunts. Diminutive yet patent portal venous symptoms, cardiomegaly pericardial effusion, pleural effusions 10/14/2018 TTE LV mildly dilated, LVEF 55%, mild LVH, RV size and function normal , LA severely dilated, moderate to severe MR, severe AR, moderate to severe TR, RVSP 55 10/16/18 18:02 Patient is critically ill due to multiorgan failure total critical care time excluding any procedures 95 min which was spent reviewing chart evaluating patient at bedside, titrating vasopressors, adjusting ventilator and discussions with nursing and other specialists 10/17/18 11:21 10/17/18 11:23 Subjective: Patient with hemorrhagic shock yesterday requiring emergent modified TIPS procedure with coiling of gastric varices, emergent access and re-intubation yesterday postprocedure shock Objective: Vital Signs Temp Pulse Resp BP Pulse Ox 36.9 C 90 15 137/74 H 99 10/16/18 21:09 10/17/18 11:00 10/17/18 11:00 10/17/18 11:00 10/17/18 11:00 Laboratory Results 10/17/18 05:45 10/17/18 05:45 10/16/18 10/17/18 10/18/18 05:59 05:59 05:59 Intake Total 2290.7 3738 Output Total 700 8795 250 Balance 1590.7 -5057 -250 PT 20.9 SEC (12.0-15.0) H 10/16/18 12:47 INR 1.90 (0.83-1.16) H 10/16/18 12:47 Physical Exam - Physical Exam General Appearance: obtunded EENT: scleral icterus (R), scleral icterus (L) Neck: non-tender, full range of motion Respiratory: other (Mechanical breath sounds) Cardiac/Chest: normal peripheral pulses, regular rate, rhythm, edema Abdomen: normal bowel sounds, non-tender Skin: warm/dry, pallor Extremities: normal capillary refill, swelling Neuro/Psych: no motor/sensory deficits, alert, normal mood/affect, oriented x 3 ICD10 Worksheet Patient Problems: Problems Problem Status Onset Anemia Acute Renal insufficiency Acute Upper GI bleed Acute Left rib fracture Acute
[2018-10-17] MEDS: EPINEPHrine 8 MG in NS 250 ML IV SCH ×3 (11:35→20:47)
[2018-10-17] MEDS ORDERED: ALBUMIN 5% 250 ML IV ONE (12:59)
[2018-10-17] MEDS: ALBUMIN 25% 100 ML IV SCH ×2 (13:17→18:09)
--- NOTE | 2018-10-17 18:23 | SOAPPROG ---
SOAP Progress Note Assessment/Plan: Assessment/Plan: 10/17/18 18:20 53 y/o M POD#1 s/p TIPS (reduced caliber) with embolization of large gastric varices. Hgb stable. Continued mild hematochezia may represent residual/lag blood products from previous massive UGI variceal hemorrhage. With continued ongoing hematemesis/hematochezia and Hgb drop, recommend GI consultation for repeat endoscopy upper and lower for evaluation of ongoing source. 10/17/18 18:24 Subjective: Somnolent, but denies worsening confusion after TIPS and gastric variceal embolization. Denies severe abdominal pain. Complains of sore throat. Objective: Right neck access site: Dressing C/D/I. Vital Signs Temp Pulse Resp BP Pulse Ox 36.9 C 114 H 17 152/33 H 97 10/16/18 21:09 10/17/18 18:00 10/17/18 18:00 10/17/18 18:00 10/17/18 18:00 Laboratory Results 10/17/18 13:03 10/17/18 17:34 10/16/18 10/17/18 10/18/18 05:59 05:59 05:59 Intake Total 2290.7 3738 1150.8 Output Total 700 8795 1350 Balance 1590.7 -5057 -199.2 PT 20.9 SEC (12.0-15.0) H 10/16/18 12:47 INR 1.90 (0.83-1.16) H 10/16/18 12:47 - Pending Discharge Pending Discharge Within 24 Hours: No Pending Discharge Within 48 Hours: No ICD10 Worksheet Patient Problems: Problems Problem Status Onset Anemia Acute Renal insufficiency Acute Upper GI bleed Acute Left rib fracture Acute
[2018-10-18] MEDS: HYDROCORTISONE 100 MG/2 ML VIAL IVP SCH ×5 (00:47→23:54)
[2018-10-18] MEDS: ALBUMIN 25% 100 ML IV SCH ×5 (00:48→23:55)
[2018-10-18] MEDS: EPINEPHrine 8 MG in NS 250 ML IV SCH ×2 (01:36→08:43)
[2018-10-18] MEDS: MIDODRINE HCL 10 MG TAB PO SCH ×3 (06:04→21:52)
[2018-10-18] MEDS: VASOPRESSIN 25 UNIT in NS 250 ML IV SCH ×2 (08:43→15:30)
[2018-10-18] MEDS: MULTIVITAMINS W-MINERALS 1 EACH TAB PO SCH (08:45)
[2018-10-18] MEDS: FOLIC ACID 1 MG TAB PO SCH (08:45)
[2018-10-18] MEDS: THIAMINE HCL 100 MG TAB PO SCH (08:45)
[2018-10-18] MEDS: FERROUS SULFATE 325 MG TAB PO SCH (08:45)
[2018-10-18] MEDS: RIFAXIMIN 550 MG TAB PO SCH ×2 (08:47→21:51)
[2018-10-18] MEDS: PANTOPRAZOLE SODIUM 40 MG VIAL IVP SCH ×2 (08:47→21:51)
[2018-10-18] MEDS: LACTULOSE 20 GM/30 ML UDCUP PO SCH ×3 (08:47→21:53)
[2018-10-18] MEDS ORDERED: MAGNESIUM SULF 1 GM/DEXTROSE 100 ML IV ONE (09:08)
--- NOTE | 2018-10-18 10:08 | PDCARPN ---
Cardiology Progress Note Assessment/Plan: Assessment: 53yo M with alcoholic cirrhosis, in ICU with recurrent GI bleeds, most recent scope 10/15 for variceal rebleed. Severe valvular disease with severe AR related to bicuspid aortic valve and reported prior endocarditis. Now extubated; on multiple pressors due to shock (multifactorial). Plan: -agree with addition of steroids for shock. 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 Extubated. Able to have a conversation with me about his ETOH use history and his goals of care. He and his fiancee are both interested in definitive treatments for his severe AR, but as we discussed in detail today, he would need to fully recover from the current acute illness, as well as continue to abstain from ETOH use, before we could have a real discussion about surgical candidacy. Objective: Vital Signs (8 Hrs) Temp Pulse Resp BP Pulse Ox 10/18/18 10:00 36.7 C 106 H 15 158/34 H 93 10/18/18 09:00 106 H 16 175/41 H 93 10/18/18 07:00 108 H 14 164/41 H 92 10/18/18 06:00 37.4 C 110 H 15 176/41 H 91 L 10/18/18 05:00 109 H 20 153/37 H 90 L 10/18/18 04:00 114 H 15 154/36 H 90 L Intake/Output (24 Hrs) 10/17/18 10/18/18 10/19/18 05:59 05:59 05:59 Intake Total 3738 2224.8 600 Output Total 8795 2605 Balance -5057 -380.2 600 Intake: IV Intake (ml) 150 IV Infused (ml) 1938 2074.8 Albumin 5% 250 ml @ As 250 Directed IV ONCE ONE Rx#: [id number] Albumin 5% 250 ml @ As 250 Directed IV ONCE ONE Rx#: [id number] EPINEPHrine 8 mg In Ns 931 250 ml @ Per Protocol IV CONT KIM Rx#:[id number] Norepinephrine Bitartrate 173 16 mg In Ns 250 ml @ Per Protocol IV CONT KIM Rx# :[id number] Norepinephrine Bitartrate 927 178 4 mg In Ns 500 ml @ Per Protocol IV CONT KIM Rx#: [id number] Octreotide Acetate 500 21.8 mcg In Ns 50 ml @ 5 mls/ hr IV CONT KIM Rx#: [id number] Octreotide Acetate 500 113 mcg In Ns 50 ml @ 5 mls/ hr IV CONT KIM Rx#: [id number] Propofol/Emulsion 100 ml 60 @ Per Protocol IV CONT KIM Rx#:[id number] Propofol/Emulsion 100 ml 174 @ Per Protocol IV CONT KIM Rx#:[id number] Vasopressin 25 unit In Ns 301 584 250 ml @ 24 mls/hr IV CONT KIM Rx#:[id number] cefTRIAXone 1 GM/DEXTROSE 50 50 ml @ 100 mls/hr IV DAILY KIM Rx#:[id number] Fresh Frozen Plasma (ml) 200 Packed Red Blood Cells ( 1600 600 ml) Output: Urine (ml) 1495 2605 Catheter 600 1100 Toilet 895 1505 Liquid Stool (ml) 200 Bedside Commode 200 Paracentesis 7100 Other: Weight 94.7 kg 101 kg 100.7 kg Number of Stools Bedside Commode 1 Toilet 1 Number of Emesis 1 Occurrences Result Diagrams: 10/18/18 05:55 10/18/18 05:55 Telemetry: SR - Physical Exam Constitutional: no apparent distress Eyes: PERRL Ears, Nose, Mouth, Throat: moist mucous membranes Cardiovascular: regular rate and rhythm, other (diastolic murmur RUSB) Peripheral Pulses: 2+: carotid (R), carotid (L), dorsalis-pedis (R), dorsalis- pedis (L) Respiratory: other (coarse breath sounds) Gastrointestinal: normoactive bowel sounds Skin: no rashes Neurologic: AAOx3, CN II-XII grossly intact Psychiatric: cooperative, interactive, following commands ICD10 Worksheet Patient Problems: Problems Problem Status Onset Anemia Acute Renal insufficiency Acute Upper GI bleed Acute Left rib fracture Acute
--- NOTE | 2018-10-18 10:13 | SOAPPROG ---
[facility] Progress Note Assessment/Plan: Assessment: 53 year old alcoholic liver disease with cirrhosis. Patient has been extubated since yesterday. 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 UGI Bleed was not amenable to endoscopic management with gastric varices. Patient is s/p IR intervention with TIPS and coil embolization of right coronary vein and gastrorenal shunt supplying large gastric varices. S/p large volume paracentesis. On pressors but weaning off. Had large bloody BM this morning with drop in HCT. Patient not symptomatic. Extubated feels improved. Plan: 1. S/p transfusion PRBC's (2 units) this AM. Check H and H one hour post transfusion of PRBCs. Then Will Check H and H Q 6 hours after that. 2. Continue on IV Pantoprazole 3. S/p TIPS and embolization, On pressors but weaning (Also with significant AI which may be contributing to hypotension. 4. Given that overall he look clinically improved and s/p TIPS and embolization of gastric varices would not recommend EGD at this point. Continue to follow clinically. If signs or symptoms of bleeding can re-look with EGD however varices were not previously amenable to endoscopic therapy. 5. Would keep NPO for today 6. Would restart Octreotide with question of bleeding 10/18/18 10:18 Subjective: CC: UGI Bleed, AI endocarditis Extubated, still on pressors. Had several bloody BM's with drop in Hct. Patient feels improved, without abdominal pain. Objective: Vital Signs Temp Pulse Resp BP Pulse Ox 37.4 C 106 H 16 175/41 H 93 10/18/18 06:00 10/18/18 09:00 10/18/18 09:00 10/18/18 09:00 10/18/18 09:00 Laboratory Results 10/18/18 05:55 10/18/18 05:55 10/17/18 10/18/18 10/19/18 05:59 05:59 05:59 Intake Total 3738 2224.8 600 Output Total 8795 2605 Balance -5057 -380.2 600 PT 20.9 SEC (12.0-15.0) H 10/16/18 12:47 INR 1.90 (0.83-1.16) H 10/16/18 12:47 Generic Name Dose Route Start Last Admin Trade Name Alida PRN Reason Stop Dose Admin Acetaminophen 650 mg 10/12/18 11:32 10/15/18 18:37 Tylenol PO 04/10/19 11:31 650 mg Q6HRS PRN Administration Pain, Mild/Fever, Can Take PO Alteplase, Recombinant 2 mg 10/06/18 09:44 Cathflo Activase IVP 04/04/19 09:43 PRN PRN Per PICC line policy Benzonatate 100 mg 10/12/18 16:59 10/13/18 08:44 Tessalon Pearles PO 04/10/19 16:58 100 mg TID PRN Administration Cough, Mild Ferrous Sulfate 325 mg 10/11/18 09:00 10/18/18 08:45 Ferrous Sulfate PO 04/09/19 08:59 Not Given DAILY KIM Folic Acid 1 mg 10/06/18 09:00 10/18/18 08:45 Folic Acid PO 04/04/19 08:59 Not Given DAILY KIM Hydrocortisone 50 mg 10/17/18 09:53 10/18/18 06:00 Solucortef IVP 04/15/19 09:52 50 mg Q6 KIM Administration Ceftriaxone Sodium/Dextrose 50 mls @ 100 mls/hr 10/17/18 09:00 10/18/18 08:47 Rocephin 1 Gm (Premix) IV 11/16/18 08:59 50 mls DAILY KIM Administration Vasopressin 25 unit/ Sodium 251.25 mls @ 24 mls/hr 10/16/18 16:30 10/18/18 08 :43 Chloride IV 04/14/19 16:29 251.25 mls CONT KIM Administration Propofol 100 mls @ 0 mls/hr 10/16/18 18:46 10/17/18 09:14 Diprivan 10 Mg/Ml (Premix) IV 04/14/19 18:45 100 mls CONT KIM Administration Protocol Per Protocol Norepinephrine 16 mg/ Sodium 266 mls @ 0 mls/hr 10/16/18 22:00 10/17/18 07:55 Chloride IV 04/14/19 21:59 266 mls CONT KIM Administration Protocol Per Protocol Albumin Human 100 mls @ 0 mls/hr 10/17/18 13:15 10/18/18 06:03 Flexbumin 25 % (Premix) IV 04/15/19 13:14 100 mls Q6HRS KIM Administration As Directed Epinephrine HCl 8 mg/ Sodium 258 mls @ 0 mls/hr 10/17/18 11:15 10/18/18 08:43 Chloride IV 04/15/19 11:14 258 mls CONT KIM Administration Protocol Per Protocol Octreotide Acetate 500 mcg/ 51 mls @ 5 mls/hr 10/18/18 10:30 Sodium Chloride IV 04/16/19 10:29 CONT KIM Lactulose 20 gm 10/09/18 16:00 10/18/18 08:47 Cephulac PO 04/07/19 15:59 20 gm TID KIM Administration Magnesium Sulfate 1 dose 10/15/18 17:24 Protocol Magnesium IV 04/13/19 17:23 AD PRN Pt on Electrolyte Protocol Protocol Midodrine 10 mg 10/06/18 16:30 10/18/18 06:04 Midodrine Hcl PO 04/04/19 16:29 10 mg Q8HRS KIM Administration Multivitamins/Minerals 1 each 10/06/18 09:00 10/18/18 08:45 Thera M Plus Tablet PO 04/04/19 08:59 Not Given DAILY KIM Ondansetron HCl 4 mg 10/05/18 22:37 10/16/18 06:47 Zofran IVP 04/03/19 22:36 4 mg Q4HRS PRN Administration Nausea/Vomiting, Can't Take PO Ondansetron HCl 4 mg 10/05/18 22:37 Zofran Odt PO 04/03/19 22:36 Q4HRS PRN Nausea/Vomiting, Use 1st Pantoprazole Sodium 40 mg 10/14/18 21:00 10/18/18 08:47 Protonix IVP 04/12/19 20:59 40 mg Q12 KIM Administration Potassium Chloride 1 dose 10/15/18 17:24 Protocol Potassium MISC 04/13/19 17:23 AD PRN Pt on Electrolyte Protocol Protocol Rifaximin 550 mg 10/07/18 11:30 10/18/18 08:47 Xifaxan PO 11/06/18 11:29 550 mg BID KIM Administration Protocol Thiamine HCl 100 mg 10/06/18 09:00 10/18/18 08:45 Vitamin B-1 PO 04/04/19 08:59 Not Given DAILY KIM Discontinued Medications Generic Name Dose Route Start Last Admin Trade Name Docq PRN Reason Stop Dose Admin Acetaminophen 1,000 mg 10/11/18 21:15 10/11/18 21:30 Tylenol PO 10/11/18 21:16 1,000 mg ONCE ONE Administration Albumin Human Confirm 10/08/18 11:44 Flexbumin 25 % (Premix) Administered 10/08/18 11:45 Dose 100 ml IV .STK-MED ONE Albumin Human Confirm 10/16/18 16:01 Alburx 5 Administered 10/16/18 16:02 Dose 250 ml IV .STK-MED ONE Calcium Chloride 1 gm 10/16/18 22:15 10/16/18 22:24 Calcium Chloride IV 10/16/18 22:16 1 gm ONCE ONE Administration Chlordiazepoxide HCl 25 mg 10/06/18 09:00 Librium PO 04/04/19 08:59 TID [facility] Dexamethasone 4 mg 10/13/18 17:25 Decadron Injection IVP 10/13/18 18:25 ONCE PRN PACU, Nausea/Vomiting Dexamethasone Confirm 10/13/18 17:27 Decadron Injection Administered 10/13/18 17:28 Dose 4 mg .ROUTE .STK-MED ONE Dexamethasone Confirm 10/16/18 14:51 Decadron Injection Administered 10/16/18 14:52 Dose 4 mg .ROUTE .STK-MED ONE Diazepam 2.5 - 5 mg 10/13/18 17:25 Valium IVP 10/13/18 18:26 Q5M PRN Agitation, Acute Epinephrine HCl Confirm 10/13/18 18:16 Epinephrine Administered 10/13/18 18:17 Dose 1 mg .ROUTE .STK-MED ONE Epinephrine HCl Confirm 10/13/18 18:16 Epinephrine Administered 10/13/18 18:17 Dose 1 mg IVP .STK-MED ONE Epinephrine HCl Confirm 10/13/18 18:21 Epinephrine Administered 10/13/18 18:22 Dose 1 mg .ROUTE .STK-MED ONE Etomidate 40 mg 10/07/18 03:39 10/07/18 03:40 Etomidate IV 10/07/18 03:40 40 mg ONCE ONE Administration Fentanyl 25 - 100 mcg 10/06/18 02:28 Sublimaze IVP 10/06/18 03:28 Q5M PRN PACU, IMMEDIATE Pain control Fentanyl 25 - 100 mcg 10/13/18 17:25 Sublimaze IVP 10/13/18 18:25 Q5M PRN PACU, IMMEDIATE Pain control Fentanyl Confirm 10/13/18 17:28 Sublimaze Administered 10/13/18 17:29 Dose 100 mcg .ROUTE .STK-MED ONE Fentanyl Confirm 10/13/18 17:54 Sublimaze Administered 10/13/18 17:55 Dose 100 mcg .ROUTE .STK-MED ONE Fentanyl Confirm 10/14/18 12:25 Sublimaze Administered 10/14/18 12:26 Dose 100 mcg .ROUTE .STK-MED ONE Fentanyl Confirm 10/14/18 12:54 Sublimaze Administered 10/14/18 12:55 Dose 100 mcg .ROUTE .STK-MED ONE Fentanyl Confirm 10/16/18 10:28 Sublimaze Administered 10/16/18 10:29 Dose 100 mcg .ROUTE .STK-MED ONE Flumazenil 0.2 - 0.5 mg 10/06/18 11:03 10/06/18 13:12 Romazicon IVP 04/04/19 11:02 0.5 mg PRN PRN Administration Resp Rate Below 10 Furosemide 40 mg 10/07/18 11:02 10/07/18 11:25 Lasix Injection IVP 10/07/18 11:03 40 mg ONCE ONE Administration Furosemide 20 mg 10/11/18 11:00 10/12/18 09:04 Lasix PO 04/09/19 10:59 20 mg DAILY KIM Administration Furosemide 40 mg 10/13/18 09:00 10/13/18 08:43 Lasix PO 04/11/19 08:59 40 mg DAILY KIM Administration Furosemide 40 mg 10/14/18 19:20 10/16/18 16:15 Lasix Injection IVP 04/12/19 19:19 Not Given BIDDIUR KIM Glycopyrrolate Confirm 10/16/18 14:50 Glycopyrrolate Administered 10/16/18 14:51 Dose 0.2 mg .ROUTE .STK-MED ONE Glycopyrrolate Confirm 10/16/18 14:50 Glycopyrrolate Administered 10/16/18 14:51 Dose 0.2 mg .ROUTE .STK-MED ONE Heparin Sodium (Porcine) Confirm 10/16/18 10:20 Heparin Flush 2,000 Unit/Ns 1,000 Ml Administered 10/16/18 10:21 Dose 4,000 unit .ROUTE .STK-MED ONE Hydrogen Peroxide Confirm 10/12/18 04:06 Hydrogen Peroxide Administered 10/12/18 04:07 Dose 23.6 serge TP .STK-MED ONE Hydromorphone HCl 0.1 - 0.4 mg 10/13/18 17:25 Dilaudid IVP 10/13/18 18:25 Q10M PRN PACU, PAIN Famotidine/Sodium Chloride 50 mls @ 200 mls/hr 10/05/18 22:03 10/05/18 22:08 Pepcid 20 Mg (Premix) IV 10/05/18 22:17 50 mls EDNOW ONE Administration Octreotide Acetate 500 mcg/ 51 mls @ 5 mls/hr 10/05/18 22:45 10/05/18 23:03 Sodium Chloride IV 04/03/19 22:44 51 mls CONT KIM Administration Sodium Chloride 1,000 mls @ 50 mls/hr 10/05/18 22:45 10/05/18 23:11 Ns IV 10/06/18 18:44 1,000 mls CONT KIM Administration Phytonadione 10 mg/ Sodium 51 mls @ 102 mls/hr 10/05/18 23:05 10/06/18 00:55 Chloride IV 10/05/18 23:34 51 mls EDNOW ONE Administration Octreotide Acetate 500 mcg/ 51 mls @ 5 mls/hr 10/05/18 23:30 Sodium Chloride IV 04/03/19 23:29 CONT KIM Ampicillin Sodium/Sulbactam 50 mls @ 200 mls/hr 10/06/18 00:30 10/06/18 01:40 Sodium 1.5 gm/ Sodium Chloride IV 10/06/18 00:44 50 mls ONCE ONE Administration Protocol Phytonadione 10 mg/ Sodium 51 mls @ 204 mls/hr 10/06/18 09:52 10/06/18 10:50 Chloride IV 10/06/18 10:06 51 mls ONCE ONE Administration Dexmedetomidine HCl 400 mcg/ 104 mls @ 0 mls/hr 10/06/18 11:30 10/08/18 04:18 Sodium Chloride IV 04/04/19 11:29 104 mls CONT KIM Administration Protocol Titrate Thiamine HCl 500 mg/ Sodium 105 mls @ 210 mls/hr 10/06/18 11:15 10/08/18 08: 31 Chloride IV 10/08/18 09:29 105 mls DAILY KIM Administration Propofol 100 mls @ 0 mls/hr 10/07/18 04:30 10/09/18 08:07 Diprivan 10 Mg/Ml (Premix) IV 04/05/19 04:29 100 mls CONT KIM Administration Protocol Per Protocol Albumin Human 250 mls @ 0 mls/hr 10/08/18 06:28 10/08/18 06:43 Alburx 5 IV 10/08/18 06:29 250 mls ONCE ONE Administration As Directed Albumin Human 100 mls @ 0 mls/hr 10/08/18 11:40 10/08/18 11:48 Flexbumin 25 % (Premix) IV 10/08/18 11:41 100 mls ONCE ONE Administration As Directed Albumin Human 250 mls @ 0 mls/hr 10/09/18 04:00 10/09/18 03:47 Alburx 5 IV 10/09/18 04:01 250 mls ONCE ONE Administration As Directed Dextrose/Sodium Chloride 1,000 mls @ 100 mls/hr 10/10/18 08:30 10/10/18 19:18 D5w 1/2 Ns IV 04/08/19 08:29 1,000 mls CONT KIM Administration Phytonadione 10 mg/ Sodium 51 mls @ 204 mls/hr 10/13/18 13:26 10/13/18 14:38 Chloride IV 10/13/18 13:40 51 mls ONCE ONE Administration Sodium Chloride 1,000 mls @ 0 mls/hr 10/13/18 13:28 10/13/18 13:45 Ns IV 10/13/18 13:29 1,000 mls ONCE ONE Administration Wide Open Ceftriaxone Sodium/Dextrose 50 mls @ 100 mls/hr 10/13/18 18:30 10/14/18 09:48 Rocephin 1 Gm (Premix) IV 11/12/18 18:29 50 mls DAILY KIM Administration Protocol Octreotide Acetate 500 mcg/ 51 mls @ 5 mls/hr 10/14/18 13:00 10/17/18 02:18 Sodium Chloride IV 04/12/19 12:59 51 mls CONT KIM Administration Lactated Ringer's 1,000 mls @ 0 mls/hr 10/14/18 11:53 10/14/18 14:22 Lr IV 10/14/18 11:54 Not Given ONCE ONE KVO Ceftriaxone Sodium 1 gm/ 50 mls @ 100 mls/hr 10/15/18 09:00 10/16/18 14:54 Sodium Chloride IV 10/16/18 15:00 Not Given DAILY KIM Norepinephrine 4 mg/ Sodium 504 mls @ 0 mls/hr 10/16/18 09:30 10/16/18 21:00 Chloride IV 04/14/19 09:29 504 mls CONT KIM Administration Protocol Per Protocol Epinephrine HCl 8 mg/ Sodium 258 mls @ 0 mls/hr 10/16/18 16:00 10/16/18 16:15 Chloride IV 10/16/18 16:01 Not Given ONCE ONE Protocol Per Protocol Albumin Human 250 mls @ 0 mls/hr 10/16/18 16:30 10/16/18 16:35 Alburx 5 IV 10/16/18 16:31 250 mls ONCE ONE Administration As Directed Albumin Human 200 mls @ 0 mls/hr 10/17/18 08:58 10/17/18 09:23 Flexbumin 25 % (Premix) IV 10/17/18 08:59 Not Given ONCE ONE As Directed Albumin Human 250 mls @ 0 mls/hr 10/17/18 12:59 10/17/18 13:10 Alburx 5 IV 10/17/18 13:00 250 mls ONCE ONE Administration As Directed Magnesium Sulfate/Dextrose 100 mls @ 100 mls/hr 10/18/18 09:08 10/18/18 09:53 Magnesium Sulf 1 Gm (Premix) IV 10/18/18 10:07 100 mls ONCE ONE Administration Iopamidol Confirm 10/14/18 17:01 Isovue-300 Administered 10/14/18 17:02 Dose 100 ml .ROUTE .STK-MED ONE Iopamidol Confirm 10/16/18 10:19 Isovue-300 Administered 10/16/18 10:20 Dose 100 ml .ROUTE .STK-MED ONE Iopamidol Confirm 10/16/18 13:11 Isovue-300 Administered 10/16/18 13:12 Dose 500 ml .ROUTE .STK-MED ONE Ketamine HCl Confirm 10/16/18 18:31 Ketamine Administered 10/16/18 18:32 Dose 200 mg .ROUTE .STK-MED ONE Ketamine HCl 200 mg 10/16/18 19:00 10/16/18 17:00 Ketamine IV 10/16/18 19:01 200 mg ONCE ONE Administration Labetalol HCl 5 - 10 mg 10/13/18 17:25 Trandate Injection IVP 10/13/18 18:25 Q10M PRN PACU, Hypertension Lactulose 20 gm 10/06/18 14:15 10/08/18 15:24 Cephulac TUBE 04/04/19 14:14 20 gm TID KIM Administration Lidocaine 2 serge 10/07/18 09:13 10/07/18 10:55 Glydo TP 10/07/18 09:14 2 serge ONCALL ONE Administration Lidocaine HCl 1 - 300 mg 10/07/18 09:13 10/07/18 10:55 Lidocaine Hcl 1% MISC 10/07/18 09:14 300 mg ONCALL ONE Administration Lidocaine HCl Confirm 10/13/18 17:27 Lidocaine Hcl 2% Administered 10/13/18 17:28 Dose 100 mg .ROUTE .STK-MED ONE Lorazepam 0 mg 10/06/18 11:03 10/07/18 01:13 Ativan Injection IVP 04/04/19 11:02 2 mg Q1H PRN Administration Alcohol Withdrawal w/IV access Protocol Lorazepam 2 mg 10/06/18 12:00 10/06/18 11:48 Ativan Injection IVP 10/10/18 11:59 Not Given Q6HRS KIM Meperidine HCl 12.5 - 25 mg 10/13/18 17:25 Demerol IVP 10/13/18 18:26 Q10M PRN PACU, shivering/rigors Metoclopramide HCl 10 mg 10/14/18 09:45 10/14/18 11:00 Reglan Injection IVP 10/14/18 09:46 10 mg ONCE ONE Administration Midazolam HCl 1 mg 10/07/18 03:39 10/07/18 03:40 Versed IVP 10/07/18 03:40 1 mg ONCE ONE Administration Miscellaneous 1 each 10/05/18 22:45 Pharmacy To Dose Medication [facility] [place] 04/03/19 22:44 AD KIM Multivitamins/Iron 1 ml 10/06/18 09:00 Vi-Aviva + Iron PO 04/04/19 08:59 DAILY KIM Naloxone HCl 0.1 mg 10/06/18 02:28 Narcan IVP 10/06/18 03:28 PRN PRN PACU Resp Rate <10/min Naloxone HCl 0.1 mg 10/13/18 17:25 Narcan IVP 10/13/18 18:25 Q2M PRN PACU Resp Rate <10/min Naloxone HCl 0.1 mg 10/16/18 15:39 Narcan IVP 10/16/18 16:39 Q2M PRN PACU Resp Rate <10/min Neostigmine Methylsulfate Confirm 10/16/18 14:50 Neostigmine Methylsulfate Administered 10/16/18 14:51 Dose 10 mg .ROUTE .STK-MED ONE Octreotide Acetate 50 mcg 10/05/18 22:42 10/05/18 22:59 Octreotide Acetate IVP 10/05/18 22:43 50 mcg ONCE ONE Administration Octreotide Acetate 50 mcg 10/14/18 13:31 10/14/18 14:04 Octreotide Acetate IVP 10/14/18 13:32 50 mcg ONCE ONE Administration Ondansetron HCl Confirm 10/05/18 22:24 Zofran Administered 10/05/18 22:25 Dose 4 mg .ROUTE .STK-MED ONE Ondansetron HCl 2 - 4 mg 10/13/18 17:25 Zofran IVP 10/13/18 18:25 Q10M PRN PACU, Nausea/Vomiting Ondansetron HCl Confirm 10/13/18 17:27 Zofran Administered 10/13/18 17:28 Dose 4 mg .ROUTE .STK-MED ONE Ondansetron HCl Confirm 10/16/18 14:51 Zofran Administered 10/16/18 14:52 Dose 4 mg .ROUTE .STK-MED ONE Oxycodone HCl 5 - 10 mg 10/13/18 17:25 Oxycodone Ir PO 10/13/18 18:25 Q4HRS PRN PACU, Pain Severe Pantoprazole Sodium 40 mg 10/06/18 04:03 10/05/18 22:29 Protonix IVP 04/04/19 04:02 40 mg Q6H KIM Administration Pantoprazole Sodium Confirm 10/05/18 22:26 Protonix Administered 10/05/18 22:27 Dose 40 mg .ROUTE .STK-MED ONE Pantoprazole Sodium 40 mg 10/06/18 04:00 Protonix IVP 04/04/19 03:59 Q6H KIM Pantoprazole Sodium 40 mg 10/06/18 09:00 10/07/18 10:57 Protonix PO 04/04/19 08:59 Not Given DAILY KIM Pantoprazole Sodium 40 mg 10/07/18 09:45 10/10/18 09:16 Protonix IVP 04/05/19 09:44 40 mg DAILY KIM Administration Pantoprazole Sodium 40 mg 10/11/18 09:00 10/13/18 08:44 Protonix PO 04/09/19 08:59 40 mg DAILY KIM Administration Pantoprazole Sodium 40 mg 10/13/18 13:45 10/14/18 14:56 Protonix IVP 04/11/19 13:44 Not Given Q6H KIM Phenylephrine HCl Confirm 10/13/18 17:54 Neosynephrine Administered 10/13/18 17:55 Dose 1,000 mcg .ROUTE .STK-MED ONE Phenylephrine HCl Confirm 10/16/18 10:30 Neosynephrine Administered 10/16/18 10:31 Dose 1,000 mcg .ROUTE .STK-MED ONE Polyethylene Glycol/Electrolytes 1,000 ml 10/06/18 02:11 10/06/18 05:20 Gavilyte - G PO 10/06/18 02:12 1,000 ml ONCE ONE Administration Polyethylene Glycol/Electrolytes 3,000 ml 10/08/18 15:43 10/08/18 21:16 Gavilyte - G PO 10/08/18 15:44 3,000 ml ONCE ONE Administration Promethazine HCl 6.25 - 12.5 mg 10/13/18 17:25 Phenergan IVP 10/13/18 18:25 Q5M PRN PACUNausea/Vomiting, Unable PO Propofol Confirm 10/06/18 01:30 Diprivan Administered 10/06/18 01:31 Dose 200 mg .ROUTE .STK-MED ONE Propofol Confirm 10/06/18 01:30 Diprivan Administered 10/06/18 01:31 Dose 200 mg .ROUTE .STK-MED ONE Propofol Confirm 10/07/18 03:42 Diprivan 10 Mg/Ml (Premix) Administered 10/07/18 03:43 Dose 1,000 mg IV .STK-MED ONE Propofol Confirm 10/13/18 17:28 Diprivan Administered 10/13/18 17:29 Dose 200 mg .ROUTE .STK-MED ONE Propofol Confirm 10/14/18 12:25 Diprivan Administered 10/14/18 12:26 Dose 200 mg .ROUTE .STK-MED ONE Propofol Confirm 10/16/18 09:32 Diprivan 10 Mg/Ml (Premix) Administered 10/16/18 09:33 Dose 1,000 mg IV .STK-MED ONE Propofol Confirm 10/16/18 17:56 Diprivan 10 Mg/Ml (Premix) Administered 10/16/18 17:57 Dose 1,000 mg IV .STK-MED ONE Rocuronium [place] Confirm 10/16/18 12:13 Zemuron Administered 10/16/18 12:14 Dose 100 mg .ROUTE .STK-MED ONE Rocuronium [place] Confirm 10/16/18 18:28 Zemuron Administered 10/16/18 18:29 Dose 100 mg .ROUTE .STK-MED ONE Rocuronium [place] 100 mg 10/16/18 18:10 10/16/18 18:49 Zemuron IV 10/16/18 18:11 100 mg ONCE ONE Administration Spironolactone 50 mg 10/12/18 11:45 10/12/18 15:51 Aldactone PO 04/10/19 11:44 50 mg DAILY KIM Administration Spironolactone 100 mg 10/13/18 09:00 10/16/18 08:58 Aldactone PO 04/11/19 08:59 Not Given DAILY KIM Succinylcholine Chloride Confirm 10/14/18 12:30 Quelicin Administered 10/14/18 12:31 Dose 200 mg IVP .STK-MED ONE Thiamine HCl 100 mg 10/09/18 11:03 Vitamin B-1 PO 04/07/19 11:02 DAILY [facility] Physical Exam - Physical Exam General Appearance: alert, no apparent distress Respiratory: lungs clear Abdomen: normal bowel sounds, non-tender, soft Skin: normal color Extremities: pedal edema Neuro/Psych: alert, normal mood/affect, oriented x 3 ICD10 Worksheet Patient Problems: Problems Problem Status Onset Anemia Acute Renal insufficiency Acute Upper GI bleed Acute Left rib fracture Acute
[2018-10-18] MEDS ORDERED: fentaNYL 100 MCG/2 ML INJ IVP PRN (10:57)
[2018-10-18] MEDS ORDERED: NALOXONE HCL 0.4 MG/ML INJ IVP PRN (10:57)
[2018-10-18] MEDS ORDERED: ONDANSETRON 4 MG/2 ML VIAL IVP PRN (10:57)
[2018-10-18] MEDS ORDERED: DIAZEPAM 10 MG/2 ML SYR IVP PRN (10:57)
--- NOTE | 2018-10-18 10:57 | PDANEPAE ---
ANE Past Medical History - Cardiovascular History Hx Hypertension: No Hx Arrhythmias: No Hx Chest Pain: No Hx Coronary Artery / Peripheral Vascular Disease: No Hx CHF / Valvular Disease: Yes Hx Palpitations: No Cardiovascular History Comment: severe AI, mod MR, current CHF - Pulmonary History Hx COPD: No Hx Asthma/Reactive Airway Disease: No Hx Recent Upper Respiratory Infection: Yes Hx Oxygen in Use at Home: No Hx Sleep Apnea: No Sleep Apnea Screening Result - Last Documented: Positive Pulmonary History Comment: influenza A currently - Endocrine History Hx Diabetes: No Hypothyroid: No Hyperthyroid: No Obesity: mild - Renal History Hx Renal Disorders: No - Liver History Hx Hepatic Disorders: Yes Hepatic History Comment: liver dysfuncion secondary to EtOH abuse - GI History Hx Gastrointestinal Disorders: Yes Gastrointestinal History Comment: GI bleed - Chronic Pain History Chronic Pain: No ANE Review of Systems Review of Systems: - Exercise capacity METS (RN): 3 METS ANE Patient History - Allergies Allergies/Adverse Reactions: No Known Allergies Allergy (Verified 07/15/18 13:24) - Home Medications Home medications: home medication list seen and reviewed Home Medications: Calcium Carbonate [Oyster Shell Calcium 500 mg (*)] 1,000 mg PO DAILY 10/06/18 [ Last Taken Unknown] Ferrous Sulfate [Ferrous Sulf 325 MG (*)] 325 mg PO DAILY 10/06/18 [Last Taken Unknown] [place]-3 Fatty Acids [Fish Oil 1000 mg (*)] 1,000 mg PO DAILY 10/06/18 [Last Taken Unknown] - NPO status NPO Status: no food or drink >8 hours NPO Since - Liquids (Date): 10/14/18 NPO Since - Liquids (Time): 00:00 NPO Since - Solids (Date): 10/14/18 NPO Since - Solids (Time): 00:00 - Anes Hx Anes Hx: no prior problems - Smoking Hx Smoking Status: Never smoked - Alcohol Use Alcohol Use: None ANE Labs/Vital Signs - Labs Result Diagrams: 10/18/18 05:55 10/18/18 05:55 - Vital Signs Blood Pressure: 158/34 Heart Rate: 106 Respiratory Rate: 15 O2 Sat (%): 93 Height: 180.34 cm Weight: 100.7 kg ANE Physical Exam - Airway Neck exam: FROM Mallampati Score: Class 3 Mouth exam: normal dental/mouth exam - Pulmonary Pulmonary: no respiratory distress, no rales or rhonchi, clear to auscultation - Cardiovascular Cardiovascular: regular rate and rhythym, tachycardia - ASA Status ASA Status: IV ANE Anesthesia Plan Anesthesia Plan: general endotracheal anesthesia
[2018-10-18] MEDS ORDERED: PROPOFOL/EMULSION 500 MG/50 ML BOTTLE IV ONE (11:07)
[2018-10-18] MEDS ORDERED: fentaNYL 100 MCG/2 ML INJ ONE (11:07)
[2018-10-18] MEDS: OCTREOTIDE ACETATE 500 MCG in NS 50 ML IV SCH ×2 (11:08→15:30)
[2018-10-18] MEDS ORDERED: SUCCINYLCHOLINE CHLORIDE 200 MG/10 ML SYR IVP ONE (11:09)
[2018-10-18] MEDS ORDERED: DEXAMETHASONE 4 MG/ML VIAL ONE (11:09)
[2018-10-18] MEDS ORDERED: ETOMIDATE 20 MG/10 ML VIAL ONE (11:09)
[2018-10-18] MEDS ORDERED: LIDOCAINE 2% 2 ML INJ ONE (11:09)
--- NOTE | 2018-10-18 11:57 | GIREPORT ---
[facility] - Endoscopy Department Patient Name: Solo Mejia Procedure Date: 10/18/2018 11:25 AM Patient Type: Inpatient Attending MD/ ER Physician: Maverick Gu MD Procedure: Upper GI endoscopy Indications: Hematochezia, Gastric varices, Drop in Hct and hematochezia. S/p TIPS a nd embolization of gastric varices. Providers: Maverick Gu MD Medicines: General Anesthesia Complications: No immediate complications. Description of Procedure: After obtaining informed consent, the endoscope was passed under direct vision. Throughout the procedure, the patient's blood pressure, pulse, and oxygen saturations were monitored continuously. The Endoscope was intro duced through the mouth, and advanced to the second part of duodenum. The [facility] er GI endoscopy was accomplished without difficulty. The patient tolerated th e procedure well. Findings: The examined esophagus was normal. No varices. A large amount of food (residue) was found in the gastric fundus. A medium amount of food (residue) was found in the gastric antrum. No blood seen in the stomach. No obvious bleeding identified. Complete fundus not visualized due to retained food. The examined duodenum was normal. Estimated Blood Loss: Estimated blood loss: none. Post Op Diagnosis: - Normal esophagus. - A large amount of food (residue) in the stomach. - A medium amount of food (residue) in the stomach. - Normal examined duodenum. - No specimens collected. - No signs of active bleeding Recommendation: - Observe patient's clinical course. - Clear liquid diet. - Continue on Octreotide for next 24 hours. - Thank you for allowing me to participate in the care of your patient. Attending Participation: I personally performed the entire procedure. Maverick Gu MD Maverick Gu MD 10/18/2018 11:57:17 AM This report has been signed electronicallySttianna Gu MD Number of Addenda: 0 Note Initiated On: 10/18/2018 11:25 AM [email or web address]
--- NOTE | 2018-10-18 12:02 | PDINTPN ---
[facility] Progress Note Assessment/Plan: ASSESSMENT 53-year-old male with end-stage alcoholic cirrhosis with recurrent acute blood loss anemia from GI bleed due to gastric varices complicated by severe AR, MR, TR and elevated RVSP # Shock. hemorrhagic from variceal bleed worsened by severe aortic regurgitation causing wide pulse pressure. Also component of vasoplegia from prolonged hypotension. Repeat EGD 10/18/18 w/o e/o bleeding # acute on chronic blood loss anemia. Due to advanced cirrhosis. required multiple units of PRBCs. No e/o active bleeding from esophagus to duodenum on repeat EGD 10/18/18 # gastric variceal bleed. Status post modified tips with gastric varices embolization 10/16/18. # Severe valvular pathology, elevated RVSP and hypervolemia precluded conventional tips and liver disease, coagulopathy precludes open AVR. Not a candidate for TAVR given lack of stenosis # cirrhosis. advanced. etoh. not a transplant candidate # severe aortic regurgitation, mitral regurgitation tricuspid regurgitation with elevated pulmonary artery pressures as evidence by TTE # encephalopathy hepatic plus critical illness # type 4 respiratory failure. reintubated 10/16/18, extubated 10/17/18 PLAN #continue vasopressor support with vasopressin and epinephrine given concomitant aortic regurgitation # hydrocortisone 50 mg Q 6 started 10/17/2018 # continue octreotide drip # PPI IV BID # continue ceftriaxone given cirrhosis related varices bleed # transfuse as needed for hemoglobin less than 7, platelets less than 15. Will not give FFP unless actively bleeding # check TEG as this is a more precise marker of coagulopathy than INR in cirrhosis. # assuming significant coagulopathy will change right IJ Cordis and triple-lumen (also site of TIPS access) for left subclavian line giving on going oozing from site and difficulties keeping sterile # Feeding - clear liquid diet # Analgesia none # Sedation none # Thromboprophylaxis - SCDs, pharmacologic prophylaxis contraindicated secondary GI bleed # Head of bed elevated # Ulcer prophylaxis - PPI # Glucose SSI # Skin no skin breakdown # Delirium - delirium precautions # DNR full care Imaging Person reviewed and interpreted radiology images well as formal radiology reads. 10/17/2018 CXR mild cardiomegaly, central venous catheter in place, no new infiltrate no significant pleural effusions no significant interstitial pulmonary edema 10/14/2018 CT abdomen and pelvis-stress with portal venous hypertension, moderate ascites portosystemic varices with shunts. Diminutive yet patent portal venous symptoms, cardiomegaly pericardial effusion, pleural effusions 10/14/2018 TTE LV mildly dilated, LVEF 55%, mild LVH, RV size and function normal , LA severely dilated, moderate to severe MR, severe AR, moderate to severe TR, RVSP 55 Patient is critically ill due to multiorgan failure total critical care time excluding any procedures 88 min which was spent reviewing chart evaluating patient at bedside, titrating vasopressors, adjusting ventilator and discussions with nursing, GI and hospital medicine Subjective: Continued to have liquid maroon bowel movements overnight, continued on vasopressors steroids added yesterday with some improvement blood pressure. Mental status improving. No new fevers. Cordis site continues to ooze in nursing with difficulties keeping bandage on. Objective: Vital Signs Temp Pulse Resp BP Pulse Ox 36.7 C 108 H 18 173/48 H 92 10/18/18 10:00 10/18/18 11:00 10/18/18 11:00 10/18/18 11:00 10/18/18 11:00 Laboratory Results 10/18/18 11:20 10/18/18 05:55 10/17/18 10/18/18 10/19/18 05:59 05:59 05:59 Intake Total 3738 2224.8 600 Output Total 8795 2605 Balance -5057 -380.2 600 PT 20.9 SEC (12.0-15.0) H 10/16/18 12:47 INR 1.90 (0.83-1.16) H 10/16/18 12:47 Physical Exam - Physical Exam General Appearance: WD/WN, other (Somnolent, arousable) Neck: non-tender, full range of motion Respiratory: chest non-tender, lungs clear Cardiac/Chest: edema, other (Mounting carotid pulse consistent with AR) Abdomen: normal bowel sounds, non-tender Skin: normal color, warm/dry Neuro/Psych: no motor/sensory deficits, alert ICD10 Worksheet Patient Problems: Problems Problem Status Onset Anemia Acute Renal insufficiency Acute Upper GI bleed Acute Left rib fracture Acute
--- NOTE | 2018-10-18 12:27 | POSTANESTH ---
Post Anesthetic Evaluation Cardiovascular Status: Similar to Pre-Op Cond Respiratory Status: Similar to Pre-op Cond. Level of Consciousness/Mental Status: Can Participate in Eval, Moderately Sleepy Pain Control: Adequate, Prn Tx Ordered Nausea/Vomiting Control: Adequate, Prn Tx Ordered Complications Possibly Related to Anesthesia: None Noted
--- NOTE | 2018-10-18 13:09 | HOSPPROG ---
Hospitalist Progress Note Assessment/Plan: 53 yo M with alcoholic cirrhosis, severe aortic regurgitation thought 2/2 bacterial endocarditis p/w GIB. Course complicated by encephalopathy and respiratory failure. Extubated 10/09. two large volume UGIB; s/p TIPS and elective intubation for hemorrhagic shock and subsequent resuscitation. Acute GIB 2/2 gastric varices: not seen on initial EGD, re-bled yesterday but too much blood to visualize on EGD. 3rd EGD today confirmed gastric variceal bleed. Discussed with Dr. Henson. - Octreotide bolus / drip - cont IV PPI 10/16- large volume variceal bleed now s/p TIPS life threatening bleed 10/17: appears to have stabilized dc octreotide today hemorrhagic shock: complicated by AI, cirrhosis (AI and cirrhosis will yield low MAP's) currently on vaso and norepi still on pressors despite dc of propofol MAP 72 right now trial of weaning epi Decompensated cirrhosis with ascites: MELD 19. s s/p TIPS continue rifaximin ABLA on chronic anemia: D/t above, s/p total 6 u prbc's (3 more yest). H&H stable this am. - cont to trend h&h Coagulopathy of liver disease: S/P 4u FFP, IV vitamin K Edema: D/t low albumin/cirrhosis - Lasix / Spironolactone 10/15- has 4+ edema 10/17: ultimately needs diuresis, await hemodynamic stability and increased CVP Acute respiratory failure: will electively intubate today given resp distress, need for volume resuscitation cxr today, santiago try to extubate Severe aortic regurgitation: Reportedly d/t prior h/o endocarditis in 2017. Rpt echo with wide open valve. - Cardiology following, high risk for valve replacement presuming other varices present Elevated troponin: in setting of volume overload/anemia and unable to clear with renal failure. Trended down. - Not an aspirin candidate EMMANUELLE: Pre-renal, improved with BP support, Cr 2.2 --> 1.1 - Cont midodrine 10mg tid, will try to decrease prior to dc follow Hepatic encephalopathy: Improved - cont Rifaximin, Lactulose H/o EtOH abuse: Patient and family deny use since 06/2018. No w/d. Thrombocytopenia: D/t splenic sequestration. - consider plt transfusion if plts <50K and active bleeding Hyperkalemia: 2/2 EMMANUELLE. Resolved, monitor VTE ppx: SCDs, no pharm with GIB Code: full Diet: resume low sodium diet Dispo: cont inpt, Subjective: case d/w Irene Dupont and Riccardo. extubated. bloody stool this AM Objective: Vital Signs Temp Pulse Resp BP Pulse Ox 36.7 C 103 H 13 154/39 H 99 10/18/18 10:00 10/18/18 12:00 10/18/18 12:00 10/18/18 12:00 10/18/18 12:00 Laboratory Results 10/18/18 11:20 10/18/18 05:55 10/17/18 10/18/18 10/19/18 05:59 05:59 05:59 Intake Total 3738 2224.8 600 Output Total 8795 2605 Balance -5057 -380.2 600 PT 20.9 SEC (12.0-15.0) H 10/16/18 12:47 INR 1.90 (0.83-1.16) H 10/16/18 12:47 - Physical Exam Constitutional: no apparent distress, appears nourished Eyes: PERRL, icteric sclera Ears, Nose, Mouth, Throat: moist mucous membranes, hearing normal Cardiovascular: regular rate and rhythym, diastolic murmur Respiratory: no respiratory distress, no rales or rhonchi Gastrointestinal: normoactive bowel sounds, soft, non-tender abdomen Genitourinary: No liao in urethra Skin: warm, normal color Neurologic: No AAOx3 Psychiatric: interacting appropriately ICD10 Worksheet Patient Problems: Problems Problem Status Onset Anemia Acute Renal insufficiency Acute Upper GI bleed Acute Left rib fracture Acute
[2018-10-18] MEDS ORDERED: CEFTAZIDIME PENTAHYDRATE IV SCH (14:00)
[2018-10-18] MEDS ORDERED: D5W IV SCH (14:00)
--- NOTE | 2018-10-18 14:40 | SUROPNOTE ---
[facility] Operative Report - Surgery Central Line Insertion Procedure: Left Subclavian CVC Attending Physician: Dr. Everardo Dupont Anesthesiologist: N/A Anesthesia Type: N/A Indication: vascular access, right IJ Cordis and CVC malfunction Consent: the patient and wer counseled as to the risks, benefits, and alternatives to the procedure and they agreed to proceed. Signed consent was obtained and placed into chart. Time-Out: prior to the procedure, time-out was performed to verify patient's name, date of , correct procedure, correct side, correct site, correct patient position, correct radiographic data, and special equipment required. Pre-Op Dx: hypotension-presumed sepsis Post-Op Dx: hypotension-presumed sepsis Medications: none Description: After patient's coagulopathy was corrected with platelets and cryoprecipitate procedure was commenced. Hand hygiene was performed. Pt was positioned supine and appropriate landmarks were identified (site was selected as the optimal site for procedure, given considerations of sterility and safety) . Skin above the left clavicle and left chest were prepped with Chloraprep ( with time allowed to dry) prior to catheter insertion and with maximal sterile precautions (including gown, sterile gloves, mask, cap, and large sterile draping). The site was locally anesthetized with lidocaine 1% (2 ml). Using landmarks, the left subclavian vein was punctured with an 18 gauage finder needle -> passage of guidewire -> passage of guidewire -> passage of dilator - > passage of CVC over guidewire. Return of venous blood from all ports, catheter was flushed. Catheter was sutured in place with silk suture and dressed with sterile dressing. Chest x-ray was ordered and pending at time of note EBL: 0 ml Complications: none Specimens Sent: none Implants: N/A F/U: routine CVC care Everardo Dupont MD Pulmonary, Critical Care and Sleep Medicine [phone]
[2018-10-19] MEDS: OCTREOTIDE ACETATE 500 MCG in NS 50 ML IV SCH (00:20)
[2018-10-19] MEDS: VASOPRESSIN 25 UNIT in NS 250 ML IV SCH ×2 (01:38→18:08)
[2018-10-19] MEDS: HYDROCORTISONE 100 MG/2 ML VIAL IVP SCH ×4 (05:46→23:39)
[2018-10-19] MEDS: ALBUMIN 25% 100 ML IV SCH ×4 (05:46→23:39)
[2018-10-19] MEDS: MIDODRINE HCL 10 MG TAB PO SCH ×2 (05:46→14:36)
--- NOTE | 2018-10-19 08:36 | SOAPPROG ---
JAL[facility] Progress Note Assessment/Plan: Assessment: 53 year old alcoholic liver disease with cirrhosis. 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 UGI Bleed s/p IR intervention with TIPS and coil embolization of right coronary vein and gastrorenal shunt supplying large gastric varices. EGD yesterday without evidence of active bleeding. Gastric varices appeared to have been successfully decompressed with previous TIPS and embolization. Had normal BM without blood. Hct stable. Tolerating regular diet. Plan: 1. Can d/c Octreotide today 2. Can switch to PO Pantoprazole 40 mg BID and D/C IV Pantoprazole 3.Continue regular diet 10/19/18 08:33 Subjective: CC: GI Bleed, gastric varices. AI with endocarditis. Tolerating PO, No signs or symptoms of GI bleeding. Patient requests Mcdonnell catheter to be removed Objective: Vital Signs Temp Pulse Resp BP Pulse Ox 36.5 C 92 22 H 107/44 L 97 10/19/18 08:00 10/19/18 08:00 10/19/18 08:00 10/19/18 08:00 10/19/18 08:00 Laboratory Results 10/19/18 06:15 10/19/18 06:15 10/18/18 10/19/18 10/20/18 05:59 05:59 05:59 Intake Total 2224.8 2135 Output Total 2605 1730 Balance -380.2 405 PT 20.9 SEC (12.0-15.0) H 10/16/18 12:47 INR 1.90 (0.83-1.16) H 10/16/18 12:47 Generic Name Dose Route Start Last Admin Trade Name Freq PRN Reason Stop Dose Admin Acetaminophen 650 mg 10/12/18 11:32 10/15/18 18:37 Tylenol PO 04/10/19 11:31 650 mg Q6HRS PRN Administration Pain, Mild/Fever, Can Take PO Alteplase, Recombinant 2 mg 10/06/18 09:44 Cathflo Activase IVP 04/04/19 09:43 PRN PRN Per PICC line policy Benzonatate 100 mg 10/12/18 16:59 10/13/18 08:44 Tessalon Pearles PO 04/10/19 16:58 100 mg TID PRN Administration Cough, Mild Ferrous Sulfate 325 mg 10/11/18 09:00 10/18/18 08:45 Ferrous Sulfate PO 04/09/19 08:59 Not Given DAILY KIM Folic Acid 1 mg 10/06/18 09:00 10/18/18 08:45 Folic Acid PO 04/04/19 08:59 Not Given DAILY KIM Hydrocortisone 50 mg 10/17/18 09:53 10/19/18 05:46 Solucortef IVP 04/15/19 09:52 50 mg Q6 KIM Administration Vasopressin 25 unit/ Sodium 251.25 mls @ 24 mls/hr 10/16/18 16:30 10/19/18 01 :38 Chloride IV 04/14/19 16:29 251.25 mls CONT KIM Administration Norepinephrine 16 mg/ Sodium 266 mls @ 0 mls/hr 10/16/18 22:00 10/17/18 07:55 Chloride IV 04/14/19 21:59 266 mls CONT KIM Administration Protocol Per Protocol Albumin Human 100 mls @ 0 mls/hr 10/17/18 13:15 10/19/18 05:46 Flexbumin 25 % (Premix) IV 04/15/19 13:14 100 mls Q6HRS KIM Administration As Directed Epinephrine HCl 8 mg/ Sodium 258 mls @ 0 mls/hr 10/17/18 11:15 10/18/18 08:43 Chloride IV 04/15/19 11:14 258 mls CONT KIM Administration Protocol Per Protocol Octreotide Acetate 500 mcg/ 51 mls @ 5 mls/hr 10/18/18 10:30 10/19/18 00:20 Sodium Chloride IV 04/16/19 10:29 51 mls CONT KIM Administration Ceftriaxone Sodium 1 gm/ 50 mls @ 100 mls/hr 10/19/18 09:00 Dextrose IV 11/18/18 08:59 DAILY KMI Lactulose 20 gm 10/09/18 16:00 10/18/18 21:53 Cephulac PO 04/07/19 15:59 Not Given TID KIM Magnesium Sulfate 1 dose 10/15/18 17:24 Protocol Magnesium IV 04/13/19 17:23 AD PRN Pt on Electrolyte Protocol Protocol Midodrine 10 mg 10/06/18 16:30 10/19/18 05:46 Midodrine Hcl PO 04/04/19 16:29 10 mg Q8HRS KIM Administration Multivitamins/Minerals 1 each 10/06/18 09:00 10/18/18 08:45 Thera M Plus Tablet PO 04/04/19 08:59 Not Given DAILY [facility] Ondansetron HCl 4 mg 10/05/18 22:37 10/16/18 06:47 Zofran IVP 04/03/19 22:36 4 mg Q4HRS PRN Administration Nausea/Vomiting, Can't Take PO Ondansetron HCl 4 mg 10/05/18 22:37 Zofran Odt PO 04/03/19 22:36 Q4HRS PRN Nausea/Vomiting, Use 1st Pantoprazole Sodium 40 mg 10/14/18 21:00 10/18/18 21:51 Protonix IVP 04/12/19 20:59 40 mg Q12 KIM Administration Potassium Chloride 1 dose 10/15/18 17:24 Protocol Potassium MISC 04/13/19 17:23 AD PRN Pt on Electrolyte Protocol Protocol Rifaximin 550 mg 10/07/18 11:30 10/18/18 21:51 Xifaxan PO 11/06/18 11:29 550 mg BID KIM Administration Protocol Thiamine HCl 100 mg 10/06/18 09:00 10/18/18 08:45 Vitamin B-1 PO 04/04/19 08:59 Not Given DAILY [facility] Discontinued Medications Generic Name Dose Route Start Last Admin Trade Name Freq PRN Reason Stop Dose Admin Acetaminophen 1,000 mg 10/11/18 21:15 10/11/18 21:30 Tylenol PO 10/11/18 21:16 1,000 mg ONCE ONE Administration Albumin Human Confirm 10/08/18 11:44 Flexbumin 25 % (Premix) Administered 10/08/18 11:45 Dose 100 ml IV .STK-MED ONE Albumin Human Confirm 10/16/18 16:01 Alburx 5 Administered 10/16/18 16:02 Dose 250 ml IV .STK-MED ONE Calcium Chloride 1 gm 10/16/18 22:15 10/16/18 22:24 Calcium Chloride IV 10/16/18 22:16 1 gm ONCE ONE Administration Chlordiazepoxide HCl 25 mg 10/06/18 09:00 Librium PO 04/04/19 08:59 TID [facility] Dexamethasone 4 mg 10/13/18 17:25 Decadron Injection IVP 10/13/18 18:25 ONCE PRN PACU, Nausea/Vomiting Dexamethasone Confirm 10/13/18 17:27 Decadron Injection Administered 10/13/18 17:28 Dose 4 mg .ROUTE .STK-MED ONE Dexamethasone Confirm 10/16/18 14:51 Decadron Injection Administered 10/16/18 14:52 Dose 4 mg .ROUTE .STK-MED ONE Dexamethasone Confirm 10/18/18 11:09 Decadron Injection Administered 10/18/18 11:10 Dose 4 mg .ROUTE .STK-MED ONE Diazepam 2.5 - 5 mg 10/13/18 17:25 Valium IVP 10/13/18 18:26 Q5M PRN Agitation, Acute Diazepam 2.5 - 5 mg 10/18/18 10:57 Valium IVP 10/18/18 11:58 Q5M PRN PACU, Muscle Spasms Epinephrine HCl Confirm 10/13/18 18:16 Epinephrine Administered 10/13/18 18:17 Dose 1 mg .ROUTE .STK-MED ONE Epinephrine HCl Confirm 10/13/18 18:16 Epinephrine Administered 10/13/18 18:17 Dose 1 mg IVP .STK-MED ONE Epinephrine HCl Confirm 10/13/18 18:21 Epinephrine Administered 10/13/18 18:22 Dose 1 mg .ROUTE .STK-MED ONE Etomidate 40 mg 10/07/18 03:39 10/07/18 03:40 Etomidate IV 10/07/18 03:40 40 mg ONCE ONE Administration Etomidate Confirm 10/18/18 11:09 Etomidate Administered 10/18/18 11:10 Dose 20 mg .ROUTE .STK-MED ONE Fentanyl 25 - 100 mcg 10/06/18 02:28 Sublimaze IVP 10/06/18 03:28 Q5M PRN PACU, IMMEDIATE Pain control Fentanyl 25 - 100 mcg 10/13/18 17:25 Sublimaze IVP 10/13/18 18:25 Q5M PRN PACU, IMMEDIATE Pain control Fentanyl Confirm 10/13/18 17:28 Sublimaze Administered 10/13/18 17:29 Dose 100 mcg .ROUTE .STK-MED ONE Fentanyl Confirm 10/13/18 17:54 Sublimaze Administered 10/13/18 17:55 Dose 100 mcg .ROUTE .STK-MED ONE Fentanyl Confirm 10/14/18 12:25 Sublimaze Administered 10/14/18 12:26 Dose 100 mcg .ROUTE .STK-MED ONE Fentanyl Confirm 10/14/18 12:54 Sublimaze Administered 10/14/18 12:55 Dose 100 mcg .ROUTE .STK-MED ONE Fentanyl Confirm 10/16/18 10:28 Sublimaze Administered 10/16/18 10:29 Dose 100 mcg .ROUTE .STK-MED ONE Fentanyl 25 - 100 mcg 10/18/18 10:57 Sublimaze IVP 10/18/18 11:58 Q5M PRN PACU, IMMEDIATE Pain control Fentanyl Confirm 10/18/18 11:07 Sublimaze Administered 10/18/18 11:08 Dose 100 mcg .ROUTE .STK-MED ONE Flumazenil 0.2 - 0.5 mg 10/06/18 11:03 10/06/18 13:12 Romazicon IVP 04/04/19 11:02 0.5 mg PRN PRN Administration Resp Rate Below 10 Furosemide 40 mg 10/07/18 11:02 10/07/18 11:25 Lasix Injection IVP 10/07/18 11:03 40 mg ONCE ONE Administration Furosemide 20 mg 10/11/18 11:00 10/12/18 09:04 Lasix PO 04/09/19 10:59 20 mg DAILY KIM Administration Furosemide 40 mg 10/13/18 09:00 10/13/18 08:43 Lasix PO 04/11/19 08:59 40 mg DAILY KIM Administration Furosemide 40 mg 10/14/18 19:20 10/16/18 16:15 Lasix Injection IVP 04/12/19 19:19 Not Given BIDDIUR KIM Glycopyrrolate Confirm 10/16/18 14:50 Glycopyrrolate Administered 10/16/18 14:51 Dose 0.2 mg .ROUTE .STK-MED ONE Glycopyrrolate Confirm 10/16/18 14:50 Glycopyrrolate Administered 10/16/18 14:51 Dose 0.2 mg .ROUTE .STK-MED ONE Heparin Sodium (Porcine) Confirm 10/16/18 10:20 Heparin Flush 2,000 Unit/Ns 1,000 Ml Administered 10/16/18 10:21 Dose 4,000 unit .ROUTE .STK-MED ONE Hydrogen Peroxide Confirm 10/12/18 04:06 Hydrogen Peroxide Administered 10/12/18 04:07 Dose 23.6 serge TP .STK-MED ONE Hydromorphone HCl 0.1 - 0.4 mg 10/13/18 17:25 Dilaudid IVP 10/13/18 18:25 Q10M PRN PACU, PAIN Famotidine/Sodium Chloride 50 mls @ 200 mls/hr 10/05/18 22:03 10/05/18 22:08 Pepcid 20 Mg (Premix) IV 10/05/18 22:17 50 mls EDNOW ONE Administration Octreotide Acetate 500 mcg/ 51 mls @ 5 mls/hr 10/05/18 22:45 10/05/18 23:03 Sodium Chloride IV 04/03/19 22:44 51 mls CONT KIM Administration Sodium Chloride 1,000 mls @ 50 mls/hr 10/05/18 22:45 10/05/18 23:11 Ns IV 10/06/18 18:44 1,000 mls CONT KIM Administration Phytonadione 10 mg/ Sodium 51 mls @ 102 mls/hr 10/05/18 23:05 10/06/18 00:55 Chloride IV 10/05/18 23:34 51 mls EDNOW ONE Administration Octreotide Acetate 500 mcg/ 51 mls @ 5 mls/hr 10/05/18 23:30 Sodium Chloride IV 04/03/19 23:29 CONT KIM Ampicillin Sodium/Sulbactam 50 mls @ 200 mls/hr 10/06/18 00:30 10/06/18 01:40 Sodium 1.5 gm/ Sodium Chloride IV 10/06/18 00:44 50 mls ONCE ONE Administration Protocol Phytonadione 10 mg/ Sodium 51 mls @ 204 mls/hr 10/06/18 09:52 10/06/18 10:50 Chloride IV 10/06/18 10:06 51 mls ONCE ONE Administration Dexmedetomidine HCl 400 mcg/ 104 mls @ 0 mls/hr 10/06/18 11:30 10/08/18 04:18 Sodium Chloride IV 04/04/19 11:29 104 mls CONT KIM Administration Protocol Titrate Thiamine HCl 500 mg/ Sodium 105 mls @ 210 mls/hr 10/06/18 11:15 10/08/18 08: 31 Chloride IV 10/08/18 09:29 105 mls DAILY KIM Administration Propofol 100 mls @ 0 mls/hr 10/07/18 04:30 10/09/18 08:07 Diprivan 10 Mg/Ml (Premix) IV 04/05/19 04:29 100 mls CONT KIM Administration Protocol Per Protocol Albumin Human 250 mls @ 0 mls/hr 10/08/18 06:28 10/08/18 06:43 Alburx 5 IV 10/08/18 06:29 250 mls ONCE ONE Administration As Directed Albumin Human 100 mls @ 0 mls/hr 10/08/18 11:40 10/08/18 11:48 Flexbumin 25 % (Premix) IV 10/08/18 11:41 100 mls ONCE ONE Administration As Directed Albumin Human 250 mls @ 0 mls/hr 10/09/18 04:00 10/09/18 03:47 Alburx 5 IV 10/09/18 04:01 250 mls ONCE ONE Administration As Directed Dextrose/Sodium Chloride 1,000 mls @ 100 mls/hr 10/10/18 08:30 10/10/18 19:18 D5w 1/2 Ns IV 04/08/19 08:29 1,000 mls CONT KIM Administration Phytonadione 10 mg/ Sodium 51 mls @ 204 mls/hr 10/13/18 13:26 10/13/18 14:38 Chloride IV 10/13/18 13:40 51 mls ONCE ONE Administration Sodium Chloride 1,000 mls @ 0 mls/hr 10/13/18 13:28 10/13/18 13:45 Ns IV 10/13/18 13:29 1,000 mls ONCE ONE Administration Wide Open Ceftriaxone Sodium/Dextrose 50 mls @ 100 mls/hr 10/13/18 18:30 10/14/18 09:48 Rocephin 1 Gm (Premix) IV 11/12/18 18:29 50 mls DAILY KIM Administration Protocol Octreotide Acetate 500 mcg/ 51 mls @ 5 mls/hr 10/14/18 13:00 10/17/18 02:18 Sodium Chloride IV 04/12/19 12:59 51 mls CONT KIM Administration Lactated Ringer's 1,000 mls @ 0 mls/hr 10/14/18 11:53 10/14/18 14:22 Lr IV 10/14/18 11:54 Not Given ONCE ONE KVO Ceftriaxone Sodium 1 gm/ 50 mls @ 100 mls/hr 10/15/18 09:00 10/16/18 14:54 Sodium Chloride IV 10/16/18 15:00 Not Given DAILY KIM Ceftriaxone Sodium/Dextrose 50 mls @ 100 mls/hr 10/17/18 09:00 10/18/18 08:47 Rocephin 1 Gm (Premix) IV 10/19/18 00:00 50 mls DAILY KIM Administration Norepinephrine 4 mg/ Sodium 504 mls @ 0 mls/hr 10/16/18 09:30 10/16/18 21:00 Chloride IV 04/14/19 09:29 504 mls CONT KIM Administration Protocol Per Protocol Epinephrine HCl 8 mg/ Sodium 258 mls @ 0 mls/hr 10/16/18 16:00 10/16/18 16:15 Chloride IV 10/16/18 16:01 Not Given ONCE ONE Protocol Per Protocol Albumin Human 250 mls @ 0 mls/hr 10/16/18 16:30 10/16/18 16:35 Alburx 5 IV 10/16/18 16:31 250 mls ONCE ONE Administration As Directed Propofol 100 mls @ 0 mls/hr 10/16/18 18:46 10/17/18 09:14 Diprivan 10 Mg/Ml (Premix) IV 04/14/19 18:45 100 mls CONT KIM Administration Protocol Per Protocol Albumin Human 200 mls @ 0 mls/hr 10/17/18 08:58 10/17/18 09:23 Flexbumin 25 % (Premix) IV 10/17/18 08:59 Not Given ONCE ONE As Directed Albumin Human 250 mls @ 0 mls/hr 10/17/18 12:59 10/17/18 13:10 Alburx 5 IV 10/17/18 13:00 250 mls ONCE ONE Administration As Directed Magnesium Sulfate/Dextrose 100 mls @ 100 mls/hr 10/18/18 09:08 10/18/18 09:53 Magnesium Sulf 1 Gm (Premix) IV 10/18/18 10:07 100 mls ONCE ONE Administration Iopamidol Confirm 10/14/18 17:01 Isovue-300 Administered 10/14/18 17:02 Dose 100 ml .ROUTE .STK-MED ONE Iopamidol Confirm 10/16/18 10:19 Isovue-300 Administered 10/16/18 10:20 Dose 100 ml .ROUTE .STK-MED ONE Iopamidol Confirm 10/16/18 13:11 Isovue-300 Administered 10/16/18 13:12 Dose 500 ml .ROUTE .STK-MED ONE Ketamine HCl Confirm 10/16/18 18:31 Ketamine Administered 10/16/18 18:32 Dose 200 mg .ROUTE .STK-MED ONE Ketamine HCl 200 mg 10/16/18 19:00 10/16/18 17:00 Ketamine IV 10/16/18 19:01 200 mg ONCE ONE Administration Labetalol HCl 5 - 10 mg 10/13/18 17:25 Trandate Injection IVP 10/13/18 18:25 Q10M PRN PACU, Hypertension Lactulose 20 gm 10/06/18 14:15 10/08/18 15:24 Cephulac TUBE 04/04/19 14:14 20 gm TID KIM Administration Lidocaine 2 serge 10/07/18 09:13 10/07/18 10:55 Glydo TP 10/07/18 09:14 2 serge ONCALL ONE Administration Lidocaine HCl 1 - 300 mg 10/07/18 09:13 10/07/18 10:55 Lidocaine Hcl 1% MISC 10/07/18 09:14 300 mg ONCALL ONE Administration Lidocaine HCl Confirm 10/13/18 17:27 Lidocaine Hcl 2% Administered 10/13/18 17:28 Dose 100 mg .ROUTE .STK-MED ONE Lidocaine HCl Confirm 10/18/18 11:09 Lidocaine Hcl 2% Administered 10/18/18 11:10 Dose 2 ml .ROUTE .STK-MED ONE Lorazepam 0 mg 10/06/18 11:03 10/07/18 01:13 Ativan Injection IVP 04/04/19 11:02 2 mg Q1H PRN Administration Alcohol Withdrawal w/IV access Protocol Lorazepam 2 mg 10/06/18 12:00 10/06/18 11:48 Ativan Injection IVP 10/10/18 11:59 Not Given Q6HRS KIM Meperidine HCl 12.5 - 25 mg 10/13/18 17:25 Demerol IVP 10/13/18 18:26 Q10M PRN PACU, shivering/rigors Metoclopramide HCl 10 mg 10/14/18 09:45 10/14/18 11:00 Reglan Injection IVP 10/14/18 09:46 10 mg ONCE ONE Administration Midazolam HCl 1 mg 10/07/18 03:39 10/07/18 03:40 Versed IVP 10/07/18 03:40 1 mg ONCE ONE Administration Miscellaneous 1 each 10/05/18 22:45 Pharmacy To Dose Medication MISC 04/03/19 22:44 AD [facility] Morphine Sulfate 1 - 4 mg 10/18/18 10:57 Morphine IVP 10/18/18 11:58 Q10M PRN PACU, PAIN Multivitamins/Iron 1 ml 10/06/18 09:00 Vi-Aviva + Iron PO 04/04/19 08:59 DAILY KIM Naloxone HCl 0.1 mg 10/06/18 02:28 Narcan IVP 10/06/18 03:28 PRN PRN PACU Resp Rate <10/min Naloxone HCl 0.1 mg 10/13/18 17:25 Narcan IVP 10/13/18 18:25 Q2M PRN PACU Resp Rate <10/min Naloxone HCl 0.1 mg 10/16/18 15:39 Narcan IVP 10/16/18 16:39 Q2M PRN PACU Resp Rate <10/min Naloxone HCl 0.1 mg 10/18/18 10:57 Narcan IVP 10/18/18 11:57 PRN PRN PACU Resp Rate <10/min Neostigmine Methylsulfate Confirm 10/16/18 14:50 Neostigmine Methylsulfate Administered 10/16/18 14:51 Dose 10 mg .ROUTE .STK-MED ONE Octreotide Acetate 50 mcg 10/05/18 22:42 10/05/18 22:59 Octreotide Acetate IVP 10/05/18 22:43 50 mcg ONCE ONE Administration Octreotide Acetate 50 mcg 10/14/18 13:31 10/14/18 14:04 Octreotide Acetate IVP 10/14/18 13:32 50 mcg ONCE ONE Administration Ondansetron HCl Confirm 10/05/18 22:24 Zofran Administered 10/05/18 22:25 Dose 4 mg .ROUTE .STK-MED ONE Ondansetron HCl 2 - 4 mg 10/13/18 17:25 Zofran IVP 10/13/18 18:25 Q10M PRN PACU, Nausea/Vomiting Ondansetron HCl Confirm 10/13/18 17:27 Zofran Administered 10/13/18 17:28 Dose 4 mg .ROUTE .STK-MED ONE Ondansetron HCl Confirm 10/16/18 14:51 Zofran Administered 10/16/18 14:52 Dose 4 mg .ROUTE .STK-MED ONE Ondansetron HCl 2 - 4 mg 10/18/18 10:57 Zofran IVP 10/18/18 11:58 Q10M PRN PACU, Nausea/Vomiting Post-Op Oxycodone HCl 5 - 10 mg 10/13/18 17:25 Oxycodone Ir PO 10/13/18 18:25 Q4HRS PRN PACU, Pain Severe Pantoprazole Sodium 40 mg 10/06/18 04:03 10/05/18 22:29 Protonix IVP 04/04/19 04:02 40 mg Q6H KIM Administration Pantoprazole Sodium Confirm 10/05/18 22:26 Protonix Administered 10/05/18 22:27 Dose 40 mg .ROUTE .STK-MED ONE Pantoprazole Sodium 40 mg 10/06/18 04:00 Protonix IVP 04/04/19 03:59 Q6H KIM Pantoprazole Sodium 40 mg 10/06/18 09:00 10/07/18 10:57 Protonix PO 04/04/19 08:59 Not Given DAILY KIM Pantoprazole Sodium 40 mg 10/07/18 09:45 10/10/18 09:16 Protonix IVP 04/05/19 09:44 40 mg DAILY KIM Administration Pantoprazole Sodium 40 mg 10/11/18 09:00 10/13/18 08:44 Protonix PO 04/09/19 08:59 40 mg DAILY KIM Administration Pantoprazole Sodium 40 mg 10/13/18 13:45 10/14/18 14:56 Protonix IVP 04/11/19 13:44 Not Given Q6H KIM Phenylephrine HCl Confirm 10/13/18 17:54 Neosynephrine Administered 10/13/18 17:55 Dose 1,000 mcg .ROUTE .STK-MED ONE Phenylephrine HCl Confirm 10/16/18 10:30 Neosynephrine Administered 10/16/18 10:31 Dose 1,000 mcg .ROUTE .STK-MED ONE Polyethylene Glycol/Electrolytes 1,000 ml 10/06/18 02:11 10/06/18 05:20 Gavilyte - G PO 10/06/18 02:12 1,000 ml ONCE ONE Administration Polyethylene Glycol/Electrolytes 3,000 ml 10/08/18 15:43 10/08/18 21:16 Gavilyte - G PO 10/08/18 15:44 3,000 ml ONCE ONE Administration Promethazine HCl 6.25 - 12.5 mg 10/13/18 17:25 Phenergan IVP 10/13/18 18:25 Q5M PRN PACUNausea/Vomiting, Unable PO Propofol Confirm 10/06/18 01:30 Diprivan Administered 10/06/18 01:31 Dose 200 mg .ROUTE .STK-MED ONE Propofol Confirm 10/06/18 01:30 Diprivan Administered 10/06/18 01:31 Dose 200 mg .ROUTE .STK-MED ONE Propofol Confirm 10/07/18 03:42 Diprivan 10 Mg/Ml (Premix) Administered 10/07/18 03:43 Dose 1,000 mg IV .STK-MED ONE Propofol Confirm 10/13/18 17:28 Diprivan Administered 10/13/18 17:29 Dose 200 mg .ROUTE .STK-MED ONE Propofol Confirm 10/14/18 12:25 Diprivan Administered 10/14/18 12:26 Dose 200 mg .ROUTE .STK-MED ONE Propofol Confirm 10/16/18 09:32 Diprivan 10 Mg/Ml (Premix) Administered 10/16/18 09:33 Dose 1,000 mg IV .STK-MED ONE Propofol Confirm 10/16/18 17:56 Diprivan 10 Mg/Ml (Premix) Administered 10/16/18 17:57 Dose 1,000 mg IV .STK-MED ONE Propofol Confirm 10/18/18 11:07 Diprivan 10 Mg/Ml (Premix) Administered 10/18/18 11:08 Dose 500 mg IV .STK-MED ONE Rocuronium [place] Confirm 10/16/18 12:13 Zemuron Administered 10/16/18 12:14 Dose 100 mg .ROUTE .STK-MED ONE Rocuronium [place] Confirm 10/16/18 18:28 Zemuron Administered 10/16/18 18:29 Dose 100 mg .ROUTE .STK-MED ONE Rocuronium [place] 100 mg 10/16/18 18:10 10/16/18 18:49 Zemuron IV 10/16/18 18:11 100 mg ONCE ONE Administration Spironolactone 50 mg 10/12/18 11:45 10/12/18 15:51 Aldactone PO 04/10/19 11:44 50 mg DAILY KIM Administration Spironolactone 100 mg 10/13/18 09:00 10/16/18 08:58 Aldactone PO 04/11/19 08:59 Not Given DAILY KIM Succinylcholine Chloride Confirm 10/14/18 12:30 Quelicin Administered 10/14/18 12:31 Dose 200 mg IVP .STK-MED ONE Succinylcholine Chloride Confirm 10/18/18 11:09 Quelicin Administered 10/18/18 11:10 Dose 200 mg IVP .STK-MED ONE Thiamine HCl 100 mg 10/09/18 11:03 Vitamin B-1 PO 04/07/19 11:02 DAILY [facility] Physical Exam - Physical Exam General Appearance: alert, no apparent distress Respiratory: lungs clear Cardiac/Chest: regular rate, rhythm Abdomen: non-tender, soft Skin: normal color, warm/dry Neuro/Psych: alert, normal mood/affect, oriented x 3 ICD10 Worksheet Patient Problems: Problems Problem Status Onset Anemia Acute Renal insufficiency Acute Upper GI bleed Acute Left rib fracture Acute
[2018-10-19] MEDS: FOLIC ACID 1 MG TAB PO SCH (08:46)
[2018-10-19] MEDS: FERROUS SULFATE 325 MG TAB PO SCH (08:46)
[2018-10-19] MEDS: THIAMINE HCL 100 MG TAB PO SCH (08:46)
[2018-10-19] MEDS: PANTOPRAZOLE SODIUM 40 MG VIAL IVP SCH (08:47)
[2018-10-19] MEDS: MULTIVITAMINS W-MINERALS 1 EACH TAB PO SCH (08:47)
[2018-10-19] MEDS: cefTRIAXone 1 GM in D5W 50 ML IV SCH (08:47)
[2018-10-19] MEDS: RIFAXIMIN 550 MG TAB PO SCH (08:47)
[2018-10-19] MEDS: LACTULOSE 20 GM/30 ML UDCUP PO SCH ×2 (09:42→17:06)
--- NOTE | 2018-10-19 10:47 | SOAPPROG ---
SOAP Progress Note Assessment/Plan: Assessment: 53 y/o man with ETOH induced esophageal varcies and UGIB and shock on IV vasopression. He lives half time in [place] and half time in [place], [place]. He was hospitalized in fall with SBE. Echo 10/14/18 showed LVEF 55%, mild LVH, normal RVEF, bicuspid AV with mild-moderate and severe AI, moderate to severe MR and TR and estimated PAS 54mmHg. He feels better than yesterday. Denies CP, rest shortness of breath or PND. He has leg edema. He reports eight bowel movts last 24hrs and getting PRBCs this AM. PLAN: 1)no change in current meds. 2)weak off IV Vasopressin as BP allows 3)once GI Bleed has stopped and off IV vasopressors will need some IV lasix in couple days. 4)he wishes to establish care with [facility]- Dr. Raqeul Jiménez upon discharge from this hospitalization. will follow with you. 10/19/18 10:44 Subjective: feels stronger than yesterday. Denies CP, rest shortness of breath or syncope or PND. Objective: Vital Signs Temp Pulse Resp BP Pulse Ox 36.5 C 83 13 103/44 L 100 10/19/18 10:00 10/19/18 10:00 10/19/18 10:00 10/19/18 10:00 10/19/18 10:00 Laboratory Results 10/19/18 06:15 10/19/18 06:15 10/18/18 10/19/18 10/20/18 05:59 05:59 05:59 Intake Total 2224.8 2135 Output Total 2605 1730 115 Balance -380.2 405 -115 PT 20.9 SEC (12.0-15.0) H 10/16/18 12:47 INR 1.90 (0.83-1.16) H 10/16/18 12:47 Physical Exam - Physical Exam General Appearance: alert, no apparent distress EENT: PERRL/EOMI Neck: non-tender Respiratory: lungs clear Cardiac/Chest: regular rate, rhythm, JVD, systolic murmur, No gallop Peripheral Pulses: 2+: carotid (R), carotid (L), femoral (R), femoral (L), dorsalis-pedis (R), dorsalis-pedis (L) Abdomen: non-tender, distended Skin: warm/dry Extremities: pedal edema (1-2+ edema to level of knees.) Neuro/Psych: alert ICD10 Worksheet Patient Problems: Problems Problem Status Onset Anemia Acute Renal insufficiency Acute Upper GI bleed Acute Left rib fracture Acute
--- NOTE | 2018-10-19 11:09 | HOSPPROG ---
Hospitalist Progress Note Assessment/Plan: 53 yo M with alcoholic cirrhosis, severe aortic regurgitation thought 2/2 bacterial endocarditis p/w GIB. Course complicated by encephalopathy and respiratory failure. Extubated 10/09. two large volume UGIB; s/p TIPS and elective intubation for hemorrhagic shock and subsequent resuscitation. Acute GIB 2/2 gastric varices: not seen on initial EGD, re-bled yesterday but too much blood to visualize on EGD. 3rd EGD today confirmed gastric variceal bleed. Discussed with Dr. Henson. - Octreotide bolus / drip - cont IV PPI 10/19- scope yesterday w no blood, brown bm today hct still w dwindles which is likely equilibration protonix to po DC OCTREOTIDE feed hemorrhagic shock: complicated by AI, cirrhosis (AI and cirrhosis will yield low MAP's) 10/19: off epi use SBP of 90 (not MAP, low diastolic of AI lowers) wean pressors to off Decompensated cirrhosis with ascites: MELD 19. s s/p TIPS continue rifaximin ABLA on chronic anemia: D/t above, s/p total 6 u prbc's (3 more yest). H&H stable this am. - cont to trend h&h Coagulopathy of liver disease: S/P 4u FFP, IV vitamin K Edema: D/t low albumin/cirrhosis - Lasix / Spironolactone 10/15- has 4+ edema 10/17: ultimately needs diuresis, await hemodynamic stability and increased CVP 10/19: diuretics written to start 10/20 Acute respiratory failure: will electively intubate today given resp distress, need for volume resuscitation cxr today, santiago try to extubate Severe aortic regurgitation: Reportedly d/t prior h/o endocarditis in 2018. Rpt echo with wide open valve. - Cardiology following, high risk for valve replacement presuming other varices present Elevated troponin: in setting of volume overload/anemia and unable to clear with renal failure. Trended down. - Not an aspirin candidate EMMANUELLE: Pre-renal, improved with BP support, Cr 2.2 --> 1.1 - Cont midodrine 10mg tid, will try to decrease prior to dc follow Hepatic encephalopathy: Improved - cont Rifaximin, Lactulose H/o EtOH abuse: Patient and family deny use since 06/2018. No w/d. Thrombocytopenia: D/t splenic sequestration. - consider plt transfusion if plts <50K and active bleeding Hyperkalemia: 2/2 EMMANUELLE. Resolved, monitor VTE ppx: SCDs, no pharm with GIB Code: full Diet: resume low sodium diet Dispo: cont inpt, Subjective: case d/w dr landis. more alert today. brown stool Objective: Vital Signs Temp Pulse Resp BP Pulse Ox 37.1 C 95 18 103/44 L 100 10/19/18 10:50 10/19/18 10:50 10/19/18 10:50 10/19/18 10:50 10/19/18 10:50 Laboratory Results 10/19/18 06:15 10/19/18 06:15 10/18/18 10/19/18 10/20/18 05:59 05:59 05:59 Intake Total 2224.8 2135 Output Total 2605 1730 115 Balance -380.2 405 -115 PT 20.9 SEC (12.0-15.0) H 10/16/18 12:47 INR 1.90 (0.83-1.16) H 10/16/18 12:47 - Physical Exam Constitutional: no apparent distress, appears nourished Eyes: PERRL, anicteric sclera Ears, Nose, Mouth, Throat: moist mucous membranes, hearing normal Cardiovascular: regular rate and rhythym, diastolic murmur Respiratory: no respiratory distress, no rales or rhonchi Gastrointestinal: normoactive bowel sounds, soft, non-tender abdomen Genitourinary: no bladder fullness, No liao in urethra Skin: warm, normal color Musculoskeletal: No full muscle strength Neurologic: No AAOx3 Psychiatric: interacting appropriately ICD10 Worksheet Patient Problems: Problems Problem Status Onset Anemia Acute Renal insufficiency Acute Upper GI bleed Acute Left rib fracture Acute
--- NOTE | 2018-10-19 14:47 | ASMTLACE ---
[facility] Length of stay for Answers: 14 days or more current admission Acuity / Level of Answers: Yes Care: Did the patient have an inpatient admission? Comorbidities - select Answers: Congestive heart failure all that apply # of Emergency department Answers: 1-2 visits in the last 6 months Social determinants Answers: History of substance abuse (ETOH, street drugs, prescription drugs, etc.) Score: 16 Date Signed: 10/19/2018 02:46 PM Electronically Signed By:Shakira Garcia
--- NOTE | 2018-10-19 15:24 | ASMTCMCOM ---
CM Note CM Note Notes: Pt underwent EGD today. At this time PT rec HHC; OT Rec: SNF vs home with 24-hr supervision. CM met with pt and Aleyda who continue to report his plan at this time is to do to [place] after discharge so Aleyda can care for him until he is back on his feet. Aleyda is willing to change plan as needed but would really like for him to go back to [place] and they already have plane tickets purchased. Pt continues to progress medically. CM to follow. Plan: HHC vs home with 24 hr supervision. Date Signed: 10/19/2018 03:23 PM Electronically Signed By:LEEANNA Guardado
--- NOTE | 2018-10-19 15:53 | PDINTPN ---
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 There was some uncertainty about his last alcohol intake but his hematocrit was 22 on admission, sodium is 129, and creatinine 2.2. He had hypotension that responded to blood products including red cells, FFP, and vitamin K. He was placed on Protonix and octreotide drips and had EGD at 1:00 a.m. On 10/06/2018. No bleeding source was identified and importantly there were no varices. Because of an inappropriate response to blood products he was given FFP and red cells again renal was consulted and recommended mid during. His mental status continued to get worse any showed signs of alcohol withdrawal. Precedex was started briefly but was held due to poor mental status and he was given lactulose via NG. Earlier in the day on 10/06 he was given 4 mg of Ativan which resulted in poor responsiveness and was started on BiPAP at approximately 1:40 p.m.. He required 2 more mg of Ativan at 1:13 a.m. On 10/07. I was called at 3:00 a.m. With reports of increasing respiratory rate into the 40s and ongoing poor mental status. * Acute respiratory failure with hypoxia-improved on now on room air * Hepatic encephalopathy -resolved * GI bleed-he continued to have GIB issues during his stay which have largely resolved. His vasopressin and octreotide were dc'd this AM. Possible transfer this afternoon * Hypotension- stable off pressors * EMMANUELLE-resolved * alcoholic hepatitis- treated with steroids; anticipated duration of 28 days Subjective: feels well and asked for room change, eg stepdown Objective: Vital Signs Temp Pulse Resp BP Pulse Ox 37.1 C 97 12 100/32 L 98 10/19/18 10:50 10/19/18 15:00 10/19/18 15:00 10/19/18 15:00 10/19/18 15:00 Laboratory Results 10/19/18 12:30 10/19/18 06:15 10/18/18 10/19/18 10/20/18 05:59 05:59 05:59 Intake Total 2224.8 2135 Output Total 2605 1730 115 Balance -380.2 405 -115 PT 20.9 SEC (12.0-15.0) H 10/16/18 12:47 INR 1.90 (0.83-1.16) H 10/16/18 12:47 Physical Exam - Physical Exam General Appearance: WD/WN, alert, no apparent distress EENT: PERRL/EOMI Neck: supple Respiratory: lungs clear, normal breath sounds, No respiratory distress, No accessory muscle use Cardiac/Chest: regular rate, rhythm, edema Abdomen: non-tender, soft, No distended Skin: normal color, warm/dry, No cyanosis Lymphatic: no adenopathy Extremities: pedal edema Neuro/Psych: alert, normal mood/affect, oriented x 3 ICD10 Worksheet Patient Problems: Problems Problem Status Onset Anemia Acute Renal insufficiency Acute Upper GI bleed Acute Left rib fracture Acute
[2018-10-19] MEDS: ONDANSETRON 4 MG/2 ML VIAL IVP PRN (16:10)
[2018-10-19 17:36] LABS: PLATELET COUNT 46 10^3/uL (150-400)
--- NOTE | 2018-10-19 17:59 | PDINTPN ---
[employer] Progress Note Assessment/Plan: This patient is a 53-year-old male with a reported history of alcoholism and cirrhosis admitted on 10/05/2018 complaining of bright red blood per rectum, shortness of breath, lightheadedness, bloody emesis, increasing lower extremity edema, a 30 lb weight gain. There was some uncertainty about his last alcohol intake but his hematocrit was 22 on admission, sodium is 129, and creatinine 2.2. He had hypotension that responded to blood products including red cells, FFP, and vitamin K. He was placed on Protonix and octreotide drips and had EGD at 1:00 a.m. On 10/06/2018. No bleeding source was identified and importantly there were no varices. Because of an inappropriate response to blood products he was given FFP and red cells again renal was consulted and recommended mid during. His mental status continued to get worse and showed signs of alcohol withdrawal. Precedex was started briefly but was held due to poor mental status and he was given lactulose via NG. Earlier in the day on 10/06 he was given 4 mg of Ativan which resulted in poor responsiveness and was started on BiPAP at approximately 1:40 p.m.. He required 2 more mg of Ativan at 1:13 a.m. On 10/07. I was called at 3:00 a.m. With reports of increasing respiratory rate into the 40s and ongoing poor mental status. * Acute respiratory failure with hypoxia-improved on now on room air * Hepatic encephalopathy -resolved * GI bleed- 2/2 gastric varices and s/p EGD x 4 (10/06, 10/13, 10/14, 10/18) and colonoscopy 10/09. He underwent emergent TIPS and gastric variceal embolization (and paracentesis). He was hemodynamically stable this AM though did get 1 unit RBC thought to be related to "catch up." About 1630 he had a large dark bloody BM associated with hypotension. He was given albumin but continued to produce voluminous bloody stool, pouring off the bed. He reported nausea A stat H/H was 4.0/12.3 with platelets of 46. Four units FFP was ordered as well as platelets and a DIC panel (possible cryo). GI notified and recommended tagged RBC scan; IR also notified and discussing with GI at time of this note. Remaining DIC panel still pending. * Hypotension- multiple blood products transfusing; may need to resume pressors depending on response. * EMMANUELLE-resolved * alcoholic hepatitis- treated with steroids; anticipated duration of 28 days * ETOH wd- resolved * AR- severe regurgitation but not currently candidate for intervention. Was seen by cardiology and diuresis recommended as tolerated, noting that midodrine could be worsening AR. Watch closely for volume overload and CHF given GIB issues. * * critical care time 45 minutes at least completely separate from morning evaluation. 10/19/18 17:40 Subjective: change in status Objective: Vital Signs Temp Pulse Resp BP Pulse Ox 37.1 C 87 14 90/30 L 97 10/19/18 10:50 10/19/18 16:31 10/19/18 16:31 10/19/18 16:31 10/19/18 16:00 Laboratory Results 10/19/18 16:50 10/19/18 06:15 10/18/18 10/19/18 10/20/18 05:59 05:59 05:59 Intake Total 2224.8 2135 Output Total 2605 1730 115 Balance -380.2 405 -115 PT 20.9 SEC (12.0-15.0) H 10/16/18 12:47 INR 1.90 (0.83-1.16) H 10/16/18 12:47 Physical Exam - Physical Exam General Appearance: alert, no apparent distress EENT: PERRL/EOMI Neck: supple Respiratory: lungs clear, normal breath sounds, decreased breath sounds, No respiratory distress, No accessory muscle use, No rales, No rhonchi Cardiac/Chest: regular rate, rhythm, edema Abdomen: non-tender, soft, distended Skin: normal color, warm/dry, No cyanosis Lymphatic: no adenopathy Extremities: pedal edema Neuro/Psych: alert, normal mood/affect, oriented x 3 ICD10 Worksheet Patient Problems: Problems Problem Status Onset Anemia Acute Renal insufficiency Acute Upper GI bleed Acute Left rib fracture Acute
[2018-10-19 18:02] LABS: PROTIME(PATIENT) 43.7 SEC (12.0-15.0)
--- NOTE | 2018-10-19 18:35 | PDANEPAE ---
ANE History of Present Illness variceal bleeding ANE Past Medical History - Cardiovascular History Hx Hypertension: No Hx Arrhythmias: No Hx Chest Pain: No Hx Coronary Artery / Peripheral Vascular Disease: No Hx CHF / Valvular Disease: Yes Hx Palpitations: No Cardiovascular History Comment: severe AI, mod MR, current CHF - Pulmonary History Hx COPD: No Hx Asthma/Reactive Airway Disease: No Hx Recent Upper Respiratory Infection: Yes Hx Oxygen in Use at Home: No Hx Sleep Apnea: No Sleep Apnea Screening Result - Last Documented: Positive - Endocrine History Hx Diabetes: No Hypothyroid: No Hyperthyroid: No Obesity: mild - Renal History Hx Renal Disorders: No - Liver History Hx Hepatic Disorders: Yes Hepatic History Comment: liver dysfuncion secondary to EtOH abuse s/p TIPS - GI History Hx Gastrointestinal Disorders: Yes Gastrointestinal History Comment: GI bleed - Chronic Pain History Chronic Pain: No ANE Review of Systems Review of Systems: - Exercise capacity METS (RN): 3 METS ANE Patient History - Allergies Allergies/Adverse Reactions: No Known Allergies Allergy (Verified 07/15/18 13:24) - Home Medications Home medications: home medication list seen and reviewed Home Medications: Calcium Carbonate [Oyster Shell Calcium 500 mg (*)] 1,000 mg PO DAILY 10/06/18 [ Last Taken Unknown] Ferrous Sulfate [Ferrous Sulf 325 MG (*)] 325 mg PO DAILY 10/06/18 [Last Taken Unknown] [place]-3 Fatty Acids [Fish Oil 1000 mg (*)] 1,000 mg PO DAILY 10/06/18 [Last Taken Unknown] - NPO status NPO Since - Liquids (Date): 10/14/18 NPO Since - Liquids (Time): 00:00 NPO Since - Solids (Date): 10/14/18 NPO Since - Solids (Time): 00:00 - Smoking Hx Smoking Status: Never smoked - Alcohol Use Alcohol Use: Sober ANE Labs/Vital Signs - Labs Result Diagrams: 10/19/18 16:50 10/19/18 06:15 - Vital Signs Blood Pressure: 90/30 Heart Rate: 87 Respiratory Rate: 14 O2 Sat (%): 97 Height: 180.34 cm Weight: 101.5 kg ANE Physical Exam - Airway Neck exam: FROM Mallampati Score: Class 2 Mouth exam: normal dental/mouth exam - Pulmonary Pulmonary: no respiratory distress, clear to auscultation - Cardiovascular Cardiovascular: regular rate and rhythym, no murmur, rub, or gallop - ASA Status ASA Status: IV, E ANE Anesthesia Plan Anesthesia Plan: general endotracheal anesthesia Lines/Monitors: arterial line
[2018-10-19] MEDS ORDERED: PHYTONADIONE 10 MG in NS 50 ML IV ONE (19:00)
[2018-10-19] MEDS ORDERED: SODIUM TETRADECYL SULFATE 3% 2 ML VIAL IV ONE (19:36)
[2018-10-19] MEDS ORDERED: PROPOFOL/EMULSION 500 MG/50 ML BOTTLE IV ONE ×2 (19:44→21:40)
[2018-10-19] MEDS ORDERED: ROCURONIUM 50 MG/5 ML VIAL ONE (19:51)
[2018-10-19] MEDS ORDERED: IOPAMIDOL (ISOVUE-300) 100 ML BTL ONE ×2 (20:01→21:54)
[2018-10-19 21:07] LABS: PLATELET COUNT 106 10^3/uL (150-400)
[2018-10-19 21:24] LABS: INR 2.62 (0.83-1.16); PROTIME(PATIENT) 26.7 SEC (12.0-15.0)
[2018-10-19] MEDS ORDERED: NALOXONE HCL 0.4 MG/ML INJ IVP PRN (22:37)
[2018-10-19 23:18] LABS: INR 2.19 (0.83-1.16); PROTIME(PATIENT) 23.3 SEC (12.0-15.0)
[2018-10-20] MEDS ORDERED: PANTOPRAZOLE SODIUM 40 MG VIAL IVP ONE (00:25)
[2018-10-20] MEDS: PANTOPRAZOLE SODIUM 40 MG TAB PO SCH ×2 (01:22→15:57)
[2018-10-20] MEDS: MIDODRINE HCL 10 MG TAB PO SCH ×4 (01:30→22:00)
[2018-10-20] MEDS: RIFAXIMIN 550 MG TAB PO SCH ×3 (02:04→22:00)
[2018-10-20] MEDS: LACTULOSE 20 GM/30 ML UDCUP PO SCH ×3 (02:05→22:00)
[2018-10-20] MEDS: VASOPRESSIN 25 UNIT in NS 250 ML IV SCH ×2 (04:37→15:36)
[2018-10-20] MEDS: ALBUMIN 25% 100 ML IV SCH (05:27)
[2018-10-20] MEDS: HYDROCORTISONE 100 MG/2 ML VIAL IVP SCH ×4 (05:28→23:02)
--- NOTE | 2018-10-20 08:40 | SOAPPROG ---
SOAP Progress Note Assessment/Plan: Assessment: 53 year old alcoholic liver disease with cirrhosis. 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 Recurrent GI Bleeding yesterday requiring further IR management. Patient did not have TIPS expanded due to concern of worsening liver failure. He had additional coils placed, via antegrade feeder to vascularity supplying gastric varix. He also had plug assisted retrograde transvenous obliteration (PARTO) performed with a combination sclerotherapy and Amplatzer plug. He continues to pass some blood per rectum. He had 2 bowel movements morning that were gelatinous at 5 AM and 7 AM today. He has been hemodynamically stable. He is continuing to be transfuse packed red blood cells and FFP. Plan: 1. s/p IR management as above. Continue to monitor for signs and symptoms of rebleeding 2. If recurrent bleeding then only other option at this point would be to expand TIPS 3. Continue on IV PPI and Octreotide 10/20/18 08:50 Subjective: CC: GI Bleed, Cirrhosis, portal HTN, Gastric varices, AI with endocarditics. Patient with recurrent GI bleeding from gastric varices yesterday. Patient had massive Blood transfusion and required additional IR intervention. Patient is extubated now. Objective: Vital Signs Temp Pulse Resp BP Pulse Ox 36.5 C 90 16 92/47 L 94 10/20/18 08:00 10/20/18 08:00 10/20/18 08:00 10/20/18 08:00 10/20/18 08:00 Laboratory Results 10/20/18 04:30 10/20/18 04:30 10/19/18 10/20/18 10/21/18 05:59 05:59 05:59 Intake Total 2135 3300 Output Total 1730 815 100 Balance 405 2485 -100 PT 23.3 SEC (12.0-15.0) H 10/19/18 23:00 INR 2.19 (0.83-1.16) H 10/19/18 23:00 Generic Name Dose Route Start Last Admin Trade Name Freq PRN Reason Stop Dose Admin Acetaminophen 650 mg 10/12/18 11:32 10/15/18 18:37 Tylenol PO 04/10/19 11:31 650 mg Q6HRS PRN Administration Pain, Mild/Fever, Can Take PO Alteplase, Recombinant 2 mg 10/06/18 09:44 Cathflo Activase IVP 04/04/19 09:43 PRN PRN Per PICC line policy Benzonatate 100 mg 10/12/18 16:59 10/13/18 08:44 Tessalon Pearles PO 04/10/19 16:58 100 mg TID PRN Administration Cough, Mild Ferrous Sulfate 325 mg 10/11/18 09:00 10/19/18 08:46 Ferrous Sulfate PO 04/09/19 08:59 325 mg DAILY KIM Administration Folic Acid 1 mg 10/06/18 09:00 10/19/18 08:46 Folic Acid PO 04/04/19 08:59 1 mg DAILY KIM Administration Furosemide 40 mg 10/20/18 09:00 Lasix PO 04/18/19 08:59 DAILY KIM Hydrocortisone 50 mg 10/17/18 09:53 10/20/18 05:28 Solucortef IVP 04/15/19 09:52 50 mg Q6 KIM Administration Vasopressin 25 unit/ Sodium 251.25 mls @ 24 mls/hr 10/16/18 16:30 10/20/18 04 :37 Chloride IV 04/14/19 16:29 251.25 mls CONT KIM Administration Norepinephrine 16 mg/ Sodium 266 mls @ 0 mls/hr 10/16/18 22:00 10/17/18 07:55 Chloride IV 04/14/19 21:59 266 mls CONT KIM Administration Protocol Per Protocol Albumin Human 100 mls @ 0 mls/hr 10/17/18 13:15 10/20/18 05:27 Flexbumin 25 % (Premix) IV 04/15/19 13:14 100 mls Q6HRS KIM Administration As Directed Epinephrine HCl 8 mg/ Sodium 258 mls @ 0 mls/hr 10/17/18 11:15 10/18/18 08:43 Chloride IV 04/15/19 11:14 258 mls CONT KIM Administration Protocol Per Protocol Ceftriaxone Sodium 1 gm/ 50 mls @ 100 mls/hr 10/19/18 09:00 10/19/18 08:47 Dextrose IV 11/18/18 08:59 50 mls DAILY KMI Administration Lactulose 20 gm 10/09/18 16:00 10/20/18 02:05 Cephulac PO 04/07/19 15:59 Not Given TID KIM Midodrine 10 mg 10/06/18 16:30 10/20/18 07:36 Midodrine Hcl PO 04/04/19 16:29 Not Given Q8HRS [facility] Multivitamins/Minerals 1 each 10/06/18 09:00 10/19/18 08:47 Thera M Plus Tablet PO 04/04/19 08:59 1 each DAILY [facility] Administration Ondansetron HCl 4 mg 10/05/18 22:37 10/19/18 16:10 Zofran IVP 04/03/19 22:36 4 mg Q4HRS PRN Administration Nausea/Vomiting, Can't Take PO Ondansetron HCl 4 mg 10/05/18 22:37 Zofran Odt PO 04/03/19 22:36 Q4HRS PRN Nausea/Vomiting, Use 1st Pantoprazole Sodium 40 mg 10/19/18 21:00 10/20/18 01:22 Protonix PO 04/17/19 20:59 Not Given BID [facility] Rifaximin 550 mg 10/07/18 11:30 10/20/18 02:04 Xifaxan PO 11/06/18 11:29 Not Given BID [facility] Protocol Spironolactone 25 mg 10/20/18 09:00 Aldactone PO 04/18/19 08:59 DAILY [facility] Thiamine HCl 100 mg 10/06/18 09:00 10/19/18 08:46 Vitamin B-1 PO 04/04/19 08:59 100 mg DAILY [facility] Administration Discontinued Medications Generic Name Dose Route Start Last Admin Trade Name Freq PRN Reason Stop Dose Admin Acetaminophen 1,000 mg 10/11/18 21:15 10/11/18 21:30 Tylenol PO 10/11/18 21:16 1,000 mg ONCE ONE Administration Albumin Human Confirm 10/08/18 11:44 Flexbumin 25 % (Premix) Administered 10/08/18 11:45 Dose 100 ml IV .STK-MED ONE Albumin Human Confirm 10/16/18 16:01 Alburx 5 Administered 10/16/18 16:02 Dose 250 ml IV .STK-MED ONE Calcium Chloride 1 gm 10/16/18 22:15 10/16/18 22:24 Calcium Chloride IV 10/16/18 22:16 1 gm ONCE ONE Administration Chlordiazepoxide HCl 25 mg 10/06/18 09:00 Librium PO 04/04/19 08:59 TID KIM Dexamethasone 4 mg 10/13/18 17:25 Decadron Injection IVP 10/13/18 18:25 ONCE PRN PACU, Nausea/Vomiting Dexamethasone Confirm 10/13/18 17:27 Decadron Injection Administered 10/13/18 17:28 Dose 4 mg .ROUTE .STK-MED ONE Dexamethasone Confirm 10/16/18 14:51 Decadron Injection Administered 10/16/18 14:52 Dose 4 mg .ROUTE .STK-MED ONE Dexamethasone Confirm 10/18/18 11:09 Decadron Injection Administered 10/18/18 11:10 Dose 4 mg .ROUTE .STK-MED ONE Diazepam 2.5 - 5 mg 10/13/18 17:25 Valium IVP 10/13/18 18:26 Q5M PRN Agitation, Acute Diazepam 2.5 - 5 mg 10/18/18 10:57 Valium IVP 10/18/18 11:58 Q5M PRN PACU, Muscle Spasms Epinephrine HCl Confirm 10/13/18 18:16 Epinephrine Administered 10/13/18 18:17 Dose 1 mg .ROUTE .STK-MED ONE Epinephrine HCl Confirm 10/13/18 18:16 Epinephrine Administered 10/13/18 18:17 Dose 1 mg IVP .STK-MED ONE Epinephrine HCl Confirm 10/13/18 18:21 Epinephrine Administered 10/13/18 18:22 Dose 1 mg .ROUTE .STK-MED ONE Etomidate 40 mg 10/07/18 03:39 10/07/18 03:40 Etomidate IV 10/07/18 03:40 40 mg ONCE ONE Administration Etomidate Confirm 10/18/18 11:09 Etomidate Administered 10/18/18 11:10 Dose 20 mg .ROUTE .STK-MED ONE Fentanyl 25 - 100 mcg 10/06/18 02:28 Sublimaze IVP 10/06/18 03:28 Q5M PRN PACU, IMMEDIATE Pain control Fentanyl 25 - 100 mcg 10/13/18 17:25 Sublimaze IVP 10/13/18 18:25 Q5M PRN PACU, IMMEDIATE Pain control Fentanyl Confirm 10/13/18 17:28 Sublimaze Administered 10/13/18 17:29 Dose 100 mcg .ROUTE .STK-MED ONE Fentanyl Confirm 10/13/18 17:54 Sublimaze Administered 10/13/18 17:55 Dose 100 mcg .ROUTE .STK-MED ONE Fentanyl Confirm 10/14/18 12:25 Sublimaze Administered 10/14/18 12:26 Dose 100 mcg .ROUTE .STK-MED ONE Fentanyl Confirm 10/14/18 12:54 Sublimaze Administered 10/14/18 12:55 Dose 100 mcg .ROUTE .STK-MED ONE Fentanyl Confirm 10/16/18 10:28 Sublimaze Administered 10/16/18 10:29 Dose 100 mcg .ROUTE .STK-MED ONE Fentanyl 25 - 100 mcg 10/18/18 10:57 Sublimaze IVP 10/18/18 11:58 Q5M PRN PACU, IMMEDIATE Pain control Fentanyl Confirm 10/18/18 11:07 Sublimaze Administered 10/18/18 11:08 Dose 100 mcg .ROUTE .STK-MED ONE Flumazenil 0.2 - 0.5 mg 10/06/18 11:03 10/06/18 13:12 Romazicon IVP 04/04/19 11:02 0.5 mg PRN PRN Administration Resp Rate Below 10 Furosemide 40 mg 10/07/18 11:02 10/07/18 11:25 Lasix Injection IVP 10/07/18 11:03 40 mg ONCE ONE Administration Furosemide 20 mg 10/11/18 11:00 10/12/18 09:04 Lasix PO 04/09/19 10:59 20 mg DAILY KIM Administration Furosemide 40 mg 10/13/18 09:00 10/13/18 08:43 Lasix PO 04/11/19 08:59 40 mg DAILY KIM Administration Furosemide 40 mg 10/14/18 19:20 10/16/18 16:15 Lasix Injection IVP 04/12/19 19:19 Not Given BIDDIUR KIM Glycopyrrolate Confirm 10/16/18 14:50 Glycopyrrolate Administered 10/16/18 14:51 Dose 0.2 mg .ROUTE .STK-MED ONE Glycopyrrolate Confirm 10/16/18 14:50 Glycopyrrolate Administered 10/16/18 14:51 Dose 0.2 mg .ROUTE .STK-MED ONE Heparin Sodium (Porcine) Confirm 10/16/18 10:20 Heparin Flush 2,000 Unit/Ns 1,000 Ml Administered 10/16/18 10:21 Dose 4,000 unit .ROUTE .STK-MED ONE Heparin Sodium (Porcine) Confirm 10/19/18 19:45 Heparin Lock Flush Administered 10/19/18 19:46 Dose 500 unit IVP .STK-MED ONE Heparin Sodium (Porcine) Confirm 10/19/18 20:19 Heparin Flush 2,000 Unit/Ns 1,000 Ml Administered 10/19/18 20:20 Dose 4,000 unit .ROUTE .STK-MED ONE Heparin Sodium (Porcine) Confirm 10/19/18 20:32 Heparin Flush 2,000 Unit/Ns 1,000 Ml Administered 10/19/18 20:33 Dose 4,000 unit .ROUTE .STK-MED ONE Hydrogen Peroxide Confirm 10/12/18 04:06 Hydrogen Peroxide Administered 10/12/18 04:07 Dose 23.6 serge TP .STK-MED ONE Hydromorphone HCl 0.1 - 0.4 mg 10/13/18 17:25 Dilaudid IVP 10/13/18 18:25 Q10M PRN PACU, PAIN Famotidine/Sodium Chloride 50 mls @ 200 mls/hr 10/05/18 22:03 10/05/18 22:08 Pepcid 20 Mg (Premix) IV 10/05/18 22:17 50 mls EDNOW ONE Administration Octreotide Acetate 500 mcg/ 51 mls @ 5 mls/hr 10/05/18 22:45 10/05/18 23:03 Sodium Chloride IV 04/03/19 22:44 51 mls CONT KIM Administration Sodium Chloride 1,000 mls @ 50 mls/hr 10/05/18 22:45 10/05/18 23:11 Ns IV 10/06/18 18:44 1,000 mls CONT KIM Administration Phytonadione 10 mg/ Sodium 51 mls @ 102 mls/hr 10/05/18 23:05 10/06/18 00:55 Chloride IV 10/05/18 23:34 51 mls EDNOW ONE Administration Octreotide Acetate 500 mcg/ 51 mls @ 5 mls/hr 10/05/18 23:30 Sodium Chloride IV 04/03/19 23:29 CONT KIM Ampicillin Sodium/Sulbactam 50 mls @ 200 mls/hr 10/06/18 00:30 10/06/18 01:40 Sodium 1.5 gm/ Sodium Chloride IV 10/06/18 00:44 50 mls ONCE ONE Administration Protocol Phytonadione 10 mg/ Sodium 51 mls @ 204 mls/hr 10/06/18 09:52 10/06/18 10:50 Chloride IV 10/06/18 10:06 51 mls ONCE ONE Administration Dexmedetomidine HCl 400 mcg/ 104 mls @ 0 mls/hr 10/06/18 11:30 10/08/18 04:18 Sodium Chloride IV 04/04/19 11:29 104 mls CONT KIM Administration Protocol Titrate Thiamine HCl 500 mg/ Sodium 105 mls @ 210 mls/hr 10/06/18 11:15 10/08/18 08: 31 Chloride IV 10/08/18 09:29 105 mls DAILY IKM Administration Propofol 100 mls @ 0 mls/hr 10/07/18 04:30 10/09/18 08:07 Diprivan 10 Mg/Ml (Premix) IV 04/05/19 04:29 100 mls CONT KIM Administration Protocol Per Protocol Albumin Human 250 mls @ 0 mls/hr 10/08/18 06:28 10/08/18 06:43 Alburx 5 IV 10/08/18 06:29 250 mls ONCE ONE Administration As Directed Albumin Human 100 mls @ 0 mls/hr 10/08/18 11:40 10/08/18 11:48 Flexbumin 25 % (Premix) IV 10/08/18 11:41 100 mls ONCE ONE Administration As Directed Albumin Human 250 mls @ 0 mls/hr 10/09/18 04:00 10/09/18 03:47 Alburx 5 IV 10/09/18 04:01 250 mls ONCE ONE Administration As Directed Dextrose/Sodium Chloride 1,000 mls @ 100 mls/hr 10/10/18 08:30 10/10/18 19:18 D5w 1/2 Ns IV 04/08/19 08:29 1,000 mls CONT KIM Administration Phytonadione 10 mg/ Sodium 51 mls @ 204 mls/hr 10/13/18 13:26 10/13/18 14:38 Chloride IV 10/13/18 13:40 51 mls ONCE ONE Administration Sodium Chloride 1,000 mls @ 0 mls/hr 10/13/18 13:28 10/13/18 13:45 Ns IV 10/13/18 13:29 1,000 mls ONCE ONE Administration Wide Open Ceftriaxone Sodium/Dextrose 50 mls @ 100 mls/hr 10/13/18 18:30 10/14/18 09:48 Rocephin 1 Gm (Premix) IV 11/12/18 18:29 50 mls DAILY KIM Administration Protocol Octreotide Acetate 500 mcg/ 51 mls @ 5 mls/hr 10/14/18 13:00 10/17/18 02:18 Sodium Chloride IV 04/12/19 12:59 51 mls CONT KIM Administration Lactated Ringer's 1,000 mls @ 0 mls/hr 10/14/18 11:53 10/14/18 14:22 Lr IV 10/14/18 11:54 Not Given ONCE ONE KVO Ceftriaxone Sodium 1 gm/ 50 mls @ 100 mls/hr 10/15/18 09:00 10/16/18 14:54 Sodium Chloride IV 10/16/18 15:00 Not Given DAILY KIM Ceftriaxone Sodium/Dextrose 50 mls @ 100 mls/hr 10/17/18 09:00 10/18/18 08:47 Rocephin 1 Gm (Premix) IV 10/19/18 00:00 50 mls DAILY KIM Administration Norepinephrine 4 mg/ Sodium 504 mls @ 0 mls/hr 10/16/18 09:30 10/16/18 21:00 Chloride IV 04/14/19 09:29 504 mls CONT KIM Administration Protocol Per Protocol Epinephrine HCl 8 mg/ Sodium 258 mls @ 0 mls/hr 10/16/18 16:00 10/16/18 16:15 Chloride IV 10/16/18 16:01 Not Given ONCE ONE Protocol Per Protocol Albumin Human 250 mls @ 0 mls/hr 10/16/18 16:30 10/16/18 16:35 Alburx 5 IV 10/16/18 16:31 250 mls ONCE ONE Administration As Directed Propofol 100 mls @ 0 mls/hr 10/16/18 18:46 10/17/18 09:14 Diprivan 10 Mg/Ml (Premix) IV 04/14/19 18:45 100 mls CONT KIM Administration Protocol Per Protocol Albumin Human 200 mls @ 0 mls/hr 10/17/18 08:58 10/17/18 09:23 Flexbumin 25 % (Premix) IV 10/17/18 08:59 Not Given ONCE ONE As Directed Albumin Human 250 mls @ 0 mls/hr 10/17/18 12:59 10/17/18 13:10 Alburx 5 IV 10/17/18 13:00 250 mls ONCE ONE Administration As Directed Magnesium Sulfate/Dextrose 100 mls @ 100 mls/hr 10/18/18 09:08 10/18/18 09:53 Magnesium Sulf 1 Gm (Premix) IV 10/18/18 10:07 100 mls ONCE ONE Administration Octreotide Acetate 500 mcg/ 51 mls @ 5 mls/hr 10/18/18 10:30 10/19/18 00:20 Sodium Chloride IV 04/16/19 10:29 51 mls CONT KIM Administration Phytonadione 10 mg/ Sodium 51 mls @ 102 mls/hr 10/19/18 19:00 10/20/18 01:30 Chloride IV 10/19/18 19:29 51 mls ONCE ONE Administration Iopamidol Confirm 10/14/18 17:01 Isovue-300 Administered 10/14/18 17:02 Dose 100 ml .ROUTE .STK-MED ONE Iopamidol Confirm 10/16/18 10:19 Isovue-300 Administered 10/16/18 10:20 Dose 100 ml .ROUTE .STK-MED ONE Iopamidol Confirm 10/16/18 13:11 Isovue-300 Administered 10/16/18 13:12 Dose 500 ml .ROUTE .STK-MED ONE Iopamidol Confirm 10/19/18 20:01 Isovue-300 Administered 10/19/18 20:02 Dose 300 ml .ROUTE .STK-MED ONE Iopamidol Confirm 10/19/18 21:54 Isovue-300 Administered 10/19/18 21:55 Dose 100 ml .ROUTE .STK-MED ONE Ketamine HCl Confirm 10/16/18 18:31 Ketamine Administered 10/16/18 18:32 Dose 200 mg .ROUTE .STK-MED ONE Ketamine HCl 200 mg 10/16/18 19:00 10/16/18 17:00 Ketamine IV 10/16/18 19:01 200 mg ONCE ONE Administration Labetalol HCl 5 - 10 mg 10/13/18 17:25 Trandate Injection IVP 10/13/18 18:25 Q10M PRN PACU, Hypertension Lactulose 20 gm 10/06/18 14:15 10/08/18 15:24 Cephulac TUBE 04/04/19 14:14 20 gm TID KIM Administration Lidocaine 2 serge 10/07/18 09:13 10/07/18 10:55 Glydo TP 10/07/18 09:14 2 serge ONCALL ONE Administration Lidocaine HCl 1 - 300 mg 10/07/18 09:13 10/07/18 10:55 Lidocaine Hcl 1% MISC 10/07/18 09:14 300 mg ONCALL ONE Administration Lidocaine HCl Confirm 10/13/18 17:27 Lidocaine Hcl 2% Administered 10/13/18 17:28 Dose 100 mg .ROUTE .STK-MED ONE Lidocaine HCl Confirm 10/18/18 11:09 Lidocaine Hcl 2% Administered 10/18/18 11:10 Dose 2 ml .ROUTE .STK-MED ONE Lorazepam 0 mg 10/06/18 11:03 10/07/18 01:13 Ativan Injection IVP 04/04/19 11:02 2 mg Q1H PRN Administration Alcohol Withdrawal w/IV access Protocol Lorazepam 2 mg 10/06/18 12:00 10/06/18 11:48 Ativan Injection IVP 10/10/18 11:59 Not Given Q6HRS [facility] Magnesium Sulfate 1 dose 10/15/18 17:24 Protocol Magnesium IV 04/13/19 17:23 AD PRN Pt on Electrolyte Protocol Protocol Meperidine HCl 12.5 - 25 mg 10/13/18 17:25 Demerol IVP 10/13/18 18:26 Q10M PRN PACU, shivering/rigors Metoclopramide HCl 10 mg 10/14/18 09:45 10/14/18 11:00 Reglan Injection IVP 10/14/18 09:46 10 mg ONCE ONE Administration Midazolam HCl 1 mg 10/07/18 03:39 10/07/18 03:40 Versed IVP 10/07/18 03:40 1 mg ONCE ONE Administration Miscellaneous 1 each 10/05/18 22:45 Pharmacy To Dose Medication MISC 04/03/19 22:44 AD [facility] Morphine Sulfate 1 - 4 mg 10/18/18 10:57 Morphine IVP 10/18/18 11:58 Q10M PRN PACU, PAIN Multivitamins/Iron 1 ml 10/06/18 09:00 Vi-Aviva + Iron PO 04/04/19 08:59 DAILY KIM Naloxone HCl 0.1 mg 10/06/18 02:28 Narcan IVP 10/06/18 03:28 PRN PRN PACU Resp Rate <10/min Naloxone HCl 0.1 mg 10/13/18 17:25 Narcan IVP 10/13/18 18:25 Q2M PRN PACU Resp Rate <10/min Naloxone HCl 0.1 mg 10/16/18 15:39 Narcan IVP 10/16/18 16:39 Q2M PRN PACU Resp Rate <10/min Naloxone HCl 0.1 mg 10/18/18 10:57 Narcan IVP 10/18/18 11:57 PRN PRN PACU Resp Rate <10/min Naloxone HCl 0.1 mg 10/19/18 22:37 Narcan IVP 10/19/18 23:37 PRN PRN PACU Resp Rate <10/min Neostigmine Methylsulfate Confirm 10/16/18 14:50 Neostigmine Methylsulfate Administered 10/16/18 14:51 Dose 10 mg .ROUTE .STK-MED ONE Octreotide Acetate 50 mcg 10/05/18 22:42 10/05/18 22:59 Octreotide Acetate IVP 10/05/18 22:43 50 mcg ONCE ONE Administration Octreotide Acetate 50 mcg 10/14/18 13:31 10/14/18 14:04 Octreotide Acetate IVP 10/14/18 13:32 50 mcg ONCE ONE Administration Ondansetron HCl Confirm 10/05/18 22:24 Zofran Administered 10/05/18 22:25 Dose 4 mg .ROUTE .STK-MED ONE Ondansetron HCl 2 - 4 mg 10/13/18 17:25 Zofran IVP 10/13/18 18:25 Q10M PRN PACU, Nausea/Vomiting Ondansetron HCl Confirm 10/13/18 17:27 Zofran Administered 10/13/18 17:28 Dose 4 mg .ROUTE .STK-MED ONE Ondansetron HCl Confirm 10/16/18 14:51 Zofran Administered 10/16/18 14:52 Dose 4 mg .ROUTE .STK-MED ONE Ondansetron HCl 2 - 4 mg 10/18/18 10:57 Zofran IVP 10/18/18 11:58 Q10M PRN PACU, Nausea/Vomiting Post-Op Oxycodone HCl 5 - 10 mg 10/13/18 17:25 Oxycodone Ir PO 10/13/18 18:25 Q4HRS PRN PACU, Pain Severe Pantoprazole Sodium 40 mg 10/06/18 04:03 10/05/18 22:29 Protonix IVP 04/04/19 04:02 40 mg Q6H KIM Administration Pantoprazole Sodium Confirm 10/05/18 22:26 Protonix Administered 10/05/18 22:27 Dose 40 mg .ROUTE .STK-MED ONE Pantoprazole Sodium 40 mg 10/06/18 04:00 Protonix IVP 04/04/19 03:59 Q6H KIM Pantoprazole Sodium 40 mg 10/06/18 09:00 10/07/18 10:57 Protonix PO 04/04/19 08:59 Not Given DAILY KIM Pantoprazole Sodium 40 mg 10/07/18 09:45 10/10/18 09:16 Protonix IVP 04/05/19 09:44 40 mg DAILY KIM Administration Pantoprazole Sodium 40 mg 10/11/18 09:00 10/13/18 08:44 Protonix PO 04/09/19 08:59 40 mg DAILY KIM Administration Pantoprazole Sodium 40 mg 10/13/18 13:45 10/14/18 14:56 Protonix IVP 04/11/19 13:44 Not Given Q6H KIM Pantoprazole Sodium 40 mg 10/14/18 21:00 10/19/18 08:47 Protonix IVP 04/12/19 20:59 40 mg Q12 KIM Administration Pantoprazole Sodium 40 mg 10/20/18 00:25 10/20/18 01:22 Protonix IVP 10/20/18 00:26 40 mg ONCE ONE Administration Phenylephrine HCl Confirm 10/13/18 17:54 Neosynephrine Administered 10/13/18 17:55 Dose 1,000 mcg .ROUTE .STK-MED ONE Phenylephrine HCl Confirm 10/16/18 10:30 Neosynephrine Administered 10/16/18 10:31 Dose 1,000 mcg .ROUTE .STK-MED ONE Polyethylene Glycol/Electrolytes 1,000 ml 10/06/18 02:11 10/06/18 05:20 Gavilyte - G PO 10/06/18 02:12 1,000 ml ONCE ONE Administration Polyethylene Glycol/Electrolytes 3,000 ml 10/08/18 15:43 10/08/18 21:16 Gavilyte - G PO 10/08/18 15:44 3,000 ml ONCE ONE Administration Potassium Chloride 1 dose 10/15/18 17:24 Protocol Potassium MISC 04/13/19 17:23 AD PRN Pt on Electrolyte Protocol Protocol Promethazine HCl 6.25 - 12.5 mg 10/13/18 17:25 Phenergan IVP 10/13/18 18:25 Q5M PRN PACUNausea/Vomiting, Unable PO Propofol Confirm 10/06/18 01:30 Diprivan Administered 10/06/18 01:31 Dose 200 mg .ROUTE .STK-MED ONE Propofol Confirm 10/06/18 01:30 Diprivan Administered 10/06/18 01:31 Dose 200 mg .ROUTE .STK-MED ONE Propofol Confirm 10/07/18 03:42 Diprivan 10 Mg/Ml (Premix) Administered 10/07/18 03:43 Dose 1,000 mg IV .STK-MED ONE Propofol Confirm 10/13/18 17:28 Diprivan Administered 10/13/18 17:29 Dose 200 mg .ROUTE .STK-MED ONE Propofol Confirm 10/14/18 12:25 Diprivan Administered 10/14/18 12:26 Dose 200 mg .ROUTE .STK-MED ONE Propofol Confirm 10/16/18 09:32 Diprivan 10 Mg/Ml (Premix) Administered 10/16/18 09:33 Dose 1,000 mg IV .STK-MED ONE Propofol Confirm 10/16/18 17:56 Diprivan 10 Mg/Ml (Premix) Administered 10/16/18 17:57 Dose 1,000 mg IV .STK-MED ONE Propofol Confirm 10/18/18 11:07 Diprivan 10 Mg/Ml (Premix) Administered 10/18/18 11:08 Dose 500 mg IV .STK-MED ONE Propofol Confirm 10/19/18 19:44 Diprivan 10 Mg/Ml (Premix) Administered 10/19/18 19:45 Dose 500 mg IV .STK-MED ONE Propofol Confirm 10/19/18 21:40 Diprivan 10 Mg/Ml (Premix) Administered 10/19/18 21:41 Dose 500 mg IV .STK-MED ONE Rocuronium Dickey Confirm 10/16/18 12:13 Zemuron Administered 10/16/18 12:14 Dose 100 mg .ROUTE .STK-MED ONE Rocuronium Dickey Confirm 10/16/18 18:28 Zemuron Administered 10/16/18 18:29 Dose 100 mg .ROUTE .STK-MED ONE Rocuronium Dickey 100 mg 10/16/18 18:10 10/16/18 18:49 Zemuron IV 10/16/18 18:11 100 mg ONCE ONE Administration Rocuronium Dickey Confirm 10/19/18 19:51 Zemuron Administered 10/19/18 19:52 Dose 50 mg .ROUTE .STK-MED ONE Sodium Tetradecyl Sulfate Confirm 10/19/18 19:36 Sotradecol 3% Administered 10/19/18 19:37 Dose 2 ml IV .STK-MED ONE Spironolactone 50 mg 10/12/18 11:45 10/12/18 15:51 Aldactone PO 04/10/19 11:44 50 mg DAILY KIM Administration Spironolactone 100 mg 10/13/18 09:00 10/16/18 08:58 Aldactone PO 04/11/19 08:59 Not Given DAILY KIM Succinylcholine Chloride Confirm 10/14/18 12:30 Quelicin Administered 10/14/18 12:31 Dose 200 mg IVP .STK-MED ONE Succinylcholine Chloride Confirm 10/18/18 11:09 Quelicin Administered 10/18/18 11:10 Dose 200 mg IVP .STK-MED ONE Thiamine HCl 100 mg 10/09/18 11:03 Vitamin B-1 PO 04/07/19 11:02 DAILY KIM Physical Exam - Physical Exam General Appearance: unresponsive, other (sedated) Respiratory: normal breath sounds Cardiac/Chest: diastolic murmur Abdomen: normal bowel sounds, non-tender, soft Skin: normal color Extremities: pedal edema ICD10 Worksheet Patient Problems: Problems Problem Status Onset Anemia Acute Renal insufficiency Acute Upper GI bleed Acute Left rib fracture Acute
[2018-10-20 09:13] LABS: INR 2.44 (0.83-1.16); PROTIME(PATIENT) 25.3 SEC (12.0-15.0)
[2018-10-20 10:10] LABS: PLATELET COUNT 52 10^3/uL (150-400)
[2018-10-20] MEDS: cefTRIAXone 1 GM in D5W 50 ML IV SCH (10:15)
[2018-10-20] MEDS: OCTREOTIDE ACETATE 500 MCG in NS 50 ML IV SCH ×2 (11:08→21:57)
--- NOTE | 2018-10-20 11:33 | SOAPPROG ---
SOAP Progress Note Assessment/Plan: Assessment: 53 y/o man with ETOH induced esophageal varcies and UGIB and shock on IV vasopression. He lives half time in [place] and half time in [place], [place]. He was hospitalized in fall of 2017 with SBE. Echo 10/14/18 showed LVEF 55%, mild LVH, normal RVEF, bicuspid AV with mild-moderate and severe AI, moderate to severe MR and TR and estimated PAS 54mmHg. He had recurrent GI bleeding yesterday and more coils by IR. Today he is angry and frustrated and wants DNR and to go home. Denies CP, rest shortness of breath or dizziness. He has leg edema. Still on IV Vasopressin. PLAN: 1)no change in current meds. 2)getting a little hypervolemic with all PRBCs and IVF resuscitation. 3)continue PO Lasix, Midodrine and Aldactone as BP allows. 4)consider Palliative care consult. He would not be a good cardiac surgery and triple valve candidate (AVR, MVR and TVR) for months. It would be a long recovery. 10/20/18 11:29 Subjective: denies CP, rest shortness of breath or abdominal pain. He is angry and frustrated and feels bloated in his legs. Objective: Vital Signs Temp Pulse Resp BP Pulse Ox 36.5 C 90 16 92/47 L 94 10/20/18 08:00 10/20/18 08:00 10/20/18 08:00 10/20/18 08:00 10/20/18 08:00 Laboratory Results 10/20/18 08:59 10/20/18 04:30 10/19/18 10/20/18 10/21/18 05:59 05:59 05:59 Intake Total 2135 3300 Output Total 1730 815 100 Balance 405 2485 -100 PT 25.3 SEC (12.0-15.0) H 10/20/18 08:59 INR 2.44 (0.83-1.16) H 10/20/18 08:59 Physical Exam - Physical Exam General Appearance: alert, obese EENT: normal ENT inspection Neck: non-tender Respiratory: rales (rare bilateral crackles.) Cardiac/Chest: regular rate, rhythm, JVD (jvp to 9-10 cm.), systolic murmur, No gallop Peripheral Pulses: 2+: carotid (R), carotid (L), femoral (R), femoral (L), dorsalis-pedis (R), dorsalis-pedis (L) Abdomen: non-tender, distended Skin: warm/dry Extremities: pedal edema (1-2 + bilateral edema to below level of knees.) Neuro/Psych: alert ICD10 Worksheet Patient Problems: Problems Problem Status Onset Anemia Acute Renal insufficiency Acute Upper GI bleed Acute Left rib fracture Acute
[2018-10-20 13:25] LABS: PLATELET COUNT 45 10^3/uL (150-400)
[2018-10-20 13:26] LABS: INR 2.01 (0.83-1.16); PROTIME(PATIENT) 21.8 SEC (12.0-15.0)
[2018-10-20] MEDS ORDERED: IOPAMIDOL (ISOVUE-300) 100 ML BTL ONE (13:52)
--- NOTE | 2018-10-20 15:17 | HOSPPROG ---
Hospitalist Progress Note Assessment/Plan: 53 yo M with alcoholic cirrhosis, severe aortic regurgitation thought 2/2 bacterial endocarditis p/w GIB. Course complicated by encephalopathy and respiratory failure. Extubated 10/09. two large volume UGIB; s/p TIPS and elective intubation for hemorrhagic shock and subsequent resuscitation. Acute GIB 2/2 gastric varices: not seen on initial EGD, S/p multiple EGDs confirmed gastric variceal bleed. - Had 4-5 dark red with some BRB BMs this AM - Restarted Octreotide as well as IV PPI this AM - S/p plug assisted retrograde transvenous obliteration (PARTO) performed with a combination sclerotherapy and Amplatzer plug by IR on 10/19 - S/p 2 units PRBC this AM as well as FFP, Hgb improved from 11/29 to 8.7 this afternoon - Discussed with IR, Dr. Abbott who recommends Triple Phase CT A/P this afternoon to evaluate for lower source of bleed - Discussed with GI, Dr. Gu, recommends follow up CT results, no plans for further scope this AM - Discussed with Dr. Boateng this afternoon, he recommends surgical consult given lack of control despite multiple EGDs, IR procedures, he will speak with Dr. Garcia Hemorrhagic shock: complicated by AI, cirrhosis (AI and cirrhosis will yield low MAP's) 10/19: off epi use SBP of 90 (not MAP, low diastolic of AI lowers) Remains of Vasopressin, wean as tolerated Continue Midodrine 10 mg TID Decompensated cirrhosis with ascites: MELD 22 this AM, 38 on admission (52% 3 month mortality) s/p TIPS continue rifaximin ABLA on chronic anemia: D/t above, s/p total 8 u prbc's. H&H 6.9 this AM, s/p 2 units PRBCs, improved to 8.7 this AM - cont to trend h&h, will repeat this evening, transfuse H/H <7/20 Coagulopathy of liver disease: S/P 4u FFP, IV vitamin K, INR 2.1 this AM Edema: D/t low albumin/cirrhosis - Lasix (40 mg PO qd) / Spironolactone 10/19: diuretics written to start 10/20 Acute respiratory failure: will electively intubate today given resp distress, need for volume resuscitation cxr today, santiago try to extubate Severe aortic regurgitation: Reportedly d/t prior h/o endocarditis in 2018. Rpt echo with wide open valve. - Cardiology following, high risk for valve replacement presuming other varices present Elevated troponin: in setting of volume overload/anemia and unable to clear with renal failure. Trended down. - Not an aspirin candidate EMMANUELLE: Pre-renal, improved with BP support, Cr 2.2 on admission --> 1.0 this AM - Cont midodrine 10mg tid, will try to decrease prior to dc - Continue to follow Cr, I/O, avoid nephrotoxic agents Hepatic encephalopathy: Improved - cont Rifaximin, Lactulose H/o EtOH abuse: Patient and family deny use since 06/2018. No w/d. Thrombocytopenia: D/t splenic sequestration. - consider plt transfusion if plts <50K and active bleeding Hyperkalemia: 2/2 EMMANUELLE. Resolved, monitor VTE ppx: SCDs, no pharm with GIB Code: full Diet: resume low sodium diet Dispo: cont inpt Subjective: Pt reports dry mouth, bloody BMs this AM Objective: Vital Signs Temp Pulse Resp BP Pulse Ox 36.5 C 90 16 92/47 L 94 10/20/18 08:00 10/20/18 08:00 10/20/18 08:00 10/20/18 08:00 10/20/18 08:00 Laboratory Results 10/20/18 13:05 10/20/18 04:30 10/19/18 10/20/18 10/21/18 05:59 05:59 05:59 Intake Total 2135 3300 Output Total 1730 815 100 Balance 405 2485 -100 PT 21.8 SEC (12.0-15.0) H 10/20/18 13:05 INR 2.01 (0.83-1.16) H 10/20/18 13:05 - Physical Exam Constitutional: chronically ill appearing Eyes: PERRL Ears, Nose, Mouth, Throat: dry mucous membranes Cardiovascular: regular rate and rhythym Respiratory: no respiratory distress Gastrointestinal: distension Genitourinary: no bladder fullness Skin: warm Musculoskeletal: generalized weakness Neurologic: AAOx3 Psychiatric: anxious ICD10 Worksheet Patient Problems: Problems Problem Status Onset Anemia Acute Renal insufficiency Acute Upper GI bleed Acute Left rib fracture Acute
--- NOTE | 2018-10-20 15:30 | PDINTPN ---
Manager Integrated Progress Note Assessment/Plan: This patient is a 53-year-old male with a reported history of alcoholism and cirrhosis admitted on 10/05/2018 complaining of bright red blood per rectum, shortness of breath, lightheadedness, bloody emesis, increasing lower extremity edema, a 30 lb weight gain. He was initially treated with blood products and an EGD did not dumont clear bleeding sites on 10/06, but he required emergent intubation on 10/07 for airway protection after a bipap failure. He was stable until 10/13 when he again required multiple blood products. This has recurred multiple times throughout his stay, now s/p EGD x 4 (10/06, 10/13, 10/14, 10/18) and colonoscopy 10/09. He underwent emergent TIPS and gastric variceal embolization 10/16 (and paracentesis). On 10/19 he appeared stable in the AM but had voluminous BRBPR and hypotension requiring another trip to IR for additional embolization and PARTO procedure (see IR for details). * Acute respiratory failure with hypoxia-improved on now on room air * Hepatic encephalopathy -resolved * GI bleed- 2/2 gastric varices. He has continued to have bloody BMs today but his BP remains stable on vasopressin alone. Octreotide was restarted as well. his H/H was 6.9/20.5 this AM, and 8.4/26.6 at noon after only one more unit of RBCs. As of today, HD#15, he has received a total of 20 units RBCs, 9 FFP, 2 cryo, and [address] Jessica spoke to Dr. Abbott earlier today who suggested a multiphase CT to better identify the source, but he required a peripheral line (he has two centrals) so [facility] Additional staff attempting peripheral access now. A surgical consult has not yet occurred though most feel he is a high risk surgical candidate given his moderate-severe AR and cirrhosis. Other options might be transfer to a higher level of care, eg or [facility]. * Hypotension- controlled with vasopressin and midodrine * EMMANUELLE-resolved * alcoholic hepatitis- treated with steroids based on discriminant function on admission; anticipated duration of 28 days * ETOH wd- resolved. He reports abstinence since June (unconfirmed) * AR- severe regurgitation but not currently candidate for intervention. Was seen by cardiology and diuresis recommended as tolerated, noting that midodrine could be worsening AR. Watch closely for volume overload and CHF given GIB issues, but no evidence of this at present. * * critical care time 65 minutes 10/19/18 17:40 10/20/18 15:17 Subjective: concern for ongoing GIB Objective: Vital Signs Temp Pulse Resp BP Pulse Ox 36.5 C 90 16 92/47 L 94 10/20/18 08:00 10/20/18 08:00 10/20/18 08:00 10/20/18 08:00 10/20/18 08:00 Laboratory Results 10/20/18 13:05 10/20/18 04:30 10/19/18 10/20/18 10/21/18 05:59 05:59 05:59 Intake Total 2135 3300 Output Total 1730 815 100 Balance 405 2485 -100 PT 21.8 SEC (12.0-15.0) H 10/20/18 13:05 INR 2.01 (0.83-1.16) H 10/20/18 13:05 Physical Exam - Physical Exam General Appearance: alert, no apparent distress, obese EENT: PERRL/EOMI Neck: supple Respiratory: lungs clear, normal breath sounds, decreased breath sounds, No respiratory distress, No accessory muscle use Cardiac/Chest: regular rate, rhythm, No edema Abdomen: non-tender, soft, No distended Skin: normal color, warm/dry, No cyanosis Lymphatic: no adenopathy Extremities: No pedal edema Neuro/Psych: alert, normal mood/affect, oriented x 3 ICD10 Worksheet Patient Problems: Problems Problem Status Onset Anemia Acute Renal insufficiency Acute Upper GI bleed Acute Left rib fracture Acute
[2018-10-20] MEDS: FERROUS SULFATE 325 MG TAB PO SCH (15:45)
[2018-10-20] MEDS: SPIRONOLACTONE 25 MG TAB PO SCH (15:46)
[2018-10-20] MEDS: MULTIVITAMINS W-MINERALS 1 EACH TAB PO SCH (15:46)
[2018-10-20] MEDS: FOLIC ACID 1 MG TAB PO SCH (15:46)
[2018-10-20] MEDS: FUROSEMIDE 40 MG TAB PO SCH (15:46)
[2018-10-20] MEDS: THIAMINE HCL 100 MG TAB PO SCH (15:46)
[2018-10-20] MEDS: PANTOPRAZOLE SODIUM 40 MG VIAL IVP SCH ×2 (15:54→21:54)
[2018-10-20 16:11] LABS: INR 2.08 (0.83-1.16); PROTIME(PATIENT) 22.4 SEC (12.0-15.0)
[2018-10-20 19:18] LABS: PLATELET COUNT 48 10^3/uL (150-400)
[2018-10-20 20:12] LABS: PROTIME(PATIENT) 23.4 SEC (12.0-15.0)
[2018-10-20 21:30] LABS: PLATELET COUNT 42 10^3/uL (150-400)
[2018-10-20 23:24] LABS: INR 2.22 (0.83-1.16); PROTIME(PATIENT) 23.5 SEC (12.0-15.0)
[2018-10-21] LABS: PLATELET COUNT 39 10^3/uL (150-400)
[2018-10-21] MEDS: VASOPRESSIN 25 UNIT in NS 250 ML IV SCH (03:07)
[2018-10-21 03:32] LABS: INR 2.27 (0.83-1.16); PROTIME(PATIENT) 23.9 SEC (12.0-15.0)
[2018-10-21 03:46] LABS: PLATELET COUNT 37 10^3/uL (150-400)
[2018-10-21] MEDS: MIDODRINE HCL 10 MG TAB PO SCH ×3 (06:05→21:43)
[2018-10-21] MEDS: HYDROCORTISONE 100 MG/2 ML VIAL IVP SCH ×2 (06:14→13:37)
[2018-10-21 06:34] LABS: PROTIME(PATIENT) 24.2 SEC (12.0-15.0)
[2018-10-21 06:40] LABS: PLATELET COUNT 39 10^3/uL (150-400)
[2018-10-21] MEDS: OCTREOTIDE ACETATE 500 MCG in NS 50 ML IV SCH ×2 (09:19→18:11)
[2018-10-21] MEDS: PANTOPRAZOLE SODIUM 40 MG VIAL IVP SCH ×2 (09:19→21:43)
--- NOTE | 2018-10-21 09:50 | SOAPPROG ---
[facility] Progress Note Assessment/Plan: Assessment: 53 year old alcoholic liver disease with cirrhosis. 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 Recurrent GI Bleeding on Friday requiring further IR management. Additional coils placed antegrade. S/p PARTO. Passed bleed yesterday, but felt to be old blood. He has been hemodynamically stable. Plan: 1. Clear liquid diet, if tolerates and stable can advance to cardiac (regular) diet this afternoon 2. Serial H and H q 8 hours 3. D/C serial DIC panel 4. Continue on IV PPI and Octreotide 10/21/18 09:46 Subjective: CC: GI Bleed AI with endocarditis. Cirrhoses , portal HTN gastric varices. S/p TIPS, Embolization and PARTO. Clinically stable. Awake and alert. Hungry would like to eat. Objective: Vital Signs Temp Pulse Resp BP Pulse Ox 36.6 C 95 15 116/54 L 93 10/21/18 08:00 10/21/18 08:00 10/21/18 08:00 10/21/18 08:00 10/21/18 08:00 Laboratory Results 10/21/18 06:10 10/21/18 03:10 10/20/18 10/21/18 10/22/18 05:59 05:59 05:59 Intake Total 3300 2773.2 Output Total 815 1200 Balance 2485 1573.2 PT 24.2 SEC (12.0-15.0) H 10/21/18 06:10 INR 2.30 (0.83-1.16) H 10/21/18 06:10 Generic Name Dose Route Start Last Admin Trade Name Docq PRN Reason Stop Dose Admin Acetaminophen 650 mg 10/12/18 11:32 10/15/18 18:37 Tylenol PO 04/10/19 11:31 650 mg Q6HRS PRN Administration Pain, Mild/Fever, Can Take PO Alteplase, Recombinant 2 mg 10/06/18 09:44 Cathflo Activase IVP 04/04/19 09:43 PRN PRN Per PICC line policy Benzonatate 100 mg 10/12/18 16:59 10/13/18 08:44 Tessalon Pearles PO 04/10/19 16:58 100 mg TID PRN Administration Cough, Mild Ferrous Sulfate 325 mg 10/11/18 09:00 10/20/18 15:45 Ferrous Sulfate PO 04/09/19 08:59 Not Given DAILY KIM Folic Acid 1 mg 10/06/18 09:00 10/20/18 15:46 Folic Acid PO 04/04/19 08:59 Not Given DAILY KIM Furosemide 40 mg 10/20/18 09:00 10/20/18 15:46 Lasix PO 04/18/19 08:59 Not Given DAILY KIM Hydrocortisone 50 mg 10/17/18 09:53 10/21/18 06:14 Solucortef IVP 04/15/19 09:52 50 mg Q6 KIM Administration Vasopressin 25 unit/ Sodium 251.25 mls @ 24 mls/hr 10/16/18 16:30 10/21/18 03 :07 Chloride IV 04/14/19 16:29 251.25 mls CONT KIM Administration Norepinephrine 16 mg/ Sodium 266 mls @ 0 mls/hr 10/16/18 22:00 10/17/18 07:55 Chloride IV 04/14/19 21:59 266 mls CONT KIM Administration Protocol Per Protocol Albumin Human 100 mls @ 0 mls/hr 10/17/18 13:15 10/20/18 05:27 Flexbumin 25 % (Premix) IV 04/15/19 13:14 100 mls Q6HRS KIM Administration As Directed Epinephrine HCl 8 mg/ Sodium 258 mls @ 0 mls/hr 10/17/18 11:15 10/18/18 08:43 Chloride IV 04/15/19 11:14 258 mls CONT KIM Administration Protocol Per Protocol Octreotide Acetate 500 mcg/ 51 mls @ 5 mls/hr 10/20/18 11:00 10/21/18 09:19 Sodium Chloride IV 04/18/19 10:59 51 mls CONT KIM Administration Ceftriaxone Sodium/Dextrose 50 mls @ 100 mls/hr 10/21/18 09:00 10/21/18 09:19 Rocephin 1 Gm (Premix) IV 11/20/18 08:59 50 mls DAILY KIM Administration Lactulose 20 gm 10/09/18 16:00 10/20/18 22:00 Cephulac PO 04/07/19 15:59 Not Given TID KIM Midodrine 10 mg 10/06/18 16:30 10/21/18 06:05 Midodrine Hcl PO 04/04/19 16:29 Not Given Q8HRS [facility] Multivitamins/Minerals 1 each 10/06/18 09:00 10/20/18 15:46 Thera M Plus Tablet PO 04/04/19 08:59 Not Given DAILY [facility] Ondansetron HCl 4 mg 10/05/18 22:37 10/19/18 16:10 Zofran IVP 04/03/19 22:36 4 mg Q4HRS PRN Administration Nausea/Vomiting, Can't Take PO Ondansetron HCl 4 mg 10/05/18 22:37 Zofran Odt PO 04/03/19 22:36 Q4HRS PRN Nausea/Vomiting, Use 1st Pantoprazole Sodium 40 mg 10/20/18 09:45 10/21/18 09:19 Protonix IVP 04/18/19 09:44 40 mg BID [facility] Administration Rifaximin 550 mg 10/07/18 11:30 10/20/18 22:00 Xifaxan PO 11/06/18 11:29 Not Given BID [facility] Protocol Spironolactone 25 mg 10/20/18 09:00 10/20/18 15:46 Aldactone PO 04/18/19 08:59 Not Given DAILY [facility] Thiamine HCl 100 mg 10/06/18 09:00 10/20/18 15:46 Vitamin B-1 PO 04/04/19 08:59 Not Given DAILY [facility] Discontinued Medications Generic Name Dose Route Start Last Admin Trade Name Freq PRN Reason Stop Dose Admin Acetaminophen 1,000 mg 10/11/18 21:15 10/11/18 21:30 Tylenol PO 10/11/18 21:16 1,000 mg ONCE ONE Administration Albumin Human Confirm 10/08/18 11:44 Flexbumin 25 % (Premix) Administered 10/08/18 11:45 Dose 100 ml IV .STK-MED ONE Albumin Human Confirm 10/16/18 16:01 Alburx 5 Administered 10/16/18 16:02 Dose 250 ml IV .STK-MED ONE Calcium Chloride 1 gm 10/16/18 22:15 10/16/18 22:24 Calcium Chloride IV 10/16/18 22:16 1 gm ONCE ONE Administration Chlordiazepoxide HCl 25 mg 10/06/18 09:00 Librium PO 04/04/19 08:59 TID KIM Dexamethasone 4 mg 10/13/18 17:25 Decadron Injection IVP 10/13/18 18:25 ONCE PRN PACU, Nausea/Vomiting Dexamethasone Confirm 10/13/18 17:27 Decadron Injection Administered 10/13/18 17:28 Dose 4 mg .ROUTE .STK-MED ONE Dexamethasone Confirm 10/16/18 14:51 Decadron Injection Administered 10/16/18 14:52 Dose 4 mg .ROUTE .STK-MED ONE Dexamethasone Confirm 10/18/18 11:09 Decadron Injection Administered 10/18/18 11:10 Dose 4 mg .ROUTE .STK-MED ONE Diazepam 2.5 - 5 mg 10/13/18 17:25 Valium IVP 10/13/18 18:26 Q5M PRN Agitation, Acute Diazepam 2.5 - 5 mg 10/18/18 10:57 Valium IVP 10/18/18 11:58 Q5M PRN PACU, Muscle Spasms Epinephrine HCl Confirm 10/13/18 18:16 Epinephrine Administered 10/13/18 18:17 Dose 1 mg .ROUTE .STK-MED ONE Epinephrine HCl Confirm 10/13/18 18:16 Epinephrine Administered 10/13/18 18:17 Dose 1 mg IVP .STK-MED ONE Epinephrine HCl Confirm 10/13/18 18:21 Epinephrine Administered 10/13/18 18:22 Dose 1 mg .ROUTE .STK-MED ONE Etomidate 40 mg 10/07/18 03:39 10/07/18 03:40 Etomidate IV 10/07/18 03:40 40 mg ONCE ONE Administration Etomidate Confirm 10/18/18 11:09 Etomidate Administered 10/18/18 11:10 Dose 20 mg .ROUTE .STK-MED ONE Fentanyl 25 - 100 mcg 10/06/18 02:28 Sublimaze IVP 10/06/18 03:28 Q5M PRN PACU, IMMEDIATE Pain control Fentanyl 25 - 100 mcg 10/13/18 17:25 Sublimaze IVP 10/13/18 18:25 Q5M PRN PACU, IMMEDIATE Pain control Fentanyl Confirm 10/13/18 17:28 Sublimaze Administered 10/13/18 17:29 Dose 100 mcg .ROUTE .STK-MED ONE Fentanyl Confirm 10/13/18 17:54 Sublimaze Administered 10/13/18 17:55 Dose 100 mcg .ROUTE .STK-MED ONE Fentanyl Confirm 10/14/18 12:25 Sublimaze Administered 10/14/18 12:26 Dose 100 mcg .ROUTE .STK-MED ONE Fentanyl Confirm 10/14/18 12:54 Sublimaze Administered 10/14/18 12:55 Dose 100 mcg .ROUTE .STK-MED ONE Fentanyl Confirm 10/16/18 10:28 Sublimaze Administered 10/16/18 10:29 Dose 100 mcg .ROUTE .STK-MED ONE Fentanyl 25 - 100 mcg 10/18/18 10:57 Sublimaze IVP 10/18/18 11:58 Q5M PRN PACU, IMMEDIATE Pain control Fentanyl Confirm 10/18/18 11:07 Sublimaze Administered 10/18/18 11:08 Dose 100 mcg .ROUTE .STK-MED ONE Flumazenil 0.2 - 0.5 mg 10/06/18 11:03 10/06/18 13:12 Romazicon IVP 04/04/19 11:02 0.5 mg PRN PRN Administration Resp Rate Below 10 Furosemide 40 mg 10/07/18 11:02 10/07/18 11:25 Lasix Injection IVP 10/07/18 11:03 40 mg ONCE ONE Administration Furosemide 20 mg 10/11/18 11:00 10/12/18 09:04 Lasix PO 04/09/19 10:59 20 mg DAILY KIM Administration Furosemide 40 mg 10/13/18 09:00 10/13/18 08:43 Lasix PO 04/11/19 08:59 40 mg DAILY KIM Administration Furosemide 40 mg 10/14/18 19:20 10/16/18 16:15 Lasix Injection IVP 04/12/19 19:19 Not Given BIDDIUR KIM Glycopyrrolate Confirm 10/16/18 14:50 Glycopyrrolate Administered 10/16/18 14:51 Dose 0.2 mg .ROUTE .STK-MED ONE Glycopyrrolate Confirm 10/16/18 14:50 Glycopyrrolate Administered 10/16/18 14:51 Dose 0.2 mg .ROUTE .STK-MED ONE Heparin Sodium (Porcine) Confirm 10/16/18 10:20 Heparin Flush 2,000 Unit/Ns 1,000 Ml Administered 10/16/18 10:21 Dose 4,000 unit .ROUTE .STK-MED ONE Heparin Sodium (Porcine) Confirm 10/19/18 19:45 Heparin Lock Flush Administered 10/19/18 19:46 Dose 500 unit IVP .STK-MED ONE Heparin Sodium (Porcine) Confirm 10/19/18 20:19 Heparin Flush 2,000 Unit/Ns 1,000 Ml Administered 10/19/18 20:20 Dose 4,000 unit .ROUTE .STK-MED ONE Heparin Sodium (Porcine) Confirm 10/19/18 20:32 Heparin Flush 2,000 Unit/Ns 1,000 Ml Administered 10/19/18 20:33 Dose 4,000 unit .ROUTE .STK-MED ONE Hydrogen Peroxide Confirm 10/12/18 04:06 Hydrogen Peroxide Administered 10/12/18 04:07 Dose 23.6 serge TP .STK-MED ONE Hydromorphone HCl 0.1 - 0.4 mg 10/13/18 17:25 Dilaudid IVP 10/13/18 18:25 Q10M PRN PACU, PAIN Famotidine/Sodium Chloride 50 mls @ 200 mls/hr 10/05/18 22:03 10/05/18 22:08 Pepcid 20 Mg (Premix) IV 10/05/18 22:17 50 mls EDNOW ONE Administration Octreotide Acetate 500 mcg/ 51 mls @ 5 mls/hr 10/05/18 22:45 10/05/18 23:03 Sodium Chloride IV 04/03/19 22:44 51 mls CONT KIM Administration Sodium Chloride 1,000 mls @ 50 mls/hr 10/05/18 22:45 10/05/18 23:11 Ns IV 10/06/18 18:44 1,000 mls CONT KIM Administration Phytonadione 10 mg/ Sodium 51 mls @ 102 mls/hr 10/05/18 23:05 10/06/18 00:55 Chloride IV 10/05/18 23:34 51 mls EDNOW ONE Administration Octreotide Acetate 500 mcg/ 51 mls @ 5 mls/hr 10/05/18 23:30 Sodium Chloride IV 04/03/19 23:29 CONT KIM Ampicillin Sodium/Sulbactam 50 mls @ 200 mls/hr 10/06/18 00:30 10/06/18 01:40 Sodium 1.5 gm/ Sodium Chloride IV 10/06/18 00:44 50 mls ONCE ONE Administration Protocol Phytonadione 10 mg/ Sodium 51 mls @ 204 mls/hr 10/06/18 09:52 10/06/18 10:50 Chloride IV 10/06/18 10:06 51 mls ONCE ONE Administration Dexmedetomidine HCl 400 mcg/ 104 mls @ 0 mls/hr 10/06/18 11:30 10/08/18 04:18 Sodium Chloride IV 04/04/19 11:29 104 mls CONT KIM Administration Protocol Titrate Thiamine HCl 500 mg/ Sodium 105 mls @ 210 mls/hr 10/06/18 11:15 10/08/18 08: 31 Chloride IV 10/08/18 09:29 105 mls DAILY KIM Administration Propofol 100 mls @ 0 mls/hr 10/07/18 04:30 10/09/18 08:07 Diprivan 10 Mg/Ml (Premix) IV 04/05/19 04:29 100 mls CONT KIM Administration Protocol Per Protocol Albumin Human 250 mls @ 0 mls/hr 10/08/18 06:28 10/08/18 06:43 Alburx 5 IV 10/08/18 06:29 250 mls ONCE ONE Administration As Directed Albumin Human 100 mls @ 0 mls/hr 10/08/18 11:40 10/08/18 11:48 Flexbumin 25 % (Premix) IV 10/08/18 11:41 100 mls ONCE ONE Administration As Directed Albumin Human 250 mls @ 0 mls/hr 10/09/18 04:00 10/09/18 03:47 Alburx 5 IV 10/09/18 04:01 250 mls ONCE ONE Administration As Directed Dextrose/Sodium Chloride 1,000 mls @ 100 mls/hr 10/10/18 08:30 10/10/18 19:18 D5w 1/2 Ns IV 04/08/19 08:29 1,000 mls CONT KIM Administration Phytonadione 10 mg/ Sodium 51 mls @ 204 mls/hr 10/13/18 13:26 10/13/18 14:38 Chloride IV 10/13/18 13:40 51 mls ONCE ONE Administration Sodium Chloride 1,000 mls @ 0 mls/hr 10/13/18 13:28 10/13/18 13:45 Ns IV 10/13/18 13:29 1,000 mls ONCE ONE Administration Wide Open Ceftriaxone Sodium/Dextrose 50 mls @ 100 mls/hr 10/13/18 18:30 10/14/18 09:48 Rocephin 1 Gm (Premix) IV 11/12/18 18:29 50 mls DAILY KIM Administration Protocol Octreotide Acetate 500 mcg/ 51 mls @ 5 mls/hr 10/14/18 13:00 10/17/18 02:18 Sodium Chloride IV 04/12/19 12:59 51 mls CONT KIM Administration Lactated Ringer's 1,000 mls @ 0 mls/hr 10/14/18 11:53 10/14/18 14:22 Lr IV 10/14/18 11:54 Not Given ONCE ONE KVO Ceftriaxone Sodium 1 gm/ 50 mls @ 100 mls/hr 10/15/18 09:00 10/16/18 14:54 Sodium Chloride IV 10/16/18 15:00 Not Given DAILY KIM Ceftriaxone Sodium/Dextrose 50 mls @ 100 mls/hr 10/17/18 09:00 10/18/18 08:47 Rocephin 1 Gm (Premix) IV 10/19/18 00:00 50 mls DAILY KIM Administration Norepinephrine 4 mg/ Sodium 504 mls @ 0 mls/hr 10/16/18 09:30 10/16/18 21:00 Chloride IV 04/14/19 09:29 504 mls CONT KIM Administration Protocol Per Protocol Epinephrine HCl 8 mg/ Sodium 258 mls @ 0 mls/hr 10/16/18 16:00 10/16/18 16:15 Chloride IV 10/16/18 16:01 Not Given ONCE ONE Protocol Per Protocol Albumin Human 250 mls @ 0 mls/hr 10/16/18 16:30 10/16/18 16:35 Alburx 5 IV 10/16/18 16:31 250 mls ONCE ONE Administration As Directed Propofol 100 mls @ 0 mls/hr 10/16/18 18:46 10/17/18 09:14 Diprivan 10 Mg/Ml (Premix) IV 04/14/19 18:45 100 mls CONT KIM Administration Protocol Per Protocol Albumin Human 200 mls @ 0 mls/hr 10/17/18 08:58 10/17/18 09:23 Flexbumin 25 % (Premix) IV 10/17/18 08:59 Not Given ONCE ONE As Directed Albumin Human 250 mls @ 0 mls/hr 10/17/18 12:59 10/17/18 13:10 Alburx 5 IV 10/17/18 13:00 250 mls ONCE ONE Administration As Directed Magnesium Sulfate/Dextrose 100 mls @ 100 mls/hr 10/18/18 09:08 10/18/18 09:53 Magnesium Sulf 1 Gm (Premix) IV 10/18/18 10:07 100 mls ONCE ONE Administration Octreotide Acetate 500 mcg/ 51 mls @ 5 mls/hr 10/18/18 10:30 10/19/18 00:20 Sodium Chloride IV 04/16/19 10:29 51 mls CONT KIM Administration Ceftriaxone Sodium 1 gm/ 50 mls @ 100 mls/hr 10/19/18 09:00 10/20/18 10:15 Dextrose IV 11/18/18 08:59 50 mls DAILY KIM Administration Phytonadione 10 mg/ Sodium 51 mls @ 102 mls/hr 10/19/18 19:00 10/20/18 01:30 Chloride IV 10/19/18 19:29 51 mls ONCE ONE Administration Iopamidol Confirm 10/14/18 17:01 Isovue-300 Administered 10/14/18 17:02 Dose 100 ml .ROUTE .STK-MED ONE Iopamidol Confirm 10/16/18 10:19 Isovue-300 Administered 10/16/18 10:20 Dose 100 ml .ROUTE .STK-MED ONE Iopamidol Confirm 10/16/18 13:11 Isovue-300 Administered 10/16/18 13:12 Dose 500 ml .ROUTE .STK-MED ONE Iopamidol Confirm 10/19/18 20:01 Isovue-300 Administered 10/19/18 20:02 Dose 300 ml .ROUTE .STK-MED ONE Iopamidol Confirm 10/19/18 21:54 Isovue-300 Administered 10/19/18 21:55 Dose 100 ml .ROUTE .STK-MED ONE Iopamidol Confirm 10/20/18 13:52 Isovue-300 Administered 10/20/18 13:53 Dose 100 ml .ROUTE .STK-MED ONE Ketamine HCl Confirm 10/16/18 18:31 Ketamine Administered 10/16/18 18:32 Dose 200 mg .ROUTE .STK-MED ONE Ketamine HCl 200 mg 10/16/18 19:00 10/16/18 17:00 Ketamine IV 10/16/18 19:01 200 mg ONCE ONE Administration Labetalol HCl 5 - 10 mg 10/13/18 17:25 Trandate Injection IVP 10/13/18 18:25 Q10M PRN PACU, Hypertension Lactulose 20 gm 10/06/18 14:15 10/08/18 15:24 Cephulac TUBE 04/04/19 14:14 20 gm TID KIM Administration Lidocaine 2 serge 10/07/18 09:13 10/07/18 10:55 Glydo TP 10/07/18 09:14 2 serge ONCALL ONE Administration Lidocaine HCl 1 - 300 mg 10/07/18 09:13 10/07/18 10:55 Lidocaine Hcl 1% MISC 10/07/18 09:14 300 mg ONCALL ONE Administration Lidocaine HCl Confirm 10/13/18 17:27 Lidocaine Hcl 2% Administered 10/13/18 17:28 Dose 100 mg .ROUTE .STK-MED ONE Lidocaine HCl Confirm 10/18/18 11:09 Lidocaine Hcl 2% Administered 10/18/18 11:10 Dose 2 ml .ROUTE .STK-MED ONE Lorazepam 0 mg 10/06/18 11:03 10/07/18 01:13 Ativan Injection IVP 04/04/19 11:02 2 mg Q1H PRN Administration Alcohol Withdrawal w/IV access Protocol Lorazepam 2 mg 10/06/18 12:00 10/06/18 11:48 Ativan Injection IVP 10/10/18 11:59 Not Given Q6HRS KIM Magnesium Sulfate 1 dose 10/15/18 17:24 Protocol Magnesium IV 04/13/19 17:23 AD PRN Pt on Electrolyte Protocol Protocol Meperidine HCl 12.5 - 25 mg 10/13/18 17:25 Demerol IVP 10/13/18 18:26 Q10M PRN PACU, shivering/rigors Metoclopramide HCl 10 mg 10/14/18 09:45 10/14/18 11:00 Reglan Injection IVP 10/14/18 09:46 10 mg ONCE ONE Administration Midazolam HCl 1 mg 10/07/18 03:39 10/07/18 03:40 Versed IVP 10/07/18 03:40 1 mg ONCE ONE Administration Miscellaneous 1 each 10/05/18 22:45 Pharmacy To Dose Medication MISC 04/03/19 22:44 AD [facility] Morphine Sulfate 1 - 4 mg 10/18/18 10:57 Morphine IVP 10/18/18 11:58 Q10M PRN PACU, PAIN Multivitamins/Iron 1 ml 10/06/18 09:00 Vi-Aviva + Iron PO 04/04/19 08:59 DAILY KIM Naloxone HCl 0.1 mg 10/06/18 02:28 Narcan IVP 10/06/18 03:28 PRN PRN PACU Resp Rate <10/min Naloxone HCl 0.1 mg 10/13/18 17:25 Narcan IVP 10/13/18 18:25 Q2M PRN PACU Resp Rate <10/min Naloxone HCl 0.1 mg 10/16/18 15:39 Narcan IVP 10/16/18 16:39 Q2M PRN PACU Resp Rate <10/min Naloxone HCl 0.1 mg 10/18/18 10:57 Narcan IVP 10/18/18 11:57 PRN PRN PACU Resp Rate <10/min Naloxone HCl 0.1 mg 10/19/18 22:37 Narcan IVP 10/19/18 23:37 PRN PRN PACU Resp Rate <10/min Neostigmine Methylsulfate Confirm 10/16/18 14:50 Neostigmine Methylsulfate Administered 10/16/18 14:51 Dose 10 mg .ROUTE .STK-MED ONE Octreotide Acetate 50 mcg 10/05/18 22:42 10/05/18 22:59 Octreotide Acetate IVP 10/05/18 22:43 50 mcg ONCE ONE Administration Octreotide Acetate 50 mcg 10/14/18 13:31 10/14/18 14:04 Octreotide Acetate IVP 10/14/18 13:32 50 mcg ONCE ONE Administration Ondansetron HCl Confirm 10/05/18 22:24 Zofran Administered 10/05/18 22:25 Dose 4 mg .ROUTE .STK-MED ONE Ondansetron HCl 2 - 4 mg 10/13/18 17:25 Zofran IVP 10/13/18 18:25 Q10M PRN PACU, Nausea/Vomiting Ondansetron HCl Confirm 10/13/18 17:27 Zofran Administered 10/13/18 17:28 Dose 4 mg .ROUTE .STK-MED ONE Ondansetron HCl Confirm 10/16/18 14:51 Zofran Administered 10/16/18 14:52 Dose 4 mg .ROUTE .STK-MED ONE Ondansetron HCl 2 - 4 mg 10/18/18 10:57 Zofran IVP 10/18/18 11:58 Q10M PRN PACU, Nausea/Vomiting Post-Op Oxycodone HCl 5 - 10 mg 10/13/18 17:25 Oxycodone Ir PO 10/13/18 18:25 Q4HRS PRN PACU, Pain Severe Pantoprazole Sodium 40 mg 10/06/18 04:03 10/05/18 22:29 Protonix IVP 04/04/19 04:02 40 mg Q6H KIM Administration Pantoprazole Sodium Confirm 10/05/18 22:26 Protonix Administered 10/05/18 22:27 Dose 40 mg .ROUTE .STK-MED ONE Pantoprazole Sodium 40 mg 10/06/18 04:00 Protonix IVP 04/04/19 03:59 Q6H KIM Pantoprazole Sodium 40 mg 10/06/18 09:00 10/07/18 10:57 Protonix PO 04/04/19 08:59 Not Given DAILY KIM Pantoprazole Sodium 40 mg 10/07/18 09:45 10/10/18 09:16 Protonix IVP 04/05/19 09:44 40 mg DAILY KIM Administration Pantoprazole Sodium 40 mg 10/11/18 09:00 10/13/18 08:44 Protonix PO 04/09/19 08:59 40 mg DAILY KIM Administration Pantoprazole Sodium 40 mg 10/13/18 13:45 10/14/18 14:56 Protonix IVP 04/11/19 13:44 Not Given Q6H KIM Pantoprazole Sodium 40 mg 10/14/18 21:00 10/19/18 08:47 Protonix IVP 04/12/19 20:59 40 mg Q12 KIM Administration Pantoprazole Sodium 40 mg 10/19/18 21:00 10/20/18 15:57 Protonix PO 04/17/19 20:59 Not Given BID KIM Pantoprazole Sodium 40 mg 10/20/18 00:25 10/20/18 01:22 Protonix IVP 10/20/18 00:26 40 mg ONCE ONE Administration Phenylephrine HCl Confirm 10/13/18 17:54 Neosynephrine Administered 10/13/18 17:55 Dose 1,000 mcg .ROUTE .STK-MED ONE Phenylephrine HCl Confirm 10/16/18 10:30 Neosynephrine Administered 10/16/18 10:31 Dose 1,000 mcg .ROUTE .STK-MED ONE Polyethylene Glycol/Electrolytes 1,000 ml 10/06/18 02:11 10/06/18 05:20 Gavilyte - G PO 10/06/18 02:12 1,000 ml ONCE ONE Administration Polyethylene Glycol/Electrolytes 3,000 ml 10/08/18 15:43 10/08/18 21:16 Gavilyte - G PO 10/08/18 15:44 3,000 ml ONCE ONE Administration Potassium Chloride 1 dose 10/15/18 17:24 Protocol Potassium MISC 04/13/19 17:23 AD PRN Pt on Electrolyte Protocol Protocol Promethazine HCl 6.25 - 12.5 mg 10/13/18 17:25 Phenergan IVP 10/13/18 18:25 Q5M PRN PACUNausea/Vomiting, Unable PO Propofol Confirm 10/06/18 01:30 Diprivan Administered 10/06/18 01:31 Dose 200 mg .ROUTE .STK-MED ONE Propofol Confirm 10/06/18 01:30 Diprivan Administered 10/06/18 01:31 Dose 200 mg .ROUTE .STK-MED ONE Propofol Confirm 10/07/18 03:42 Diprivan 10 Mg/Ml (Premix) Administered 10/07/18 03:43 Dose 1,000 mg IV .STK-MED ONE Propofol Confirm 10/13/18 17:28 Diprivan Administered 10/13/18 17:29 Dose 200 mg .ROUTE .STK-MED ONE Propofol Confirm 10/14/18 12:25 Diprivan Administered 10/14/18 12:26 Dose 200 mg .ROUTE .STK-MED ONE Propofol Confirm 10/16/18 09:32 Diprivan 10 Mg/Ml (Premix) Administered 10/16/18 09:33 Dose 1,000 mg IV .STK-MED ONE Propofol Confirm 10/16/18 17:56 Diprivan 10 Mg/Ml (Premix) Administered 10/16/18 17:57 Dose 1,000 mg IV .STK-MED ONE Propofol Confirm 10/18/18 11:07 Diprivan 10 Mg/Ml (Premix) Administered 10/18/18 11:08 Dose 500 mg IV .STK-MED ONE Propofol Confirm 10/19/18 19:44 Diprivan 10 Mg/Ml (Premix) Administered 10/19/18 19:45 Dose 500 mg IV .STK-MED ONE Propofol Confirm 10/19/18 21:40 Diprivan 10 Mg/Ml (Premix) Administered 10/19/18 21:41 Dose 500 mg IV .STK-MED ONE Rocuronium Mcgrann Confirm 10/16/18 12:13 Zemuron Administered 10/16/18 12:14 Dose 100 mg .ROUTE .STK-MED ONE Rocuronium Mcgrann Confirm 10/16/18 18:28 Zemuron Administered 10/16/18 18:29 Dose 100 mg .ROUTE .STK-MED ONE Rocuronium Mcgrann 100 mg 10/16/18 18:10 10/16/18 18:49 Zemuron IV 10/16/18 18:11 100 mg ONCE ONE Administration Rocuronium Mcgrann Confirm 10/19/18 19:51 Zemuron Administered 10/19/18 19:52 Dose 50 mg .ROUTE .STK-MED ONE Sodium Tetradecyl Sulfate Confirm 10/19/18 19:36 Sotradecol 3% Administered 10/19/18 19:37 Dose 2 ml IV .STK-MED ONE Spironolactone 50 mg 10/12/18 11:45 10/12/18 15:51 Aldactone PO 04/10/19 11:44 50 mg DAILY KIM Administration Spironolactone 100 mg 10/13/18 09:00 10/16/18 08:58 Aldactone PO 04/11/19 08:59 Not Given DAILY KIM Succinylcholine Chloride Confirm 10/14/18 12:30 Quelicin Administered 10/14/18 12:31 Dose 200 mg IVP .STK-MED ONE Succinylcholine Chloride Confirm 10/18/18 11:09 Quelicin Administered 10/18/18 11:10 Dose 200 mg IVP .STK-MED ONE Thiamine HCl 100 mg 10/09/18 11:03 Vitamin B-1 PO 04/07/19 11:02 DAILY KIM Physical Exam - Physical Exam General Appearance: alert, no apparent distress Respiratory: lungs clear Cardiac/Chest: regular rate, rhythm Abdomen: non-tender, soft Skin: warm/dry Neuro/Psych: alert, normal mood/affect, oriented x 3 ICD10 Worksheet Patient Problems: Problems Problem Status Onset Anemia Acute Renal insufficiency Acute Upper GI bleed Acute Left rib fracture Acute
[2018-10-21] MEDS: SPIRONOLACTONE 25 MG TAB PO SCH (10:11)
[2018-10-21] MEDS: FUROSEMIDE 40 MG TAB PO SCH (10:11)
[2018-10-21] MEDS: RIFAXIMIN 550 MG TAB PO SCH ×2 (10:22→21:43)
[2018-10-21] MEDS: FOLIC ACID 1 MG TAB PO SCH (10:24)
[2018-10-21] MEDS: LACTULOSE 20 GM/30 ML UDCUP PO SCH (10:24)
[2018-10-21] MEDS: MULTIVITAMINS W-MINERALS 1 EACH TAB PO SCH (10:24)
[2018-10-21] MEDS: FERROUS SULFATE 325 MG TAB PO SCH (10:25)
[2018-10-21] MEDS: THIAMINE HCL 100 MG TAB PO SCH (10:25)
--- NOTE | 2018-10-21 10:45 | SOAPPROG ---
SOAP Progress Note Assessment/Plan: Assessment: 53 y/o man with ETOH induced esophageal varcies and UGIB and shock on IV vasopression. He lives half time in [place] and half time in [place], [place]. He was hospitalized in fall of 2017 with SBE. Echo 10/14/18 showed LVEF 55%, mild LVH, normal RVEF, bicuspid AV with mild-moderate and severe AI, moderate to severe MR and TR and estimated PAS 54mmHg. He had recurrent GI bleeding two days and more coils by IR. Number of bloody stools has decreased. Denies CP, rest shortness of breath or PND. He is very weak. PLAN: 1)no change in current meds. 2)Try to wean Vasopressin gtt keeping SBP > 95. 3)TID H/H's 10/21/18 10:43 Subjective: he is in better mood today with fiancee at bedside. Denies CP, rest shortness of breath, palpitations or PND. Objective: Vital Signs Temp Pulse Resp BP Pulse Ox 36.6 C 95 15 116/54 L 93 10/21/18 08:00 10/21/18 08:00 10/21/18 08:00 10/21/18 08:00 10/21/18 08:00 Laboratory Results 10/21/18 06:10 10/21/18 03:10 10/20/18 10/21/18 10/22/18 05:59 05:59 05:59 Intake Total 3300 2773.2 515 Output Total 815 1200 Balance 2485 1573.2 515 PT 24.2 SEC (12.0-15.0) H 10/21/18 06:10 INR 2.30 (0.83-1.16) H 10/21/18 06:10 Physical Exam - Physical Exam General Appearance: alert EENT: normal ENT inspection Neck: full range of motion Respiratory: lungs clear Cardiac/Chest: regular rate, rhythm, JVD, diastolic murmur, No gallop Peripheral Pulses: 2+: carotid (R), carotid (L), femoral (R), femoral (L), dorsalis-pedis (R), dorsalis-pedis (L) Abdomen: non-tender, No guarding Extremities: pedal edema (1+ edema.) Neuro/Psych: alert ICD10 Worksheet Patient Problems: Problems Problem Status Onset Anemia Acute Renal insufficiency Acute Upper GI bleed Acute Left rib fracture Acute
--- NOTE | 2018-10-21 14:30 | ASMTCMCOM ---
CM Note CM Note Notes: Gagandeep SHOOK from Palliative [facility], Alexa from [facility], Aleyda and pt met today to discuss goals of care and to coordinate outpatient services and support. Pt reports "I want to live" and is agreeable to additional supportive services through Palliative Care. At this time pt's plan is to stay in [place] after discharge and continue with medical follow-up here. Pt signed on with [facility] for Palliative support and CM initiated [facility] referral for Medicaid Home Based Services. Aleyda has to return to [place] on Friday but Solo has some support with his roommate in [place] and could benefit from any additional services through [facility]. Pt signed MDPOA ppwk for his fiance Aleyda Magana to be his MDPOA. Copy in chart. CM to follow. Plan: Home with [facility] HCBS services and [facility] Date Signed: 10/21/2018 02:29 PM Electronically Signed By:LEEANNA Guardado
--- NOTE | 2018-10-21 14:58 | PDINTPN ---
Field Marketing Manager Progress Note Assessment/Plan: This patient is a 53-year-old male with a reported history of alcoholism and cirrhosis admitted on 10/05/2018 complaining of bright red blood per rectum, shortness of breath, lightheadedness, bloody emesis, increasing lower extremity edema, a 30 lb weight gain. He was initially treated with blood products and an EGD did not dumont clear bleeding sites on 10/06, but he required emergent intubation on 10/07 for airway protection after a bipap failure. He was stable until 10/13 when he again required multiple blood products. This has recurred multiple times throughout his stay, now s/p EGD x 4 (10/06, 10/13, 10/14, 10/18) and colonoscopy 10/09. He underwent emergent TIPS and gastric variceal embolization 10/16 (and paracentesis). On 10/19 he appeared stable in the AM but had voluminous BRBPR and hypotension requiring another trip to IR for additional embolization and PARTO procedure (see IR for details). * Acute respiratory failure with hypoxia-improved on now on room air * Hepatic encephalopathy -resolved. Continue rifaximin * GI bleed- 2/2 gastric varices. He has continued to have bloody BMs today but his BP remains stable on vasopressin alone. Octreotide was restarted as well. his H/H was 6.9/20.5 this AM, and 8.4/26.6 at noon after only one more unit of RBCs. As of today, HD#16, he has received a total of 22 units RBCs, 12 FFP, 2 cryo, and 3 platelet transfusions. CTA without extravasation of blood 10/20 and stability of counts. Continue observation. Would advance diet conservatively given hospital course. Other options might be transfer to a higher level of care, eg or [facility]. * Hypotension- controlled with vasopressin and midodrine * EMMANUELLE-resolved * alcoholic hepatitis- treated with steroids based on discriminant function on admission; anticipated duration of 28 days * ETOH wd- resolved. He reports abstinence since June (unconfirmed) * AR- severe regurgitation but not currently candidate for intervention. Was seen by cardiology and diuresis recommended as tolerated, noting that midodrine could be worsening AR. Watch closely for volume overload and CHF given GIB issues, but no evidence of this at present. * * critical care time 45 minutes Subjective: relative stability last pm; ongoing variable bloody BM Objective: Vital Signs Temp Pulse Resp BP Pulse Ox 36.3 C 103 H 17 113/50 L 95 10/21/18 12:50 10/21/18 12:50 10/21/18 12:50 10/21/18 12:50 10/21/18 12:50 Laboratory Results 10/21/18 06:10 10/21/18 03:10 10/20/18 10/21/18 10/22/18 05:59 05:59 05:59 Intake Total 3300 2773.2 1679 Output Total 815 1200 450 Balance 2485 1573.2 1229 PT 24.2 SEC (12.0-15.0) H 10/21/18 06:10 INR 2.30 (0.83-1.16) H 10/21/18 06:10 Physical Exam - Physical Exam General Appearance: alert, no apparent distress EENT: PERRL/EOMI, No scleral icterus (R), No scleral icterus (L) Neck: supple Respiratory: lungs clear, normal breath sounds, decreased breath sounds, No respiratory distress, No accessory muscle use Cardiac/Chest: regular rate, rhythm, edema Abdomen: non-tender, soft, No distended Skin: normal color, warm/dry, No cyanosis, No jaundice Lymphatic: no adenopathy Extremities: pedal edema Neuro/Psych: alert, normal mood/affect, oriented x 3 ICD10 Worksheet Patient Problems: Problems Problem Status Onset Anemia Acute Renal insufficiency Acute Upper GI bleed Acute Left rib fracture Acute
--- NOTE | 2018-10-21 15:43 | HOSPPROG ---
Hospitalist Progress Note Assessment/Plan: 53 yo M with alcoholic cirrhosis, severe aortic regurgitation thought 2/2 bacterial endocarditis p/w GIB. Course complicated by encephalopathy and respiratory failure. Extubated 10/09. two large volume UGIB; s/p TIPS and elective intubation for hemorrhagic shock and subsequent resuscitation. Acute GIB 2/2 gastric varices: not seen on initial EGD, S/p multiple EGDs confirmed gastric variceal bleed. - Restarted Octreotide as well as IV PPI on 10/20 due to multiple bloody BMs - S/p plug assisted retrograde transvenous obliteration (PARTO) performed with a combination sclerotherapy and Amplatzer plug by IR on 10/19 - S/p 2 units PRBC on 10/20 as well as FFP, Hgb improved from 6/9 to 8.7, stable at 8.9 this AM - Discussed with IR, Dr. Abbott who recommended Triple Phase CT A/P to 10/20 to evaluate for lower source of bleed which was negative - Discussed with GI, Dr. Gu, recommends continued IV Octreotide and PPI , CBC [id number] Hemorrhagic shock: complicated by AI, cirrhosis (AI and cirrhosis will yield low MAP's) 10/19: off epi use SBP of 90 (not MAP, low diastolic of AI lowers) Remains of Vasopressin, wean as tolerated Continue Midodrine 10 mg TID, will hold Lasix for now Decompensated cirrhosis with ascites: MELD 22 on 10/20, 38 on admission (52% 3 month mortality) s/p TIPS continue rifaximin ABLA on chronic anemia: D/t above, s/p total 8 u prbc's. H&H 6.9 on 10/20, s/p 2 units PRBCs, improved to 8.9 this AM - cont to trend h&h, monitor q8 hours as above, transfuse H/H <7/20 Coagulopathy of liver disease: S/P 4u FFP, IV vitamin K, INR 2.3 this AM Edema: D/t low albumin/cirrhosis - Lasix (40 mg PO qd) / Spironolactone 10/19: diuretics written to start 10/20, holding due to hypotension as above Acute respiratory failure: S/p extubation, currently saturating well on RA Severe aortic regurgitation: Reportedly d/t prior h/o endocarditis in 2017. Rpt echo with wide open valve. - Cardiology following, high risk for valve replacement presuming other varices present Elevated troponin: in setting of volume overload/anemia and unable to clear with renal failure. Trended down. - Not an aspirin candidate EMMANUELLE: Pre-renal, improved with BP support, Cr 2.2 on admission --> 1.0 this AM - Cont midodrine 10mg tid, will try to decrease prior to dc - Continue to follow Cr, I/O, avoid nephrotoxic agents Hepatic encephalopathy: Improved - cont Rifaximin, holding Lactulose H/o EtOH abuse: Patient and family deny use since 06/2018. No w/d. Thrombocytopenia: D/t splenic sequestration. - consider plt transfusion if plts <50K and active bleeding Hyperkalemia: 2/2 EMMANUELLE. Resolved, monitor VTE ppx: SCDs, no pharm with GIB Code: full Diet: CLD, advance to regular if no further s/s of bleeding Dispo: cont inpt Subjective: Pt reports feeling improved this morning, no BM since overnight Objective: Vital Signs Temp Pulse Resp BP Pulse Ox 36.3 C 103 H 17 113/50 L 95 10/21/18 12:50 10/21/18 12:50 10/21/18 12:50 10/21/18 12:50 10/21/18 12:50 Laboratory Results 10/21/18 15:00 10/21/18 03:10 10/20/18 10/21/18 10/22/18 05:59 05:59 05:59 Intake Total 3300 2773.2 1679 Output Total 815 1200 450 Balance 2485 1573.2 1229 PT 24.2 SEC (12.0-15.0) H 10/21/18 06:10 INR 2.30 (0.83-1.16) H 10/21/18 06:10 - Physical Exam Constitutional: chronically ill appearing Eyes: PERRL Ears, Nose, Mouth, Throat: moist mucous membranes Cardiovascular: regular rate and rhythym Respiratory: no respiratory distress Gastrointestinal: soft, non-tender abdomen, distension Skin: warm Musculoskeletal: generalized weakness Neurologic: AAOx3 Psychiatric: interacting appropriately ICD10 Worksheet Patient Problems: Problems Problem Status Onset Anemia Acute Renal insufficiency Acute Upper GI bleed Acute Left rib fracture Acute
[2018-10-22] MEDS: OCTREOTIDE ACETATE 500 MCG in NS 50 ML IV SCH ×2 (06:02→17:20)
[2018-10-22] MEDS: MIDODRINE HCL 10 MG TAB PO SCH ×3 (06:55→21:09)
[2018-10-22] MEDS: RIFAXIMIN 550 MG TAB PO SCH ×2 (09:10→21:09)
--- NOTE | 2018-10-22 09:17 | PDCONSULT ---
Research And Development Director Note: Acute Care Surgery Consult 53 y/o male with alcoholic liver disease ( reports quit drinking Jun 2018) now admitted for severe UGI bleeding from varices. He has undergone TIPS and coil embolization of multiple bleeding varices. He has an underlying profound coagulopathy, thrombocytopenia and anasarca. He has to date received 17 units PRBC and 13 units FFP. He has had no further bleeding since his last coil embolization 10/19/18. Surgical consultation was requested to evaluate surgical options should UGIB recur. PMH: ALD, Gastric ulcers, Gastric varices, SBE/valvular heart disease, CHF, thrombocytopenia, coagulopathy surgery: TIPS 09/2018 NKDA non-smoker no hx IVDA SH: lives in [place] FH: NC ROS: + weight gain last 3 months intermittent bloody mucoid stools, none past 48 hours PE: BP 112/48 P 84 R 19 95% RA T 36.5 HEENT:mild scleral icterus, R IJ 10 Fr. Sheath skin: cool/dry, multiple upper ext tattoos Lungs: CTA CVS: II/ GABRIELLE abd: distended, hepatomegaly 4 cm below CM, non-tender, normoactive bowel sounds moderate ascites, not tense ext + 4 pitting edema neuro: alert, O x 3, sober Lab: Hgb 9.1 Hct 27.5 plT 39 k inr 2.3 pt 24.2 fibrinogen: 84 bili 5.0 (conj 2.4) alb 3.0 Imp: ALD with cirrhosis and secondary UGIB, CHF, Anasarca, poor surgical candidate for bowel resection/ would recommend continuing non- operative management If patient survives he would be a candidate for liver transplant, but would possibly require valve replacement surgery prior...another high risk and daunting task. Discussed with Dr. Fco Boateng, ICU attending Everardo Garcia MD, FACS
[2018-10-22] MEDS: PANTOPRAZOLE SODIUM 40 MG VIAL IVP SCH ×2 (09:19→21:09)
--- NOTE | 2018-10-22 09:31 | SOAPPROG ---
SOJT Progress Note Assessment/Plan: Assessment: 53 year old alcoholic liver disease with cirrhosis, portal hypertension and recurrent GI bleeding secondary to gastric varices. Patient with right heart failure and valvular hear disease (Severe AR with history of endocarditis). Has had multiple EGD's Gastric varices not amenable to endoscopic management. IR management of gastric varices/portal HTN. s/p TIPS (not fully expanded). Antegrade coils in gastric varices, also retrograde management of varices s/p PARTO. (Plug Assisted Retrograde Transvenous Obliteration) Stable no further bleeding. Plan: 1. May advance to 2 gram low sodium diet 2. H and H q 12 hours 3. Continue on IV PPI and Octreotide for the next 24 hours, if stable can d/c Octreotide tomorrow and switch to PO Pantoprazole 4. When patient discharged will need follow up at [facility] or [facility] for evaluation with transplant team 10/22/18 09:36 Subjective: CC: GI Bleed Cirrhosis, ETOH. (no alcohol since June). AI (s/p endocarditis). GI Bleeding secondary to gastric varices. No signs or symptoms of bleeding since IR intervention. Tolerating PO liquids. Objective: Vital Signs Temp Pulse Resp BP Pulse Ox 36.5 C 89 14 98/42 L 95 10/21/18 15:57 10/22/18 06:00 10/22/18 06:00 10/22/18 06:00 10/22/18 06:00 Laboratory Results 10/22/18 04:55 10/21/18 03:10 10/21/18 10/22/18 10/23/18 05:59 05:59 05:59 Intake Total 2773.2 2900.6 Output Total 1200 2024 Balance 1573.2 875.6 PT 24.2 SEC (12.0-15.0) H 10/21/18 06:10 INR 2.30 (0.83-1.16) H 10/21/18 06:10 Generic Name Dose Route Start Last Admin Trade Name Freq PRN Reason Stop Dose Admin Acetaminophen 650 mg 10/12/18 11:32 10/15/18 18:37 Tylenol PO 04/10/19 11:31 650 mg Q6HRS PRN Administration Pain, Mild/Fever, Can Take PO Alteplase, Recombinant 2 mg 10/06/18 09:44 Cathflo Activase IVP 04/04/19 09:43 PRN PRN Per PICC line policy Benzonatate 100 mg 10/12/18 16:59 10/13/18 08:44 Tessalon Pearles PO 04/10/19 16:58 100 mg TID PRN Administration Cough, Mild Ferrous Sulfate 325 mg 10/11/18 09:00 10/21/18 10:25 Ferrous Sulfate PO 04/09/19 08:59 Not Given DAILY KIM Folic Acid 1 mg 10/06/18 09:00 10/21/18 10:24 Folic Acid PO 04/04/19 08:59 Not Given DAILY KIM Furosemide 40 mg 10/20/18 09:00 10/21/18 10:11 Lasix PO 04/18/19 08:59 40 mg DAILY KIM Administration Vasopressin 25 unit/ Sodium 251.25 mls @ 24 mls/hr 10/16/18 16:30 10/21/18 03 :07 Chloride IV 04/14/19 16:29 251.25 mls CONT KIM Administration Norepinephrine 16 mg/ Sodium 266 mls @ 0 mls/hr 10/16/18 22:00 10/17/18 07:55 Chloride IV 04/14/19 21:59 266 mls CONT KIM Administration Protocol Per Protocol Epinephrine HCl 8 mg/ Sodium 258 mls @ 0 mls/hr 10/17/18 11:15 10/18/18 08:43 Chloride IV 04/15/19 11:14 258 mls CONT KIM Administration Protocol Per Protocol Octreotide Acetate 500 mcg/ 51 mls @ 5 mls/hr 10/20/18 11:00 10/22/18 06:02 Sodium Chloride IV 04/18/19 10:59 51 mls CONT KIM Administration Lactulose 20 gm 10/09/18 16:00 10/21/18 10:24 Cephulac PO 04/07/19 15:59 Not Given TID KIM Midodrine 10 mg 10/06/18 16:30 10/22/18 06:55 Midodrine Hcl PO 04/04/19 16:29 10 mg Q8HRS KIM Administration Multivitamins/Minerals 1 each 10/06/18 09:00 10/21/18 10:24 Thera M Plus Tablet PO 04/04/19 08:59 Not Given DAILY KIM Ondansetron HCl 4 mg 10/05/18 22:37 10/19/18 16:10 Zofran IVP 04/03/19 22:36 4 mg Q4HRS PRN Administration Nausea/Vomiting, Can't Take PO Ondansetron HCl 4 mg 10/05/18 22:37 Zofran Odt PO 04/03/19 22:36 Q4HRS PRN Nausea/Vomiting, Use 1st Pantoprazole Sodium 40 mg 10/20/18 09:45 10/22/18 09:19 Protonix IVP 04/18/19 09:44 40 mg BID KIM Administration Rifaximin 550 mg 10/07/18 11:30 10/22/18 09:10 Xifaxan PO 11/06/18 11:29 550 mg BID KIM Administration Protocol Spironolactone 25 mg 10/20/18 09:00 10/21/18 10:11 Aldactone PO 04/18/19 08:59 25 mg DAILY KIM Administration Thiamine HCl 100 mg 10/06/18 09:00 10/21/18 10:25 Vitamin B-1 PO 04/04/19 08:59 Not Given DAILY [facility] Discontinued Medications Generic Name Dose Route Start Last Admin Trade Name Freq PRN Reason Stop Dose Admin Acetaminophen 1,000 mg 10/11/18 21:15 10/11/18 21:30 Tylenol PO 10/11/18 21:16 1,000 mg ONCE ONE Administration Albumin Human Confirm 10/08/18 11:44 Flexbumin 25 % (Premix) Administered 10/08/18 11:45 Dose 100 ml IV .STK-MED ONE Albumin Human Confirm 10/16/18 16:01 Alburx 5 Administered 10/16/18 16:02 Dose 250 ml IV .STK-MED ONE Calcium Chloride 1 gm 10/16/18 22:15 10/16/18 22:24 Calcium Chloride IV 10/16/18 22:16 1 gm ONCE ONE Administration Chlordiazepoxide HCl 25 mg 10/06/18 09:00 Librium PO 04/04/19 08:59 TID KIM Dexamethasone 4 mg 10/13/18 17:25 Decadron Injection IVP 10/13/18 18:25 ONCE PRN PACU, Nausea/Vomiting Dexamethasone Confirm 10/13/18 17:27 Decadron Injection Administered 10/13/18 17:28 Dose 4 mg .ROUTE .STK-MED ONE Dexamethasone Confirm 10/16/18 14:51 Decadron Injection Administered 10/16/18 14:52 Dose 4 mg .ROUTE .STK-MED ONE Dexamethasone Confirm 10/18/18 11:09 Decadron Injection Administered 10/18/18 11:10 Dose 4 mg .ROUTE .STK-MED ONE Diazepam 2.5 - 5 mg 10/13/18 17:25 Valium IVP 10/13/18 18:26 Q5M PRN Agitation, Acute Diazepam 2.5 - 5 mg 10/18/18 10:57 Valium IVP 10/18/18 11:58 Q5M PRN PACU, Muscle Spasms Epinephrine HCl Confirm 10/13/18 18:16 Epinephrine Administered 10/13/18 18:17 Dose 1 mg .ROUTE .STK-MED ONE Epinephrine HCl Confirm 10/13/18 18:16 Epinephrine Administered 10/13/18 18:17 Dose 1 mg IVP .STK-MED ONE Epinephrine HCl Confirm 10/13/18 18:21 Epinephrine Administered 10/13/18 18:22 Dose 1 mg .ROUTE .STK-MED ONE Etomidate 40 mg 10/07/18 03:39 10/07/18 03:40 Etomidate IV 10/07/18 03:40 40 mg ONCE ONE Administration Etomidate Confirm 10/18/18 11:09 Etomidate Administered 10/18/18 11:10 Dose 20 mg .ROUTE .STK-MED ONE Fentanyl 25 - 100 mcg 10/06/18 02:28 Sublimaze IVP 10/06/18 03:28 Q5M PRN PACU, IMMEDIATE Pain control Fentanyl 25 - 100 mcg 10/13/18 17:25 Sublimaze IVP 10/13/18 18:25 Q5M PRN PACU, IMMEDIATE Pain control Fentanyl Confirm 10/13/18 17:28 Sublimaze Administered 10/13/18 17:29 Dose 100 mcg .ROUTE .STK-MED ONE Fentanyl Confirm 10/13/18 17:54 Sublimaze Administered 10/13/18 17:55 Dose 100 mcg .ROUTE .STK-MED ONE Fentanyl Confirm 10/14/18 12:25 Sublimaze Administered 10/14/18 12:26 Dose 100 mcg .ROUTE .STK-MED ONE Fentanyl Confirm 10/14/18 12:54 Sublimaze Administered 10/14/18 12:55 Dose 100 mcg .ROUTE .STK-MED ONE Fentanyl Confirm 10/16/18 10:28 Sublimaze Administered 10/16/18 10:29 Dose 100 mcg .ROUTE .STK-MED ONE Fentanyl 25 - 100 mcg 10/18/18 10:57 Sublimaze IVP 10/18/18 11:58 Q5M PRN PACU, IMMEDIATE Pain control Fentanyl Confirm 10/18/18 11:07 Sublimaze Administered 10/18/18 11:08 Dose 100 mcg .ROUTE .STK-MED ONE Flumazenil 0.2 - 0.5 mg 10/06/18 11:03 10/06/18 13:12 Romazicon IVP 04/04/19 11:02 0.5 mg PRN PRN Administration Resp Rate Below 10 Furosemide 40 mg 10/07/18 11:02 10/07/18 11:25 Lasix Injection IVP 10/07/18 11:03 40 mg ONCE ONE Administration Furosemide 20 mg 10/11/18 11:00 10/12/18 09:04 Lasix PO 04/09/19 10:59 20 mg DAILY KIM Administration Furosemide 40 mg 10/13/18 09:00 10/13/18 08:43 Lasix PO 04/11/19 08:59 40 mg DAILY KIM Administration Furosemide 40 mg 10/14/18 19:20 10/16/18 16:15 Lasix Injection IVP 04/12/19 19:19 Not Given BIDDIUR KIM Glycopyrrolate Confirm 10/16/18 14:50 Glycopyrrolate Administered 10/16/18 14:51 Dose 0.2 mg .ROUTE .STK-MED ONE Glycopyrrolate Confirm 10/16/18 14:50 Glycopyrrolate Administered 10/16/18 14:51 Dose 0.2 mg .ROUTE .STK-MED ONE Heparin Sodium (Porcine) Confirm 10/16/18 10:20 Heparin Flush 2,000 Unit/Ns 1,000 Ml Administered 10/16/18 10:21 Dose 4,000 unit .ROUTE .STK-MED ONE Heparin Sodium (Porcine) Confirm 10/19/18 19:45 Heparin Lock Flush Administered 10/19/18 19:46 Dose 500 unit IVP .STK-MED ONE Heparin Sodium (Porcine) Confirm 10/19/18 20:19 Heparin Flush 2,000 Unit/Ns 1,000 Ml Administered 10/19/18 20:20 Dose 4,000 unit .ROUTE .STK-MED ONE Heparin Sodium (Porcine) Confirm 10/19/18 20:32 Heparin Flush 2,000 Unit/Ns 1,000 Ml Administered 10/19/18 20:33 Dose 4,000 unit .ROUTE .STK-MED ONE Hydrocortisone 50 mg 10/17/18 09:53 10/21/18 13:37 Solucortef IVP 04/15/19 09:52 50 mg Q6 KIM Administration Hydrogen Peroxide Confirm 10/12/18 04:06 Hydrogen Peroxide Administered 10/12/18 04:07 Dose 23.6 serge TP .STK-MED ONE Hydromorphone HCl 0.1 - 0.4 mg 10/13/18 17:25 Dilaudid IVP 10/13/18 18:25 Q10M PRN PACU, PAIN Famotidine/Sodium Chloride 50 mls @ 200 mls/hr 10/05/18 22:03 10/05/18 22:08 Pepcid 20 Mg (Premix) IV 10/05/18 22:17 50 mls EDNOW ONE Administration Octreotide Acetate 500 mcg/ 51 mls @ 5 mls/hr 10/05/18 22:45 10/05/18 23:03 Sodium Chloride IV 04/03/19 22:44 51 mls CONT KIM Administration Sodium Chloride 1,000 mls @ 50 mls/hr 10/05/18 22:45 10/05/18 23:11 Ns IV 10/06/18 18:44 1,000 mls CONT KIM Administration Phytonadione 10 mg/ Sodium 51 mls @ 102 mls/hr 10/05/18 23:05 10/06/18 00:55 Chloride IV 10/05/18 23:34 51 mls EDNOW ONE Administration Octreotide Acetate 500 mcg/ 51 mls @ 5 mls/hr 10/05/18 23:30 Sodium Chloride IV 04/03/19 23:29 CONT KIM Ampicillin Sodium/Sulbactam 50 mls @ 200 mls/hr 10/06/18 00:30 10/06/18 01:40 Sodium 1.5 gm/ Sodium Chloride IV 10/06/18 00:44 50 mls ONCE ONE Administration Protocol Phytonadione 10 mg/ Sodium 51 mls @ 204 mls/hr 10/06/18 09:52 10/06/18 10:50 Chloride IV 10/06/18 10:06 51 mls ONCE ONE Administration Dexmedetomidine HCl 400 mcg/ 104 mls @ 0 mls/hr 10/06/18 11:30 10/08/18 04:18 Sodium Chloride IV 04/04/19 11:29 104 mls CONT KIM Administration Protocol Titrate Thiamine HCl 500 mg/ Sodium 105 mls @ 210 mls/hr 10/06/18 11:15 10/08/18 08: 31 Chloride IV 10/08/18 09:29 105 mls DAILY KIM Administration Propofol 100 mls @ 0 mls/hr 10/07/18 04:30 10/09/18 08:07 Diprivan 10 Mg/Ml (Premix) IV 04/05/19 04:29 100 mls CONT KIM Administration Protocol Per Protocol Albumin Human 250 mls @ 0 mls/hr 10/08/18 06:28 10/08/18 06:43 Alburx 5 IV 10/08/18 06:29 250 mls ONCE ONE Administration As Directed Albumin Human 100 mls @ 0 mls/hr 10/08/18 11:40 10/08/18 11:48 Flexbumin 25 % (Premix) IV 10/08/18 11:41 100 mls ONCE ONE Administration As Directed Albumin Human 250 mls @ 0 mls/hr 10/09/18 04:00 10/09/18 03:47 Alburx 5 IV 10/09/18 04:01 250 mls ONCE ONE Administration As Directed Dextrose/Sodium Chloride 1,000 mls @ 100 mls/hr 10/10/18 08:30 10/10/18 19:18 D5w 1/2 Ns IV 04/08/19 08:29 1,000 mls CONT KIM Administration Phytonadione 10 mg/ Sodium 51 mls @ 204 mls/hr 10/13/18 13:26 10/13/18 14:38 Chloride IV 10/13/18 13:40 51 mls ONCE ONE Administration Sodium Chloride 1,000 mls @ 0 mls/hr 10/13/18 13:28 10/13/18 13:45 Ns IV 10/13/18 13:29 1,000 mls ONCE ONE Administration Wide Open Ceftriaxone Sodium/Dextrose 50 mls @ 100 mls/hr 10/13/18 18:30 10/14/18 09:48 Rocephin 1 Gm (Premix) IV 11/12/18 18:29 50 mls DAILY KIM Administration Protocol Octreotide Acetate 500 mcg/ 51 mls @ 5 mls/hr 10/14/18 13:00 10/17/18 02:18 Sodium Chloride IV 04/12/19 12:59 51 mls CONT KIM Administration Lactated Ringer's 1,000 mls @ 0 mls/hr 10/14/18 11:53 10/14/18 14:22 Lr IV 10/14/18 11:54 Not Given ONCE ONE KVO Ceftriaxone Sodium 1 gm/ 50 mls @ 100 mls/hr 10/15/18 09:00 10/16/18 14:54 Sodium Chloride IV 10/16/18 15:00 Not Given DAILY KIM Ceftriaxone Sodium/Dextrose 50 mls @ 100 mls/hr 10/17/18 09:00 10/18/18 08:47 Rocephin 1 Gm (Premix) IV 10/19/18 00:00 50 mls DAILY KIM Administration Norepinephrine 4 mg/ Sodium 504 mls @ 0 mls/hr 10/16/18 09:30 10/16/18 21:00 Chloride IV 04/14/19 09:29 504 mls CONT KIM Administration Protocol Per Protocol Epinephrine HCl 8 mg/ Sodium 258 mls @ 0 mls/hr 10/16/18 16:00 10/16/18 16:15 Chloride IV 10/16/18 16:01 Not Given ONCE ONE Protocol Per Protocol Albumin Human 250 mls @ 0 mls/hr 10/16/18 16:30 10/16/18 16:35 Alburx 5 IV 10/16/18 16:31 250 mls ONCE ONE Administration As Directed Propofol 100 mls @ 0 mls/hr 10/16/18 18:46 10/17/18 09:14 Diprivan 10 Mg/Ml (Premix) IV 04/14/19 18:45 100 mls CONT KIM Administration Protocol Per Protocol Albumin Human 200 mls @ 0 mls/hr 10/17/18 08:58 10/17/18 09:23 Flexbumin 25 % (Premix) IV 10/17/18 08:59 Not Given ONCE ONE As Directed Albumin Human 100 mls @ 0 mls/hr 10/17/18 13:15 10/20/18 05:27 Flexbumin 25 % (Premix) IV 04/15/19 13:14 100 mls Q6HRS KIM Administration As Directed Albumin Human 250 mls @ 0 mls/hr 10/17/18 12:59 10/17/18 13:10 Alburx 5 IV 10/17/18 13:00 250 mls ONCE ONE Administration As Directed Magnesium Sulfate/Dextrose 100 mls @ 100 mls/hr 10/18/18 09:08 10/18/18 09:53 Magnesium Sulf 1 Gm (Premix) IV 10/18/18 10:07 100 mls ONCE ONE Administration Octreotide Acetate 500 mcg/ 51 mls @ 5 mls/hr 10/18/18 10:30 10/19/18 00:20 Sodium Chloride IV 04/16/19 10:29 51 mls CONT KIM Administration Ceftriaxone Sodium 1 gm/ 50 mls @ 100 mls/hr 10/19/18 09:00 10/20/18 10:15 Dextrose IV 11/18/18 08:59 50 mls DAILY KIM Administration Phytonadione 10 mg/ Sodium 51 mls @ 102 mls/hr 10/19/18 19:00 10/20/18 01:30 Chloride IV 10/19/18 19:29 51 mls ONCE ONE Administration Ceftriaxone Sodium/Dextrose 50 mls @ 100 mls/hr 10/21/18 09:00 10/21/18 09:19 Rocephin 1 Gm (Premix) IV 11/20/18 08:59 50 mls DAILY KIM Administration Iopamidol Confirm 10/14/18 17:01 Isovue-300 Administered 10/14/18 17:02 Dose 100 ml .ROUTE .STK-MED ONE Iopamidol Confirm 10/16/18 10:19 Isovue-300 Administered 10/16/18 10:20 Dose 100 ml .ROUTE .STK-MED ONE Iopamidol Confirm 10/16/18 13:11 Isovue-300 Administered 10/16/18 13:12 Dose 500 ml .ROUTE .STK-MED ONE Iopamidol Confirm 10/19/18 20:01 Isovue-300 Administered 10/19/18 20:02 Dose 300 ml .ROUTE .STK-MED ONE Iopamidol Confirm 10/19/18 21:54 Isovue-300 Administered 10/19/18 21:55 Dose 100 ml .ROUTE .STK-MED ONE Iopamidol Confirm 10/20/18 13:52 Isovue-300 Administered 10/20/18 13:53 Dose 100 ml .ROUTE .STK-MED ONE Ketamine HCl Confirm 10/16/18 18:31 Ketamine Administered 10/16/18 18:32 Dose 200 mg .ROUTE .STK-MED ONE Ketamine HCl 200 mg 10/16/18 19:00 10/16/18 17:00 Ketamine IV 10/16/18 19:01 200 mg ONCE ONE Administration Labetalol HCl 5 - 10 mg 10/13/18 17:25 Trandate Injection IVP 10/13/18 18:25 Q10M PRN PACU, Hypertension Lactulose 20 gm 10/06/18 14:15 10/08/18 15:24 Cephulac TUBE 04/04/19 14:14 20 gm TID KIM Administration Lidocaine 2 serge 10/07/18 09:13 10/07/18 10:55 Glydo TP 10/07/18 09:14 2 serge ONCALL ONE Administration Lidocaine HCl 1 - 300 mg 10/07/18 09:13 10/07/18 10:55 Lidocaine Hcl 1% MISC 10/07/18 09:14 300 mg ONCALL ONE Administration Lidocaine HCl Confirm 10/13/18 17:27 Lidocaine Hcl 2% Administered 10/13/18 17:28 Dose 100 mg .ROUTE .STK-MED ONE Lidocaine HCl Confirm 10/18/18 11:09 Lidocaine Hcl 2% Administered 10/18/18 11:10 Dose 2 ml .ROUTE .STK-MED ONE Lorazepam 0 mg 10/06/18 11:03 10/07/18 01:13 Ativan Injection IVP 04/04/19 11:02 2 mg Q1H PRN Administration Alcohol Withdrawal w/IV access Protocol Lorazepam 2 mg 10/06/18 12:00 10/06/18 11:48 Ativan Injection IVP 10/10/18 11:59 Not Given Q6HRS KIM Magnesium Sulfate 1 dose 10/15/18 17:24 Protocol Magnesium IV 04/13/19 17:23 AD PRN Pt on Electrolyte Protocol Protocol Meperidine HCl 12.5 - 25 mg 10/13/18 17:25 Demerol IVP 10/13/18 18:26 Q10M PRN PACU, shivering/rigors Metoclopramide HCl 10 mg 10/14/18 09:45 10/14/18 11:00 Reglan Injection IVP 10/14/18 09:46 10 mg ONCE ONE Administration Midazolam HCl 1 mg 10/07/18 03:39 10/07/18 03:40 Versed IVP 10/07/18 03:40 1 mg ONCE ONE Administration Miscellaneous 1 each 10/05/18 22:45 Pharmacy To Dose Medication MISC 04/03/19 22:44 AD KIM Morphine Sulfate 1 - 4 mg 10/18/18 10:57 Morphine IVP 10/18/18 11:58 Q10M PRN PACU, PAIN Multivitamins/Iron 1 ml 10/06/18 09:00 Vi-Aviva + Iron PO 04/04/19 08:59 DAILY KIM Naloxone HCl 0.1 mg 10/06/18 02:28 Narcan IVP 10/06/18 03:28 PRN PRN PACU Resp Rate <10/min Naloxone HCl 0.1 mg 10/13/18 17:25 Narcan IVP 10/13/18 18:25 Q2M PRN PACU Resp Rate <10/min Naloxone HCl 0.1 mg 10/16/18 15:39 Narcan IVP 10/16/18 16:39 Q2M PRN PACU Resp Rate <10/min Naloxone HCl 0.1 mg 10/18/18 10:57 Narcan IVP 10/18/18 11:57 PRN PRN PACU Resp Rate <10/min Naloxone HCl 0.1 mg 10/19/18 22:37 Narcan IVP 10/19/18 23:37 PRN PRN PACU Resp Rate <10/min Neostigmine Methylsulfate Confirm 10/16/18 14:50 Neostigmine Methylsulfate Administered 10/16/18 14:51 Dose 10 mg .ROUTE .STK-MED ONE Octreotide Acetate 50 mcg 10/05/18 22:42 10/05/18 22:59 Octreotide Acetate IVP 10/05/18 22:43 50 mcg ONCE ONE Administration Octreotide Acetate 50 mcg 10/14/18 13:31 10/14/18 14:04 Octreotide Acetate IVP 10/14/18 13:32 50 mcg ONCE ONE Administration Ondansetron HCl Confirm 10/05/18 22:24 Zofran Administered 10/05/18 22:25 Dose 4 mg .ROUTE .STK-MED ONE Ondansetron HCl 2 - 4 mg 10/13/18 17:25 Zofran IVP 10/13/18 18:25 Q10M PRN PACU, Nausea/Vomiting Ondansetron HCl Confirm 10/13/18 17:27 Zofran Administered 10/13/18 17:28 Dose 4 mg .ROUTE .STK-MED ONE Ondansetron HCl Confirm 10/16/18 14:51 Zofran Administered 10/16/18 14:52 Dose 4 mg .ROUTE .STK-MED ONE Ondansetron HCl 2 - 4 mg 10/18/18 10:57 Zofran IVP 10/18/18 11:58 Q10M PRN PACU, Nausea/Vomiting Post-Op Oxycodone HCl 5 - 10 mg 10/13/18 17:25 Oxycodone Ir PO 10/13/18 18:25 Q4HRS PRN PACU, Pain Severe Pantoprazole Sodium 40 mg 10/06/18 04:03 10/05/18 22:29 Protonix IVP 04/04/19 04:02 40 mg Q6H KIM Administration Pantoprazole Sodium Confirm 10/05/18 22:26 Protonix Administered 10/05/18 22:27 Dose 40 mg .ROUTE .STK-MED ONE Pantoprazole Sodium 40 mg 10/06/18 04:00 Protonix IVP 04/04/19 03:59 Q6H KIM Pantoprazole Sodium 40 mg 10/06/18 09:00 10/07/18 10:57 Protonix PO 04/04/19 08:59 Not Given DAILY KIM Pantoprazole Sodium 40 mg 10/07/18 09:45 10/10/18 09:16 Protonix IVP 04/05/19 09:44 40 mg DAILY KIM Administration Pantoprazole Sodium 40 mg 10/11/18 09:00 10/13/18 08:44 Protonix PO 04/09/19 08:59 40 mg DAILY KIM Administration Pantoprazole Sodium 40 mg 10/13/18 13:45 10/14/18 14:56 Protonix IVP 04/11/19 13:44 Not Given Q6H KIM Pantoprazole Sodium 40 mg 10/14/18 21:00 10/19/18 08:47 Protonix IVP 04/12/19 20:59 40 mg Q12 KIM Administration Pantoprazole Sodium 40 mg 10/19/18 21:00 10/20/18 15:57 Protonix PO 04/17/19 20:59 Not Given BID KIM Pantoprazole Sodium 40 mg 10/20/18 00:25 10/20/18 01:22 Protonix IVP 10/20/18 00:26 40 mg ONCE ONE Administration Phenylephrine HCl Confirm 10/13/18 17:54 Neosynephrine Administered 10/13/18 17:55 Dose 1,000 mcg .ROUTE .STK-MED ONE Phenylephrine HCl Confirm 10/16/18 10:30 Neosynephrine Administered 10/16/18 10:31 Dose 1,000 mcg .ROUTE .STK-MED ONE Polyethylene Glycol/Electrolytes 1,000 ml 10/06/18 02:11 10/06/18 05:20 Gavilyte - G PO 10/06/18 02:12 1,000 ml ONCE ONE Administration Polyethylene Glycol/Electrolytes 3,000 ml 10/08/18 15:43 10/08/18 21:16 Gavilyte - G PO 10/08/18 15:44 3,000 ml ONCE ONE Administration Potassium Chloride 1 dose 10/15/18 17:24 Protocol Potassium MISC 04/13/19 17:23 AD PRN Pt on Electrolyte Protocol Protocol Promethazine HCl 6.25 - 12.5 mg 10/13/18 17:25 Phenergan IVP 10/13/18 18:25 Q5M PRN PACUNausea/Vomiting, Unable PO Propofol Confirm 10/06/18 01:30 Diprivan Administered 10/06/18 01:31 Dose 200 mg .ROUTE .STK-MED ONE Propofol Confirm 10/06/18 01:30 Diprivan Administered 10/06/18 01:31 Dose 200 mg .ROUTE .STK-MED ONE Propofol Confirm 10/07/18 03:42 Diprivan 10 Mg/Ml (Premix) Administered 10/07/18 03:43 Dose 1,000 mg IV .STK-MED ONE Propofol Confirm 10/13/18 17:28 Diprivan Administered 10/13/18 17:29 Dose 200 mg .ROUTE .STK-MED ONE Propofol Confirm 10/14/18 12:25 Diprivan Administered 10/14/18 12:26 Dose 200 mg .ROUTE .STK-MED ONE Propofol Confirm 10/16/18 09:32 Diprivan 10 Mg/Ml (Premix) Administered 10/16/18 09:33 Dose 1,000 mg IV .STK-MED ONE Propofol Confirm 10/16/18 17:56 Diprivan 10 Mg/Ml (Premix) Administered 10/16/18 17:57 Dose 1,000 mg IV .STK-MED ONE Propofol Confirm 10/18/18 11:07 Diprivan 10 Mg/Ml (Premix) Administered 10/18/18 11:08 Dose 500 mg IV .STK-MED ONE Propofol Confirm 10/19/18 19:44 Diprivan 10 Mg/Ml (Premix) Administered 10/19/18 19:45 Dose 500 mg IV .STK-MED ONE Propofol Confirm 10/19/18 21:40 Diprivan 10 Mg/Ml (Premix) Administered 10/19/18 21:41 Dose 500 mg IV .STK-MED ONE Rocuronium [place] Confirm 10/16/18 12:13 Zemuron Administered 10/16/18 12:14 Dose 100 mg .ROUTE .STK-MED ONE Rocuronium [place] Confirm 10/16/18 18:28 Zemuron Administered 10/16/18 18:29 Dose 100 mg .ROUTE .STK-MED ONE Rocuronium [place] 100 mg 10/16/18 18:10 10/16/18 18:49 Zemuron IV 10/16/18 18:11 100 mg ONCE ONE Administration Rocuronium [place] Confirm 10/19/18 19:51 Zemuron Administered 10/19/18 19:52 Dose 50 mg .ROUTE .STK-MED ONE Sodium Tetradecyl Sulfate Confirm 10/19/18 19:36 Sotradecol 3% Administered 10/19/18 19:37 Dose 2 ml IV .STK-MED ONE Spironolactone 50 mg 10/12/18 11:45 10/12/18 15:51 Aldactone PO 04/10/19 11:44 50 mg DAILY KIM Administration Spironolactone 100 mg 10/13/18 09:00 10/16/18 08:58 Aldactone PO 04/11/19 08:59 Not Given DAILY KIM Succinylcholine Chloride Confirm 10/14/18 12:30 Quelicin Administered 10/14/18 12:31 Dose 200 mg IVP .STK-MED ONE Succinylcholine Chloride Confirm 10/18/18 11:09 Quelicin Administered 10/18/18 11:10 Dose 200 mg IVP .STK-MED ONE Thiamine HCl 100 mg 10/09/18 11:03 Vitamin B-1 PO 04/07/19 11:02 DAILY [facility] Physical Exam - Physical Exam General Appearance: alert, no apparent distress Respiratory: lungs clear, normal breath sounds Cardiac/Chest: regular rate, rhythm Abdomen: normal bowel sounds, non-tender, soft Skin: normal color, warm/dry Neuro/Psych: alert, normal mood/affect, oriented x 3 ICD10 Worksheet Patient Problems: Problems Problem Status Onset Anemia Acute Renal insufficiency Acute Upper GI bleed Acute Left rib fracture Acute
[2018-10-22] MEDS ORDERED: FUROSEMIDE 40 MG/4 ML VIAL IVP ONE (09:50)
--- NOTE | 2018-10-22 09:50 | SOAPPROG ---
SOAP Progress Note Assessment/Plan: Assessment: 53 y/o man with ETOH induced esophageal varcies and UGIB and shock on IV vasopression. He lives half time in [place] and half time in [place], [place]. He was hospitalized in fall of 2017 with SBE. Echo 10/14/18 showed LVEF 55%, mild LVH, normal RVEF, bicuspid AV with mild-moderate and severe AI, moderate to severe MR and TR and estimated PAS 54mmHg. He had recurrent GI bleeding three days and more coils by IR. Appears acute UGIB has stopped. BP more stable and now off Vaspressin. He is edematous and weight up from admission with all PRBCs and IVF. PLAN: 1)lasix 60mg IV x 1 now. 2)continue PO Midodrine and Aldactone. 3)follow I's and Os. 10/22/18 09:47 Subjective: feels better than yesterday. Denies CP, rest shortness of breath or dizziness or PND. He has lots of scrotal and leg edema. Objective: Vital Signs Temp Pulse Resp BP Pulse Ox 36.5 C 84 19 112/48 L 95 10/21/18 15:57 10/22/18 08:00 10/22/18 08:00 10/22/18 08:00 10/22/18 08:00 Laboratory Results 10/22/18 04:55 10/21/18 03:10 10/21/18 10/22/18 10/23/18 05:59 05:59 05:59 Intake Total 2773.2 2900.6 Output Total 1200 2025 Balance 1573.2 875.6 PT 24.2 SEC (12.0-15.0) H 10/21/18 06:10 INR 2.30 (0.83-1.16) H 10/21/18 06:10 Physical Exam - Physical Exam General Appearance: alert EENT: normal ENT inspection Neck: non-tender Respiratory: lungs clear Cardiac/Chest: regular rate, rhythm, gallop, JVD, systolic murmur Peripheral Pulses: 1+: femoral (R), femoral (L), dorsalis-pedis (R), dorsalis- pedis (L), 2+: carotid (R), carotid (L) Abdomen: non-tender Rectal: other (lots of scrotal edema.) Skin: warm/dry Extremities: pedal edema (3+ to just above level of knees.) Neuro/Psych: alert ICD10 Worksheet Patient Problems: Problems Problem Status Onset Anemia Acute Renal insufficiency Acute Upper GI bleed Acute Left rib fracture Acute
--- NOTE | 2018-10-22 13:09 | PDINTPN ---
Group Home Worker Progress Note Assessment/Plan: This patient is a 53-year-old male with a reported history of alcoholism and cirrhosis admitted on 10/05/2018 complaining of bright red blood per rectum, shortness of breath, lightheadedness, bloody emesis, increasing lower extremity edema, a 30 lb weight gain. He was initially treated with blood products and an EGD did not dumont clear bleeding sites on 10/06, but he required emergent intubation on 10/07 for airway protection after a bipap failure. He was stable until 10/13 when he again required multiple blood products. This has recurred multiple times throughout his stay, now s/p EGD x 4 (10/06, 10/13, 10/14, 10/18) and colonoscopy 10/09. He underwent emergent TIPS and gastric variceal embolization 10/16 (and paracentesis). On 10/19 he appeared stable in the AM but had voluminous BRBPR and hypotension requiring another trip to IR for additional embolization and PARTO procedure (see IR for details). * Acute respiratory failure with hypoxia-improved on now on room air * Hepatic encephalopathy -resolved. Continue rifaximin * GI bleed- 2/2 gastric varices. He has continued to have bloody BMs today but his BP remains stable on vasopressin alone. Octreotide was restarted as well. his H/H was 6.9/20.5 this AM, and 8.4/26.6 at noon after only one more unit of RBCs. As of today, HD#16, he has received a total of 22 units RBCs, 12 FFP, 2 cryo, and 3 platelet transfusions. CTA without extravasation of blood 10/20 and stability of counts. Stable last 24 hrs. Advancing diet * Hypotension- off vasopressin and remains on midodrine * EMMANUELLE-resolved * alcoholic hepatitis- treated with steroids based on discriminant function on admission; anticipated duration of 28 days * ETOH wd- resolved. He reports abstinence since June (unconfirmed) * AR- severe regurgitation but not currently candidate for intervention. Was seen by cardiology and diuresis recommended as tolerated, noting that midodrine could be worsening AR. Watch closely for volume overload and CHF given GIB issues, but no evidence of this at present. * * 10/22/18 13:08 Subjective: stable overnight with resolving bloody stool Objective: Vital Signs Temp Pulse Resp BP Pulse Ox 36.5 C 93 17 111/49 L 96 10/21/18 15:57 10/22/18 12:00 10/22/18 12:00 10/22/18 12:00 10/22/18 12:00 Laboratory Results 10/22/18 12:10 10/21/18 03:10 10/21/18 10/22/18 10/23/18 05:59 05:59 05:59 Intake Total 2773.2 2900.6 Output Total 1200 2025 700 Balance 1573.2 875.6 -700 PT 24.2 SEC (12.0-15.0) H 10/21/18 06:10 INR 2.30 (0.83-1.16) H 10/21/18 06:10 Physical Exam - Physical Exam General Appearance: alert, no apparent distress EENT: PERRL/EOMI Neck: supple Respiratory: lungs clear, normal breath sounds, decreased breath sounds, No respiratory distress, No accessory muscle use Cardiac/Chest: regular rate, rhythm, edema, No JVD Abdomen: non-tender, soft, No distended Skin: normal color, warm/dry, No cyanosis Lymphatic: no adenopathy Extremities: pedal edema Neuro/Psych: alert, normal mood/affect, oriented x 3 ICD10 Worksheet Patient Problems: Problems Problem Status Onset Anemia Acute Renal insufficiency Acute Upper GI bleed Acute Left rib fracture Acute
--- NOTE | 2018-10-22 16:03 | HOSPPROG ---
Hospitalist Progress Note Assessment/Plan: 53 yo M with alcoholic cirrhosis, severe aortic regurgitation thought 2/2 bacterial endocarditis p/w GIB. Course complicated by encephalopathy and respiratory failure. Extubated 10/09. two large volume UGIB; s/p TIPS and elective intubation for hemorrhagic shock and subsequent resuscitation. Acute GIB 2/2 gastric varices: not seen on initial EGD, S/p multiple EGDs confirmed gastric variceal bleed. - S/p plug assisted retrograde transvenous obliteration (PARTO) performed with a combination sclerotherapy and Amplatzer plug by IR on 10/19 - Restarted Octreotide as well as IV PPI on 10/20 due to multiple bloody BMs - S/p 2 units PRBC on 10/20 as well as FFP, Hgb improved from 6/9 to 8.7, stable at 9.1 - Discussed with IR, Dr. Abbott who recommended Triple Phase CT A/P to 10/20 to evaluate for lower source of bleed which was negative - Discussed with GI, Dr. Gu, recommends continued IV Octreotide and PPI , if stable tomorrow d/c Octreotide and switch to PO PPI, CBC BID, advance diet to low Na Hemorrhagic shock: complicated by AI, cirrhosis (AI and cirrhosis will yield low MAP's) 10/19: off epi 10/21, titrated off of Vasopressin Continue Midodrine 10 mg TID Decompensated cirrhosis with ascites: MELD 22 on 10/20, 38 on admission (52% 3 month mortality) s/p TIPS continue rifaximin Pt will need follow up at [facility] or [facility] for evaluation with transplant team upon discharge ABLA on chronic anemia: D/t above, s/p total 8 u prbc's. H&H 6.9 on 10/20, s/p 2 units PRBCs, improved to 9.1 this AM - cont to trend h&h, monitor BID as above, transfuse H/H <7/20 Coagulopathy of liver disease: S/P 4u FFP, IV vitamin K, INR 2.3 Edema: D/t low albumin/cirrhosis - Lasix (home 40 mg PO qd) / Spironolactone 10/19: diuretics held due to hypotension as above - Cardiology following, ordered 60 mg IVP Lasix this AM, assess response and redose as needed Acute respiratory failure: S/p extubation, currently saturating well on RA Severe aortic regurgitation: Reportedly d/t prior h/o endocarditis in 2018. Rpt echo with wide open valve. - Cardiology following, high risk for valve replacement presuming other varices present, Lasix as above Elevated troponin: in setting of volume overload/anemia and unable to clear with renal failure. Trended down. - Not an aspirin candidate EMMANUELLE: Pre-renal, improved with BP support, Cr 2.2 on admission --> 1.0 this AM - Cont midodrine 10mg tid, will try to decrease prior to dc - Continue to follow Cr, I/O, avoid nephrotoxic agents Hepatic encephalopathy: Improved - cont Rifaximin, holding Lactulose H/o EtOH abuse: Patient and family deny use since 06/2018. No w/d. Thrombocytopenia: D/t splenic sequestration. - consider plt transfusion if plts <50K and active bleeding Hyperkalemia: 2/2 EMMANUELLE. Resolved, monitor VTE ppx: SCDs, no pharm with GIB Code: full Diet: 2gm Na Dispo: cont inpt Subjective: Pt reports no complaints this AM Objective: Vital Signs Temp Pulse Resp BP Pulse Ox 36.5 C 93 17 111/49 L 96 10/21/18 15:57 10/22/18 12:00 10/22/18 12:00 10/22/18 12:00 10/22/18 12:00 Laboratory Results 10/22/18 12:10 10/21/18 03:10 10/21/18 10/22/18 10/23/18 05:59 05:59 05:59 Intake Total 2773.2 2900.6 Output Total 1200 2024 1950 Balance 1573.2 875.6 -1950 PT 24.2 SEC (12.0-15.0) H 10/21/18 06:10 INR 2.30 (0.83-1.16) H 10/21/18 06:10 - Physical Exam Constitutional: chronically ill appearing Eyes: PERRL Ears, Nose, Mouth, Throat: moist mucous membranes Cardiovascular: regular rate and rhythym, edema (2-3+ in b/l LE with scrotal edema as well ) Respiratory: no respiratory distress Gastrointestinal: soft, non-tender abdomen, distension Genitourinary: liao in urethra Skin: warm Musculoskeletal: generalized weakness Neurologic: AAOx3 Psychiatric: interacting appropriately ICD10 Worksheet Patient Problems: Problems Problem Status Onset Anemia Acute Renal insufficiency Acute Upper GI bleed Acute Left rib fracture Acute
--- NOTE | 2018-10-22 16:22 | ASMTCMCOM ---
CM Note CM Note Notes: CM Note 10/21/18: CM, Gagandeep from Palliative Care, [facility], Aleyda and pt met today to discuss goals of care and to coordinate outpatient services and support. Pt reports "I want to live" and is agreeable to additional supportive services through Palliative Care. At this time pt's plan is to stay in [place] after discharge and continue with medical follow-up here. Pt signed on with [facility] for Palliative support and CM initiated ULTC-100 referral for Medicaid Home Based Services. Aleyda has to return to [place] on Friday but Solo has some support with his roommate in [place] and could benefit from any additional services through [facility]. Pt signed MDPOA ppwk for his fiance Aleyda Magana to be his MDPOA. Copy in chart. CM to follow. Plan: Home with [facility] HCBS services and [facility] Palliative Care. Case Management Note 10/22/18: Referral sent to [facility] Palliative Care via [employer]. It is unclear if patient's Medicaid is [place] only. Betsy with [employer] will follow-up with patient on Friday to screen for LTC. CM left voicemail for Asia #[phone] at [facility] to confirm HCBS ULTC-100 received and to check in on details of Medicaid. Patient is still medically unstable. Will continue to follow the extent of CM needs on discharge. Plan: Possibly Medicaid HCBS services and [facility] Date Signed: 10/22/2018 04:22 PM Electronically Signed By:Yasmin Desai RN
[2018-10-23 05:23] LABS: PLATELET COUNT 46 10^3/uL (150-400)
[2018-10-23 05:27] LABS: INR 2.61 (0.83-1.16); PROTIME(PATIENT) 26.6 SEC (12.0-15.0)
[2018-10-23] MEDS: MIDODRINE HCL 10 MG TAB PO SCH ×3 (06:06→21:37)
--- NOTE | 2018-10-23 09:33 | SOAPPROG ---
SOAP Progress Note Assessment/Plan: Assessment: 53 y/o man with ETOH induced esophageal varcies and UGIB and shock on IV vasopression. He lives half time in [place] and half time in [place], [place]. He was hospitalized in fall of 2017 with SBE. Echo 10/14/18 showed LVEF 55%, mild LVH, normal RVEF, bicuspid AV with mild-moderate and severe AI, moderate to severe MR and TR and estimated PAS 54mmHg. He had recurrent GI bleeding four days and more coils by IR. Appears acute UGIB has stopped. BP more stable and now off Vaspressin. He is edematous and weight up from admission with all PRBCs and IVF. PLAN: 1)continue Lasix 60mg IV BID 2)increase Aldactone to 25mg PO BID. 3)start KCL 20meq PO TID 4)labs at 4pm (BMP and MG). 5)follow BP closely. 10/23/18 09:21 Subjective: wants to go home today. Denies CP, rest shortness of breath or near syncope. Reports his edema is a little less but not a lot. Objective: Vital Signs Temp Pulse Resp BP Pulse Ox 36.8 C 80 14 121/51 H 95 10/22/18 14:00 10/23/18 02:00 10/23/18 00:00 10/23/18 02:00 10/23/18 00:00 Microbiology 10/17/18 10:00 Blood Culture - Final Blood 10/17/18 10:00 Blood Culture - Final Blood Laboratory Results 10/23/18 05:00 10/23/18 05:00 10/22/18 10/23/18 10/24/18 05:59 05:59 05:59 Intake Total 2900.6 1357 Output Total 2024 2650 Balance 875.6 -1293 PT 26.6 SEC (12.0-15.0) H 10/23/18 05:00 INR 2.61 (0.83-1.16) H 10/23/18 05:00 Physical Exam - Physical Exam General Appearance: no apparent distress EENT: normal ENT inspection Neck: full range of motion Respiratory: lungs clear Cardiac/Chest: regular rate, rhythm, edema, JVD, systolic murmur, No gallop Peripheral Pulses: 1+: femoral (R), femoral (L), dorsalis-pedis (R), dorsalis- pedis (L), 2+: carotid (R), carotid (L) Abdomen: non-tender, distended, No rebound Skin: warm/dry Extremities: pedal edema (3+ bilaterally to mid thighs.) Neuro/Psych: alert ICD10 Worksheet Patient Problems: Problems Problem Status Onset Anemia Acute Renal insufficiency Acute Upper GI bleed Acute Left rib fracture Acute
[2018-10-23] MEDS: RIFAXIMIN 550 MG TAB PO SCH ×2 (10:29→21:38)
[2018-10-23] MEDS: SPIRONOLACTONE 25 MG TAB PO SCH ×2 (10:30→21:37)
[2018-10-23] MEDS: FUROSEMIDE 20 MG/2 ML VIAL IVP SCH ×2 (10:30→17:34)
[2018-10-23] MEDS: POTASSIUM CL 20 MEQ TAB PO SCH ×3 (10:30→21:38)
[2018-10-23] MEDS: PANTOPRAZOLE SODIUM 40 MG VIAL IVP SCH (10:30)
[2018-10-23] MEDS: ACETAMINOPHEN 325 MG TAB PO PRN ×2 (10:58→17:34)
--- NOTE | 2018-10-23 12:14 | ASMTCMCOM ---
CM Note CM Note Notes: Spoke with Asia at [facility], no record of ULTC-100 rec'd on Friday. Betsy with [employer] on floor today to meet with patient. [employer] able to confirm patient's [place] Medicaid is active #[id number]. CM met with patient to discuss LTC Medicaid options (previous plan was to initiate HCBS). Patient and fiance are not interested in LTC services or HCBS. If SNF type services are needed on discharge, fiance would transport patient back to [place] and take care of patient at their home. At this time, the patient has no interest in us pursuing SNF LTC or HCBS - will hold off on LTC Medicaid application at this time. Patient is in agreement with medical HC and has chosen [facility]. Spoke with Marry at [facility] re: referral. Patient lives with roommate in [place] at [address] [place] [address]. He is also being followed by a Cleaning Staff Supervisor and has plans to establish care with a PCP in [place] this next week - this has been relayed to [facility]. Patient is also in agreement to continue with [facility]. Of note, therapy continues to recommend SNF as of 10/23, patient is not currently in agreement to placement. Plan: [facility] RN/PT/OT/SW & Outpatient Michelle [facility] Date Signed: 10/23/2018 12:13 PM Electronically Signed By:Yasmin Desai RN
--- NOTE | 2018-10-23 12:23 | PDINTPN ---
Wood Heel Flap Inserter Progress Note Assessment/Plan: This patient is a 53-year-old male with a reported history of alcoholism and cirrhosis admitted on 10/05/2018 complaining of bright red blood per rectum, shortness of breath, lightheadedness, bloody emesis, increasing lower extremity edema, a 30 lb weight gain. He was initially treated with blood products and an EGD did not dumont clear bleeding sites on 10/06, but he required emergent intubation on 10/07 for airway protection after a bipap failure. He was stable until 10/13 when he again required multiple blood products. This has recurred multiple times throughout his stay, now s/p EGD x 4 (10/06, 10/13, 10/14, 10/18) and colonoscopy 10/09. He underwent emergent TIPS and gastric variceal embolization 10/16 (and paracentesis). On 10/19 he appeared stable in the AM but had voluminous BRBPR and hypotension requiring another trip to IR for additional embolization and PARTO procedure (see IR for details). * Acute respiratory failure with hypoxia-improved on now on room air * Hepatic encephalopathy -resolved. Continue rifaximin; consider restart lactulose since BM have slowed down and slightly more encephalopathic today * GI bleed- 2/2 gastric varices. As of today, HD#17, he has received a total of 22 units RBCs, 12 FFP, 2 cryo, and 3 platelet transfusions. CTA without extravasation of blood 10/20 and stability of counts. Stable last 48 hrs. Advancing diet. DC octreotide, change meds to PO * Hypotension- off vasopressin and remains on midodrine * EMMANUELLE-resolved * alcoholic hepatitis- treated with steroids based on discriminant function on admission; anticipated duration of 28 days * ETOH wd- resolved. He reports abstinence since June (unconfirmed) * AR- severe regurgitation but not currently candidate for intervention. Was seen by cardiology and diuresis recommended as tolerated, noting that midodrine could be worsening AR. Watch closely for volume overload and CHF given GIB issues, but no evidence of this at present. * OK for floor * 10/22/18 13:08 10/23/18 12:21 Subjective: getting anxious about dc. Somewhat impulsive Objective: Vital Signs Temp Pulse Resp BP Pulse Ox 36.5 C 74 18 101/38 L 92 10/23/18 08:00 10/23/18 08:00 10/23/18 08:00 10/23/18 08:00 10/23/18 08:00 Microbiology 10/17/18 10:00 Blood Culture - Final Blood 10/17/18 10:00 Blood Culture - Final Blood Laboratory Results 10/23/18 05:00 10/23/18 05:00 10/22/18 10/23/18 10/24/18 05:59 05:59 05:59 Intake Total 2900.6 1357 Output Total 2025 2650 Balance 875.6 -1293 PT 26.6 SEC (12.0-15.0) H 10/23/18 05:00 INR 2.61 (0.83-1.16) H 10/23/18 05:00 Physical Exam - Physical Exam General Appearance: alert, no apparent distress EENT: PERRL/EOMI Neck: supple Respiratory: lungs clear, normal breath sounds, decreased breath sounds, No respiratory distress, No accessory muscle use Cardiac/Chest: regular rate, rhythm, edema, No JVD Abdomen: non-tender, soft, No distended Skin: normal color, warm/dry, No cyanosis Lymphatic: no adenopathy Extremities: pedal edema Neuro/Psych: alert, normal mood/affect, oriented x 3, cognition abnormalities ICD10 Worksheet Patient Problems: Problems Problem Status Onset Anemia Acute Renal insufficiency Acute Upper GI bleed Acute Left rib fracture Acute
[2018-10-23] MEDS: LACTULOSE 20 GM/30 ML UDCUP PO SCH ×2 (17:34→21:37)
--- NOTE | 2018-10-23 17:44 | HOSPPROG ---
Hospitalist Progress Note Assessment/Plan: DIAGNOSES: * Acute upper GI bleed, massive requiring 22 units red blood cells, 5 units platelets, 13 units plasma, 2 units of cryo * Large gastric varix appears to have been the cause, status post interventional radiology treatment of that * Acute blood loss anemia * Hemorrhagic shock/ Hypotension and acute renal failure due to the bleeding * Acute respiratory failure * Coagulopathy of liver disease aggravated by factor loss with bleeding * Alcoholic hepatitis * Acute Alcohol withdrawal * Advanced alcoholic liver disease; meld 38 at admission decreased to 22 * Valvular heart disease * Alcoholism PLANS: * Transfer to [facility] floor today * Continue iron replacement * Continue diuretics * Continue rifaximin * Continue PPI * Continue thiamin SUBJECTIVE: weak and tired no appetite bu tno vomiting OBJECTIVE Vitals reviewed: Stable without fever 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, 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: Sinus Exam: alert oriented skin warm dry color ok resps not labored lungs clear BSs heart regular abd soft but distended w ascites nontender, bowel sounds present limbs warm, massive pitting iv site ok Lab data: Hemoglobin stable Platelets remain very low but slightly better at 46,000 Bilirubin improved to 3.5 Potassium 3.2 Objective: Vital Signs Temp Pulse Resp BP Pulse Ox 36.7 C 85 20 93/46 L 97 10/23/18 16:00 10/23/18 16:00 10/23/18 16:00 10/23/18 16:00 10/23/18 16:00 Microbiology 10/17/18 10:00 Blood Culture - Final Blood 10/17/18 10:00 Blood Culture - Final Blood Laboratory Results 10/23/18 05:00 10/23/18 05:00 10/22/18 10/23/18 10/24/18 06:59 06:59 06:59 Intake Total 2900.6 1357 Output Total 2024 265 Balance 875.6 -1293 PT 26.6 SEC (12.0-15.0) H 10/23/18 05:00 INR 2.61 (0.83-1.16) H 10/23/18 05:00 - Time Spent With Patient Time Spent with Patient: greater than 35 minutes Time Spent with Patient: Greater than 35 minutes spent on this patients care, greater than 50% of time spent counseling, educating, and coordinating care regarding the above mentioned plan. ICD10 Worksheet Patient Problems: Problems Problem Status Onset Anemia Acute Renal insufficiency Acute Upper GI bleed Acute Left rib fracture Acute
[2018-10-23] MEDS: PANTOPRAZOLE SODIUM 40 MG TAB PO SCH (21:37)
--- NOTE | 2018-10-23 22:19 | SOAPPROG ---
JALIL Progress Note Assessment/Plan: Assessment: Plan: 10/23/18 22:12 53 year old male with history of CHF, alcoholic cirrhosis with recent GIB. Suspected gastric variceal bleed s/p PARTO. No evidence of recurrrent bleed. Octreotride discontinued. No evidence of recurrent GI bleed per significant other. Hemoglobin stable. Patient was in shower and could not be examined. Continue management. GI will follow intermittently. 10/23/18 22:14 Objective: Vital Signs Temp Pulse Resp BP Pulse Ox 36.7 C 87 16 101/41 L 97 10/23/18 20:30 10/23/18 20:30 10/23/18 20:30 10/23/18 20:30 10/23/18 20:30 Microbiology 10/17/18 10:00 Blood Culture - Final Blood 10/17/18 10:00 Blood Culture - Final Blood Laboratory Results 10/23/18 05:00 10/23/18 17:30 10/22/18 10/23/18 10/24/18 05:59 05:59 05:59 Intake Total 2900.6 1357 Output Total 2024 2650 Balance 875.6 -1293 PT 26.6 SEC (12.0-15.0) H 10/23/18 05:00 INR 2.61 (0.83-1.16) H 10/23/18 05:00 ICD10 Worksheet Patient Problems: Problems Problem Status Onset Left rib fracture Acute Upper GI bleed Acute Renal insufficiency Acute Anemia Acute
[2018-10-24] MEDS: MIDODRINE HCL 10 MG TAB PO SCH ×3 (05:19→21:50)
[2018-10-24 06:29] LABS: PLATELET COUNT 61 10^3/uL (150-400)
[2018-10-24 06:41] LABS: INR 2.47 (0.83-1.16); PROTIME(PATIENT) 25.5 SEC (12.0-15.0)
[2018-10-24] MEDS: ACETAMINOPHEN 325 MG TAB PO PRN (09:36)
[2018-10-24] MEDS: LACTULOSE 20 GM/30 ML UDCUP PO SCH ×3 (09:48→21:50)
[2018-10-24] MEDS: POTASSIUM CL 20 MEQ TAB PO SCH ×3 (09:49→21:52)
[2018-10-24] MEDS: SPIRONOLACTONE 25 MG TAB PO SCH ×3 (09:50→21:51)
[2018-10-24] MEDS: RIFAXIMIN 550 MG TAB PO SCH ×2 (09:50→21:52)
[2018-10-24] MEDS: PANTOPRAZOLE SODIUM 40 MG TAB PO SCH ×2 (09:50→21:52)
[2018-10-24] MEDS: FUROSEMIDE 20 MG/2 ML VIAL IVP SCH ×2 (10:29→16:24)
--- NOTE | 2018-10-24 13:27 | HOSPPROG ---
Hospitalist Progress Note Assessment/Plan: DIAGNOSES: * Acute upper GI bleed, massive requiring 22 units red blood cells, 5 units platelets, 13 units plasma, 2 units of cryo * Large gastric varix appears to have been the cause, status post interventional radiology treatment of that * Acute blood loss anemia * Hemorrhagic shock/ Hypotension and acute renal failure due to the bleeding * Acute respiratory failure * Coagulopathy of liver disease aggravated by factor loss with bleeding * Alcoholic hepatitis * Acute hepatic encephalopathy, resolved at present * Advanced alcoholic liver disease; meld 38 at admission decreased to 22 * Valvular heart disease * Alcoholism currently sober since June At this point he continues to improve in terms of symptoms and strength and mobility. However he remains with massive volume overload will need ongoing IV diuretic therapy here and is fairly weak will need ongoing physical occupational therapy here. Today he asked many questions about his liver prognosis both in the short-term and long-term. He has seen Dr. Yancey in the past. I described him that he has significant problem with portal hypertension in what that means both in terms of dysfunction in symptoms and complications, and I also described to him his synthetic abnormalities with coagulopathy INR 2.49. Clearly this is very advanced liver disease and his liver will not last as long as the rest of his body. His long-term prognosis is fairly limited. I described to him that the only choice we would have for therapy would be to consider liver transplant for which he would only be a candidate if he can go a longer period without drinking and be truly committed to never drinking again. I also described the possibility of developing hepatic malignancy for which he will need continuing monitoring. This could be treated if it is caught early when it occurs. He had many questions del rosario this which I answered for him. Notably the patient at this time has been here very committed to the idea of not drinking and he has a very good supportive cast of friends have been with him at the bedside daily or also committed. PLANS: * Continue iron replacement * Continue IV diuretics * Continue rifaximin * Continue PPI * Continue thiamin * Fall risk precautions, PT and OT therapy * Plan on discharge once we have sufficient diuresis and improvement in strength and balance that he can be safe out of hospital SUBJECTIVE: Patient feels better in terms of strength and did a little better with therapies today but still remains quite weak Still bothered by severe edema however has reasonable appetite, no abdominal pain OBJECTIVE Vitals reviewed: overall stable without fever Exam: alert oriented skin warm dry color ok resps not labored lungs clear BSs heart regular abd soft nondistended nontender, bowel sounds present limbs warm, no edema iv site ok Lab data: Stable renal function and electrolytes with potassium a bit better Bilirubin still a bit high but remains stable 3 and half Transaminases stable Platelets better at 61,000 stable anemia and white count INR remains high 2.47 but stable Meld score currently 23 Objective: Vital Signs Temp Pulse Resp BP Pulse Ox 36.2 C 83 20 97/42 L 95 10/24/18 12:03 10/24/18 12:03 10/24/18 12:03 10/24/18 12:03 10/24/18 12:03 Laboratory Results 10/24/18 06:15 10/24/18 06:15 10/23/18 10/24/18 10/25/18 06:59 06:59 06:59 Intake Total 1357 500 Output Total 2650 Balance -1293 500 PT 25.5 SEC (12.0-15.0) H 10/24/18 06:15 INR 2.47 (0.83-1.16) H 10/24/18 06:15 - Time Spent With Patient Time Spent with Patient: greater than 35 minutes Time Spent with Patient: Greater than 35 minutes spent on this patients care, greater than 50% of time spent counseling, educating, and coordinating care regarding the above mentioned plan. ICD10 Worksheet Patient Problems: Problems Problem Status Onset Anemia Acute Renal insufficiency Acute Upper GI bleed Acute Left rib fracture Acute
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
[2018-10-25] MEDS: MIDODRINE HCL 10 MG TAB PO SCH ×3 (05:14→21:44)
[2018-10-25 05:30] LABS: PLATELET COUNT 68 10^3/uL (150-400)
[2018-10-25 05:41] LABS: INR 2.45 (0.83-1.16); PROTIME(PATIENT) 25.4 SEC (12.0-15.0)
[2018-10-25] MEDS: SPIRONOLACTONE 25 MG TAB PO SCH ×2 (08:41→21:44)
[2018-10-25] MEDS: RIFAXIMIN 550 MG TAB PO SCH ×2 (08:41→21:44)
[2018-10-25] MEDS: PANTOPRAZOLE SODIUM 40 MG TAB PO SCH ×2 (08:41→21:44)
[2018-10-25] MEDS: POTASSIUM CL 20 MEQ TAB PO SCH ×3 (08:41→21:44)
[2018-10-25] MEDS: LACTULOSE 20 GM/30 ML UDCUP PO SCH ×3 (08:41→21:44)
[2018-10-25] MEDS: FUROSEMIDE 20 MG/2 ML VIAL IVP SCH ×2 (08:41→14:35)
[2018-10-25] MEDS: ACETAMINOPHEN 325 MG TAB PO PRN ×2 (11:03→20:16)
--- NOTE | 2018-10-25 12:08 | HOSPPROG ---
Hospitalist Progress Note Assessment/Plan: 53-year-old with alcoholic liver disease and cirrhosis is admitted with rectal bleeding and hematemesis. He initially underwent urgent upper endoscopy which did not show a clear site of bleeding on 10/06 however he did require emergent intubation on 10/07 for airway protection and a BiPAP failure. It was felt that this bleed was related to a lower GI bleed however colonoscopy on 419 only showed as small angioectasia and no other source. He had recurrent bleeding later on in his hospitalization requiring multiple blood products from 10/13 through . During this time he had EGD x4 (10/06, 10/13, 10/14, 10/18) and colonoscopy. They did eventually note gastric varices and he underwent a abdominal CT which confirmed this and he had a emergent TIPS and varicele embolization by IR on 10/16. He did relatively well until 10/19 when he had a large amount of bright red blood per rectum and hypotension, interventional Radiology did an additional embolization and PARTO procedure. During this time he was in the intensive care unit for hemorrhagic shock, hypotension and renal failure complicated by severe valvular heart disease. Over the last several days he has done well with no signs of ongoing bleeding. His respiratory status is stable on room air and his main issue is anasarca and ongoing encephalopathy. # hepatic encephalopathy, mild will continue rifaximin # GI bleed: Secondary to gastric varices, bloody BMs appear to be old blood * Follow-up CTA of the abdomen and pelvis was negative for bleeding * Continue to monitor counts * Appreciate GI follow-up # hypotension on midodrine # acute kidney injury, resolved # alcoholic hepatitis, treated with steroids based on discrete minute function. Anticipate duration of 28 days # AR with severe regurgitation, seen by Cardiology and diuresis recommended as tolerated # alcoholism, patient has been sober since June he has ongoing liver liver disease and coagulopathy Long discussion with girlfriend. She is wanting to take him home to [place] this . I feel that he may not get any better and may decline further after this hospitalization so for long-term prognosis it may be better for him to return to [place] at this time. She is not willing to have him in a skilled rehab for 30 days prior to transferring him to [place]. Plan: Continue diuresis as able until . Plan discharge on patient will go to [place] with his girlfriend and start obtaining care there. At this time I feel this is the best option for his long- term prognosis. We will help set up some home care in [place] Subjective: Patient new to me and chart reviewed. Continues with mild encephalopathy and sleepiness however main complaint is anasarca Objective: Vital Signs Temp Pulse Resp BP Pulse Ox 36.6 C 80 16 92/41 L 97 10/25/18 07:54 10/25/18 07:54 10/25/18 07:54 10/25/18 08:06 10/25/18 07:54 Laboratory Results 10/25/18 05:10 10/25/18 05:10 10/24/18 10/25/18 10/26/18 05:59 05:59 05:59 Intake Total 500 900 Output Total 1600 Balance 500 -700 PT 25.4 SEC (12.0-15.0) H 10/25/18 05:10 INR 2.45 (0.83-1.16) H 10/25/18 05:10 - Physical Exam Constitutional: chronically ill appearing, obese Eyes: PERRL Cardiovascular: regular rate and rhythym, edema Respiratory: no respiratory distress, clear to auscultation Gastrointestinal: ascites Skin: No normal color (Jaundice) Musculoskeletal: generalized weakness Neurologic: weakness Psychiatric: encephalopathic (Mainly sleepy) ICD10 Worksheet Patient Problems: Problems Problem Status Onset Anemia Acute Renal insufficiency Acute Upper GI bleed Acute Left rib fracture Acute
--- NOTE | 2018-10-25 14:49 | PDCARPN ---
Cardiology Progress Note Chief Complaint: Patient reports he would like to go home. Assessment/Plan: Assessment: 53 y/o man with ETOH induced esophageal varcies, UGIB. He lives half time in [place] and half time in [place], [place]. He was hospitalized in fall of 2017 with SBE. Echo 10/14/18 showed LVEF 55%, mild LVH, normal RVEF, bicuspid AV with mild-moderate and severe AI, moderate to severe MR and TR and estimated PAS 54mmHg. He had recurrent GI bleeding requiring more coils by IR. Appears acute UGIB has stopped. He is edematous and weight up from admission with multiple units of PRBCs and IVF. Plan: 1. 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 He has also not a candidate TAVR (only for not for AI). Continue on current med management. Patient continues to significant output and weight loss with diuresis. Continue on Lasix at 60 mg IV twice daily. Daily weights, I&Os. Monitor BP closely. Patient currently declines to wear telemetry. 2. GI bleed: Secondary gastric varices. Follow-up CTA of the abdomen pelvis was negative for bleeding. Continue be followed by GI hospital services. 3. Acute kidney injury: Resolved, continue monitoring electrolyte renal function on a daily basis with IV diuresis Patient's girlfriend informs me that she would like to take him back [place] of this week, for him to reside, and seek further treatment. 10/25/18 14:59 Subjective: Patient denies of any chest pressure, pain, or palpitations. Reports no shortness of breath. Denies of any lightheadedness, near-syncope or syncopal events. Reviewed/Discussed With: hospitalist (Dr. Rodriguez), other (Dr Arevalo) Objective: Vital Signs (8 Hrs) Temp Pulse Resp BP Pulse Ox 10/25/18 12:23 37.2 C 94 16 96/38 L 97 10/25/18 08:06 92/41 L 10/25/18 07:54 36.6 C 80 16 98/38 L 97 Intake/Output (24 Hrs) 10/24/18 10/25/18 10/26/18 05:59 05:59 05:59 Intake Total 500 900 Output Total 1600 Balance 500 -700 Intake: Oral (ml) 500 900 Output: Urine (ml) 1600 Bedside Commode 1000 Toilet 600 Other: Weight 100.652 kg 96.332 kg Intake Quantity Yes Yes Sufficient Number of Voids Bedside Commode 3 Incontinence 1 Toilet 2 Number of Stools Toilet 1 Result Diagrams: 10/25/18 05:10 10/25/18 05:10 - Physical Exam Constitutional: no apparent distress Ears, Nose, Mouth, Throat: moist mucous membranes Cardiovascular: regular rate and rhythm, no rubs, no gallops, systolic murmur (3 /6 upper sternal border.), jugular vein distention (4-5 cm above sternal notch) , pulses symmetric bilat, No carotid bruit Peripheral Pulses: 1+: dorsalis-pedis (R), dorsalis-pedis (L), 2+: carotid (R), carotid (L) Respiratory: other (Clear but diminished in bases bilateral, no rhonchi, rales, or wheezing noted.) Gastrointestinal: normoactive bowel sounds, guarding Skin: warm, No no edema (+3 peripheral edema bilateral lower extremities up to hips) Neurologic: AAOx3 Psychiatric: cooperative, interactive ICD10 Worksheet Patient Problems: Problems Problem Status Onset Left rib fracture Acute Upper GI bleed Acute Renal insufficiency Acute Anemia Acute
--- NOTE | 2018-10-25 15:57 | ASMTCMCOM ---
CM Note CM Note Notes: Spoke with pt and girlfriend Aleyda in the room. Pt and hospitalist have set goal for pt to discharge on and fly back to [place] with girlfriend to her home. Pt already has Medicaid of [place]. CM reached out to pt's old PCP in [place] Dr. Saran Somers and left a message asking if he could accept pt and write orders for home care in [place] and recommend an agency.Pt will also need Palliative care team in [place], as he perfers to reside there permanently. Pt is current with [facility] and referral has been sent to them. They will need to be notified if pt DCs to [place]. Pt has no help here and is not willing to stay 30 days in a LTC facility. In addition, girlfriend fears if he does rehab here it will be more difficult to get him to [place] for the longterm. CM to follow. D/C Plan: HHC at girlfriend's home in [place] Date Signed: 10/25/2018 03:56 PM Electronically Signed By:Natalie Young
[2018-10-26 05:20] LABS: PLATELET COUNT 77 10^3/uL (150-400)
[2018-10-26 05:31] LABS: INR 2.32 (0.83-1.16); PROTIME(PATIENT) 24.3 SEC (12.0-15.0)
[2018-10-26] MEDS: MIDODRINE HCL 10 MG TAB PO SCH ×3 (06:07→22:21)
[2018-10-26] MEDS: RIFAXIMIN 550 MG TAB PO SCH ×2 (09:00→21:20)
[2018-10-26] MEDS: PANTOPRAZOLE SODIUM 40 MG TAB PO SCH ×2 (09:00→21:20)
[2018-10-26] MEDS: LACTULOSE 20 GM/30 ML UDCUP PO SCH ×3 (09:00→21:20)
[2018-10-26] MEDS: SPIRONOLACTONE 25 MG TAB PO SCH ×2 (09:00→21:20)
[2018-10-26] MEDS: POTASSIUM CL 20 MEQ TAB PO SCH ×3 (09:00→21:20)
[2018-10-26] MEDS: FUROSEMIDE 20 MG/2 ML VIAL IVP SCH (09:00)
--- NOTE | 2018-10-26 11:54 | HOSPPROG ---
Hospitalist Progress Note Assessment/Plan: 53-year-old with alcoholic liver disease and cirrhosis is admitted with rectal bleeding and hematemesis. He initially underwent urgent upper endoscopy which did not show a clear site of bleeding on 10/06 however he did require emergent intubation on 10/07 for airway protection and a BiPAP failure. It was felt that this bleed was related to a lower GI bleed however colonoscopy on 419 only showed as small angioectasia and no other source. He had recurrent bleeding later on in his hospitalization requiring multiple blood products from 10/13 through . During this time he had EGD x4 (10/06, 10/13, 10/14, 10/18) and colonoscopy. They did eventually note gastric varices and he underwent a abdominal CT which confirmed this and he had a emergent TIPS and varicele embolization by IR on 10/16. He did relatively well until 10/19 when he had a large amount of bright red blood per rectum and hypotension, interventional Radiology did an additional embolization and PARTO procedure. During this time he was in the intensive care unit for hemorrhagic shock, hypotension and renal failure complicated by severe valvular heart disease. Over the last several days he has done well with no signs of ongoing bleeding. His respiratory status is stable on room air and his main issue is anasarca and ongoing encephalopathy. # hepatic encephalopathy, mild will continue rifaximin # GI bleed: Secondary to gastric varices, bloody BMs appear to be old blood * Follow-up CTA of the abdomen and pelvis was negative for bleeding * Continue to monitor counts * Appreciate GI follow-up # hypotension on midodrine # acute kidney injury, resolved # alcoholic hepatitis, treated with steroids based on discrete minute function. Anticipate duration of 28 days # AR with severe regurgitation, seen by Cardiology and diuresis recommended as tolerated # Anasarca now with some blistering on legs. * transition to oral lasix and follow up * add nelsy wraps to legs. * consider increasing spironolactone. # alcoholism, patient has been sober since June he has ongoing liver liver disease and coagulopathy Long discussion with girlfriend. She is wanting to take him home to [place] this . I feel that he may not get any better and may decline further after this hospitalization so for long-term prognosis it may be better for him to return to [place] at this time. She is not willing to have him in a skilled rehab for 30 days prior to transferring him to [place]. Plan: Continue diuresis as able until . Plan discharge on patient will go to [place] with his girlfriend and start obtaining care there. At this time I feel this is the best option for his long- term prognosis. We will help set up some home care in [place] Subjective: Swelling is improved on his abdomen and scrotum however continues to have severe swelling in his lower extremities now with blisters. Objective: Vital Signs Temp Pulse Resp BP Pulse Ox 36.7 C 86 13 114/40 L 99 10/26/18 09:16 10/26/18 09:16 10/26/18 09:16 10/26/18 09:16 10/26/18 09:16 Laboratory Results 10/26/18 04:52 10/26/18 04:52 10/25/18 10/26/18 10/27/18 05:59 05:59 05:59 Intake Total 900 880 Output Total 1600 Balance -700 880 PT 24.3 SEC (12.0-15.0) H 10/26/18 04:52 INR 2.32 (0.83-1.16) H 10/26/18 04:52 - Physical Exam Constitutional: chronically ill appearing Eyes: PERRL Ears, Nose, Mouth, Throat: moist mucous membranes Cardiovascular: regular rate and rhythym Respiratory: no respiratory distress Gastrointestinal: soft, non-tender abdomen Genitourinary: other (Scrotal swelling) Skin: No normal color (Jaundice) Neurologic: No facial droop Psychiatric: interacting appropriately ICD10 Worksheet Patient Problems: Problems Problem Status Onset Left rib fracture Acute Upper GI bleed Acute Renal insufficiency Acute Anemia Acute
[2018-10-26] MEDS: FUROSEMIDE 80 MG TAB PO SCH (15:10)
--- NOTE | 2018-10-26 16:08 | PDCARPN ---
Cardiology Progress Note Assessment/Plan: Assessment: Plan: Subjective: No cardiac complaints. Reviewed/Discussed With: family Objective: Vital Signs (8 Hrs) Temp Pulse Resp BP Pulse Ox 10/26/18 15:48 36.5 C 94 16 100/47 L 94 10/26/18 13:16 37.1 C 93 17 91/37 L 94 10/26/18 09:16 36.7 C 86 13 114/40 L 99 Intake/Output (24 Hrs) 10/25/18 10/26/18 10/27/18 05:59 05:59 05:59 Intake Total 900 880 500 Output Total 1600 Balance -700 880 500 Intake: Oral (ml) 900 880 500 Output: Urine (ml) 1600 Bedside Commode 1000 Toilet 600 Other: Weight 100.652 kg 97.7 kg Intake Quantity Yes Sufficient Number of Voids Bedside Commode 3 Incontinence 1 Toilet 1 Number of Stools Toilet 1 0 Result Diagrams: 10/26/18 04:52 10/26/18 04:52 - Physical Exam Constitutional: WDWN, no apparent distress Eyes: anicteric sclera Ears, Nose, Mouth, Throat: moist mucous membranes Cardiovascular: regular rate and rhythm Respiratory: clear to auscultate bilat Skin: other (severe edema/legs wrapped) Neurologic: AAOx3 Psychiatric: not anxious ICD10 Worksheet Patient Problems: Problems Problem Status Onset Anemia Acute Renal insufficiency Acute Upper GI bleed Acute Left rib fracture Acute
[2018-10-27 04:56] LABS: PLATELET COUNT 87 10^3/uL (150-400)
[2018-10-27 05:09] LABS: INR 2.42 (0.83-1.16); PROTIME(PATIENT) 25.1 SEC (12.0-15.0)
[2018-10-27] MEDS: MIDODRINE HCL 10 MG TAB PO SCH ×2 (05:45→14:07)
[2018-10-27] MEDS: LACTULOSE 20 GM/30 ML UDCUP PO SCH (09:15)
[2018-10-27] MEDS: MULTIVITAMINS W-MINERALS 1 EACH TAB PO SCH (09:15)
[2018-10-27] MEDS: SPIRONOLACTONE 25 MG TAB PO SCH (09:15)
[2018-10-27] MEDS: RIFAXIMIN 550 MG TAB PO SCH (09:15)
[2018-10-27] MEDS: POTASSIUM CL 20 MEQ TAB PO SCH (09:16)
[2018-10-27] MEDS: THIAMINE HCL 100 MG TAB PO SCH (09:16)
[2018-10-27] MEDS: FUROSEMIDE 80 MG TAB PO SCH (09:16)
[2018-10-27] MEDS: FOLIC ACID 1 MG TAB PO SCH (09:16)
[2018-10-27] MEDS: PANTOPRAZOLE SODIUM 40 MG TAB PO SCH (09:16)
[2018-10-27] MEDS: FERROUS SULFATE 325 MG TAB PO SCH (09:16)
[2018-10-27 12:05] VITALS: BP 95/41
--- NOTE | 2018-10-27 12:37 | GDS ---
[f rep st] DISCHARGE SUMMARY DIAGNOSES: 1. Gastrointestinal bleed secondary to gastric varices, status post multiple transfusions due to hyp ovolemic sepsis. 2. Hepatic encephalopathy. 3. Hypotension, currently on midodrine. 4. Acute kidney injury, resolved. 5. Alcoholic hepatitis, treated with steroids. 6. Aortic regurgitation, severe regurgitation. 7. Alcoholism. CONSULTATIONS: Cardiology, GI, Critical Care. PROCEDURES DONE: Upper endoscopy 10/06, 10/13, 10/14, 10/18. Colonoscopy on 10/14/2018. Intubation for airway protection. Abdominal CT scan, TIPS procedure, interventional embolization of gastric va rices and PARTO procedure. HOSPITAL COURSE: Mr. Mejia is a 53-year-old with alcoholic liver disease and cirrhosis, who was admi tted with bright red blood per rectum and hematemesis. He underwent urgent upper endoscopy, which di d not reveal a clear site of bleeding. On 10/06, however, he did require emergent intubation on 09/21 7 for airway protection and BiPAP failure. Initially, it was felt this bleed may be related to a low er GI bleed and he underwent a colonoscopy on 10/09, which only showed a small angioectasia and no ot her source. He stabilized, however, had recurrent bleeding later on in his hospitalization, requirin g multiple blood products from 10/13 through 10/20. He had further EGDs on 10/13, 10/14, and 10/18. They did eventually reveal gastric varices and he underwent abdominal CT scan which confirmed this a nd had an emergent TIPS and Interventional Radiology embolization procedure for the gastric varices. He did well until the end of September when he had another large amount of bright red blood per rectum a nd hypotension. Interventional Radiology did an additional embolization and PARTO procedure. Over t he course of his hospitalization, it was complicated by hemorrhagic shock, hypotension and renal fail ure, complicated by severe valvular heart disease with aortic regurg. Cardiology was consulted as we ll as Critical Care and GI. Over the last several days, his bleeding has been controlled. There has been no other signs of bleeding. His respiratory status has improved significantly and his main iss ue is anasarca with ongoing encephalopathy. We have been working on IV diuresis and he has finally b een transitioned over to oral diuresis and will continue oral medications as an outpatient. His plan s are he is going with his girlfriend back to [place] where they will reestablish care there. CONDITION ON DISCHARGE: Guarded. Heart rate is 89, blood pressure 95/41. He is 100% on room air. He is relatively alert. DISCHARGE MEDICATIONS: Please see discharge medication form. FOLLOWUP: He will reestablish care in [place] when he arrives there on . The patient is t enuous and I would prefer him to stay an additional day, however, he is quite anxious to go home and is medically stable at this time. He also needs a repeat electrolyte panel done in the next few days to make sure his electrolytes remain stable as an outpatient on diuresis. Total time spent with patient on day of discharge and coordination of care is 40 minutes. /[id number]/MODL
--- NOTE | 2018-10-27 14:34 | ASMTCMCOM ---
CM Note CM Note Notes: CM discussed case w/ Dr. Rodriguez. Pt is being d/c'd today. Pt is flying back to [place] this . CM notified Michelle of the d/c. Michelle's EDUCATIONAL PSYCHOLOGY PROFESSOR will follow up w/ pt tomorrow at 1PM. Pt will follow up w/ his PCP in [place]. CM available for changes. Plan: Home w/ Michelle palliative and to follow up in [place] Date Signed: 10/27/2018 02:33 PM Electronically Signed By:LEEANNA Garner
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
== END 2018-10-27 14:12 | disposition home or self-care (01) | DRG 169 ==
LOC: F2N 23:34 → F1N 10-12 09:52 → F2N 10-13 15:52 → F3E 10-23 14:15
PROVIDERS: ADMIT Family Medicine; ATTEND Family Medicine
PROC: 30233R1 Transfusion of Nonautologous Platelets into Peripheral Vein, Percutaneous Approach (ICD-10-PCS; 2018-10-05)
PROC: 30233M1 Transfusion of Nonautologous Plasma Cryoprecipitate into Peripheral Vein, Percutaneous Approach (ICD-10-PCS; 2018-10-05)
PROC: 30233N1 Transfusion of Nonautologous Red Blood Cells into Peripheral Vein, Percutaneous Approach (ICD-10-PCS; 2018-10-05)
PROC: 30233K1 Transfusion of Nonautologous Frozen Plasma into Peripheral Vein, Percutaneous Approach (ICD-10-PCS; 2018-10-05)
PROC: 0DJ08ZZ Inspection of Upper Intestinal Tract, Via Natural or Artificial Opening Endoscopic (ICD-10-PCS; 2018-10-06)
PROC: 02HV33Z Insertion of Infusion Device into Superior Vena Cava, Percutaneous Approach (ICD-10-PCS; 2018-10-06)
PROC: 5A1945Z Respiratory Ventilation, 24-96 Consecutive Hours (ICD-10-PCS; 2018-10-07)
PROC: 0BH18EZ Insertion of Endotracheal Airway into Trachea, Via Natural or Artificial Opening Endoscopic (ICD-10-PCS; 2018-10-07)
PROC: 0W3P8ZZ Control Bleeding in Gastrointestinal Tract, Via Natural or Artificial Opening Endoscopic (ICD-10-PCS; 2018-10-09)
PROC: 0DJ08ZZ Inspection of Upper Intestinal Tract, Via Natural or Artificial Opening Endoscopic (ICD-10-PCS; 2018-10-13)
PROC: 0DJ08ZZ Inspection of Upper Intestinal Tract, Via Natural or Artificial Opening Endoscopic (ICD-10-PCS; 2018-10-14)
PROC: 0BH18EZ Insertion of Endotracheal Airway into Trachea, Via Natural or Artificial Opening Endoscopic (ICD-10-PCS; 2018-10-16)
PROC: 5A1945Z Respiratory Ventilation, 24-96 Consecutive Hours (ICD-10-PCS; 2018-10-16)
PROC: 05HN33Z Insertion of Infusion Device into Left Internal Jugular Vein, Percutaneous Approach (ICD-10-PCS; 2018-10-16)
PROC: 06183J4 Bypass Portal Vein to Hepatic Vein with Synthetic Substitute, Percutaneous Approach (ICD-10-PCS; principal; 2018-10-16 15:30)
PROC: 0W9G3ZZ Drainage of Peritoneal Cavity, Percutaneous Approach (ICD-10-PCS; principal; 2018-10-16 15:30)
PROC: 04L23DZ Occlusion of Gastric Artery with Intraluminal Device, Percutaneous Approach (ICD-10-PCS; principal; 2018-10-16 15:30)
PROC: 0DJ08ZZ Inspection of Upper Intestinal Tract, Via Natural or Artificial Opening Endoscopic (ICD-10-PCS; 2018-10-18)
PROC: 05H633Z Insertion of Infusion Device into Left Subclavian Vein, Percutaneous Approach (ICD-10-PCS; 2018-10-18)
PROC: 04L23DZ Occlusion of Gastric Artery with Intraluminal Device, Percutaneous Approach (ICD-10-PCS; 2018-10-19)
PROC: 0B9M8ZX Drainage of Bilateral Lungs, Via Natural or Artificial Opening Endoscopic, Diagnostic (ICD-10-PCS; 2018-10-20)
DX: I86.4 Gastric varices (principal); K70.30 Alcoholic cirrhosis of liver without ascites; I85.11 Secondary esophageal varices with bleeding; D68.4 Acquired coagulation factor deficiency; J96.01 Acute respiratory failure with hypoxia; I95.89 Other hypotension; K70.40 Alcoholic hepatic failure without coma; R57.8 Other shock; D62 Acute posthemorrhagic anemia; N17.9 Acute kidney failure, unspecified; E87.1 Hypo-osmolality and hyponatremia; K70.10 Alcoholic hepatitis without ascites; F10.20 Alcohol dependence, uncomplicated; I11.0 Hypertensive heart disease with heart failure; I50.32 Chronic diastolic (congestive) heart failure; I08.3 Combined rheumatic disorders of mitral, aortic and tricuspid valves; Z66 Do not resuscitate
CPT/HCPCS: 82435-PO; 82565-PO; 82947-PO; 83010-90; 84132-PO; 84295-PO; 84484-ER; 84520-PO; 85014-ER; 92523-GN; 92526-GN; 92610-GN; 96365; 97110-GP; 97116-GP; 97162-GP; 97165-GO; 97530-GO; 97530-GP; 97535-GO; C1725; C1729; C1751; C1769; C1874; C1892; C1894; G0472; G0480; J0171; J0295; J0330; J0696; J0713; J1100; J1642; J1644; J1720; J1940; J2001; J2060; J2354; J2370; J2405; J2704; J2765; J3010; J3411; J3430; J3475; P9012; P9016; P9017; P9021; P9035; P9040; P9041; P9047; P9073; P9100; Q9967